=== PATIENT | female | born 1970 | race Caucasian/White ===

== ENCOUNTER 2017-10-03 20:37 | Emergency (ER) | payer OTHER, SELFPAY ==
[2017-10-03 20:44] VITALS: BP 135/74; PULSE 109; RESP 22; TEMP 38.4; O2SAT 97; BMI 69.0
--- NOTE | 2017-10-03 20:50 | DI.RAD.S_ITS ---
PROCEDURE: XR CHEST 2V INDICATIONS: fever, cough, shortness of breath. TECHNIQUE: 2 views of the chest were acquired. COMPARISON: None. FINDINGS: Surgical changes and devices: None. Lungs and pleura: No pleural effusions or pneumothorax. Lungs are clear. Mediastinum: Mediastinal contours are normal. Heart size is normal. Bones and chest wall: No suspicious bony abnormalities. Soft tissues appear unremarkable. IMPRESSION: No acute cardiopulmonary findings. Dictated by: Nicole Tesfaye M.D. on 10/03/2017 at 21:21 Approved by: Nicole Tesfaye M.D. on 10/03/2017 at 21:21
--- NOTE | 2017-10-03 21:22 | ED.SOB ---
HPI - SOB/Dyspnea General Chief Complaint: Shortness of Breath/Dyspnea Stated Complaint: FEVER,SOB,COUGH Time Seen by Provider: 10/03/17 20:50 Source: patient and family Mode of arrival: ambulatory Limitations: no limitations History of Present Illness 46-year-old female with history of morbid obesity, asthma, former smoking presents with a few days of increasing shortness of breath, cough productive of sputum and fever as high as 101 F. She denies chest pain nor nausea or vomiting. She has a history of pneumonia and states this feels the same. She denies any recent long distance travel or exposure to sick persons. Her last episode of pneumonia was a month or so ago. She had been treated with azithromycin by her primary care provider for the past few days which showed little to no improvement MD Complaint: shortness of breath and cough Onset (ago): day(s) Context: recent illness Severity: moderate Consistency/Duration: constant Relieving factors: rest and bronchodilators Exacerbating factors: movement and coughing Known history of: asthma Associated symptoms: fever, cough, wheezing and sputum production Treatment prior to arrival: bronchodilator Related Data Home oxygen amount: none Home Medications Medication Instructions Recorded Confirmed levothyroxine [Synthroid] 0.05 mg PO QDAY #0 07/11/11 08/25/17 albuterol sulfate [Proventil HFA] PRN #0 08/26/11 08/25/17 insulin NPH isoph U-100 human 90 u SQ BID #0 02/19/16 08/25/17 [Humulin N NPH U-100 Insulin] insulin lispro [Humalog U-100 20 unit SQ AC #0 02/19/16 08/25/17 Insulin] [CANNIBUS OIL] #0 08/09/16 08/25/17 amlodipine 10 mg PO QDAY #0 08/09/16 08/25/17 furosemide 80 mg PO QDAY #0 08/09/16 08/25/17 ibuprofen 800 mg PO TIDP PRN #0 08/09/16 08/25/17 metoprolol tartrate 100 mg PO BID #0 08/09/16 08/25/17 oxycodone 5 mg PO Q8H #0 08/09/16 08/25/17 oxycodone [OxyContin] 10 mg Q6HP PRN #0 01/09/17 08/25/17 beclomethasone dipropionate [Qvar] INH BID #0 02/23/17 08/25/17 Previous Rx's Medication Instructions Recorded oxycodone 5 mg PO Q4HP #20 02/23/17 azithromycin 250 mg tablet See Label Instructions PO .COMPLEX 08/25/17 #6 tab amoxicillin-pot clavulanate 1 tab PO BID #20 tab 10/03/17 [Augmentin] Allergies Allergy/AdvReac Type Severity Reaction Status Date / Time bee venom protein (honey bee) Allergy Severe Anaphylaxis Verified 08/25/17 18:02 clindamycin Allergy Severe RASH Unverified 05/18/17 13:10 zolpidem [From AMBIEN] Allergy Severe hallucinati Unverified 05/18/17 13:10 ons Sulfa (Sulfonamide Allergy Mild RASH, Unverified 05/18/17 13:10 Antibiotics) DIFFICULTY BREATHING vancomycin Allergy Mild HIGH FEVER Unverified 05/18/17 13:10 AND RASH Review of Systems Review of Systems All systems reviewed & are unremarkable except as noted in HPI and below Constitutional Denies chills, Reports fever(s), Denies lethargy and Denies weakness Eyes Denies change in vision, Denies eye discharge, Denies irritation and Denies loss of vision ENT Ears, Nose, Mouth, and Throat: Denies change in voice, Denies neck pain and Denies sore throat Cardiovascular Denies chest pain, Denies irregular heart rhythm, Denies lightheadedness, Denies palpitations, Reports dyspnea, Reports dyspnea on exertion and Denies orthopnea Respiratory Reports cough, Reports dyspnea, Reports dyspnea on exertion and Reports wheezing Gastrointestinal Gastrointestinal: Denies abdominal pain, Denies change in bowel habits, Denies diarrhea, Denies nausea and Denies vomiting Genitourinary Denies hematuria, Denies flank pain, Denies urinary incontinence and Denies urinary urgency Musculoskeletal Denies neck pain Integumentary/Breasts Denies pruritus, Denies erythema, Denies rash and Denies wounds Neurologic Denies confusion, Denies loss of vision and Denies weakness Psychiatric Denies anxiety, Denies confusion, Denies depression, Denies homicidal ideation and Denies suicidal ideation Endocrine Denies palpitations Hematologic/Lymphatic Denies easy bruising Allergic/Immunologic Reports wheezing PFSH Social History Smoking Status: Current every day smoker Exam Narrative Exam Narrative: 46-year-old female in obvious distress, increased work of breathing, tachypneic Initial Vital Signs Initial Vital Signs: Vital Signs Temperature 101.1 F H 10/03/17 20:44 Pulse Rate 109 H 10/03/17 20:44 Respiratory Rate 22 10/03/17 20:44 Blood Pressure 135/74 H 10/03/17 20:44 Pulse Oximetry 97 10/03/17 20:44 Const General: cooperative, well developed and acute distress Nutritional Appearance: obese Orientation: alert, awake, oriented x3 and not confused HENIN Head: normocephalic and atraumatic Ears: external ears normal and TM's normal bilaterally Nose: external nose normal and No nasal discharge Face and sinus: sinuses nontender, face symmetric, no sinus tenderness and No dry mucous membranes Mouth: oral mucosae normal and moist mucous membranes Teeth and gingiva: dentition normal Throat: tonsils normal and uvula midline Eyes General: appearance normal, both eyes and all related structures Eyelids: eyelids normal Conjunctivae: conjunctivae normal Sclera: sclerae normal Pupils: PERRL EOM: EOM intact bilaterally Chest Chest: normal inspection of the chest Resp Effort & Inspection: normal respiratory effort, able to speak in complete sentences, respiratory distress, tachypneic and uses accessory muscles Auscultation: rales, no rhonchi and wheezes Course Orders Ordered: ED Orders 10/03/17 20:50 XR chest 2V Stat 10/03/17 21:15 Complete Blood Count AUTO DIFF Stat Lactate (Lactic Acid) Stat Partial Thromboplastin Time Stat Procalcitonin Stat Prothrombin Time INR Stat 10/03/17 21:21 Blood Culture Stat Comprehensive Metabolic Panel Stat Lipase Stat Discontinued Medications Albuterol/Ipratropium (Duoneb) 3 ml INH NOW ONE Stop: 10/03/17 21:37 Last Admin: 10/03/17 22:17 Dose: 3 ml Sodium Chloride (Normal Saline 0.9%) 1,000 mls @ 1,000 mls/hr IV BOLUS ONE Stop: 10/03/17 21:48 Last Infusion: 10/03/17 23:41 Dose: 0 mls/hr Admin: 10/03/17 22:02 Dose: 1,000 mls/hr Ceftriaxone Sodium/Dextrose (Rocephin) 1 gm in 50 mls @ 100 mls/hr IV NOW ONE Stop: 10/03/17 22:05 Last Infusion: 10/03/17 23:41 Dose: 0 mls/hr Admin: 10/03/17 22:02 Dose: 100 mls/hr Sodium Chloride (Normal Saline 0.9%) 1,000 mls @ 1,000 mls/hr IV BOLUS ONE Stop: 10/03/17 22:35 Last Admin: 10/03/17 23:40 Dose: Not Given Ketorolac Tromethamine (Toradol) 15 mg IV NOW ONE Stop: 10/03/17 21:37 Last Admin: 10/03/17 22:02 Dose: 15 mg Reevaluation(s) Reevaluation #1: Patient feels much better after bronchodilators and other above-stated therapies CURB-65 Score for Pneumonia Severity from [facility] [employer] [facility] on 10/04/2017 All calculations should be rechecked by clinician prior to use RESULT SUMMARY: 0 points Low risk group: 0.6% 30-day mortality. Consider outpatient treatment. INPUTS: Confusion ?> 0 = No BUN > 19 mg/dL (> 7 mmol/L) ?> 0 = No Respiratory Rate ? 30 ?> 0 = No Systolic BP < 90 mmHg or Diastolic BP ? 60 mmHg ?> 0 = No Age ? 64 ?> 0 = No PSI/PORT Score: Pneumonia Severity Index for CAP from [facility] [employer] [facility] on 10/04/2017 All calculations should be rechecked by clinician prior to use RESULT SUMMARY: 37 points Risk Class I, 0.1% mortality. Outpatient treatment reasonable, barring other factors affecting care. INPUTS: Age ?> 46 years Sex ?> -10 = Female residential resident ?> 0 = No Neoplastic disease ?> 0 = No Liver disease history ?> 0 = No CHF history ?> 0 = No Cerebrovascular disease history ?> 0 = No Renal disease history ?> 0 = No Altered mental status ?> 0 = No Respiratory rate > 29 ?> 0 = No Systolic blood pressure < 90 mmHg ?> 0 = No Temperature < 35C (95F) or > 39.9C (103.8F) ?> 0 = No Pulse > 124 ?> 0 = No pH < 7.35 ?> 0 = No BUN > 29 ?> 0 = No Sodium < 130 ?> 0 = No Glucose > 249 (US) or > 13.8 (SI) ?> 0 = No Hematocrit < 30% ?> 0 = No Partial pressure of oxygen < 60 mmHg ?> 0 = No Pleural effusion on x-ray ?> 0 = No Vital Signs - 8 hr 10/03/17 20:44 10/03/17 22:22 10/03/17 22:40 Temperature 101.1 F H Pulse Rate 109 H 100 H 106 H Respiratory Rate 18 17 Blood Pressure 135/74 H Blood Pressure [Left Arm] 117/59 L Pulse Oximetry 97 96 97 10/03/17 23:01 10/04/17 00:03 Temperature Pulse Rate 105 H 84 Respiratory Rate 27 H 18 Blood Pressure 114/63 Blood Pressure [Left Arm] 108/65 Pulse Oximetry 95 98 MDM - SOB/Dyspnea Lab Data Result diagrams: 10/03/17 21:15 10/03/17 21:21 Lab Results 10/03/17 10/03/17 10/03/17 Range/Units 21:15 21:15 21:15 WBC 13.5 H (4.5-11.0) X10^3/uL RBC 4.67 (4.0-5.2) X10^6/uL Hgb 13.8 (12.0-16.0) g/dL Hct 40.1 (36-46) % MCV 85.8 (80-100) fL MCH 29.6 (26-34) PG MCHC 34.5 (30-36) % RDW 13.7 (11.6-14.8) % Plt Count 124 L (150-400) X10^3/uL Neut % (Auto) 91.0 H (50-75) % Lymph % (Auto) 4.6 L (25-40) % [place] % (Auto) 3.2 (3-14) % Eos % (Auto) 0.8 L (2-4) % Baso % (Auto) 0.4 (0-2) % Neut # (Auto) 48214 H (6260-8062) /uL PT 13.0 H (10.1-12.7) SECONDS INR 1.2 (0.9-1.3) APTT 30 (26.4-36.2) SECONDS Sodium (137-145) mmol/L Potassium (3.4-5.1) mmol/L Chloride (98-107) mmol/L Carbon Dioxide (22-32) mmol/L BUN (7-17) mg/dL Creatinine (0.52-1.04) mg/dL Estimated GFR (>60) mL/min BUN/Creatinine Ratio (6-22) Glucose (70-100) mg/dL Lactate (0.7-2.1) mmol/L Calcium (8.4-10.2) mg/dL Total Bilirubin (0.2-1.3) mg/dL AST (14-36) IU/L ALT (9-52) IU/L Alkaline Phosphatase (38-126) U/L Total Protein (6.3-8.2) g/dL Albumin (3.5-5.0) g/dL Globulin (1.7-4.1) g/dL Albumin/Globulin Ratio (1.0-2.8) Lipase (23-300) U/L Procalcitonin 0.42 (<0.5) ng/mL 10/03/17 10/03/17 Range/Units 21:15 21:21 WBC (4.5-11.0) X10^3/uL RBC (4.0-5.2) X10^6/uL Hgb (12.0-16.0) g/dL Hct (36-46) % MCV (80-100) fL MCH (26-34) PG MCHC (30-36) % RDW (11.6-14.8) % Plt Count (150-400) X10^3/uL Neut % (Auto) (50-75) % Lymph % (Auto) (25-40) % [place] % (Auto) (3-14) % Eos % (Auto) (2-4) % Baso % (Auto) (0-2) % Neut # (Auto) (7237-2963) /uL PT (10.1-12.7) SECONDS INR (0.9-1.3) APTT (26.4-36.2) SECONDS Sodium 139 (137-145) mmol/L Potassium 4.0 (3.4-5.1) mmol/L Chloride 104 (98-107) mmol/L Carbon Dioxide 23 (22-32) mmol/L BUN 15 (7-17) mg/dL Creatinine 0.70 (0.52-1.04) mg/dL Estimated GFR > 60.0 (>60) mL/min BUN/Creatinine Ratio 21.4 (6-22) Glucose 147 H (70-100) mg/dL Lactate 1.6 (0.7-2.1) mmol/L Calcium 9.4 (8.4-10.2) mg/dL Total Bilirubin 1.7 H (0.2-1.3) mg/dL AST 24 (14-36) IU/L ALT 24 (9-52) IU/L Alkaline Phosphatase 86 (38-126) U/L Total Protein 7.6 (6.3-8.2) g/dL Albumin 4.2 (3.5-5.0) g/dL Globulin 3.4 (1.7-4.1) g/dL Albumin/Globulin Ratio 1.2 (1.0-2.8) Lipase 30 (23-300) U/L Procalcitonin (<0.5) ng/mL MDM Narrative Medical decision making narrative: Patient with known asthma and history of smoking presents with symptoms consistent with pneumonia. Vital signs are stable and chest x-ray unremarkable. Labs note a mild bump in white blood cells which is expected. Patient improved clinically with typical therapies, had not been maximally treated as an outpatient, and has very low port score and curb 65 Discharge Plan Departure Patient Disposition: Home Clinical Impression: Pneumonia, Asthma exacerbation Discharge Date/Time: 10/04/17 00:03 Interventions: ED Discharge Assessment Last Done: 10/04/17 00:03 Instructions: DI for Pneumonia -- Adult Activity Restrictions/Additional Instructions: *You have been diagnosed with [ acute community-acquired pneumonia and asthma exacerbation ] *What to do: *Take medications as directed *Follow up with your primary care provider in 2-3 days, call for an appointment. Let them know you were seen in the Emergency Department and that we ask that you be seen in follow up *Return to ER if you should have any new, worsening or concerning symptoms, such as [ worsening shortness of breath, persistent vomiting, shaking chills, other bothersome symptoms] Prescriptions: New amoxicillin-pot clavulanate [Augmentin] 875-125 mg tablet 1 tab PO BID Qty: 20 RF: 0 No Action azithromycin 250 mg tablet See Label Instructions PO .COMPLEX Qty: 6 RF: 0 levothyroxine [Synthroid] 50 MCG tablet 0.05 mg PO QDAY Qty: 0 RF: 0 albuterol sulfate [Proventil HFA] 90 MCG/PUFF HFA aerosol inhaler PRN Qty: 0 RF: 0 insulin NPH isoph U-100 human [Humulin N NPH U-100 Insulin] 100 UNIT/1 ML suspension 90 u SQ BID Qty: 0 RF: 0 insulin lispro [Humalog U-100 Insulin] 100 UNIT/1 ML solution 20 unit SQ AC Qty: 0 RF: 0 furosemide 80 MG tablet 80 mg PO QDAY Qty: 0 RF: 0 ibuprofen 200 MG capsule 800 mg PO TIDP PRNQty: 0 RF: 0 oxycodone 5 MG tablet 5 mg PO Q8H Qty: 0 RF: 0 metoprolol tartrate 100 MG tablet 100 mg PO BID Qty: 0 RF: 0 amlodipine 10 MG tablet 10 mg PO QDAY Qty: 0 RF: 0 [CANNIBUS OIL] Qty: 0 RF: 0 oxycodone [OxyContin] 40 MG tablet,oral only,ext.rel.12 hr 10 mg Q6HP PRNQty: 0 RF: 0 beclomethasone dipropionate [Qvar] 80 mcg/actuation Aerosol INH BID Qty: 0 RF: 0 oxycodone 5 MG tablet 5 mg PO Q4HP Qty: 20 RF: 0 Referrals: [Primary Care Provider] -
[2017-10-03 21:29] LABS: Add Manual Diff / Slide Review NO; Basophils Percent Auto 0.4 % (0-2); Eosinophils Percent Auto 0.8 % (2-4); Hematocrit 40.1 % (36-46); Hemoglobin 13.8 g/dL (12.0-16.0); Lymphocytes Percent Auto 4.6 % (25-40); Mean Corpuscular HGB Conc 34.5 % (30-36); Mean Corpuscular Hemoglobin 29.6 PG (26-34); Mean Corpuscular Volume 85.8 fL (80-100); Monocytes Percent Auto 3.2 % (3-14); Neutrophils Absolute Auto 12200 /uL (3000-5900); Platelet Count 124 X10^3/uL (150-400); Red Blood Cell Count 4.67 X10^6/uL (4.0-5.2); Red Cell Distribution Width 13.7 % (11.6-14.8); White Blood Cell Count 13.5 X10^3/uL (4.5-11.0)
[2017-10-03 21:37] LABS: INR 1.2 (0.9-1.3)
[2017-10-03 21:39] LABS: PTT Partial Thromboplastin Tim 30 SECONDS (26.4-36.2)
[2017-10-03 21:40] LABS: Lactate (Lactic Acid) 1.6 mmol/L (0.7-2.1)
[2017-10-03 21:51] LABS: Alanine Aminotransferase 24 IU/L (9-52); Albumin 4.2 g/dL (3.5-5.0); Albumin Globulin Ratio 1.2 (1.0-2.8); Alkaline Phosphatase 86 U/L (38-126); Aspartate Aminotransferase 24 IU/L (14-36); BUN Creatinine Ratio 21.4 (6-22); Bilirubin Total 1.7 mg/dL (0.2-1.3); Blood Urea Nitrogen 15 mg/dL (7-17); Calcium 9.4 mg/dL (8.4-10.2); Carbon Dioxide 23 mmol/L (22-32); Chloride 104 mmol/L (98-107); Estimated Glomerular Filt Rate > 60.0 mL/min (>60); Globulin 3.4 g/dL (1.7-4.1); Glucose 147 mg/dL (70-100); HEMOLYSIS < 15 (0-50); Lipase 30 U/L (23-300); Sodium 139 mmol/L (137-145); Total Protein 7.6 g/dL (6.3-8.2)
[2017-10-03 22:00] LABS: Procalcitonin 0.42 ng/mL (<0.5)
[2017-10-03] MEDS: KETOROLAC 60 MG/2 ML VIAL 15 MG IV (22:02)
[2017-10-03] MEDS: CEFTRIAXONE 1 GM/50 ML FROZ.PIGGY IV (22:02)
[2017-10-03] MEDS: SODIUM CHLORIDE 0.9% 1,000 ML 1000 ML IV (22:02)
[2017-10-03] MEDS: ALBUTEROL/IPRATROPIUM 3 ML AMPUL INH (22:17)
[2017-10-03 22:22] VITALS: PULSE 100; RESP 18; O2SAT 96
[2017-10-03 22:40] VITALS: BP 117/59; PULSE 106; RESP 17; O2SAT 97
[2017-10-03 23:01] VITALS: BP 108/65; PULSE 105; RESP 27; O2SAT 95
--- NOTE | 2017-10-03 23:37 | PC.NURSE ---
cough, congestions, soa with exertion, worsening over several weeks, reports treated for pneumonia last month, other family members ill with similar sx, denies cp/dyspnea/vomiting/diarrhea/dysuria/trauma, speaking in full sentences, lung sounds diminished
[2017-10-04 00:03] VITALS: BP 114/63; PULSE 84; RESP 18; O2SAT 98
== END 2017-10-04 00:03 | disposition home or self-care (01) ==
PROVIDERS: Emergency Provider Emergency Medicine; Family Provider Physician Assistant
DX: J18.9 Pneumonia, unspecified organism (principal); J45.901 Unspecified asthma with (acute) exacerbation
CPT/HCPCS: 36415; 36591; 71046; 80053; 83605; 83690; 84145; 85025; 85610; 85730; 87040; 94640; 96361; 96374; 96375; 99283; 99284; J1885

== ENCOUNTER 2018-04-15 19:39 | Observation (INO) | payer OTHER, SELFPAY ==
--- NOTE | 2018-04-15 | DI.ECHO.S_ITS ---
[facility]---------+ [facility] +---------+ : : [address] [place] [address] : : : : [id number] : : : : Phone: [phone]+ Echocardiogram Report + + :Name: WHITNEY RITTER Study Date: 04/16/2018 Height: 64.5 in: :[facility] Weight: 425 lb : : Gender: Female BSA: 2.7 m2 : :: 1970 Age: 47 yrs BP: 142/76 mmHg: :Reason For Study: TIA : :Ordering Physician: Pro : :Hospitalist Performed By: Ezequiel Ramirez : :Referring: YAMILKA CALL : + + Interpretation Summary The study quality was technically difficult. The left ventricular ejection fraction is grossly normal. The right ventricle is not well visualized. The IVC is dilated (diameter is greater than 2.1 cm) and it collapses less than 50% with a sniff. This suggests a high right atrial pressure of 15 mm Hg. An agitated saline contast/bubble study was performed with and without valsalva. Unfortunately the image quality is too poor to make any conclusions. Consider LENNY. There is no prior echocardiogram noted for this patient. Procedure: A two-dimensional transthoracic echocardiogram with color flow and Doppler was performed. The study quality was technically difficult. A contrast injection of Definity was performed to improve assessment of LV function. A saline contrast injection was performed to assess for cardiac shunting. There is no prior echocardiogram noted for this patient. The patient was in normal sinus rhythm during the exam. Left Ventricle: Proximal septal thickening is noted. The left ventricle is not well visualized. Grossly normal size with probably increased LV wall thickness. The left ventricular ejection fraction is grossly normal. Regional wall motion abnormalities cannot be excluded due to limited visualization. Diastolic function could not be accurately assessed due to unobtainable data. Right Ventricle: The right ventricle is not well visualized. Atria: The left atrium is severely dilated. Right atrium not well visualized. An agitated saline contast/bubble study was performed with and without valsalva. Unfortunately the image quality is too poor to make any conclusions. Consider LENNY. Mitral Valve: The mitral valve is grossly normal. There is mild mitral annular calcification. There is mild mitral regurgitation. Aortic Valve: The aortic valve is not well visualized. There is no hemodynamically significant valvular aortic stenosis. There is trace aortic regurgitation. Tricuspid Valve: The tricuspid valve is not well visualized. Pulmonary artery pressures cannot be estimated because of the lack of a measurable TR jet velocity. Pulmonic Valve: The pulmonic valve is not well visualized. Great Vessels: The aortic root is normal size. The ascending aorta could not be visualized. The pulmonary is not well visualized. The IVC is dilated (diameter is greater than 2.1 cm) and it collapses less than 50% with a sniff. This suggests a high right atrial pressure of 15 mm Hg. Pericardium/ Pleura There is no pericardial effusion. There is no pleural effusion. MMode/2D Measurements & Calculations Ao Arch Diam (Prox Trans): 3.5 cm IVC diam: 3.0 cm Doppler Measurements & Calculations Ao V2 max: 188.9 cm/sec LVOT Max Fernando: 141.6 cm/sec Ao V2 mean: 130.0 cm/sec LV V1 max P.0 mmHg Ao max P.3 mmHg LV V1 VTI: 36.2 cm Ao mean P.5 mmHg sev ratio: 0.88 Ao V2 VTI: 41.1 cm MV E max fernando: 96.7 cm/sec MV A max fernando: 58.0 cm/sec MV E/A: 1.7 MV dec time: 0.23 sec Electronically signed by: Norris Zacarias M.D. on Reading Physician:04/16/2018 01:55 PM
[2018-04-15 19:45] VITALS: BP 117/46; PULSE 78; RESP 22; TEMP 36.5; O2SAT 96; BMI 71.8
--- NOTE | 2018-04-15 19:49 | DI.CT.S_ITS ---
PROCEDURE: CT HEAD/BRAIN WO CON INDICATIONS: numbness to face and arm, TPA candidate TECHNIQUE: Noncontrast 4.5 mm thick angled axial sections acquired from the foramen magnum to the vertex, with coronal and sagittal reformats. For radiation dose reduction, the following was used: automated exposure control, adjustment of mA and/or kV according to patient size. COMPARISON: [facility], CT, ABDOMEN/PELVIS WITH CONTRAST, 01/09/2017, 21:20. [facility], CT, KIDNEY/ URETER/BLADDER, 11/29/2012, 10:06. [facility], CT, ABD/PELVIS W/CON (PNL), 09/18/2010, 14:54. [facility], CT, HEAD WITHOUT CONTRAST, 08/13/2008, 16:09. FINDINGS: Image quality: Excellent. CSF spaces: Basal cisterns are patent. No extra-axial fluid collections. Ventricles are normal in size and shape. Brain: No midline shift. No intracranial masses or hemorrhage. Herrera-white matter interface is normal. There is ossification of the intracranial vasculature. There is a subcentimeter hypoattenuating focus within the right basal ganglia. Skull and face: Calvarium and visualized facial bones are intact, without suspicious lesions. Sinuses: Visualized sinuses and mastoids are clear. IMPRESSION: 1. No acute intracranial hemorrhage or large territorial infarct. 2. Subcentimeter hypoattenuating focus within the right basal ganglia, which may represent an age-indeterminate lacunar infarct (favor chronic) or dilated perivascular space. Findings discussed with the referring provider Dr. Luis Alfredo La by telephone by Dr. Sahni at approximately 2015 hrs. on 04/15/2018. Dictated by: Freddie Sahni M.D. on 04/15/2018 at 20:13 Approved by: Freddie Sanhi M.D. on 04/15/2018 at 20:21
--- NOTE | 2018-04-15 19:58 | ED.NEUROSD ---
HPI - Neuro Symptoms/Deficit General Chief Complaint: Neuro Symptoms/Deficit Stated Complaint: numbness in left side of face and arm Time Seen by Provider: 04/15/18 19:48 Source: patient and family Mode of arrival: ambulatory Limitations: no limitations History of Present Illness HPI Narrative: 47-year-old female daily smoker with history of morbid obesity, hypertension, and diabetes presents with 90 min left-sided facial numbness and left arm numbness. She denies any other neurologic symptoms such as blurred vision, trouble with speech or extremity weakness. She states it started suddenly 90 min ago. She denies any recent trauma or injury. She denies runny nose, sore throat or cough. She does states that numbness started almost immediately after she developed a metallic taste in her mouth and felt like something fell out from between some of her upper teeth. Onset (ago): minute(s) Time: 18:30 Timing confirmed by: family member Location: left face and left arm History of same: No Severity: mild Quality: tingling Relieving factors: none Exacerbating factors: none Context: sudden onset On Anticoagulants: No Associated symptoms: denies other symptoms Treatments Prior to Arrival: none Related Data Home Medications Medication Instructions Recorded Confirmed levothyroxine [Synthroid] 0.05 mg PO QDAY #0 07/11/11 08/25/17 Proventil HFA 2 INHALATION Q4HRWA #0 08/26/11 08/25/17 insulin NPH isoph U-100 human 90 u SQ BID #0 02/19/16 08/25/17 [Humulin N NPH U-100 Insulin] insulin lispro [Humalog U-100 20 unit SQ AC #0 02/19/16 08/25/17 Insulin] [CANNIBUS OIL] #0 08/09/16 08/25/17 amlodipine 10 mg PO QDAY #0 08/09/16 08/25/17 furosemide 80 mg PO QDAY #0 08/09/16 08/25/17 ibuprofen 800 mg PO TIDP PRN #0 08/09/16 08/25/17 metoprolol tartrate 100 mg PO BID #0 08/09/16 08/25/17 oxycodone 5 mg PO Q8H #0 08/09/16 08/25/17 oxycodone [OxyContin] 10 mg Q6HP PRN #0 01/09/17 08/25/17 beclomethasone dipropionate [Qvar] INH BID #0 02/23/17 08/25/17 Previous Rx's Medication Instructions Recorded oxycodone 5 mg PO Q4HP #20 02/23/17 azithromycin 250 mg tablet See Rx Instructions PO .COMPLEX #6 08/25/17 tab amoxicillin-pot clavulanate 1 tab PO BID #20 tab 10/03/17 [Augmentin] Allergies Allergy/AdvReac Type Severity Reaction Status Date / Time bee venom protein (honey bee) Allergy Severe Anaphylaxis Verified 08/25/17 18:02 clindamycin Allergy Severe RASH Unverified 05/18/17 13:10 zolpidem [From AMBIEN] Allergy Severe hallucinati Unverified 05/18/17 13:10 ons Sulfa (Sulfonamide Allergy Mild RASH, Unverified 05/18/17 13:10 Antibiotics) DIFFICULTY BREATHING vancomycin Allergy Mild HIGH FEVER Unverified 05/18/17 13:10 AND RASH Review of Systems Constitutional Denies chills, Denies fever(s), Denies lethargy and Denies weakness Eyes Denies change in vision, Denies eye discharge, Denies irritation and Denies loss of vision ENT Ears, Nose, Mouth, and Throat: Denies change in voice, Denies neck pain and Denies sore throat Cardiovascular Denies chest pain, Denies irregular heart rhythm, Denies lightheadedness, Denies palpitations, Denies dyspnea, Denies dyspnea on exertion and Denies orthopnea Respiratory Denies cough, Denies dyspnea, Denies dyspnea on exertion and Denies wheezing Gastrointestinal Gastrointestinal: Denies abdominal pain, Denies change in bowel habits, Denies diarrhea, Denies nausea and Denies vomiting Genitourinary Denies hematuria, Denies flank pain, Denies urinary incontinence and Denies urinary urgency Musculoskeletal Denies neck pain and Reports tingling Integumentary/Breasts Denies pruritus, Denies erythema, Denies rash and Denies wounds Neurologic Denies confusion, Denies loss of vision, Reports sensory deficit, Reports tingling and Denies weakness Psychiatric Denies anxiety, Denies confusion, Denies depression, Denies homicidal ideation and Denies suicidal ideation Endocrine Denies palpitations Hematologic/Lymphatic Denies easy bruising Allergic/Immunologic Denies wheezing [facility] Social History Smoking Status: Current every day smoker Social History household members: spouse and children Smoking Status: Former smoker alcohol intake: never Exam Narrative Exam Narrative: GENERAL: Morbidly obese 47-year-old female in no obvious or significant distress HEAD: Atraumatic. Normocephalic. No temporal or scalp tenderness. EYES: Pupils equal round and reactive. Extraocular motions intact. No scleral icterus. No injection or drainage. ENT: Nose without bleeding, purulent drainage or septal hematoma. Throat without erythema, tonsillar hypertrophy or exudate. Uvula midline. Airway patent. NECK: Trachea midline. No JVD or lymphadenopathy. Supple, nontender, no meningeal signs. CARDIOVASCULAR: Regular rate and rhythm without murmurs, gallops, or rubs. RESPIRATORY: Clear to auscultation. Breath sounds equal bilaterally. No wheezes, rales, or rhonchi. GASTROINTESTINAL: Abdomen soft, non-tender, nondistended. No hepato-splenomegaly, or palpable masses. No guarding. EXTREMITIES: No clubbing, cyanosis, erythema or pain BACK: Nontender without deformity or crepitance. No flank tenderness. NEURO: AOx3. SKIN: No rash or erythema. Initial Vital Signs Initial Vital Signs: Vital Signs Temperature 97.7 F 04/15/18 19:45 Pulse Rate 78 04/15/18 19:45 Respiratory Rate 22 04/15/18 19:45 Blood Pressure 117/46 L 04/15/18 19:45 Pulse Oximetry 96 04/15/18 19:45 Scores ABCD2 Age >= 60 years: no Initial BP. Either SBP >= 140 or DBP >= 90.: no Clinical features of the TIA: other symptoms Duration of symptoms: >= 60 minutes History of diabetes: yes ABCD2 Score: 3 Course Orders Ordered: ED Orders 04/15/18 19:49 CT head/brain wo con Stat Urine Drug Screen, Rapid Stat EKG-12 Lead Stat 04/15/18 20:40 Basic Metabolic Panel Stat Complete Blood Count AUTO DIFF Stat Partial Thromboplastin Time Stat Prothrombin Time INR Stat 04/15/18 22:56 Education, smoking cessation ONGOING 04/15/18 22:59 Consult to Dietitian, Adult Routine 04/15/18 23:00 Consult to Discharge Planning Routine Consult to Respiratory Therapy Evaluate & Treat 04/15/18 23:01 Consult to Speech Therapy Evaluate & Treat 04/15/18 23:39 Consult to Occupational Therapy Evaluate & Treat Consult to Physical Therapy Evaluate & Treat 04/16/18 Complete Blood Count AUTO DIFF Routine Comprehensive Metabolic Panel Routine Hemoglobin A1C % Routine Lipid Panel Routine Dextrose (D50w) 25 gm IV PRN PRN; Protocol PRN Reason: Hypoglycemia Enoxaparin Sodium (Lovenox) 40 mg SUBCUT DAILY [facility] Potassium Chloride 40 meq/ (Sodium Chloride) 520 mls @ 130 mls/hr IV NOW ONE Stop: 04/16/18 03:31 Insulin Aspart (Novolog Flexpen) 0 unit SUBCUT ACHS NATE; Protocol Last Admin: 04/16/18 00:18 Dose: Not Given Morphine Sulfate (Morphine) 2 mg IV Q4HR PRN PRN Reason: Pain, Moderate (4-6) Morphine Sulfate (Morphine) 4 mg IV Q4HR PRN PRN Reason: Pain, Severe (7-10) Ondansetron HCl (Zofran Odt) 4 mg PO Q8HR PRN PRN Reason: Nausea And Vomiting Ondansetron HCl (Zofran) 4 mg IV Q8HR PRN PRN Reason: Nausea And Vomiting Discontinued Medications Sodium Chloride (Normal Saline 0.9%) 1,000 mls @ 150 mls/hr IV CONT NATE Last Admin: 04/15/18 22:48 Dose: 150 mls/hr Infusion: 04/15/18 22:25 Dose: 0 mls/hr Admin: 04/15/18 20:46 Dose: 150 mls/hr Vital Signs - 8 hr 04/15/18 19:45 04/15/18 20:31 04/15/18 22:15 Temperature 97.7 F 97.7 F Pulse Rate 78 65 60 Respiratory Rate 22 19 24 Blood Pressure 117/46 L 141/72 H Blood Pressure [Left Arm] 115/38 L Pulse Oximetry 96 96 97 04/15/18 22:24 04/15/18 23:25 04/16/18 00:12 Temperature 97.2 F L Pulse Rate 60 65 Respiratory Rate 20 15 Blood Pressure 116/44 L 143/78 H Blood Pressure [Left Arm] Pulse Oximetry 100 97 97 MDM - Neuro Symptoms/Deficit Lab Data Result diagrams: 04/15/18 20:40 04/15/18 20:40 Lab Results 04/15/18 04/15/18 04/15/18 Range/Units 20:40 20:40 20:40 WBC 8.0 (4.5-11.0) X10^3/uL RBC 4.41 (4.0-5.2) X10^6/uL Hgb 13.0 (12.0-16.0) g/dL Hct 38.3 (36-46) % MCV 86.8 (80-100) fL MCH 29.5 (26-34) PG MCHC 34.0 (30-36) % RDW 14.5 (11.6-14.8) % Plt Count 150 (150-400) X10^3/uL Neut % (Auto) 79.5 H (50-75) % Lymph % (Auto) 12.8 L (25-40) % [place] % (Auto) 4.7 (3-14) % Eos % (Auto) 2.4 (2-4) % Baso % (Auto) 0.6 (0-2) % Neut # (Auto) 6300 (1046-7538) /uL Lymph # (Auto) 1000 L (0116-8525) /uL [place] # (Auto) 400 (0-900) /uL Eos # (Auto) 200 (0-450) /uL Baso # (Auto) 0 (0-100) /uL PT 13.5 H (10.1-12.7) SECONDS INR 1.2 (0.9-1.3) APTT 31 (26.4-36.2) SECONDS Sodium 138 (137-145) mmol/L Potassium 3.2 L (3.4-5.1) mmol/L Chloride 98 (98-107) mmol/L Carbon Dioxide 28 (22-32) mmol/L BUN 13 (7-17) mg/dL Creatinine 0.80 (0.52-1.04) mg/dL Estimated GFR > 60.0 (>60) mL/min BUN/Creatinine Ratio 16.3 (6-22) Glucose 195 H (70-100) mg/dL Calcium 8.8 (8.4-10.2) mg/dL Point of Care Testing Glucose POC [address] scan - head: Radiologist's impression: [address] [address] [address] Scan Report Signed Patient: Kristine Orourke JMR#: [id number] : 1970Acct:[id number] Age/Sex: 47 / FDate of Service: 04/15/18 Loc: ED Accession Number: [id number] Procedure: CT head/brain wo con Ordering Provider: Luis Alfredo La D.O. PROCEDURE: CT HEAD/BRAIN WO CON INDICATIONS: numbness to face and arm, TPA candidate TECHNIQUE: Noncontrast 4.5 mm thick angled axial sections acquired from the foramen magnum to the vertex, with coronal and sagittal reformats. For radiation dose reduction, the following was used: automated exposure control, adjustment of mA and/or kV according to patient size. COMPARISON: [facility], CT, ABDOMEN/PELVIS WITH CONTRAST, 01/09/2017, 21:20. [facility], CT, KIDNEY/ URETER/BLADDER, 11/29/2012, 10:06. [facility], CT, ABD/PELVIS W/CON (PNL), 09/18/2010, 14:54. [facility], CT, HEAD WITHOUT CONTRAST, 08/13/2008, 16:09. FINDINGS: Image quality: Excellent. CSF spaces: Basal cisterns are patent. No extra-axial fluid collections. Ventricles are normal in size and shape. Brain: No midline shift. No intracranial masses or hemorrhage. Herrera-white matter interface is normal. There is ossification of the intracranial vasculature. There is a subcentimeter hypoattenuating focus within the right basal ganglia. Skull and face: Calvarium and visualized facial bones are intact, without suspicious lesions. Sinuses: Visualized sinuses and mastoids are clear. IMPRESSION: 1. No acute intracranial hemorrhage or large territorial infarct. 2. Subcentimeter hypoattenuating focus within the right basal ganglia, which may represent an age-indeterminate lacunar infarct (favor chronic) or dilated perivascular space. Findings discussed with the referring provider Dr. Luis Alfredo La by telephone by Dr. Sahni at approximately 2015 hrs. on 04/15/2018. Dictated by: Freddie Sahni M.D. on 04/15/2018 at 20:13 Approved by: Freddie Sahni M.D. on 04/15/2018 at 20:21 [facility] Narrative Medical decision making narrative: 47-year-old female, morbidly obese with history of hypertension diabetes presents with 90 min left-sided facial numbness and tingling as well as left upper extremity. Her ABCD2 score is 3, she has evidence of prior stroke on head CT. She has improvement of symptoms but still some lingering facial tingling. She will require further evaluation and observation in the hospital Discharge Plan Departure Patient Disposition: Admitted as Observation Clinical Impression: Transient cerebral ischemia Qualifiers: Transient cerebral ischemia type: other Qualified Code(s): G45.8 - Other transient cerebral ischemic attacks and related syndromes Discharge Date/Time: 04/15/18 22:25 Interventions: ED Discharge Assessment Last Done: 04/15/18 22:24 Admit Date/Time: 04/15/18 21:35 Admit Provider: Jens Desai
--- NOTE | 2018-04-15 20:01 | ED_ITS ---
HPI - Neuro Symptoms/Deficit General Chief Complaint: Neuro Symptoms/Deficit Stated Complaint: numbness in left side of face and arm Time Seen by Provider: 04/15/18 19:48 Source: patient and family Mode of arrival: ambulatory Limitations: no limitations History of Present Illness HPI Narrative: 47-year-old female daily smoker with history of morbid obesity, hypertension, and diabetes presents with 90 min left-sided facial numbness and left arm numbness. She denies any other neurologic symptoms such as blurred v ision, trouble with speech or extremity weakness. She states it started suddenly 90 min ago. She denies any recent trauma or injury. She denies runny nose, sore throat or cough. She does states that numbness started almost immediately after she developed a metallic taste in her mouth and felt like something fell out from between some of her upper teeth. Onset (ago): minute(s) Time: 18:30 Timing confirmed by: family member Location: left face and left arm History of same: No Severity: mild Quality: tingling Relieving factors: none Exacerbating factors: none Context: sudden onset On Anticoagulants: No Associated symptoms: denies other symptoms Treatments Prior to Arrival: none Related Data Home Medications Medication Instructions Recorded Confirmed levothyroxine [Synthroid] 0.05 mg PO QDAY #0 07/11/11 08/25/17 Proventil HFA 2 INHALATION Q4HRWA #0 08/26/11 08/25/17 insulin NPH isoph U-100 human 90 u SQ BID #0 02/19/16 08/25/17 [Humulin N NPH U-100 Insulin] insulin lispro [Humalog U-100 20 unit SQ AC #0 02/19/16 08/25/17 Insulin] [CANNIBUS OIL] #0 08/09/16 08/25/17 amlodipine 10 mg PO QDAY #0 08/09/16 08/25/17 furosemide 80 mg PO QDAY #0 08/09/16 08/25/17 ibuprofen 800 mg PO TIDP PRN #0 08/09/16 08/25/17 metoprolol tartrate 100 mg PO BID #0 08/09/16 08/25/17 oxycodone 5 mg PO Q8H #0 08/09/16 08/25/17 oxycodone [OxyContin] 10 mg Q6HP PRN #0 01/09/17 08/25/17 beclomethasone dipropionate [Qvar] INH BID #0 02/23/17 08/25/17 Previous Rx's Medication Instructions Recorded oxycodone 5 mg PO Q4HP #20 02/23/17 azithromycin 250 mg tablet See Rx Instructions PO .COMPLEX #6 08/25/17 tab amoxicillin-pot clavulanate 1 tab PO BID #20 tab 10/03/17 [Augmentin] Allergies Allergy/AdvReac Type Severity Reaction Status Date / Time bee venom protein (honey bee) Allergy Severe Anaphylaxis Verified 08/25/17 18:02 clindamycin Allergy Severe RASH Unverified 05/18/17 13:10 zolpidem [From AMBIEN] Allergy Severe hallucinati Unverified 05/18/17 13:10 ons Sulfa (Sulfonamide Allergy Mild RASH, Unverified 05/18/17 13:10 Antibiotics) DIFFICULTY BREATHING vancomycin Allergy Mild HIGH FEVER Unverified 05/18/17 13:10 AND RASH Review of Systems Constitutional Denies chills, Denies fever(s), Denies lethargy and Denies weakness Eyes Denies change in vision, Denies eye discharge, Denies irritation and Denies loss of vision ENT Ears, Nose, Mouth, and Throat: Denies change in voice, Denies neck pain and Denies sore throat Cardiovascular Denies chest pain, Denies irregular heart rhythm, Denies lightheadedness, Denies palpitations, Denies dyspnea, Denies dyspnea on exertion and Denies orthopnea Respiratory Denies cough, Denies dyspnea, Denies dyspnea on exertion and Denies wheezing Gastrointestinal Gastrointestinal: Denies abdominal pain, Denies change in bowel habits, Denies diarrhea, Denies nausea and Denies vomiting Genitourinary Denies hematuria, Denies flank pain, Denies urinary incontinence and Denies urinary urgency Musculoskeletal Denies neck pain and Reports tingling Integumentary/Breasts Denies pruritus, Denies erythema, Denies rash and Denies wounds Neurologic Denies confusion, Denies loss of vision, Reports sensory deficit, Reports tingling and Denies weakness Psychiatric Denies anxiety, Denies confusion, Denies depression, Denies homicidal ideation and Denies suicidal ideation Endocrine Denies palpitations Hematologic/Lymphatic Denies easy bruising Allergic/Immunologic Denies wheezing [facility] Social History Smoking Status: Current every day smoker Social History household members: spouse and children Smoking Status: Former smoker alcohol intake: never Exam Narrative Exam Narrative: GENERAL: Morbidly obese 47-year-old female in no obvious or significant distress HEAD: Atraumatic. Normocephalic. No temporal or scalp tenderness. EYES: Pupils equal round and reactive. Extraocular motions intact. No scleral icterus. No injection or drainage. ENT: Nose without bleeding, purulent drainage or septal hematoma. Throat without erythema, tonsillar hypertrophy or exudate. Uvula midline. Airway patent. NECK: Trachea midline. No JVD or lymphadenopathy. Supple, nontender, no meningeal signs. CARDIOVASCULAR: Regular rate and rhythm without murmurs, gallops, or rubs. RESPIRATORY: Clear to auscultation. Breath sounds equal bilaterally. No wheezes, rales, or rhonchi. GASTROINTESTINAL: Abdomen soft, non-tender, nondistended. No hepato- splenomegaly, or palpable masses. No guarding. EXTREMITIES: No clubbing, cyanosis, erythema or pain BACK: Nontender without deformity or crepitance. No flank tenderness. NEURO: AOx3. SKIN: No rash or erythema. Initial Vital Signs Initial Vital Signs: Vital Signs Temperature 97.7 F 04/15/18 19:45 Pulse Rate 78 04/15/18 19:45 Respiratory Rate 22 04/15/18 19:45 Blood Pressure 117/46 L 04/15/18 19:45 Pulse Oximetry 96 04/15/18 19:45 Scores ABCD2 Age >= 60 years: no Initial BP. Either SBP >= 140 or DBP >= 90.: no Clinical features of the TIA: other symptoms Duration of symptoms: >= 60 minutes History of diabetes: yes ABCD2 Score: 3 Course Orders Ordered: ED Orders 04/15/18 19:49 CT head/brain wo con Stat Urine Drug Screen, Rapid Stat EKG-12 Lead Stat 04/15/18 20:40 Basic Metabolic Panel Stat Complete Blood Count AUTO DIFF Stat Partial Thromboplastin Time Stat Prothrombin Time INR Stat 04/15/18 22:56 Education, smoking cessation ONGOING 04/15/18 22:59 Consult to Dietitian, Adult Routine 04/15/18 23:00 Consult to Discharge Planning Routine Consult to Respiratory Therapy Evaluate & Treat 04/15/18 23:01 Consult to Speech Therapy Evaluate & Treat 04/15/18 23:39 Consult to Occupational Therapy Evaluate & Treat Consult to Physical Therapy Evaluate & Treat 04/16/18 Complete Blood Count AUTO DIFF Routine Comprehensive Metabolic Panel Routine Hemoglobin A1C % Routine Lipid Panel Routine Dextrose (D50w) 25 gm IV PRN PRN; Protocol PRN Reason: Hypoglycemia Enoxaparin Sodium (Lovenox) 40 mg SUBCUT DAILY [facility] Potassium Chloride 40 meq/ (Sodium Chloride) 520 mls @ 130 mls/hr IV NOW ONE Stop: 04/16/18 03:31 Insulin Aspart (Novolog Flexpen) 0 unit SUBCUT ACHS NATE; Protocol Last Admin: 04/16/18 00:18 Dose: Not Given Morphine Sulfate (Morphine) 2 mg IV Q4HR PRN PRN Reason: Pain, Moderate (4-6) Morphine Sulfate (Morphine) 4 mg IV Q4HR PRN PRN Reason: Pain, Severe (7-10) Ondansetron HCl (Zofran Odt) 4 mg PO Q8HR PRN PRN Reason: Nausea And Vomiting Ondansetron HCl (Zofran) 4 mg IV Q8HR PRN PRN Reason: Nausea And Vomiting Discontinued Medications Sodium Chloride (Normal Saline 0.9%) 1,000 mls @ 150 mls/hr IV CONT NATE Last Admin: 04/15/18 22:48 Dose: 150 mls/hr Infusion: 04/15/18 22:25 Dose: 0 mls/hr Admin: 04/15/18 20:46 Dose: 150 mls/hr Vital Signs - 8 hr 04/15/18 19:45 04/15/18 20:31 04/15/18 22:15 Temperature 97.7 F 97.7 F Pulse Rate 78 65 60 Respiratory Rate 22 19 24 Blood Pressure 117/46 L 141/72 H Blood Pressure [Left Arm] 115/38 L Pulse Oximetry 96 96 97 04/15/18 22:24 04/15/18 23:25 04/16/18 00:12 Temperature 97.2 F L Pulse Rate 60 65 Respiratory Rate 20 15 Blood Pressure 116/44 L 143/78 H Blood Pressure [Left Arm] Pulse Oximetry 100 97 97 MDM - Neuro Symptoms/Deficit Lab Data Result diagrams: 04/15/18 20:40 04/15/18 20:40 Lab Results 04/15/18 04/15/18 04/15/18 Range/Units 20:40 20:40 20:40 WBC 8.0 (4.5-11.0) X10^3/uL RBC 4.41 (4.0-5.2) X10^6/uL Hgb 13.0 (12.0-16.0) g/dL Hct 38.3 (36-46) % MCV 86.8 (80-100) fL MCH 29.5 (26-34) PG MCHC 34.0 (30-36) % RDW 14.5 (11.6-14.8) % Plt Count 150 (150-400) X10^3/uL Neut % (Auto) 79.5 H (50-75) % Lymph % (Auto) 12.8 L (25-40) % [place] % (Auto) 4.7 (3-14) % Eos % (Auto) 2.4 (2-4) % Baso % (Auto) 0.6 (0-2) % Neut # (Auto) 6300 (8574-1717) /uL Lymph # (Auto) 1000 L (0504-0417) /uL [place] # (Auto) 400 (0-900) /uL Eos # (Auto) 200 (0-450) /uL Baso # (Auto) 0 (0-100) /uL PT 13.5 H (10.1-12.7) SECONDS INR 1.2 (0.9-1.3) APTT 31 (26.4-36.2) SECONDS Sodium 138 (137-145) mmol/L Potassium 3.2 L (3.4-5.1) mmol/L Chloride 98 (98-107) mmol/L Carbon Dioxide 28 (22-32) mmol/L BUN 13 (7-17) mg/dL Creatinine 0.80 (0.52-1.04) mg/dL Estimated GFR > 60.0 (>60) mL/min BUN/Creatinine Ratio 16.3 (6-22) Glucose 195 H (70-100) mg/dL Calcium 8.8 (8.4-10.2) mg/dL Point of Care Testing Glucose POC [address] scan - head: Radiologist's impression: [address] [address] [address] Scan Report Signed Patient: Kristine Orourke JMR#: [id number] : 1970Acct:[id number] Age/Sex: 47 / FDate of Service: 04/15/18 Loc: ED Accession Number: [id number] Procedure: CT head/brain wo con Ordering Provider: Luis Alfredo La D.O. PROCEDURE: CT HEAD/BRAIN WO CON INDICATIONS: numbness to face and arm, TPA candidate TECHNIQUE: Noncontrast 4.5 mm thick angled axial sections acquired from the foramen magnum to the vertex, with coronal and sagittal reformats. For radiation dose reduction, the following was used: automated exposure control, adjustment of mA and/or kV according to patient size. COMPARISON: [facility], CT, ABDOMEN/PELVIS WITH CONTRAST, 01/09/2017, 21:20. [facility], CT, KIDNEY/ URETER/BLADDER, 11/29/2012, 10:06. [facility], CT, ABD/PELVIS W/CON (PNL), 09/18/2010, 14:54. [facility], CT, HEAD WITHOUT CONTRAST, 08/13/2008, 16:09. FINDINGS: Image quality: Excellent. CSF spaces: Basal cisterns are patent. No extra-axial fluid collections. Ventricles are normal in size and shape. Brain: No midline shift. No intracranial masses or hemorrhage. Herrera-white matter interface is normal. There is ossification of the intracranial vasculature. There is a subcentimeter hypoattenuating focus within the right basal ganglia. Skull and face: Calvarium and visualized facial bones are intact, without suspicious lesions. Sinuses: Visualized sinuses and mastoids are clear. IMPRESSION: 1. No acute intracranial hemorrhage or large territorial infarct. 2. Subcentimeter hypoattenuating focus within the right basal ganglia, which may represent an age-indeterminate lacunar infarct (favor chronic) or dilated perivascular space. Findings discussed with the referring provider Dr. Luis Alfredo La by telephone by Dr. Sahni at approximately 2015 hrs. on 04/15/2018. Dictated by: Freddie Sahni M.D. on 04/15/2018 at 20:13 Approved by: Freddie Sahni M.D. on 04/15/2018 at 20:21 [facility] Narrative Medical decision making narrative: 47-year-old female, morbidly obese with his tory of hypertension diabetes presents with 90 min left-sided facial numbness and tingling as well as left upper extremity. Her ABCD2 score is 3, she has evidence of prior stroke on head CT. She has improvement of symptoms but still some lingering facial tingling. She will require further evaluation and observation in the hospital Discharge Plan Departure Patient Disposition: Admitted as Observation Clinical Impression: Transient cerebral ischemia Qualifiers: Transient cerebral ischemia type: other Qualified Code(s): G45.8 - Other tra nsient cerebral ischemic attacks and related syndromes Discharge Date/Time: 04/15/18 22:25 Interventions: ED Discharge Assessment Last Done: 04/15/18 22:24 Admit Date/Time: 04/15/18 21:35 Admit Provider: Jens Desai
[2018-04-15 20:31] VITALS: BP 115/38; PULSE 65; RESP 19; O2SAT 96
[2018-04-15] MEDS: SODIUM CHLORIDE 0.9% 1,000 ML 150 ML IV ×2 (20:46→22:48)
[2018-04-15 20:50] LABS: Add Manual Diff / Slide Review NO; Basophils Absolute Auto 0 /uL (0-100); Basophils Percent Auto 0.6 % (0-2); Eosinophils Absolute Auto 200 /uL (0-450); Eosinophils Percent Auto 2.4 % (2-4); Hematocrit 38.3 % (36-46); Lymphocytes Absolute Auto 1000 /uL (1100-4500); Lymphocytes Percent Auto 12.8 % (25-40); Mean Corpuscular Hemoglobin 29.5 PG (26-34); Mean Corpuscular Volume 86.8 fL (80-100); Monocytes Absolute Auto 400 /uL (0-900); Monocytes Percent Auto 4.7 % (3-14); Neutrophils Absolute Auto 6300 /uL (1500-7000); Neutrophils Percent Auto 79.5 % (50-75); Platelet Count 150 X10^3/uL (150-400); Red Blood Cell Count 4.41 X10^6/uL (4.0-5.2); Red Cell Distribution Width 14.5 % (11.6-14.8)
[2018-04-15 20:54] LABS: INR 1.2 (0.9-1.3); Prothrombin Time 13.5 SECONDS (10.1-12.7)
[2018-04-15 20:57] LABS: PTT Partial Thromboplastin Tim 31 SECONDS (26.4-36.2)
[2018-04-15 20:59] LABS: BUN Creatinine Ratio 16.3 (6-22); Blood Urea Nitrogen 13 mg/dL (7-17); Calcium 8.8 mg/dL (8.4-10.2); Carbon Dioxide 28 mmol/L (22-32); Chloride 98 mmol/L (98-107); Estimated Glomerular Filt Rate > 60.0 mL/min (>60); Glucose 195 mg/dL (70-100); HEMOLYSIS < 15 (0-50); Potassium 3.2 mmol/L (3.4-5.1); Sodium 138 mmol/L (137-145)
[2018-04-15 22:15] VITALS: BP 141/72; PULSE 60; RESP 24; TEMP 36.5; O2SAT 97
[2018-04-15 22:18] VITALS: BMI 71.8
[2018-04-15 22:24] VITALS: BP 116/44; PULSE 60; RESP 20; O2SAT 100
--- NOTE | 2018-04-15 22:45 | P.HP_ITS ---
History of Present Illness Date Patient Seen: 04/16/18 Time Patient Seen: 00:15 Chief complaint: numbness in left side of face and arm Narrative: This is a 39-year-old female patient with a history of prior CVA, insulin dependent diabetes type 2, hypertension, psoriasis, asthma, hypothy roidism, Dercom's syndrome and morbid obesity class 3 presents to the ER today with complaints of left facial and left arm numbness. She describes these symptoms has the same symptoms she experienced with her prior CVA however just prior to the development numbness and tingling the patient experienced a strong metallic taste in her mouth. The patient carries multiple risk factors including hypertension diabetes and morbid obesity. While in the ER the patient states her symptoms had began to lessen. The patient states that at the onset limbs tingly and encompassed the whole left side of her face and she felt she had blurry vision in the left eye. At the time encounter patient describes residual numbness of the cheek and corner of the mouth. She reports no antecedent events including falls, trauma or illness. She reports no headache today did have headache few days ago and appears not to be related. Does have a history of vertigo for which she takes meclizine. the patient is currently taking 80 mg Lasix daily for leg swelling and reports taking an extra dose today. She denies difficulty chewing or swallowing, chest pain or palpitations, shortness of breath cough or wheezing. Denies abdominal pain, heartburn nausea or vomiting. She does has chronic constipation related to heavy opiate use for chronic pain secondary to Dercom's syndrome for which she takes MiraLax patient arrived in the ER at 7:45 p.m.. At the time she was afebrile at 97.7, heart rate of 78, blood pressure of 117/46 and respiratory rate of 22 and 96% on room air. At the time of arrival her ABCD2 score was 3 and NIH score was 1. on 12 lead EKG demonstrated sinus rhythm with ventricular rate of 66. also reveals an old septal ND with no current ST T wave changes or ectopy. On lab work the patient has a normal white count of 8.0, hemoglobin and hematocrit of 13 and 38.3 respectively with platelets of 150. She does have increased neutrophil count. Her PT is elevated at 13.5 with an INR 1.2. As mentioned previously the patient took an extra dose of Lasix and on chemistry has a finding of hypokalemia at 3.2 that is treated with 40 mEq of potassium. Remainder of the chemistry panels within normal limits save a nonfasting glucose 195. Patient History Medical History Asthma (Acute) Dercum's disease (Acute) Hypertension (Acute) Hypothyroidism (Acute) Insulin dependent type 2 diabetes mellitus (Acute) Morbid obesity with body mass index (BMI) greater than or equal to 70 in adult (Acute) Psoriasis (Acute) Social History household members: spouse and children Smoking Status: Former smoker alcohol intake: never Family & Social History Social History: household members spouse,children Prior Living Arrangements House Safety & Behavioral: Feels Safe in Current Yes Environment Been Physically Hurt or No Threatened By a Person Suicidal Ideation Description None Suicide Plan Description No Plan Tobacco & Substance use: Smoking Status Former smoker alcohol intake never Substance Use Type does not use Comment: the patient lives with her spouse and children in a single family home. 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 Advanced directives: Patient wishes to be a full code and designates her to be surrogate decision maker Meds Home Medications Medication Instructions Recorded Confirmed Type levothyroxine [Synthroid] 50 mcg PO QDAY #0 07/11/11 04/16/18 History Proventil HFA 2 dose INHALATION Q4HRWA #0 08/26/11 04/16/18 History Humulin N NPH U-100 Insulin 80 u SQ BID #0 02/19/16 04/16/18 History amlodipine 5 mg PO BID #0 08/09/16 04/16/18 History furosemide 80 mg PO QDAY #0 08/09/16 04/16/18 History ibuprofen 600 mg PO TIDP PRN #0 08/09/16 04/16/18 History metoprolol tartrate 100 mg PO BID #0 08/09/16 04/16/18 History oxycodone 10 mg PO Q6H PRN #0 08/09/16 04/16/18 History oxycodone [OxyContin] 10 mg PO Q12H #0 01/09/17 04/16/18 History levofloxacin 500 mg PO DAILY 04/16/18 04/16/18 History meclizine 25 mg PO BID PRN MDD 50 04/16/18 04/16/18 History Allergies Allergy/AdvReac Type Severity Reaction Status Date / Time bee venom protein (honey bee) Allergy Severe Anaphylaxis Verified 08/25/17 18:02 clindamycin Allergy Severe RASH Verified 04/16/18 01:00 zolpidem [From AMBIEN] Allergy Severe hallucinati Verified 04/16/18 01:00 ons Sulfa (Sulfonamide Allergy Mild RASH, Verified 04/16/18 01:00 Antibiotics) DIFFICULTY BREATHING vancomycin Allergy Mild HIGH FEVER Verified 04/16/18 01:00 AND RASH Review of Systems Review of Systems All systems reviewed & are unremarkable except as noted in HPI and below Exam Vital Signs (past 8 hours): - 04/15/18 19:45 04/15/18 20:31 04/15/18 22:15 Temperature 97.7 F 97.7 F Pulse Rate 78 65 60 Respiratory Rate 22 19 24 Blood Pressure 117/46 L 141/72 H Blood Pressure [Left Arm] 115/38 L Pulse Oximetry 96 96 97 04/15/18 22:24 Temperature Pulse Rate 60 Respiratory Rate 20 Blood Pressure 116/44 L Blood Pressure [Left Arm] Pulse Oximetry 100 Oxygen Delivery Method Room Air Narrative Exam Narrative: General: Well developed, morbidly obese female with BMI 71.8, who is afebrile and denies acute pain and in no acute distress. Skin: Warm, dry, pink, no rashes, patient with multiple psoriatic lesions on her trunk and extremities, multiple, painful fatty lipomas HEENT: Left residual facial droop with asymmetrical grimace, PERRLA, visual art intact by confrontation, EOMs intact without nystagmus, conjunctiva moist, sclera is anicteric, no ptosis, hearing grossly normal, no rhinorrhea, oropharynx is dry and pink without lesions or exudate, posterior pharynx without inflammation, no cervical lymphadenopathy Neck: Supple, trachea midline, unable to asses carotids or JVD related body habitus Cardiac: Regular rate and rhythm, S1-S2, no murmur appreciated, no gallops or rubs, 2+ radial pulse, 1+ dorsalis pedis pulse, capillary refill is brisk, edema bilateral lower ext. Chest: Symmetrical movement, breathing non labored, no cough present, BS equal b ilateral without coarseness, crackles or wheezes Abdomen: Soft, no tenderness or guarding, no masses or organomegaly, BS normal. Back: Normal curvature, no tenderness to palpation, no CVA tenderness on percussion Extremities: decreased ROM, no synovial effusions or deformities, strength 5/5 and symmetrical, induration/lesions bilateral lower extremites. Neuro: AAOx4, Residual alteration in sensation and motor left lower face otherwise cranial nerves II-XII grossly intact, distal sensation intact to light touch, no paresthesias Psych: pleasant, thought coherent, stable mood and congruent affect Objective Labs Result Diagrams: 04/15/18 20:40 04/15/18 20:40 Labs: Laboratory Results - last 24 hr 04/15/18 04/15/18 04/15/18 20:40 20:40 20:40 WBC 8.0 RBC 4.41 Hgb 13.0 Hct 38.3 MCV 86.8 MCH 29.5 MCHC 34.0 RDW 14.5 Plt Count 150 Neut % (Auto) 79.5 H Lymph % (Auto) 12.8 L Smith % (Auto) 4.7 Eos % (Auto) 2.4 Baso % (Auto) 0.6 Neut # (Auto) 6300 Lymph # (Auto) 1000 L Smith # (Auto) 400 Eos # (Auto) 200 Baso # (Auto) 0 PT 13.5 H INR 1.2 APTT 31 Sodium 138 Potassium 3.2 L Chloride 98 Carbon Dioxide 28 BUN 13 Creatinine 0.80 Estimated GFR > 60.0 BUN/Creatinine Ratio 16.3 Glucose 195 H Calcium 8.8 Patient: Kristine Orourke R#: [id number] : 1970Acct:[id number] Age/Sex: 47 / FDate of Service: 04/15/18 Loc: ED Accession Number: [id number] Procedure: CT head/brain wo con Ordering Provider: Luis Alfredo La D.O. PROCEDURE: CT HEAD/BRAIN WO CON INDICATIONS: numbness to face and arm, TPA candidate TECHNIQUE: Noncontrast 4.5 mm thick angled axial sections acquired from the foramen magnum to the vertex, with coronal and sagittal reformats. For radiation dose reduction, the following was used: automated exposure control, adjustment of mA and/or kV according to patient size. COMPARISON: [facility], CT, ABDOMEN/PELVIS WITH CONTRAST, 01/09/2017, 21:20. [facility], CT, KIDNEY/ URETER/BLADDER, 11/29/2012, 10:06. [facility], CT, ABD/PELVIS W/CON (PNL), 09/18/2010, 14:54. [facility], CT, HEAD WITHOUT CONTRAST, 08/13/2008, 16:09. FINDINGS: Image quality: Excellent. CSF spaces: Basal cisterns are patent. No extra-axial fluid collections. Ventricles are normal in size and shape. Brain: No midline shift. No intracranial masses or hemorrhage. Herrera-white matter interface is normal. There is ossification of the intracranial vasculature. There is a subcentimeter hypoattenuating focus within the right basal ganglia. Skull and face: Calvarium and visualized facial bones are intact, without suspicious lesions. Sinuses: Visualized sinuses and mastoids are clear. IMPRESSION: 1. No acute intracranial hemorrhage or large territorial infarct. 2. Subcentimeter hypoattenuating focus within the right basal ganglia, which may represent an age-indeterminate lacunar infarct (favor chronic) or dilated perivascular space. Findings discussed with the referring provider Dr. Luis Alfredo La by telephone by Dr. Sahni at approximately 2015 hrs. on 04/15/2018. Dictated by: Freddie Sahni M.D. on 04/15/2018 at 20:13 Approved by: Freddie Sahni M.D. on 04/15/2018 at 20:21 Assessment & Plan Assessment & Plan narrative: patient is admitted to the hospital for evaluation and neuro monitoring secondary to TIA and previous CVA 1. transitory ischemic attack, acute - the patient's symptoms began approximately 6:30 p.m. while in the ER symptoms were improving. - On CT scan and old infarct in the right basal ganglia was identified and the patient reports being treated at [facility] at that time. - Symptoms initially on presentation over the left side of the face have resolved to left cheek and corner of the mouth. - Continue an NIH monitoring due to prior history - patient will undergo an MR stroke protocol in the morning - echocardiogram is also ordered - speech swallow eval is requested - the patient has an elevated INR 1.2, with Lovenox 40 mg for DVT prophylaxis. 2. insulin-dependent Diabetes type 2, chronic - patient is on high-dose regimen with NPH and Humalog 20 units coverage with meals. - At this time will initiate sliding scale insulin every 6 hr until eating with coverage on the high dose insulin protocol - will check hemoglobin A1c for efficacy of control. 3. hypertension, chronic hypertension at this time is adequately controlled with amlodipine and metoprolol that will be continued 4. morbid obesity, class 3 with BMI greater than 70, chronic - extensive discussion regarding lifestyle and impact of body habitus on life span - dietitian consult requested 5. hypothyroidism, chronic, presumed stable - will continue Synthroid 50 mcg daily 6 Dercum'd disease, chronic - patient has chronic pain issues related to painful fatty tumors associated with the condition. - Will continue the patient's home regimen of OxyContin 10 mg twice daily and oxycodone 10 mg every 6 hr as needed for breakthrough pain. 7. obstructive sleep apnea, chronic - the patient uses CPAP at home and her daughter will bring her machine in for use. The patient is admitted to the hospital for neurologic monitoring related to risk factors and potential for complications. The patient is admitted as inpatient the expected length of stay greater than 2 midnights. - PT and OT requested to consult Scores ABCD2 Age >= 60 years: no Initial BP. Either SBP >= 140 or DBP >= 90.: no Clinical features of the TIA: other symptoms Duration of symptoms: >= 60 minutes History of diabetes: yes ABCD2 Score: 3 NIHSS Level of Conciousness: Alert, keenly responsive Ask month/age: Answers both questions correctly. Open/close eyes, close hand: Performs both tasks correctly Best gaze horizontal: Normal Visual art: No visual loss Facial palsy: Normal symetrical movement Left arm drift: No drift for full 10 sec Right arm drift: No drift for full 10 sec Left leg drift: No drift for full 10 sec Right leg drift: No drift for full 10 sec Limb ataxia: Absent Sensory on face/arms/legs: Mild to moderate sensory loss, can tell touch Best language: No aphasia, normal Dysarthria: Normal Extinction or inattention: No abnormality Total NIH Stroke scale score: 1 Quality VTE Deep Vein Thrombosis/Pulmonary Embolism Present on Admission: No
[2018-04-15 23:25] VITALS: BP 143/78; PULSE 65; RESP 15; TEMP 36.2; O2SAT 97
--- NOTE | 2018-04-15 23:34 | PC.NURSE ---
Arrived from ER @ 2215. Alert/oriented. Pt oriented to room and carin system. Lungs clear/diminished HL RAC intact/patent. Denies discomfort at this time.
[2018-04-16] VITALS (9 sets, daily range): BP systolic 109–142; BP diastolic 49–76; PULSE 57–64; RESP 14–20; TEMP 36.4–36.8; O2SAT 95–99; BMI 71.8
[2018-04-16] MEDS: POTASSIUM CHLORIDE 40 MEQ in SODIUM CHLORIDE 0.9% 500 ML 130 ML IV (00:28)
[2018-04-16 00:31] LABS: RBC Urine None Seen (0-5/HPF); WBC Urine None Seen (0-5/HPF)
[2018-04-16 00:36] LABS: Appearance Urine UA CLEAR; Bilirubin Urine UA NEGATIVE (NEGATIVE); Color Urine UA YELLOW; Glucose Urine UA NEGATIVE (Negative); Ketones Urine UA NEGATIVE (NEGATIVE); Leukocyte Esterase Urine UA NEGATIVE (NEGATIVE); Nitrite Urine UA NEGATIVE (Negative); Occult Blood Urine UA NEGATIVE (Negative); Protein Urine UA NEGATIVE (Negative); Specific Gravity Urine UA 1.025 (1.000-1.035); pH Urine UA 6.5 (4.5-8.0)
[2018-04-16 00:43] LABS: Bacteria Urine Few (2-10); Culture Indicated Urine Cult Not Indicated; Squamous Epithelial Cell Urine 1-5 /HPF
[2018-04-16 01:17] LABS: Urine Cocaine Negative (Negative); Urine Morphine/Opi cutoff 2000 Positive (Negative); Urine Tetrahydrocannabinol Negative (Negative)
[2018-04-16 01:18] LABS: Urine Amphetamines Negative (Negative); Urine Barbiturates Negative (Negative); Urine Benzodiazepines Negative (Negative); Urine MDMA Negative (Negative); Urine Methadone Negative (Negative); Urine Methamphetamines Positive (Negative); Urine Oxycodone Positive (Negative); Urine Phencyclidine Negative (Negative); Urine Tricyclic Antidepressant Negative (Negative)
--- NOTE | 2018-04-16 01:26 | PC.NURSE ---
Addendum entered by Sharri Moseley R.N. 04/16/18 06:29: NIH remain 0 with same restriction as previously documented. Given Oxycontin scheduled dose early due to 6/10 pain in legs per patient request. Original Note: Addendum entered by Sharri Moseley R.N. 04/16/18 04:09: Patient in bed and is unable to lift legs due to body habitus so unable to test for leg drift. Other NIH scoring items within normal limits although still having a tingling sensation left lower lip. States pain unchanged and would like to take her Ibuprofen at this time. Original Note: Addendum entered by Sharri Moseley R.N. 04/16/18 03:32: Pain meds finally clarified by CHUTE MAN and verified by pharmacy so medicated with Oxycodone for 7/10 generalized pain. Original Note: Patient is alert and oriented. NIH score is 1 for slight left facial droop with some tingling of lower lip. Breath sounds are diminished but CTA with RA sat of 97%. HRR with tele reading of SR w/1st degree AVB. BP elevated at 143/78. Denies nausea. BT present but hypoactive. Currently being treated for UTI (prior to admission) but denies any current dysuria, frequency or urgency. Able to move self in/out of bed and walked to bathroom with walker and SBA. Has psoriasis with multiple lesions on bilateral lower legs, in abdominal folds, around umbilicus and under breasts. Skin under breasts, abdominal pannus and behind legs is reddened and moist with peeling skin. 4+ bilateral LE edema. Chronic pain due to Dercum's disease; awaiting po med orders from MD as patient states Morphine does not help her pain. Fall risk score is high so bed alarm will be activated and patient verbalizes understanding of need to call when getting up.
[2018-04-16] MEDS: OXYCODONE IR 5 MG TABLET 10 MG PO ×3 (03:29→20:04)
[2018-04-16] MEDS: IBUPROFEN 600 MG TABLET PO ×2 (04:13→11:39)
[2018-04-16] MEDS: OXYCODONE ER 10 MG TAB PO ×2 (06:11→18:43)
[2018-04-16 06:22] LABS: Add Manual Diff / Slide Review NO; Basophils Absolute Auto 0 /uL (0-100); Basophils Percent Auto 0.4 % (0-2); Eosinophils Absolute Auto 200 /uL (0-450); Eosinophils Percent Auto 2.5 % (2-4); Hematocrit 36.8 % (36-46); Hemoglobin 12.4 g/dL (12.0-16.0); Lymphocytes Absolute Auto 1100 /uL (1100-4500); Lymphocytes Percent Auto 16.5 % (25-40); Mean Corpuscular HGB Conc 33.5 % (30-36); Mean Corpuscular Hemoglobin 29.1 PG (26-34); Mean Corpuscular Volume 86.9 fL (80-100); Monocytes Absolute Auto 400 /uL (0-900); Monocytes Percent Auto 5.7 % (3-14); Neutrophils Absolute Auto 4900 /uL (1500-7000); Neutrophils Percent Auto 74.9 % (50-75); Platelet Count 142 X10^3/uL (150-400); Red Blood Cell Count 4.24 X10^6/uL (4.0-5.2); Red Cell Distribution Width 14.3 % (11.6-14.8); White Blood Cell Count 6.5 X10^3/uL (4.5-11.0)
[2018-04-16] MEDS: INSULIN ASPART 100 UNIT/ML INSULN PEN SUBCUT ×2 (06:26→20:14)
[2018-04-16 06:34] LABS: Alanine Aminotransferase 26 IU/L (9-52); Albumin 3.6 g/dL (3.5-5.0); Albumin Globulin Ratio 1.1 (1.0-2.8); Alkaline Phosphatase 70 U/L (38-126); Aspartate Aminotransferase 15 IU/L (14-36); BUN Creatinine Ratio 17.5 (6-22); Bilirubin Total 0.9 mg/dL (0.2-1.3); Blood Urea Nitrogen 14 mg/dL (7-17); Calcium 8.8 mg/dL (8.4-10.2); Carbon Dioxide 29 mmol/L (22-32); Chloride 102 mmol/L (98-107); Cholesterol 103 mg/dL (140-199); Estimated Glomerular Filt Rate > 60.0 mL/min (>60); Globulin 3.4 g/dL (1.7-4.1); Glucose 177 mg/dL (70-100); HDL Cholesterol 28 mg/dL (40-60); HEMOLYSIS < 15 (0-50); LDL Cholesterol Calculated 44 mg/dL (<100); Potassium 3.8 mmol/L (3.4-5.1); Sodium 140 mmol/L (137-145); Triglycerides 155 mg/dL (35-150)
[2018-04-16 06:59] LABS: Hemoglobin A1C% w Est Avg Glu 6.9 % (4.0-6.0)
[2018-04-16] MEDS: LEVOTHYROXINE 50 MCG TABLET PO (11:28)
[2018-04-16] MEDS: ENOXAPARIN 40 MG/0.4 ML SYRINGE SUBCUT ×2 (11:28→20:04)
[2018-04-16] MEDS: AMLODIPINE 5 MG TABLET PO ×2 (11:28→20:04)
[2018-04-16] MEDS: FUROSEMIDE 40 MG TABLET 80 MG PO (11:29)
[2018-04-16] MEDS: METOPROLOL IR 50 MG TABLET 100 MG PO ×2 (11:30→20:05)
[2018-04-16] MEDS: SODIUM CHLORIDE 0.9% FLUSH 10 ML IV ×2 (11:31→20:06)
--- NOTE | 2018-04-16 11:45 | PT.IIE ---
Medical History (Last Reviewed 04/16/18 @ 04:48 by AVANI Almazan) Asthma (Acute) Dercum's disease (Acute) Hypertension (Acute) Hypothyroidism (Acute) Insulin dependent type 2 diabetes mellitus (Acute) Morbid obesity with body mass index (BMI) greater than or equal to 70 in adult (Acute) Psoriasis (Acute) Physical Therapy Inpatient Evaluation/Re-Eval M1 PT/OT-IP Prior Functional Status Start: 04/16/18 12:24 Freq: NEEDED Status: Active Protocol: Document 04/16/18 11:45 RCC (Rec: 04/16/18 12:35 [facility] [id number]) Medical Review Prior Functional Status Medical History Reviewed Yes Mobility and Gait mod. indep. FWW or 4WW in home and outdoors Activities of Daily Living and IADL's mod indep. I/ADLs including driving Social History Household Members spouse children Living Arrangements House Number of Floors (Floors) One Floor Number of Stairs To Enter/Railing? no steps to enter/exit Home Environment Tub/Shower Home Equipment Front Wheel Walker Four Wheel Walker Grab Bars Near Toilet Grab Bars In Shower Additional Social History Comment Pt with c/o L facial droop and LUE weakness, presented to the ER. Head CT showed possible chronic R basal ganglia hypoattenuating focus, negative for acute findings. Pt with significant past medical history: see H&P M2 PT-IP Current Condition Start: 04/16/18 12:24 Freq: NEEDED Status: Active Protocol: Document 04/16/18 11:45 RCC (Rec: 04/16/18 12:35 [facility] [id number]) Physical Therapy Current Condition Current Condition Evaluation Date 04/16/18 Treatment Diagnosis L side numbness/facial droop, impaired strength Precautions Other Precautions bariatric FWW and chair M3 PT-IP Subjective Start: 04/16/18 12:24 Freq: NEEDED Status: Active Protocol: Document 04/16/18 11:45 RCC (Rec: 04/16/18 12:35 [facility] [id number]) Subjective Physical Therapy Visit Type Type Initial Evaluation Visit Start Time 11:30 Visit Stop Time 11:45 Total Visit Minutes 15 Number of RENTAL CLERK Visits 0 Physical Therapy Visit Comments Patient Comments pt states all her weakness and numbness has resolved. Patient Goals go home M4 PT-IP Mobility and Gait Start: 04/16/18 12:24 Freq: NEEDED Status: Active Protocol: Document 04/16/18 11:45 RCC (Rec: 04/16/18 12:35 [facility] [id number]) PT-Bed Mobility Assessment Supine to Sit Supine to Sit Independent Head of Bed Elevated Sit to Supine Sit to Supine Independent Head of Bed Elevated Scooting Scooting to Edge of Bed Independent PT-Transfer Assessment Sit to and From Stand Sit to and from Stand Independent Equipment Transfer Assistive Device Front Wheeled Walker Transfers Transfer Destination Bed Transfer Technique Stand Step Pivot Transfer Ability Level of Assist Standby Assistance Gait Assessment Gait Gait Assistance Required: Standby Assistance Distance (Feet) 50 Assistive Devices Assistive Device Front Wheeled Walker Gait Deviations General Gait Pattern Decreased Feet Clearance Wide Based Gait Factors Limiting Gait Function Factors Limiting Gait Function Pain Comments Gait Comments no loss of balance, main complaints was B feet pain which is normal per pt due to Dercom's syndrome PT-Balance Assessment Sitting Balance and Reactions Static Sitting Balance Ability Good Dynamic Sitting Balance Ability Good Standing Balance and Reactions Static Standing Balance Ability Good Dynamic Standing Balance Ability Good Device Used FWW Comments Other Balance Tests/Deviations/Treatment semi-tandem EO: 30 sec no LOB : EC 10 sec with increased sway M5 PT-IP Objective Assessments Start: 04/16/18 12:24 Freq: NEEDED Status: Active Protocol: Document 04/16/18 11:45 [facility] (Rec: 04/16/18 12:35 [facility] [id number]) Orientation Orientation/Cognition Level of Alertness Alert Orientation Name Age Birthday Month Date Year Day of Week Place Situation Gross Range of Motion Upper Extremity ROM Assessment Within Functional Limits Lower Extremity ROM Assessment Within Functional Limits Strength Lower Extremity Strength Assessment Within Functional Limits Hip flexion 4/5 B Knee flexion and extension 5/5 B Ankle DF 4/5 B Coordination Assessment Gross Coordination Gross Coordination WNL Assessment Finger to Nose Test Normal Performance Pronation/Supination Test Normal Performance Foot Tapping Test Normal Performance Sensation Assessment Comments Sensation Comments impaired sensation L hand pt reports normal d/t carpal tunnel. M6 PT-IP Treatment Start: 04/16/18 12:24 Freq: NEEDED Status: Active Protocol: Document 04/16/18 11:45 RCC (Rec: 04/16/18 12:35 [facility] [id number]) Physical Therapy Treatment Education Education Provided Safety M7 PT-IP Assessment and Plan Start: 04/16/18 12:24 Freq: NEEDED Status: Active Protocol: Document 04/16/18 11:45 [facility] (Rec: 04/16/18 12:35 [facility] [id number]) PT Summary Assessment and Plan Potential Rehabilitation Potential Good Status of Condition at Evaluation Evolving Summary Progress Towards Goals Safe For Discharge Assessment Summary Pt without c/o weakness or numbness in L hand except for prior level numbness she states that is her carpal tunnel which she needs surgery on. She is SBA for gait and indep. with bed mobility and sit<->stand. LE strength is equal bilaterally, and coordination is not impaired. UE ROM is WNL. Pt is cleared to d/c home when medically stable, as she appears back to her baseline mobility. No acute PT needs at this time. Recommend d/c PT at this time, if pt's symptoms return or new issues arise, we would appreciate new PT orders if medically necessary. Frequency of Treatment Frequency Of Treatment Discharge Recommendations To Nursing Amount of Assist Needed Standby Assistance Discharge Recommendations PT Discharge Recommendations Home
--- NOTE | 2018-04-16 13:40 | CM.DANOTE ---
Discharge Planning/Care Management DCP: assessment: Case received and discussed in Team Rounds. OT/PT/INSIDE SALES PERSON were ordered. PT only is available today at this point. Met now with pt. Her and children are in the room and pt is found sitting on window seat. Introduced self and role. Pt is a 47 year old female who admitted for s/s of possible CVA. She does carry a dx of Morbid obesity: 440= lbs. PT Marco saw pt today and has cleared her for home from a PT standpoint. Pt herself reports her s/s have all resolved. She is concerned as she is still NPO and says she has had no problem swallowing her pills today. She says she is hungry. ERIK Pulido is aware and has spoken with Dr. Silver re this. Tess states that Dr. Silver will likely keep pt overnight so that an MRI can be completed. Pt expects to be able to go home when stable. Says she is just waiting to hear when this might be. Her family will drive her home at d/c. She voices no concerns re her d/c plan at this point. Advanced directive, confirm from FAMILY Start: 04/15/18 22:29 Freq: Q24H Status: Active Protocol: Document 04/15/18 22:40 KMD (Rec: 04/15/18 22:40 KMD [id number]) Advance Directive, confirm on record Time 22:40 Person contacted Patient Copy received No CM Discharge Assessment Start: 04/16/18 13:38 Freq: Status: Active Protocol: Document 04/16/18 13:38 ITV (Rec: 04/16/18 13:40 ITV [id number]) Discharge Planning Assessment Advance Directives? No History Provided By Patient Medical Record Prior Living Arrangements House Household Members spouse children Type of transporation used prior to Drives own vehicle admit Independent with ADL's Yes: with use of FWW and 4WW prn Is patient alert and oriented? Yes DME Already Rented / Owned FWW / Walker Review Status In Process Next Review Type Continued Stay Review
--- NOTE | 2018-04-16 16:54 | PC.NURSE ---
Addendum entered by Radha Jordan R.N. 04/16/18 21:07: Relatively uneventful evening. MD in to see. Pt states as that when she ate dinner the tingling of her right lower lip reoccurred. MD states that it may be a sensitivity to something. Up ad shamar in room from chair to bed w/o incidence. HL intact/patent. Tele showing SB per ICU staff. Denies any numbness at this time. Pt to have CT tomorrow and possible D/C. Call light w/in reach, refuses bed alarm, Continue w/plan of care. Original Note: Pt sitting in chair, Denies discomfort at this time. HL RAC intact/patent. NIH = 0, denies numbness of lip. AC CBG = 180 Pt w/psoriasis over legs and torso. Call light w/in reach.
--- NOTE | 2018-04-16 22:24 | P.PN_ITS ---
Subjective Date Patient Seen: 04/16/18 Interval history: Kristine Orourke is a 39-year-old female patient with a history of possible prior CVA, insulin dependent diabetes type 2, hypertension, psoriasis, asthma, hy pothyroidism, Dercum's syndrome and morbid obesity class 3 presents to the ER today with complaints of left facial and left arm numbness. Noted by admitting provider mild left facial droop which has resolved. Patient does not have any upper or lower extremity weakness. Her numbness of left face and left arm have resolved. She reports it did return again after she ate dinner this evening. She also reports it occurred after dinner yesterday evening. She has significant allergies to food with anaphylactic shock in the past. Is not quite clear what specific foods she is allergic to but it is believed with her anaphylactic episode it was related to humus. Patient has been allergy tested in the past. She otherwise has no complaints and denies headache, shortness of breath, chest pain, abdominal pain, nausea, vomiting, fever, chills, dysuria, diarrhea or constipation. Discussed cardiovascular risk factors at length and lifestyle modification including diet and exercise. The patient has previously lost 100 lb with small frequent meals approximately every 2 hr with low carb, lean protein, high vegetable diet. She reports she is motivated to do this again as she has children she needs to be here for. Exam Vital Signs (past 8 hours): - 04/16/18 15:30 04/16/18 16:50 04/16/18 19:49 Temperature 97.6 F Pulse Rate 58 L Respiratory Rate 20 14 Blood Pressure 126/69 Pulse Oximetry 95 95 99 04/16/18 20:14 Temperature 97.7 F Pulse Rate 64 Respiratory Rate 18 Blood Pressure 139/70 Pulse Oximetry 96 Oxygen Delivery Method Room Air Oxygen Flow Rate 0 Narrative Exam Narrative: General: Middle-aged morbidly obese female sitting in bedside chair and in no acute distress, well-developed, well-nourished, appropriately interactive. HEENT: Normocephalic, atraumatic. External ears without defect. Pupils equal, round, and reactive to light. Anicteric sclerae, moist conjunctivae, and no lid lag. Oropharynx free of erythema or lesions. No cobble stoning. Moist mucosa. Neck: Supple with full range of motion. No jugular venous distension. No bruits. No lymphadenopathy or thyromegaly. Cardiovascular: Regular rate and rhythm without murmurs, rubs, or gallops appreciated. Pulmonary: Clear to auscultation bilaterally without crackles, wheezes, or rho nchi. Normal respiratory effort with no use of accessory muscles. Abdomen: Soft, significant morbid obesity, non-tender, nondistended. No hepatosplenomegaly or masses appreciated. Extremities: No clubbing, cyanosis, or edema. Skin: Normal temperature, turgor, and texture; no rash or ulcers. She has many small lipomas scattered throughout her entire body that are painful. Neurological: Cranial nerves grossly intact. Normal muscle strength, tone, and bulk in all 4 extremities. Reflexes, coordination, and sensory function within normal limits. No facial droop. Known gait impairment and uses a FWW. Psychiatric: Normal mood and affect. Alert and oriented to person, place, and time. Objective Labs Result Diagrams: 04/16/18 05:50 04/16/18 05:50 Labs: Laboratory Results - last 24 hr 04/16/18 04/16/18 04/16/18 00:20 00:20 05:50 WBC RBC Hgb Hct MCV MCH MCHC RDW Plt Count Neut % (Auto) Lymph % (Auto) Stark % (Auto) Eos % (Auto) Baso % (Auto) Neut # (Auto) Lymph # (Auto) Stark # (Auto) Eos # (Auto) Baso # (Auto) Sodium Potassium Chloride Carbon Dioxide BUN Creatinine Estimated GFR BUN/Creatinine Ratio Glucose Hemoglobin A1c 6.9 H Calcium Total Bilirubin AST ALT Alkaline Phosphatase Total Protein Albumin Globulin Albumin/Globulin Ratio Triglycerides Cholesterol LDL Cholesterol, Calc HDL Cholesterol Urine Color Yellow Urine Appearance Clear Urine pH 6.5 Ur Specific [place] 1.025 Urine Protein Negative Urine Glucose (UA) Negative Urine Ketones Negative Urine Occult Blood Negative Urine Nitrate Negative Urine Bilirubin Negative Urine Urobilinogen 1.0 Ur Leukocyte Esterase Negative Urine RBC None seen Urine WBC None seen Ur Squamous Epith Cells 1-5 /hpf Urine Bacteria Few (2-10) H Ur Culture Indicated? Cult not indicated Urine Opiates Screen Positive H Ur Oxycodone Screen Positive H Urine Methadone Screen Negative Ur Barbiturates Screen Negative U Tricyclic Antidepress Negative Ur Phencyclidine Scrn Negative Ur Amphetamines Screen Negative U Methamphetamines Scrn Positive H Ur MDMA Scrn (Ecstasy) Negative U Benzodiazepines Scrn Negative Urine Cocaine Screen Negative U Marijuana (THC) Screen Negative 04/16/18 04/16/18 05:50 05:50 WBC 6.5 RBC 4.24 Hgb 12.4 Hct 36.8 MCV 86.9 MCH 29.1 MCHC 33.5 RDW 14.3 Plt Count 142 L Neut % (Auto) 74.9 Lymph % (Auto) 16.5 L Stark % (Auto) 5.7 Eos % (Auto) 2.5 Baso % (Auto) 0.4 Neut # (Auto) 4900 Lymph # (Auto) 1100 Stark # (Auto) 400 Eos # (Auto) 200 Baso # (Auto) 0 Sodium 140 Potassium 3.8 Chloride 102 Carbon Dioxide 29 BUN 14 Creatinine 0.80 Estimated GFR > 60.0 BUN/Creatinine Ratio 17.5 Glucose 177 H Hemoglobin A1c Calcium 8.8 Total Bilirubin 0.9 AST 15 ALT 26 Alkaline Phosphatase 70 Total Protein 7.0 Albumin 3.6 Globulin 3.4 Albumin/Globulin Ratio 1.1 Triglycerides 155 H Cholesterol 103 L LDL Cholesterol, Calc 44 HDL Cholesterol 28 L Urine Color Urine Appearance Urine pH Ur Specific [place] Urine Protein Urine Glucose (UA) Urine Ketones Urine Occult Blood Urine Nitrate Urine Bilirubin Urine Urobilinogen Ur Leukocyte Esterase Urine RBC Urine WBC Ur Squamous Epith Cells Urine Bacteria Ur Culture Indicated? Urine Opiates Screen Ur Oxycodone Screen Urine Methadone Screen Ur Barbiturates Screen U Tricyclic Antidepress Ur Phencyclidine Scrn Ur Amphetamines Screen U Methamphetamines Scrn Ur MDMA Scrn (Ecstasy) U Benzodiazepines Scrn Urine Cocaine Screen U Marijuana (THC) Screen Assessment & Plan Assessment & Plan narrative: Kristine Orourke is a 39-year-old female patient with a history of possible prior CVA, insulin dependent diabetes type 2, hypertension, psoriasis, asthma, hypothyroidism, Dercum's syndrome and morbid obesity class 3 presents to the ER today with complaints of left facial and left arm numbness. 1. Possible acute TIA, present on admission. Resolved. -The patient reports she began to experience metallic taste in mouth, numbness and tingling of the left side of her face and left arm after eating dinner which spontaneous resolved after approximately 60 min. She reports she had this same symptoms this evening after dinner. She has a history of anaphylactic shock due to food allergy. Differential diagnosis includes food allergy. -cardiovascular risk factors include: Possible previous CVA, hypertension, hyperlipidemia, diabetes mellitus type 2, morbid obesity, psoriasis, and family history. -CT brain without contrast demonstrated subcentimeter hypoattenuating focus within the right basal ganglia, which may represent an age-indeterminate lacunar infarct (favor chronic) or dilated perivascular space. She was treated at [facility] at that time. -Continue every 4 hr neuro checks. -Ordered MR stroke protocol to be done tomorrow morning if able due to size. If not will pursue CTA head and neck. -Ordered echocardiogram, pending. -Ordered TSH, pending. -Patient passed a nurse swallow screen. Ordered diabetic and heart healthy diet. -Ordered PT and OT evaluations, pending. -Patient takes aspirin intermittently but not daily. Start aspirin 81 mg daily and continue home atorvastatin patient unclear of dose will order 20 mg at bedtime 2. Diabetes mellitus type 2, insulin using, present on admission. Stable. -Patient is well controlled with hemoglobin A1c of 6.9%. -Continue home NPH 80 units twice daily and Humalog 20 units coverage with meals. -Patient passed swallow screen, therefore, ordered carbohydrate consistent and heart healthy diet. -Switched blood glucose checks from every 6 hours to ACHS. 3. Hypertension, chronic, present on admission. Stable. -Continue amlodipine 5 mg twice daily and metoprolol tartrate 100 mg twice daily. 4. Morbid obesity, class 3 with BMI greater than 70, chronic, present on admission. Stable. -Continue to have extensive discussion regarding lifestyle modification including diet and exercise. -Ordered dietitian consult. Patient very knowledgeable regarding diet and has been successful with this in the past. It is more of a matter of motivation. 5. Hypothyroidism, chronic, present on admission. Presumed stable. -Ordered TSH, pending. -Continue levothyroxine 50 mcg daily. 6. Dercom's disease, chronic, present on admission. Stable. -Patient has chronic pain issues related to painful fatty tumors called dercums. -Continue the patient's home regimen of OxyContin 10 mg twice daily and oxycodone 10 mg every 6 hr as needed for breakthrough pain. 7. Obstructive sleep apnea, chronic, present on admission. Stable. -Continue home CPAP. Disposition: Patient likely to discharge tomorrow pending further imaging of head and neck with MR stroke protocol versus CTA head and neck. Quality VTE Deep Vein Thrombosis/Pulmonary Embolism Present on Admission: No
[2018-04-16 23:38] LABS: Thyroid Stimulating Hormone 2.33 uIU/mL (0.47-4.68)
[2018-04-16] MEDS: ATORVASTATIN 20 MG TABLET PO (23:50)
[2018-04-17 00:20] VITALS: O2SAT 95
[2018-04-17] MEDS: OXYCODONE IR 5 MG TABLET 10 MG PO ×3 (02:22→14:23)
[2018-04-17] MEDS: IBUPROFEN 600 MG TABLET PO ×2 (02:26→14:22)
[2018-04-17 04:55] VITALS: BP 105/56; PULSE 62; RESP 18; TEMP 36.6; O2SAT 96
[2018-04-17] MEDS: OXYCODONE ER 10 MG TAB PO (06:46)
[2018-04-17] MEDS: LEVOTHYROXINE 50 MCG TABLET PO (06:46)
[2018-04-17 08:00] VITALS: BP 138/76; PULSE 66; RESP 22; TEMP 36.6; O2SAT 95
[2018-04-17] MEDS: ENOXAPARIN 40 MG/0.4 ML SYRINGE SUBCUT (08:14)
[2018-04-17] MEDS: FUROSEMIDE 40 MG TABLET 80 MG PO (08:14)
[2018-04-17] MEDS: METOPROLOL IR 50 MG TABLET 100 MG PO (08:14)
[2018-04-17] MEDS: AMLODIPINE 5 MG TABLET PO (08:15)
[2018-04-17] MEDS: INSULIN ASPART 100 UNIT/ML INSULN PEN SUBCUT (08:16)
[2018-04-17] MEDS: INSULIN NPH 100 UNIT/ML VIAL 80 UNIT SUBCUT (08:17)
[2018-04-17] MEDS: SODIUM CHLORIDE 0.9% FLUSH 10 ML IV (08:18)
[2018-04-17] MEDS: POLYETHYLENE GLYCOL 3350 17 GM POWD.PACK PO (08:18)
--- NOTE | 2018-04-17 10:40 | PC.NURSE ---
Addendum entered by Amy Smith R.N. 04/17/18 12:53: received call from [employer] [employer] states that pt heart rate was 45, assessed pt b/p 155/78 p 55, pt reports she just feels like she is going to have anxiety/panic attack she wants to know how her echo results are and that everything is ok. Dr rucker notified and going to see her. Original Note: Addendum entered by Amy Smith R.N. 04/17/18 11:26: Pt c/o having stomach ache reports it feels gassy/gurgly, reports she attempted to have BM with no results, received VTO dr rucker tums 1000mg 24hr PRN. administer. Pt requested to have BS checked and was 120. Original Note: Day Shift Pt is A&O able to make needs known. NIHSS 0, denies any numbness or tingling to back or lips. Reports she has chronic pain medicated per emar. Lung sounds are clear, 96%RA. Pt has psoriasis to legs and abdomen. Sitting up in chair at bedside call light within reach.
--- NOTE | 2018-04-17 10:45 | OT.IP.EVAL ---
Past Medical History (Last Reviewed 04/16/18 @ 04:48 by AVANI Almazan) Asthma (Acute) Dercum's disease (Acute) Hypertension (Acute) Hypothyroidism (Acute) Insulin dependent type 2 diabetes mellitus (Acute) Morbid obesity with body mass index (BMI) greater than or equal to 70 in adult (Acute) Psoriasis (Acute) Occupational Therapy Inpatient Evaluation/Re-Eval M1 PT/OT-IP Prior Functional Status Start: 04/17/18 09:41 Freq: NEEDED Status: Active Protocol: Document 04/17/18 10:26 [facility] (Rec: 04/17/18 10:45 [facility] [id number]) Medical Review Prior Functional Status Medical History Reviewed Yes Mobility and Gait mod. indep. FWW or 4WW in home and outdoors Activities of Daily Living and IADL's mod indep. I/ADLs including driving Social History Household Members spouse children Living Arrangements House Number of Floors (Floors) One Floor Number of Stairs To Enter/Railing? no steps to enter/exit Home Environment Tub/Shower Home Equipment Front Wheel Walker Four Wheel Walker Grab Bars Near Toilet Grab Bars In Shower Additional Social History Comment Pt with c/o L facial droop and LUE weakness, presented to the ER. Head CT showed possible chronic R basal ganglia hypoattenuating focus, negative for acute findings. Pt with significant past medical history: see H&P M2 OT-IP Current Condition Start: 04/17/18 09:41 Freq: Status: Active Protocol: Document 04/17/18 10:26 [facility] (Rec: 04/17/18 10:45 [facility] [id number]) Occupational Therapy Current Condition Current Condition Evaluation Date 04/17/18 Treatment Diagnosis LUE weakness and Left facial droop Diagnosis Onset Date 04/15/18 M3 OT- IP Subjective and Pain Start: 04/17/18 09:41 Freq: Status: Active Protocol: Document 04/17/18 10:26 [facility] (Rec: 04/17/18 10:45 [facility] [id number]) OT- Subjective Occupational Therapy Visit Type Type Initial Evaluation Visit Start Time 08:45 Visit Stop Time 09:00 Total Visit Minutes 15 Occupational Therapy Visit Comments Patient Comments Pt feeing like back to normal but agreeable to OT eval. OT Pain Assessment Pain When Pain Assessed At Rest Pain Present Pain Present Denied Pain M4 OT- IP ADL's Start: 04/17/18 09:41 Freq: Status: Active Protocol: Document 04/17/18 10:26 [facility] (Rec: 04/17/18 10:45 [facility] [id number]) OT ADL-Toileting Comments OT Toileting Comments Pt states has been getting and out of the bathroom on her own with FWW. M5 OT- IP IADL's Start: 04/17/18 09:41 Freq: Status: Active Protocol: Document 04/17/18 10:26 [facility] (Rec: 04/17/18 10:45 [facility] [id number]) OT-Instrumental Activities of Daily Living Meal Preparation Meal Preparation Comments pt states has family to assist with all IADL's if needed and eldest daughter will be home, as other kids go to school and works. M6 OT- IP Functional Cognition Start: 04/17/18 09:41 Freq: Status: Active Protocol: Document 04/17/18 10:26 [facility] (Rec: 04/17/18 10:45 [facility] [id number]) Cognitive Factors Limiting Selfcare Function Cognitive Ability Level of Alertness Alert Patient Orientation Name Age Birthday Month Date Year Day of Week Place Situation Attention Span Ability Capable of Focused Attention Capable of Sustained Attention Ability to Follow Commands Able to Follow Multi-Step Commands Memory Description No Deficits Noted Safety Awareness No Deficits Noted Problem Solving Ability No deficits Noted Executive Function Ability Unable to Remember Details Cognitive Comments Cognitive Assessment Comments Pt able to follow 2-3 step commands. Pt needing vc to pay attention to details for assessment given , therefore suggested pt slow down and think things through. PT scored 135 seconds on the [place] Making B which implies person with a score on 180seconds or higher per [employer] is at a greater risk for a car accident. OT- Vision and Hearing OT- Hearing Assessment OT- Hearing Assessment WFL OT- Vision Assessment Visual Acuity WFL M8 OT- IP Objective Assessments Start: 04/17/18 09:41 Freq: Status: Active Protocol: Document 04/17/18 10:26 [facility] (Rec: 04/17/18 10:45 [facility] [id number]) OT Gross Range of Motion Upper Extremity Range of Motion Assessment Within Functional Limits OT Strength Comments Strength Comments RUE 4/5, LUE 4-/5 OT- Coordination Assessment Comments Coordination Comments 9 hole peg 20 sec R hand (.5 below 50% tile ), 22 sec left hand (50th% tile range) for pt 's age. OT-Muscle Tone Assessment Muscle Tone WNL Yes OT Sensation Assessment Location Left Arm Light Touch Impaired M9 OT- IP Assessment and Plan Start: 04/17/18 09:41 Freq: Status: Active Protocol: Document 04/17/18 10:26 [facility] (Rec: 04/17/18 10:45 [facility] [id number]) OT Summary Assessment and Plan Potential Analytic Complexity at Evaluation Low Summary OT Impairments Strength Balance Bathing Progress Towards Goals Progressing Toward Goals Assessment Summary Pt low complexity and pt feels back to baseline and that she has good support at home and feels ready to go home when medically stable. Noted slight decrease in strength with LUE , however pt is right handed. Goals Dressing Goal Independent Toileting Goal Independent Bathing Goal Independent Patient/Caregiver Education Goal Caregiver Independent Assisting Patient OT-Other Goals LTG above STG supervison with shower Days to Meet Goals 2 Frequency of Treatment Frequency Of Treatment Once a Day Treatment Plan OT Treatment Plan ADL Training Functional Cognition Training Patient/Family Education Discharge Planning Other Treatment Recommendations and Next Go over energy conservation Treatment Focus and possible any equipment needs for ADL's. Discharge Recommendations OT Discharge Recommendations Home with Assistance
[2018-04-17] MEDS: CALCIUM CARBONATE 500 MG TAB 1000 MG PO (11:25)
[2018-04-17 12:00] VITALS: BP 138/66; PULSE 48; RESP 24; TEMP 36.7; O2SAT 97
--- NOTE | 2018-04-17 15:32 | P.DS_ITS ---
History of Present Illness Date Patient Seen: 04/17/18 Chief complaint: numbness in left side of face and arm Narrative: This is a 39-year-old female patient with a history of prior CVA, insulin dependent diabetes type 2, hypertension, psoriasis, asthma, hypothyroidism, Dercom's syndrome and morbid obesity class 3 presents to the ER today with complaints of left facial and left arm numbness. She describes these symptoms has the same symptoms she experienced with her prior CVA however just prior to the development numbness and tingling the patient experienced a strong metallic taste in her mouth. The patient carries multiple risk factors including hypertension diabetes and morbid obesity. While in the ER the patient states her symptoms had began to lessen. The patient states that at the onset limbs tingly and encompassed the whole left side of her face and she felt she had blurry vision in the left eye. At the time encounter patient describes residual numbness of the cheek and corner of the mouth. She reports no antecedent events including falls, trauma or illness. She reports no headache today did have headache few days ago and appears not to be related. Does have a history of vertigo for which she takes meclizine. the patient is currently taking 80 mg Lasix daily for leg swelling and reports taking an extra dose today. She denies difficulty chewing or swallowing, chest pain or palpitations, shortness of breath cough or wheezing. Denies abdominal pain, heartburn nausea or vomiting. She does has chronic constipation related to heavy opiate use for chronic pain secondary to Dercom's syndrome for which she takes MiraLax patient arrived in the ER at 7:45 p.m.. At the time she was afebrile at 97.7, heart rate of 78, blood pressure of 117/46 and respiratory rate of 22 and 96% on room air. At the time of arrival her ABCD2 score was 3 and NIH score was 1. on 12 lead EKG demonstrated sinus rhythm with ventricular rate of 66. also reveals an old septal CT with no current ST T wave changes or ectopy. On lab work the patient has a normal white count of 8.0, hemoglobin and hematocrit of 13 and 38.3 respectively with platelets of 150. She does have increased neutrophil count. Her PT is elevated at 13.5 with an INR 1.2. As mentioned previously the patient took an extra dose of Lasix and on chemistry has a finding of hypokalemia at 3.2 that is treated with 40 mEq of potassium. Remainder of the chemistry panels within normal limits save a nonfasting glucose 195. Discharge Providers Date of admission: 04/15/18 21:35 Discharge Date: 04/17/18 Consults: 04/15/18 22:59 Consult to Dietitian, Adult Routine Comment: Reason For Exam: morbid obesity, BMI 71.8 04/15/18 23:00 Consult to Discharge Planning Routine Comment: Consult to Respiratory Therapy Evaluate & Treat Comment: Asthma Physician Instructions: Evaluate and treat 04/15/18 23:01 Consult to Speech Therapy Evaluate & Treat Comment: Physician Instructions: Evaluate and treat 04/15/18 23:39 Consult to Occupational Therapy Evaluate & Treat Comment: Morbid obesity, inmobility Physician Instructions: Evaluate and treat Consult to Physical Therapy Evaluate & Treat Comment: Morbid obesity, inmobility Physician Instructions: Evaluate and Treat Discharge provider: Mindy Velasco MD Summary Discharge Diagnosis: Transient Ischemic Attack, present on admission Morbid Obesity Hypertension Type 2 diabetes Hyperlipidemia Prior history of Stroke [facility] Course: The patient was admitted to the hospital for symptoms suggestive of a TIA. Her symptoms completely resolved without residual deficit. The patient reports no further numbness or tingling. No weakness. No facial droop. Head CT was negative on admission. Unfortunately the patient was unable to undergo MRI study given her weight. We discussed possibility of CT angio which the patient preferred discharge home as she felt her symptoms were likely related to scalded mouth syndrome versus TIA. As the patient has no residual deficit has returned to her baseline I concurred and we agreed that she would discharge home. Patient does have a follow-up appointment with her PCP tomorrow. She will continue and resume her usual home medications. She was deemed appropriate for discharge and discharged home. Status at Discharge Cognitive/behavioral status at discharge: oriented Functional status at discharge: independent ambulation Overall status at discharge: patient is back to baseline Time Spent with Patient Less than 30 minutes Exam Vital Signs (past 8 hours): - 04/17/18 08:00 04/17/18 12:00 Temperature 97.8 F 98.1 F Pulse Rate 66 48 L Respiratory Rate 22 24 Blood Pressure 138/76 138/66 Pulse Oximetry 95 97 Oxygen Delivery Method Room Air Oxygen Flow Rate 0 Narrative Exam Narrative: Pleasant female in no acute distress HEENT: Normocephalic atraumatic, extraocular muscles are intact, no facial droop, tongue is midline neck: Supple without adenopathy lungs: Clear to auscultation cardiac exam: Regular rate and rhythm normal S1-S2 neuro exam: Cranial nerves are intact, strength is symmetric and equal, sen sations grossly intact, reflexes are equal, gait is not assessed Objective Labs Result Diagrams: 04/16/18 05:50 04/16/18 05:50 Labs: Laboratory Results - last 24 hr 04/16/18 04/16/18 05:50 05:50 Sodium 140 Potassium 3.8 Chloride 102 Carbon Dioxide 29 BUN 14 Creatinine 0.80 Estimated GFR > 60.0 BUN/Creatinine Ratio 17.5 Glucose 177 H Calcium 8.8 Total Bilirubin 0.9 AST 15 ALT 26 Alkaline Phosphatase 70 Total Protein 7.0 Albumin 3.6 Globulin 3.4 Albumin/Globulin Ratio 1.1 Triglycerides 155 H Cholesterol 103 L LDL Cholesterol, Calc 44 HDL Cholesterol 28 L TSH 2.33 Discharge Plan Discharge Plan Patient Disposition: Home Discharge comment: Patient to follow up with her PCP tomorrow as scheduled Discharge Med Rec/Prescriptions Prescriptions: New atorvastatin [Lipitor] 20 mg Tablet 20 mg PO BEDTIME Qty: 30 RF: 0 Continued levothyroxine [Synthroid] 50 MCG tablet 50 mcg PO QDAY Qty: 0 RF: 0 Proventil HFA 90 MCG/PUFF HFA aerosol inhaler 2 dose Inhalation Q4HRWA Qty: 0 RF: 0 Humulin N NPH U-100 Insulin 100 UNIT/1 ML suspension 80 u SQ BID Qty: 0 RF: 0 furosemide 80 MG tablet 80 mg PO QDAY Qty: 0 RF: 0 ibuprofen 200 MG capsule 600 mg PO TIDP PRN (Reason: Pain (Scale Score 4-6)) Qty: 0 RF: 0 oxycodone 5 MG tablet 10 mg PO Q6H PRN (Reason: Pain, Moderate) Qty: 0 RF: 0 metoprolol tartrate 100 MG tablet 100 mg PO BID Qty: 0 RF: 0 amlodipine 10 MG tablet 5 mg PO BID Qty: 0 RF: 0 oxycodone [OxyContin] 40 MG tablet,oral only,ext.rel.12 hr 10 mg PO Q12H Qty: 0 RF: 0 meclizine 25 mg tablet 25 mg PO BID MDD 50 PRN (Reason: Dizziness) RF: 0 levofloxacin 500 mg tablet 500 mg PO DAILY RF: 0 Provider Discharge Instructions Diet: Carb-consistent/Diabetic and Low-sodium Activity: as tolerated Visit Report/Discharge Packet Visit Report Forms: Stroke Signs & Symptoms Discharge Data Attending Provider: Jens Desai Admit Date/Time: 04/15/18 21:35 Quality VTE Deep Vein Thrombosis/Pulmonary Embolism Present on Admission: No
--- NOTE | 2018-04-17 15:53 | PC.NURSE ---
Pt discharge instructions given. Tele and HL discontinued. Pt dressed and waitng transportation.
--- NOTE | 2018-04-17 16:04 | ST.IPIE ---
Past Medical History (Last Reviewed 04/16/18 @ 04:48 by AVANI Almazan) Asthma (Acute Medical) Dercum's disease (Acute Medical) Hypertension (Acute Medical) Hypothyroidism (Acute Medical) Insulin dependent type 2 diabetes mellitus (Acute Medical) Morbid obesity with body mass index (BMI) greater than or equal to 70 in adult (Acute Medical) Psoriasis (Acute Medical) ST IP Initial Evaulation Report RESERVATIONS CLERK Language Evaluation Start: 04/17/18 15:53 Freq: Status: Active Protocol: Document 04/17/18 15:54 TLC (Rec: 04/17/18 16:04 TLC [id number]) Language Evaluation Session Time Total Visit Minutes 30 Visit Information Visit Number [address] Silver Reason for Referral TIA Past Medical History Patient History Patient in for TIA symptoms including mild facial droop and tingling of the right side . Head CT results: No acute intracranial hemorrhage or large territorial infarct. 2. Subcentimeter hypoattenuating focus within the right basal ganglia, which may represent an age-indeterminate lacunar infarct (favor chronic) or dilated perivascular space. Hearing Hearing Level Hearing Aids Auditory History Wears hearing aid in left ear. 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 Denies any new onset speech/language/ swallowing difficulty. States she occasionally has difficulty getting words out correctly, happens more when she talks fast or is angry such as when correcting her children. - Informal Assessment Receptive Language Normal Yes Expressive Language Normal Yes Articulation Normal Yes Cognition Normal Yes - Receptive Language Yes/No Questions Skill Level WNL Following Directions - Verbal Skill Level WNL Following Directions - Written Skill Level WNL Auditory Comprehension Skill Level WNL Reading Comprehension Skill Level WNL - Expressive Language Automatic Speech Skill Level WNL Sentence Closure Skill Level WNL Object Naming Skill Level WNL Stating Functions Skill Level WNL Oral Expression Skill Level WFL Comments observed 1 semantic paraphasia - held for hid during sentence rep. - Findings Language Findings Quick Aphasia Battery and MoCA (Orlin Cognitive Assessment ) both administered. No significant impairments in receptive and expressive language. Patient observed to have one error in expressive language where she said held instead of hid during sentence repetition on the MoCA, but she immediately self -corrected. No other errors observed. Patient reports this is not new and she has had this difficulty of word finding/getting words out since she was on Cymbalta. She is no longer on this medication and says the symptom has decreased, but not gone away completely. Patient scored a 29/30 on the MoCA. She lost only one point for the cube copying portion. Recommendations Recommendations No acute impairments observed. Discharge from speech therapy .
== END 2018-04-17 16:15 | disposition home or self-care (01) ==
LOC: ED 21:11 → AC 21:36
PROVIDERS: Admitting Provider Nurse Practitioner Adult Health; Emergency Provider Emergency Medicine; Family Provider Physician Assistant; Visit Provider Nurse Practitioner Adult Health
DX: R29.818 Other symptoms and signs involving the nervous system (principal); R20.0 Anesthesia of skin; Z86.73 Personal history of transient ischemic attack (TIA), and cerebral infarction without residual deficits; E11.9 Type 2 diabetes mellitus without complications; Z79.4 Long term (current) use of insulin; J45.909 Unspecified asthma, uncomplicated; I10 Essential (primary) hypertension; E66.01 Morbid (severe) obesity due to excess calories; Z68.45 Body mass index [BMI] 70 or greater, adult; E03.9 Hypothyroidism, unspecified; E88.2 Lipomatosis, not elsewhere classified; G47.33 Obstructive sleep apnea (adult) (pediatric); F17.210 Nicotine dependence, cigarettes, uncomplicated; E87.6 Hypokalemia
CPT/HCPCS: 36415; 36591; 70450; 80048; 80053; 80061; 80305; 81001; 82962; 83036; 84443; 85025; 85610; 85730; 92523; 93005; 93010; 93306; 94760; 96360; 97162; 97165; 99283; 99285; 99291; G0378; J1650; J3480; Q9957

== ENCOUNTER 2018-09-25 22:10 | Emergency (ER) | payer OTHER, SELFPAY ==
[2018-04-16 01:23] VITALS: BMI 71.8
[2018-09-25 22:17] VITALS: BP 138/52; PULSE 51; RESP 24; TEMP 36.6; O2SAT 97; BMI 70.8
--- NOTE | 2018-09-25 22:22 | ED_ITS ---
HPI - Nausea/Vomiting/Diarrhea General Chief complaint: Diabetic Problem Stated complaint: Low Blood Glucose Time Seen by Provider: 09/25/18 22:11 Source: patient Mode of arrival: ambulatory Limitations: no limitations History of Present Illness HPI Narrative: 47-year-old female former smoker with morbid obesity and diabetes presents with a chief complaint of feeling nauseated, weak and lightheaded and noted her blood sugar to be in the 80s at home. Patient was feeling in her normal state of health throughout the course of the day and took her nighttime insulin (Humulin and) and she states she tasted it which is odd for her in the aftermath of that medication. Additionally, she had eaten ice cream and rather sugar eat foods and when she checked her sugar up front it was only in the 120s, which was surprising to her. After 15 or 20 minutes she felt weak and sweaty and checked her blood sugar and it was in the 80s. EMS was activated and they came to evaluate her, her blood sugar remained low, she was given dextrose and refused transport but agreed to come by private auto MD complaint: nausea Onset (ago): hour(s) Description of Diarrhea: none Severity: mild Associated symptoms: denies other symptoms Related Data Home Medications Medication Instructions Recorded Confirmed levothyroxine [Synthroid] 50 mcg PO QDAY #0 07/11/11 04/16/18 Proventil HFA 2 dose INHALATION Q4HRWA #0 08/26/11 04/16/18 Humulin N NPH U-100 Insulin 80 u SQ BID #0 02/19/16 04/16/18 amlodipine 5 mg PO BID #0 08/09/16 04/16/18 furosemide 80 mg PO QDAY #0 08/09/16 04/16/18 ibuprofen 600 mg PO TIDP PRN #0 08/09/16 04/16/18 metoprolol tartrate 100 mg PO BID #0 08/09/16 04/16/18 oxycodone 10 mg PO Q6H PRN #0 08/09/16 04/16/18 oxycodone [OxyContin] 10 mg PO Q12H #0 01/09/17 04/16/18 levofloxacin 500 mg PO DAILY 04/16/18 04/16/18 meclizine 25 mg PO BID PRN MDD 50 04/16/18 04/16/18 Previous Rx's Medication Instructions Recorded atorvastatin [Lipitor] 20 mg PO BEDTIME #30 tab 04/17/18 Allergies Allergy/AdvReac Type Severity Reaction Status Date / Time bee venom protein (honey bee) Allergy Severe Anaphylaxis Verified 09/25/18 22:21 clindamycin Allergy Severe RASH Verified 09/25/18 22:21 zolpidem [From AMBIEN] Allergy Severe hallucinati Verified 09/25/18 22:21 ons Sulfa (Sulfonamide Allergy Mild RASH, Verified 09/25/18 22:21 Antibiotics) DIFFICULTY BREATHING vancomycin Allergy Mild HIGH FEVER Verified 09/25/18 22:21 AND RASH Review of Systems Constitutional Denies chills, Denies fever(s), Denies lethargy, Reports night sweats and Reports weakness Eyes Denies change in vision, Denies eye discharge, Denies irritation and Denies loss of vision ENT Ears, Nose, Mouth, and Throat: Denies change in voice, Denies neck pain and Denies sore throat Cardiovascular Denies chest pain, Denies irregular heart rhythm, Denies lightheadedness, Denies palpitations, Denies dyspnea, Denies dyspnea on exertion and Denies orthopnea Respiratory Denies cough, Denies dyspnea, Denies dyspnea on exertion and Denies wheezing Gastrointestinal Gastrointestinal: Denies abdominal pain, Denies change in bowel habits, Denies diarrhea, Denies nausea and Denies vomiting Genitourinary Denies hematuria, Denies flank pain, Denies urinary incontinence and Denies urinary urgency Musculoskeletal Denies neck pain Integumentary/Breasts Denies pruritus, Denies erythema, Denies rash and Denies wounds Neurologic Denies confusion, Denies loss of vision and Reports weakness Psychiatric Denies anxiety, Denies confusion, Denies depression, Denies homicidal ideation and Denies suicidal ideation Endocrine Denies palpitations Hematologic/Lymphatic Denies easy bruising Allergic/Immunologic Denies wheezing [facility] Medical History Asthma (Acute) Dercum's disease (Acute) Hypertension (Acute) Hypothyroidism (Acute) Insulin dependent type 2 diabetes mellitus (Acute) Morbid obesity with body mass index (BMI) greater than or equal to 70 in adult ( Acute) Psoriasis (Acute) Social History household members: spouse and children Smoking Status: Former smoker alcohol intake: never Social History household members: spouse and children Smoking Status: Former smoker alcohol intake: never Exam Narrative Exam Narrative: GENERAL: [47] year old patient appears stated age. Morbidly obese, no obvious or significant distress HEAD: Atraumatic. Normocephalic. EYES: Pupils equal round and reactive. Extraocular motions intact. No scleral icterus. No injection or drainage. ENT: Nose without bleeding, purulent drainage. Throat without erythema, tonsillar hypertrophy or exudate. Airway patent. NECK: Trachea midline. Non tender CARDIOVASCULAR: Regular rate and rhythm without murmurs, gallops, or rubs. RESPIRATORY: Clear to auscultation. Breath sounds equal bilaterally. No wheezes, rales, or rhonchi. GASTROINTESTINAL: Abdomen soft, non-tender, nondistended. EXTREMITIES: No edema or joint tenderness. BACK: Nontender without deformity or crepitance. No flank tenderness. NEURO: AOx3. SKIN: No rash or erythema of visible areas Initial Vital Signs Initial Vital Signs: Vital Signs Temperature 97.9 F 09/25/18 22:17 Pulse Rate 51 L 09/25/18 22:17 Respiratory Rate 24 09/25/18 22:17 Blood Pressure 138/52 L 09/25/18 22:17 Pulse Oximetry 97 09/25/18 22:17 Course Orders Ordered: ED Orders 09/25/18 22:26 Basic Metabolic Panel Stat Complete Blood Count AUTO DIFF Stat 09/26/18 00:03 Urine Microscopic Stat Discontinued Medications Sodium Chloride (Normal Saline 0.9%) 1,000 mls @ 1,000 mls/hr IV BOLUS ONE Stop: 09/25/18 23:16 Last Infusion: 09/25/18 23:35 Dose: 0 mls/hr Admin: 09/25/18 22:41 Dose: 1,000 mls/hr Metoclopramide HCl (Reglan) 10 mg IV NOW ONE Stop: 09/25/18 22:18 Last Admin: 09/25/18 22:41 Dose: 10 mg Reevaluation(s) Reevaluation #1: Patient continues to do well, blood sugars continue to increase Vital Signs - 8 hr 09/25/18 22:17 09/25/18 22:55 09/25/18 23:00 Temperature 97.9 F Pulse Rate 51 L 59 L 51 L Respiratory Rate 24 20 19 Blood Pressure 138/52 L Blood Pressure [Right Arm] 138/52 L 132/52 L Pulse Oximetry 97 97 97 09/26/18 01:21 Temperature Pulse Rate 54 L Respiratory Rate 20 Blood Pressure 139/84 Blood Pressure [Right Arm] Pulse Oximetry 99 MDM - Nausea/Vomiting/Diarrhea Lab Data Result diagrams: 09/25/18 22:26 09/25/18 22:26 Lab Results 09/25/18 09/25/18 09/26/18 Range/Units 22:26 22: 00:03 WBC 7.8 (4.5-11.0) X10^3/uL RBC 4.38 (4.0-5.2) X10^6/uL Hgb 12.8 (12.0-16.0) g/dL Hct 37.4 (36-46) % MCV 85.3 (80-100) fL MCH 29.2 (26-34) PG MCHC 34.2 (30-36) % RDW 15.5 H (11.6-14.8) % Plt Count 135 L (150-400) X10^3/uL Neut % (Auto) 72.3 (50-75) % Lymph % (Auto) 19.8 L (25-40) % [place] % (Auto) 5.4 (3-14) % Eos % (Auto) 1.6 L (2-4) % Baso % (Auto) 0.9 (0-2) % Neut # (Auto) 5700 (0722-8980) /uL Lymph # (Auto) 1600 (8415-1279) /uL [place]unders # (Auto) 400 (0-900) /uL Eos # (Auto) 100 (0-450) /uL Baso # (Auto) 100 (0-100) /uL Sodium 141 (137-145) mmol/L Potassium 3.9 (3.4-5.1) mmol/L Chloride 106 (98-107) mmol/L Carbon Dioxide 25 (22-32) mmol/L BUN 21 H (7-17) mg/dL Creatinine 0.80 (0.52-1.04) mg/dL Estimated GFR > 60.0 (>60) mL/min BUN/Creatinine Ratio 26.3 H (6-22) Glucose 83 (70-100) mg/dL Calcium 9.0 (8.4-10.2) mg/dL Urine RBC 30-100/hpf H (0-5/HPF) Urine WBC 1-5/hpf (0-5/HPF) Ur Squamous Epith Cells 1-5 /hpf (0-5/HPF) Urine Bacteria None seen (None) Ur Culture Indicated? Cult not indicated Point of Care Testing Test Results Negative Glucose POC 228 Urine Dip Bedside Urine Glucose Negative Bedside Urine Bilirubin + 1 Bedside Urine Ketone +/- 5 Urine Specific [place] 1.025 Bedside Urine Occult Blood +++ Bedside Urine pH 5.5 Bedside Urine Protein + 30 Bedside Urine Urobilinogen +/- 1mg Bedside Urine Nitrite - Negative Bedside Urine Leukocytes - Negative Esterase MDM Narrative Medical decision making narrative: 47F diabetic developed hypoglycemia nearly immediately after an injection of her nighttime, long-acting insulin. Her blood sugars were low and she felt poorly. She took oral glucose and nearly immediately felt better. She was observed until the 5 hour eleno after administration of her insulin and her sugar was over 200 and she remained asymptomatic. Return precautions given and questions answered to her apparent satisfaction Discharge Plan Departure Patient Disposition: Home Clinical Impression: Hypoglycemia Discharge Date/Time: 09/26/18 01:22 Interventions: ED Discharge Assessment Last Done: 09/26/18 01:21 Instructions: DI for Diabetes Type 2 Activity Restrictions/Additional Instructions: *You have been diagnosed with [acute hypoglycemia] *What to do: * continue to take medications as directed *Follow up with your primary care provider in 2-3 days, call for an appointment. Let them know you were seen in the Emergency Department and that we ask that you be seen in follow up *Return to ER if you should have any new, worsening or concerning symptoms Prescriptions: No Action levothyroxine [Synthroid] 50 MCG tablet 50 mcg PO QDAY Qty: 0 RF: 0 Proventil HFA 90 MCG/PUFF HFA aerosol inhaler 2 dose Inhalation Q4HRWA Qty: 0 RF: 0 Humulin N NPH U-100 Insulin 100 UNIT/1 ML suspension 80 u SQ BID Qty: 0 RF: 0 furosemide 80 MG tablet 80 mg PO QDAY Qty: 0 RF: 0 ibuprofen 200 MG capsule 600 mg PO TIDP PRN (Reason: Pain (Scale Score 4-6)) Qty: 0 RF: 0 oxycodone 5 MG tablet 10 mg PO Q6H PRN (Reason: Pain, Moderate) Qty: 0 RF: 0 metoprolol tartrate 100 MG tablet 100 mg PO BID Qty: 0 RF: 0 amlodipine 10 MG tablet 5 mg PO BID Qty: 0 RF: 0 oxycodone [OxyContin] 40 MG tablet,oral only,ext.rel.12 hr 10 mg PO Q12H Qty: 0 RF: 0 meclizine 25 mg tablet 25 mg PO BID MDD 50 PRN (Reason: Dizziness) RF: 0 levofloxacin 500 mg tablet 500 mg PO DAILY RF: 0 atorvastatin [Lipitor] 20 mg Tablet 20 mg PO BEDTIME Qty: 30 RF: 0
[2018-09-25] MEDS: METOCLOPRAMIDE 10 MG/2 ML INJ IV (22:41)
[2018-09-25] MEDS: SODIUM CHLORIDE 0.9% 1,000 ML 1000 ML IV (22:41)
[2018-09-25 22:43] LABS: Add Manual Diff / Slide Review NO; Basophils Absolute Auto 100 /uL (0-100); Basophils Percent Auto 0.9 % (0-2); Eosinophils Absolute Auto 100 /uL (0-450); Eosinophils Percent Auto 1.6 % (2-4); Hematocrit 37.4 % (36-46); Hemoglobin 12.8 g/dL (12.0-16.0); Lymphocytes Absolute Auto 1600 /uL (1100-4500); Lymphocytes Percent Auto 19.8 % (25-40); Mean Corpuscular HGB Conc 34.2 % (30-36); Mean Corpuscular Hemoglobin 29.2 PG (26-34); Mean Corpuscular Volume 85.3 fL (80-100); Monocytes Absolute Auto 400 /uL (0-900); Monocytes Percent Auto 5.4 % (3-14); Neutrophils Absolute Auto 5700 /uL (1500-7000); Neutrophils Percent Auto 72.3 % (50-75); Platelet Count 135 X10^3/uL (150-400); Red Blood Cell Count 4.38 X10^6/uL (4.0-5.2); Red Cell Distribution Width 15.5 % (11.6-14.8); White Blood Cell Count 7.8 X10^3/uL (4.5-11.0)
[2018-09-25 22:52] LABS: BUN Creatinine Ratio 26.3 (6-22); Blood Urea Nitrogen 21 mg/dL (7-17); Carbon Dioxide 25 mmol/L (22-32); Chloride 106 mmol/L (98-107); Estimated Glomerular Filt Rate > 60.0 mL/min (>60); Glucose 83 mg/dL (70-100); HEMOLYSIS 28 (0-50); Potassium 3.9 mmol/L (3.4-5.1); Sodium 141 mmol/L (137-145)
[2018-09-25 22:55] VITALS: BP 138/52; PULSE 59; RESP 20; O2SAT 97
[2018-09-25 23:00] VITALS: BP 132/52; PULSE 51; RESP 19; O2SAT 97
--- NOTE | 2018-09-25 23:53 | PC.NURSE ---
Patient with blood sugars maintaining normal levels for patient since arrival. Patient alert and talking with family. Steady gait to BR, unable to provide urine, states I've only had diarrhea.
[2018-09-26 00:20] LABS: Bacteria Urine None Seen
[2018-09-26 00:30] LABS: Culture Indicated Urine Cult Not Indicated; RBC Urine 30-100/HPF (0-5/HPF); Squamous Epithelial Cell Urine 1-5 /HPF (0-5/HPF); WBC Urine 1-5/HPF (0-5/HPF)
[2018-09-26 01:21] VITALS: BP 139/84; PULSE 54; RESP 20; O2SAT 99
== END 2018-09-26 01:22 | disposition home or self-care (01) ==
PROVIDERS: Emergency Provider Emergency Medicine; Family Provider Physician Assistant
DX: E16.2 Hypoglycemia, unspecified (principal)
CPT/HCPCS: 36591; 80048; 81003; 81015; 81025; 82962; 85025; 96361; 96374; 99283; 99284; J2765

== ENCOUNTER 2020-12-16 15:34 | Emergency (ER) | payer OTHER, SELFPAY ==
[2018-04-16 01:23] VITALS: BMI 71.8
[2020-12-16 15:40] VITALS: BP 115/67; PULSE 92; RESP 22; TEMP 37.1; O2SAT 100
--- NOTE | 2020-12-16 16:22 | ED_ITS ---
HPI - Female Genitourinary General Chief complaint: Urogenital-Female Stated complaint: General Weakness/Poss UTI Time Seen by Provider: 12/16/20 16:15 Source: patient and EMS Mode of arrival: EMS History of Present Illness HPI Narrative: The patient presents with complaints of dysuria. More significant is urinary incontinence. This is persistent. She says she stands that she urinates. She has no back pain. She has no lower abdominal discomfort. She has no URI symptoms cough or chest discomfort. She has subjective fever, no chills. She feels weak, decreased appetite. She denies nausea, vomiting diarrhea. She is drinking plenty of fluids. She has morbid obesity. She was with a recently treated for UTI as well as the right 2nd toe infection by her PCM, apparently on Levaquin for 20 days. She would have finished this antibiotic just days ago. Related Data Home Medications Medication Instructions Recorded Confirmed levothyroxine 50 mcg tablet 50 mcg PO QDAY #0 07/11/11 04/16/18 (Synthroid) albuterol sulfate 90 mcg/actuation 2 dose INHALATION Q4HRWA #0 08/26/11 04/16/18 aerosol inhaler (Proventil HFA) insulin NPH isoph U-100 human 100 80 u SQ BID #0 02/19/16 04/16/18 unit/mL subcutaneous suspension (Humulin N NPH U-100 Insulin (isophane susp)) amlodipine 10 mg tablet 5 mg PO BID #0 08/09/16 04/16/18 furosemide 80 mg tablet 80 mg PO QDAY #0 08/09/16 04/16/18 ibuprofen 200 mg capsule 600 mg PO TIDP PRN #0 08/09/16 04/16/18 metoprolol tartrate 100 mg tablet 100 mg PO BID #0 08/09/16 04/16/18 oxycodone 5 mg tablet 10 mg PO Q6H PRN #0 08/09/16 04/16/18 oxycodone 40 mg tablet,crush 10 mg PO Q12H #0 01/09/17 04/16/18 resistant,extended release 12 hr (OxyContin) levofloxacin 500 mg tablet 500 mg PO DAILY 04/16/18 04/16/18 meclizine 25 mg tablet 25 mg PO BID PRN MDD 50 04/16/18 04/16/18 Previous Rx's Medication Instructions Recorded atorvastatin 20 mg tablet (Lipitor) 20 mg PO BEDTIME #30 tab 04/17/18 fluconazole 150 mg tablet 150 mg PO 2XW 42 Days #12 tab 12/16/20 (Diflucan) Allergies Allergy/AdvReac Type Severity Reaction Status Date / Time bee venom protein (honey bee) Allergy Severe Anaphylaxis Verified 09/25/18 22:21 clindamycin Allergy Severe RASH Verified 09/25/18 22:21 zolpidem [From AMBIEN] Allergy Severe hallucinati Verified 09/25/18 22:21 ons Sulfa (Sulfonamide Allergy Mild RASH, Verified 09/25/18 22:21 Antibiotics) DIFFICULTY BREATHING vancomycin Allergy Mild HIGH FEVER Verified 09/25/18 22:21 AND RASH Review of Systems Constitutional Constitutional: Reports chills, Reports fatigue, Reports fever(s), Denies headache(s) and Denies weakness ENT Ears, Nose, Mouth, and Throat: Denies headache(s), Denies nasal congestion, Denies sinus pressure and Denies sore throat Cardiovascular Cardiovascular: Denies chest pain, Denies pedal edema and Denies edema Respiratory Respiratory: Denies chest congestion and Denies cough Gastrointestinal Gastrointestinal: Denies abdominal pain, Denies diarrhea, Denies nausea and Denies vomiting Genitourinary Genitourinary: Reports as per HPI Musculoskeletal Musculoskeletal: Reports as per HPI and Denies numbness Integumentary/Breasts Comments: Lymphedema. Stasis dermatitis changes in her lower extremities. Neurologic Neurologic: Denies confusion, Denies headache(s), Denies numbness and Denies weakness Psychiatric Psychiatric: Denies confusion and Denies depression Endocrine Endocrine: Reports fatigue Hematologic/Lymphatic On Anticoagulants: No Patient History Medical History (Updated 12/16/20 @ 18:32 by Heath Romo MD) Asthma Dercum's disease Hypertension Hypothyroidism Insulin dependent type 2 diabetes mellitus Morbid obesity with body mass index (BMI) greater than or equal to 70 in adult Psoriasis Substance Use Type: does not use Exam Initial Vital Signs Initial Vital Signs: Vital Signs Temperature 98.8 F 12/16/20 15:40 Pulse Rate 92 H 12/16/20 15:40 Respiratory Rate 22 12/16/20 15:40 Blood Pressure 115/67 12/16/20 15:40 Pulse Oximetry 100 12/16/20 15:40 Const General: cooperative, comfortable and No ill appearing Nutritional Appearance: obese Limitations: mental status not altered [facility] Head: normocephalic and atraumatic Resp Effort & Inspection: normal respiratory effort Auscultation: clear to auscultation bilaterally Cardio Rate: regular rate Rhythm: regular rhythm Heart Sounds: S1 normal, S2 normal and no murmurs GI Inspection: large pannus and obesity Palpation: soft Auscultation: normal bowel sounds Other: Tinea cruris changes in the skin creases below the pannus. Back/Spine/Pelvis Back: No CVA tenderness Thoracic/Lumbar Spine: thoracic and lumbar spine normal to inspection Skin Other: Stasis dermatitis changes the lower extremities. Lymphedema. No cellulitis. Capillary refill in the toes is normal. Neuro General: patient alert, patient awake, patient oriented x3 and no focal motor deficits Extrem General: full ROM, no calf tenderness and other (Lymphedema.) Psych Mental Status: mental status grossly normal Course Course Course Narrative: I started the patient on Diflucan for Tinea cruris. The patient has urinary incontinence. She has follow-up with her PCM. The UA does not suggest UTI, a culture has been ordered. Orders Ordered: ED Orders 12/16/20 16:40 Ictotest Urine Stat Urinalysis and Microscopic Stat 12/16/20 16:51 Complete Blood Count AUTO DIFF Stat Comprehensive Metabolic Panel Stat Lipase Stat Discontinued Medications Fluconazole (Fluconazole 150 Mg Tablet) 150 mg PO NOW ONE Stop: 12/16/20 18:28 Vital Signs Vital signs: Vital Signs - 8 hr 12/16/20 15:40 12/16/20 18:54 Temperature 98.8 F Pulse Rate 92 H 90 Respiratory Rate 22 Blood Pressure 115/67 113/64 Pulse Oximetry 100 97 MDM - Female Genitourinary Lab Data Result diagrams: 12/16/20 16:51 12/16/20 16:51 Labs: Lab Results 12/16/20 12/16/20 12/16/20 Range/Units 16:40 16:51 16:51 WBC 7.6 (4.5-11.0) X10^3/uL RBC 4.00 (4.0-5.2) X10^6/uL Hgb 12.0 (12.0-16.0) g/dL Hct 35.9 L (36-46) % MCV 89.9 (80-100) fL MCH 30.1 (26-34) PG MCHC 33.5 (30-36) % RDW 13.9 (11.6-14.8) % Plt Count 121 L (150-400) X10^3/uL Neut % (Auto) 77.3 H (50-75) % Lymph % (Auto) 13.7 L (25-40) % [place] % (Auto) 8.3 (3-14) % Eos % (Auto) 0.5 L (2-4) % Baso % (Auto) 0.2 (0-2) % Neut # (Auto) 5900 (4063-9234) /uL Lymph # (Auto) 1000 L (9770-3920) /uL [place] # (Auto) 600 (0-900) /uL Eos # (Auto) 0 (0-450) /uL Baso # (Auto) 0 (0-100) /uL Sodium 137 (137-145) mmol/L Potassium 3.7 (3.4-5.1) mmol/L Chloride 102 (98-107) mmol/L Carbon Dioxide 26 (22-32) mmol/L BUN 14 (7-17) mg/dL Creatinine 1.08 H (0.52-1.04) mg/dL Estimated GFR 53.5 L (>60) mL/min BUN/Creatinine Ratio 13.0 (6-22) Glucose 173 H (70-100) mg/dL Calcium 8.8 (8.4-10.2) mg/dL Total Bilirubin 2.0 H (0.2-1.3) mg/dL AST 17 (14-36) IU/L ALT 13 (<35) IU/L Alkaline Phosphatase 55 (38-126) U/L Total Protein 6.9 (6.3-8.2) g/dL Albumin 3.6 (3.5-5.0) g/dL Globulin 3.3 (1.7-4.1) g/dL Albumin/Globulin Ratio 1.1 (1.0-2.8) Lipase 16 L (23-300) U/L Urine Color Yellow Urine Appearance Clear Urine pH 5.0 (4.5-8.0) Ur Specific [place] >=1.030 H (1.000-1.035) Urine Protein 2+ H (Negative) Urine Glucose (UA) Negative (Negative) g/dL Urine Ketones Trace H (NEGATIVE) Urine Occult Blood Trace-lysed (Negative) Urine Nitrate Positive H (Negative) Urine Bilirubin 1+ H (NEGATIVE) Ur Bilirubin Confirm Positive H (Negative) Urine Urobilinogen 0.2 (0.2) E.U./dL Ur Leukocyte Esterase Trace H (NEGATIVE) Urine RBC 0-1/hpf D (0-5/HPF) Urine WBC 1-5/hpf (0-5/HPF) Ur Squamous Epith Cells 10-30 /hpf H D (0-5/HPF) Ur Transition Epith Cell 1-5/hpf (0-5/HPF) Urine Bacteria Many (>30) H (None) Ur Culture Indicated? Cult not indicated Micro UA Comment Not a clean catch Discharge Plan Departure Patient Disposition: Home Clinical Impression: Tinea cruris Urinary incontinence Qualifiers: Urinary Incontinence type: unspecified incontinence Qualified Code(s): R32 - Unspecified urinary incontinence Instructions: Urinary Incontinence -- Female, Jock Itch Activity Restrictions/Additional Instructions: Diflucan 1 tablet 2 times weekly for 6 weeks. Your prescription has been electronically forwarded to [facility] [place]. Follow-up with your doctor regarding the urinary incontinence. The urine sample does not definitely show a UTI, we will d further testing. We will call you if there is need for antibiotics. Prescriptions: New fluconazole [Diflucan] 150 mg tablet 150 mg PO 2XW 42 Days Qty: 12 RF: 0 No Action levothyroxine [Synthroid] 50 MCG tablet 50 mcg PO QDAY Qty: 0 RF: 0 Proventil HFA 90 MCG/PUFF HFA aerosol inhaler 2 dose Inhalation Q4HRWA Qty: 0 RF: 0 Humulin N NPH U-100 Insulin 100 UNIT/1 ML suspension 80 u SQ BID Qty: 0 RF: 0 furosemide 80 MG tablet 80 mg PO QDAY Qty: 0 RF: 0 ibuprofen 200 MG capsule 600 mg PO TIDP PRN (Reason: Pain (Scale Score 4-6)) Qty: 0 RF: 0 oxycodone 5 MG tablet 10 mg PO Q6H PRN (Reason: Pain, Moderate) Qty: 0 RF: 0 metoprolol tartrate 100 MG tablet 100 mg PO BID Qty: 0 RF: 0 amlodipine 10 MG tablet 5 mg PO BID Qty: 0 RF: 0 oxycodone [OxyContin] 40 MG tablet,oral only,ext.rel.12 hr 10 mg PO Q12H Qty: 0 RF: 0 meclizine 25 mg tablet 25 mg PO BID MDD 50 PRN (Reason: Dizziness) RF: 0 levofloxacin 500 mg tablet 500 mg PO DAILY RF: 0 atorvastatin [Lipitor] 20 mg Tablet 20 mg PO BEDTIME Qty: 30 RF: 0
[2020-12-16 16:55] LABS: Appearance Urine UA CLEAR; Bilirubin Urine UA 1+ (NEGATIVE); Color Urine UA YELLOW; Glucose Urine UA NEGATIVE (Negative); Ketones Urine UA TRACE (NEGATIVE); Leukocyte Esterase Urine UA TRACE (NEGATIVE); Nitrite Urine UA POSITIVE (Negative); Occult Blood Urine UA TRACE-LYSED (Negative); Protein Urine UA 2+ (Negative); Specific Gravity Urine UA >=1.030 (1.000-1.035); Urobilinogen Urine UA 0.2 E.U./dL (0.2)
[2020-12-16 16:57] LABS: Add Manual Diff / Slide Review NO; Basophils Absolute Auto 0 /uL (0-100); Basophils Percent Auto 0.2 % (0-2); Eosinophils Absolute Auto 0 /uL (0-450); Eosinophils Percent Auto 0.5 % (2-4); Hematocrit 35.9 % (36-46); Lymphocytes Absolute Auto 1000 /uL (1100-4500); Lymphocytes Percent Auto 13.7 % (25-40); Mean Corpuscular HGB Conc 33.5 % (30-36); Mean Corpuscular Hemoglobin 30.1 PG (26-34); Mean Corpuscular Volume 89.9 fL (80-100); Monocytes Absolute Auto 600 /uL (0-900); Monocytes Percent Auto 8.3 % (3-14); Neutrophils Absolute Auto 5900 /uL (1500-7000); Neutrophils Percent Auto 77.3 % (50-75); Platelet Count 121 X10^3/uL (150-400); Red Cell Distribution Width 13.9 % (11.6-14.8); White Blood Cell Count 7.6 X10^3/uL (4.5-11.0)
[2020-12-16 17:10] LABS: Alanine Aminotransferase 13 IU/L (<35); Albumin 3.6 g/dL (3.5-5.0); Albumin Globulin Ratio 1.1 (1.0-2.8); Alkaline Phosphatase 55 U/L (38-126); Aspartate Aminotransferase 17 IU/L (14-36); Blood Urea Nitrogen 14 mg/dL (7-17); Calcium 8.8 mg/dL (8.4-10.2); Carbon Dioxide 26 mmol/L (22-32); Chloride 102 mmol/L (98-107); Estimated Glomerular Filt Rate 53.5 mL/min (>60); Globulin 3.3 g/dL (1.7-4.1); Glucose 173 mg/dL (70-100); HEMOLYSIS < 15 (0-50); Lipase 16 U/L (23-300); Potassium 3.7 mmol/L (3.4-5.1); Sodium 137 mmol/L (137-145); Total Protein 6.9 g/dL (6.3-8.2)
[2020-12-16 17:14] LABS: Bacteria Urine Many (>30); Ictotest Urine Positive (Negative); RBC Urine 0-1/HPF (0-5/HPF); Squamous Epithelial Cell Urine 10-30 /HPF (0-5/HPF); Transitional Epi Cells Urine 1-5/HPF (0-5/HPF); WBC Urine 1-5/HPF (0-5/HPF)
[2020-12-16 17:15] LABS: Culture Indicated Urine Cult Not Indicated
[2020-12-16 18:54] VITALS: BP 113/64; PULSE 90; O2SAT 97
[2020-12-16] MEDS: FLUCONAZOLE 150 MG TABLET PO (19:06)
[2020-12-16 19:50] VITALS: BP 121/60; PULSE 88; RESP 20; O2SAT 97
== END 2020-12-16 19:50 | disposition home or self-care (01) ==
PROVIDERS: Emergency Provider Emergency Medicine; Family Provider Physician Assistant
DX: B35.6 Tinea cruris (principal); R32 Unspecified urinary incontinence
CPT/HCPCS: 36415; 80053; 81001; 83690; 85025; 99283

== ENCOUNTER 2021-01-10 08:49 | Emergency (ER) | payer OTHER, SELFPAY ==
[2018-04-16 01:23] VITALS: BMI 71.8
[2021-01-10 09:23] VITALS: BP 113/73; PULSE 90; RESP 18; TEMP 36.4; O2SAT 99; BMI 70.7
--- NOTE | 2021-01-10 09:48 | ED_ITS ---
HPI - Fever General Chief Complaint: Fever Stated Complaint: R/O Blood Clott in Left Leg, COVID Exp./Fever/Chil Time Seen by Provider: 01/10/21 09:27 Source: patient Mode of arrival: Wheelchair Limitations: no limitations History of Present Illness HPI Narrative: Patient is a 50 year female with history of lymphedema, morbid obesity, hypertension, diabetes, dercums disease, presents today with 2 days of left foot redness. She frequently has cellulitis from her edema she says she gets treated with Levaquin. However have her 1 in her household is diagnosed with COVID. She is vaccinated. 4 days ago she started having fever body aches some cough and shortness of breath. Denies any chest pain. Related Data Home Medications Medication Instructions Recorded Confirmed levothyroxine 50 mcg tablet 50 mcg PO QDAY #0 07/11/11 04/16/18 (Synthroid) albuterol sulfate 90 mcg/actuation 2 dose INHALATION Q4HRWA #0 08/26/11 04/16/18 aerosol inhaler (Proventil HFA) insulin NPH isoph U-100 human 100 80 u SQ BID #0 02/19/16 04/16/18 unit/mL subcutaneous suspension (Humulin N NPH U-100 Insulin (isophane susp)) amlodipine 10 mg tablet 5 mg PO BID #0 08/09/16 04/16/18 furosemide 80 mg tablet 80 mg PO QDAY #0 08/09/16 04/16/18 ibuprofen 200 mg capsule 600 mg PO TIDP PRN #0 08/09/16 04/16/18 metoprolol tartrate 100 mg tablet 100 mg PO BID #0 08/09/16 04/16/18 oxycodone 5 mg tablet 10 mg PO Q6H PRN #0 08/09/16 04/16/18 oxycodone 40 mg tablet,crush 10 mg PO Q12H #0 01/09/17 04/16/18 resistant,extended release 12 hr (OxyContin) levofloxacin 500 mg tablet 500 mg PO DAILY 04/16/18 04/16/18 meclizine 25 mg tablet 25 mg PO BID PRN MDD 50 04/16/18 04/16/18 Previous Rx's Medication Instructions Recorded atorvastatin 20 mg tablet (Lipitor) 20 mg PO BEDTIME #30 tab 04/17/18 fluconazole 150 mg tablet 150 mg PO 2XW 42 Days #12 tab 12/16/20 (Diflucan) levofloxacin 750 mg tablet 750 mg PO DAILY 7 Days tab 01/10/21 Allergies Allergy/AdvReac Type Severity Reaction Status Date / Time bee venom protein (honey bee) Allergy Severe Anaphylaxis Verified 01/10/21 09:26 clindamycin Allergy Severe RASH Verified 01/10/21 09:26 zolpidem [From AMBIEN] Allergy Severe hallucinati Verified 01/10/21 09:26 ons Sulfa (Sulfonamide Allergy Mild RASH, Verified 01/10/21 09:26 Antibiotics) DIFFICULTY BREATHING vancomycin Allergy Mild HIGH FEVER Verified 01/10/21 09:26 AND RASH Review of Systems Review of Systems Narrative: GENERAL: + fever,+ body aches,+ fatigue HEENT: Denies sinus pain, ear pain, sore throat, difficulty swallowing, neck pain RESPIRATORY: See HPI CARDIOVASCULAR: Denies chest pain, palpitations, orthopnea, edema GASTROINTESTINAL: Denies nausea, vomiting, abdominal pain, diarrhea, constipatio n, melena. : Denies dysuria, frequency, incontinence, hematuria, urinary retention, flank pain. MUSCULOSKELETAL: Denies weakness, joint pain, or bony pain SKIN: See HPI NEUROLOGIC: Denies weakness, dizziness, headache, numbness, change in speech, confusion PSYCHIATRIC: No concerning psychosocial issues. 12 point review of systems is negative except for those stated above and HPI Patient History Medical History (Updated 01/10/21 @ 10:23 by Cris Garces DO) Asthma Dercum's disease Hypertension Hypothyroidism Insulin dependent type 2 diabetes mellitus Morbid obesity with body mass index (BMI) greater than or equal to 70 in adult Psoriasis Social History household members: spouse and children Smoking Status: Former smoker alcohol intake: never Smoking Status: Former smoker Substance Use Type: does not use Exam Initial Vital Signs Initial Vital Signs: Vital Signs Temperature 97.5 F L 01/10/21 09:23 Pulse Rate 90 01/10/21 09:23 Respiratory Rate 18 01/10/21 09:23 Blood Pressure 113/73 01/10/21 09:23 Pulse Oximetry 99 01/10/21 09:23 GENERAL: 50-year-old female BMI 70 HEENT: Head atraumatic,EOMI, pupils reactive, face symmetric, moist mucous membranes CARDIOVASCULAR: Regular rate and rhythm without murmurs, rubs or gallops. RESPIRATORY: Breath sounds equal bilaterally, no wheezes rales or rhonchi. ABDOMEN: Soft, nontender. Normoactive bowel sounds all 4 quadrants. No guarding or rebound. EXTREMITIES: Normal range of motion, no clubbing. Lymphedema present bilateral lower extremity Neurovascularly intact NEUROLOGICAL: Alert and oriented x4. SKIN: Left lower extremity mildly erythematous lower leg however foot is bright red. She states left lower leg is always slightly red but the foot is significantly worse for last 2 days. Blanching no fluctuation Course Orders Ordered: ED Orders 01/10/21 09:21 COVID19 -Nasal swab/Pre-Proc Stat Vital Signs Vital signs: Vital Signs - 8 hr 01/10/21 09:23 01/10/21 10:02 Temperature 97.5 F L Pulse Rate 90 80 Respiratory Rate 18 17 Blood Pressure 113/73 103/65 Pulse Oximetry 99 99 MDM - Fever Medical Records Medical records narrative: The patient presents with body aches fever chills everyone in her house has COVID fortunately her COVID test so far is negative. She does have obvious cellulitis of her left leg mostly her left foot. She is afebrile here. Start her on Levaquin which has worked for her in the past. She overall is not septic but does have risk factors for worsening disease. Lab Data Labs: Lab Results 01/10/21 Range/Units 09:21 SARS-CoV-2 (PCR) Negative (Negative) Discharge Plan Departure Patient Disposition: Home Clinical Impression: Cellulitis Instructions: Cellulitis Activity Restrictions/Additional Instructions: *You have been diagnosed with cellulitis left foot *What to do: Please monitor for worsening redness *Continue to take medications as directed Levaquin 750 mg once a day for 7 days *Follow up with your primary care provider in 2-3 days *Return to ER if you should have increasing redness, persistent fever increasing pain or any new, worsening or concerning symptoms Prescriptions: New levofloxacin 750 mg tablet 750 mg PO DAILY 7 Days 0RF No Action levothyroxine [Synthroid] 50 MCG tablet 50 mcg PO QDAY Qty: 0 0RF Proventil HFA 90 MCG/PUFF HFA aerosol inhaler 2 dose Inhalation Q4HRWA Qty: 0 0RF Humulin N NPH U-100 Insulin 100 UNIT/1 ML suspension 80 u SQ BID Qty: 0 0RF furosemide 80 MG tablet 80 mg PO QDAY Qty: 0 0RF ibuprofen 200 MG capsule 600 mg PO TIDP PRN (Reason: Pain (Scale Score 4-6)) Qty: 0 0RF oxycodone 5 MG tablet 10 mg PO Q6H PRN (Reason: Pain, Moderate) Qty: 0 0RF metoprolol tartrate 100 MG tablet 100 mg PO BID Qty: 0 0RF amlodipine 10 MG tablet 5 mg PO BID Qty: 0 0RF oxycodone [OxyContin] 40 MG tablet,oral only,ext.rel.12 hr 10 mg PO Q12H Qty: 0 0RF meclizine 25 mg tablet 25 mg PO BID MDD 50 PRN (Reason: Dizziness) 0RF levofloxacin 500 mg tablet 500 mg PO DAILY 0RF atorvastatin [Lipitor] 20 mg Tablet 20 mg PO BEDTIME Qty: 30 0RF fluconazole [Diflucan] 150 mg tablet 150 mg PO 2XW 42 Days Qty: 12 0RF Referrals: Twila Fuentes PA-C [Primary Care Provider] -
[2021-01-10 09:55] LABS: COVID19 -Nasal RAPID Negative (Negative)
[2021-01-10 10:02] VITALS: BP 103/65; PULSE 80; RESP 17; O2SAT 99
== END 2021-01-10 10:39 | disposition home or self-care (01) ==
PROVIDERS: Emergency Provider Emergency Medicine; Family Provider Physician Assistant; PCP Physician Assistant
DX: L03.116 Cellulitis of left lower limb (principal); Z88.2 Allergy status to sulfonamides; Z88.1 Allergy status to other antibiotic agents; Z87.891 Personal history of nicotine dependence; Z20.822 Contact with and (suspected) exposure to COVID-19
CPT/HCPCS: 87635; 99281; 99282; C9803

== ENCOUNTER 2024-03-12 03:37 | Inpatient (IN) | payer OTHER, SELFPAY ==
[2018-04-16 01:23] VITALS: BMI 71.8
[2024-03-12] VITALS (26 sets, daily range): BP systolic 96–141; BP diastolic 52–92; PULSE 78–141; RESP 12–27; TEMP 36.1–37.6; O2SAT 95–100; BMI 68.8; BMI 67.5
--- NOTE | 2024-03-12 | PATH_ITS ---
[facility] Accession Number: [id number] No. of containers..01 Tissue . 01 Material submitted: . abdomen - PANNUS ABBSCESS . 01 Diagnosis: PANNUS, BIOPSY: Necrotic tissue with acute inflammation. . Note: Gram positive cocci in clusters are highlighted with positive staining with Gram stain in the tissue. PAS stain is negative for fungal hyphae. MRV 03/16/2024 1344 Local . 01 Comment: The histologic material was reviewed with Dr. Rayo Ochoa, who concurs. . 01 Electronically signed: . Katerina Alegre MD, Dermatopathologist NPI- [id number] . 01 Gross description: . Received in formalin with two patient identifiers and pannus abscess, is a saucedo to galindo tissue fragment with no skin grossly indentified measuring 4.7 x 4.6 x 1.2 cm. Sectioned to reveal a soft saucedo to galindo cut surface. [facility] sections submitted in cassette A1. ([id number]) /TRI 03/13/2024 0829 Local . 01 Pathologist provided ICD-10: L98.9 . 01 CPT . 370091, 405212, [id number] Specimen Comment: A courtesy copy of this report has been sent to [facility] Pathology Performed at: [address] [facility] [facility], [place], [place] [id number] MD Trevon Godoy MD Phone: [phone]
--- NOTE | 2024-03-12 03:51 | ED_ITS ---
HPI - Skin/Abscess/Foreign Bdy General Chief complaint: Skin/Abscess/Foreign Body Stated complaint: abscess on ab Time Seen by Provider: 03/12/24 03:38 Mode of arrival: EMS History of Present Illness HPI narrative: 53-year-old female with history of A fib on Pradaxa, morbid obesity, diabetes, abdominal and lower extremity lymphedema presents by EMS from home for possible ruptured abscess. Patient states that she got up to use the restroom when she felt something in her lower abdomen pop. EMS reports that there appeared to be approximately 200 cc of blood on the ground on their arrival. Wound was padded with gauze and patient was transported for further evaluation. Patient states that last week she ran high fevers and was diagnosed with an ESBL Klebsiella UTI by her primary care doctors at [facility]. Patient sees Dr. Chun at [facility] Infectious Disease. Per outside records patient was treated with 1 dose of fosfomycin as well as ciprofloxacin. She says that she has been feeling better until today. She has had abdominal pannus abscesses in the past that required drainage surgically. Last surgical drainage was 01/2023 at . Related Data Home Medications Medication Instructions Recorded Confirmed levothyroxine 50 mcg tablet 50 mcg PO QDAY ##0 07/11/11 04/16/18 (Synthroid) albuterol sulfate 90 mcg/actuation 2 dose inhalation Q4HRWA ##0 08/26/11 04/16/18 aerosol inhaler (Proventil HFA) insulin NPH isoph U-100 human 100 80 u SQ BID ##0 02/19/16 04/16/18 unit/mL subcutaneous suspension (Humulin N NPH U-100 Insulin (isophane susp)) amlodipine 10 mg tablet 5 mg PO BID ##0 08/09/16 04/16/18 furosemide 80 mg tablet 80 mg PO QDAY ##0 08/09/16 04/16/18 ibuprofen 200 mg capsule 600 mg PO TIDP PRN Pain (Scale 08/09/16 04/16/18 Score 4-6) ##0 metoprolol tartrate 100 mg tablet 100 mg PO BID ##0 08/09/16 04/16/18 oxycodone 5 mg tablet 10 mg PO Q6H PRN Pain, Moderate ##0 08/09/16 04/16/18 oxycodone 40 mg tablet,crush 10 mg PO Q12H ##0 01/09/17 04/16/18 resistant,extended release 12 hr (OxyContin) levofloxacin 500 mg tablet 500 mg PO DAILY 04/16/18 04/16/18 meclizine 25 mg tablet 25 mg PO BID PRN Dizziness 04/16/18 04/16/18 Previous Rx's Medication Instructions Recorded atorvastatin 20 mg tablet (Lipitor) 20 mg PO BEDTIME #30 tabs 04/17/18 Allergies Allergy/AdvReac Type Severity Reaction Status Date / Time bee venom protein (honey bee) Allergy Severe Anaphylaxis Verified 01/10/21 09:26 clindamycin Allergy Severe RASH Verified 01/10/21 09:26 zolpidem [From AMBIEN] Allergy Severe hallucinati Verified 01/10/21 09:26 ons Sulfa (Sulfonamide Allergy Mild RASH, Verified 01/10/21 09:26 Antibiotics) DIFFICULTY BREATHING vancomycin Allergy Mild HIGH FEVER Verified 01/10/21 09:26 AND RASH Patient History Medical History Morbid obesity with body mass index (BMI) greater than or equal to 70 in adult Hypothyroidism Asthma Psoriasis Hypertension 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 Social History household members: spouse and children Smoking Status: Former smoker alcohol intake: never Smoking Status: Former smoker Exam Initial Vital Signs Initial Vital Signs: Vital Signs Temperature 98.4 F 03/12/24 03:40 Pulse Rate 116 H 03/12/24 03:40 Respiratory Rate 22 03/12/24 03:40 Blood Pressure 117/73 03/12/24 03:40 Pulse Oximetry 100 03/12/24 03:40 Oxygen Delivery Method Room Air 03/12/24 03:40 Const: Awake, alert, no acute distress, debilitated, morbidly obese Cardiac: tachycardia, regular rhythm RESP: unlabored, conversational without dyspnea GI: Soft,extensive lymphedema changes over lower abdomen/pannus Skin: <1cm bleeding lesion outer L pannus. No wurrounding erythema. Lymphedema changes of skin Neuro: AO x3, CN II-XII grossly intact, moves all extremities Procedures Laceration Repair Laceration 1: Site: other (abdomen) Side (If applicable): left Size (cm): 0.5 Description: other (hole) Depth: simple, single layer Local Anesthetic: lidocaine 1% and with epi Amount of anesthesia used (mL): 3 Skin layer closed with: nylon Skin layer suture size: 3-0 Number of sutures: 2 Technique: horizontal mattress Course Orders Ordered: ED Orders 03/12/24 03:52 CT abdomen pelvis w con Stat 03/12/24 04:14 CBC Auto Diff [Complete Blood Count AUTO DIFF] Stat CMP [Comprehensive Metabolic Panel] Stat PT [Prothrombin Time INR] Stat 03/12/24 05:52 Blood Culture Stat Acetaminophen (Acetaminophen 325 Mg Tablet) 650 mg PO Q6H PRN PRN Reason: Fever/Mild Pain (1-3) Al Hydrox/Mg Hydrox/Simethicone (Mag Hydrox/Alum/Simeth 30 Ml Udc) 30 ml PO Q6HR PRN PRN Reason: Dyspepsia Hydromorphone HCl (Hydromorphone 0.5 Mg Inj) 0.5 mg IV Q2H PRN PRN Reason: Pain, Severe (7-10) Magnesium Hydroxide (Magnesium Hydroxide 30 Ml Udc) 30 ml PO DAILY PRN PRN Reason: Constipation Naloxone HCl (Naloxone 0.4 Mg/Ml Vial) 0.2 mg IV Q2MIN PRN PRN Reason: Opiate Reversal Oxycodone HCl (Oxycodone Ir 5 Mg Tablet) 2.5 mg PO Q3H PRN PRN Reason: Pain, Moderate (4-6) Oxycodone HCl (Oxycodone Ir 10 Mg Tablet) 5 mg PO Q3H PRN PRN Reason: Pain, Severe (7-10) Discontinued Medications Cefepime HCl 2 gm/ Sodium (Chloride) 100 mls @ 200 mls/hr IV NOW ONE Stop: 03/12/24 06:25 Vital Signs Vital signs: Vital Signs - 8 hr 03/12/24 03:40 03/12/24 03:45 03/12/24 03:46 Temperature 98.4 F Pulse Rate 116 H Respiratory Rate 22 Blood Pressure 117/73 117/73 Pulse Oximetry 100 100 Oxygen Delivery Method Room Air 03/12/24 03:46 03/12/24 04:00 03/12/24 04:00 Temperature Pulse Rate 109 H 117 H Respiratory Rate Blood Pressure 116/69 Pulse Oximetry 99 99 Oxygen Delivery Method Room Air Room Air 03/12/24 04:30 03/12/24 04:30 03/12/24 05:04 Temperature Pulse Rate 99 H 111 H Respiratory Rate Blood Pressure 103/62 Pulse Oximetry 97 98 Oxygen Delivery Method 03/12/24 05:05 03/12/24 05:05 03/12/24 05:30 Temperature Pulse Rate 100 H 104 H Respiratory Rate Blood Pressure 111/58 L Pulse Oximetry 98 97 Oxygen Delivery Method 03/12/24 05:30 03/12/24 06:00 03/12/24 06:00 Temperature Pulse Rate 97 H Respiratory Rate Blood Pressure 110/63 111/58 L Pulse Oximetry 96 Oxygen Delivery Method MDM - Skin/Abscess/Foreign Bdy Differential Diagnosis Differential diagnosis: Likely abscess of skin or subcutaneous tissue, cellulitis and other (abscess) Lab Data 03/12/24 04:14 03/12/24 04:14 Labs: Lab Results 03/12/24 Range/Units 04:14 WBC 12.4 H (4.5-11.0) X10^3/uL RBC 3.72 L (4.0-5.2) X10^6/uL Hgb 10.6 L (12.0-16.0) g/dL Hct 31.9 L (36-46) % MCV 85.7 (80-100) fL MCH 28.4 (26-34) PG MCHC 33.1 (30-36) % RDW 15.1 H (11.6-14.8) % Plt Count 211 (150-400) X10^3/uL Neut % (Auto) 83.8 H (50-75) % Lymph % (Auto) 8.5 L (25-40) % Garland % (Auto) 5.9 (3-14) % Eos % (Auto) 1.0 L (2-4) % Baso % (Auto) 0.8 (0-2) % Neut # (Auto) 69627 H (2617-9527) /uL Lymph # (Auto) 1000 L (0713-7254) /uL Garland # (Auto) 700 (0-900) /uL Eos # (Auto) 100 (0-450) /uL Baso # (Auto) 100 (0-100) /uL PT 18.0 H (9.4-12.5) SECONDS INR 1.6 H (0.9-1.3) Sodium 132 L (137-145) mmol/L Potassium 3.0 L (3.4-5.1) mmol/L Chloride 98 (98-107) mmol/L Carbon Dioxide 26 (22-32) mmol/L BUN 15 (7-17) mg/dL Creatinine 0.87 (0.52-1.04) mg/dL Estimated GFR > 60 (>60) mL/min BUN/Creatinine Ratio 17.2 (6-22) Glucose 251 H (70-100) mg/dL Calcium 8.6 (8.4-10.2) mg/dL Total Bilirubin 1.1 (0.2-1.3) mg/dL AST 32 (14-36) IU/L ALT 24 (<35) IU/L Alkaline Phosphatase 166 H (38-126) U/L Total Protein 7.3 (6.3-8.2) g/dL Albumin 3.3 L (3.5-5.0) g/dL Globulin 4.0 (1.7-4.1) g/dL Albumin/Globulin Ratio 0.8 L (1.0-2.8) MDM Narrative Medical decision making narrative: Bleeding from area on patient's pannus. Patient concerned that this is an abscess, however after close inspection of the fluid coming from the area of concern this appears to be more consistent with a ruptured varicose vein rather than an abscess. When pressure taken from wound blood runs down the leg and onto the bed. There does not appear to be any purulence in the material, no foul odor, no surrounding excessive warmth or erythema to suggest cellulitis or underlying infection. Skin is chronically indurated from lymphedema. Laboratory work, CT imaging to be ordered to ensure that there is no underlying abscess, however in the interim to prevent further drainage of blood, 2 horizontal mattress sutures were placed over the area of bleeding per procedure note. Hemostasis subsequently achieved CT of the abdomen and pelvis shows cellulitis versus developing abscess in the lymphedema. Blood cultures drawn. Since patient has history of ESBL and reports allergy to vancomycin consult placed to patient's infectious disease office at [facility]. General surgery consulted, who reviewed images and requested admit to medicine and will see in the hospital to assess for further need for surgery. Case discussed with Dr. Wallace of [facility] No reply yet from Infectious Disease. Empiric cefepime started prior to patient being admitted upstairs. Discharge Plan Departure Patient Disposition: Admitted As Inpatient Clinical Impression: Abdominal wall cellulitis, Lymphedema, Carrier of extended spectrum beta lactamase (ESBL) producing bacteria Admit Date/Time: 03/12/24 06:02 Admit Provider: Ammon Pereyra
--- NOTE | 2024-03-12 03:52 | DI.CT.S_ITS ---
PROCEDURE: CT ABDOMEN PELVIS W CON INDICATIONS: L SIDED LOWER LYMPHEDEMA DRAINING, POSS ABSCESS? TECHNIQUE: After the administration of intravenous contrast, axial sections acquired from the lung bases to the pubic symphysis. Coronal and sagittal reformats were performed. For radiation dose reduction, the following was used: automated exposure control, adjustment of mA and/or kV according to patient size. COMPARISON: [facility], CT, ABDOMEN/PELVIS WITH CONTRAST, 01/09/2017, 21:20. FINDINGS: Image quality: Diagnostic Lower chest: Unremarkable lung bases Normal heart size. Liver: Hepatomegaly with Gloria lobe, measuring up to 31 cm. Contour slightly irregular Gallbladder and biliary system: Cholelithiasis, nondilated Pancreas: No ductal dilation Spleen: Splenomegaly measuring 17 cm Adrenals: Unremarkable Kidneys: No hydronephrosis. Vessels and lymph nodes: Main portal vein appears patent. No abdominal aortic aneurysm. No pathologic lymphadenopathy by size criteria. Bowel and peritoneum: No evidence of small bowel obstruction. No pathologic ascites Body wall: Extensive edematous fat stranding and skin thickening at the lower aspect of the pannus. In the left lower portion, there is a developing phlegmon with subcutaneous gas, without defined rim enhancement. Pelvis: Unremarkable. Reproductive organs are unremarkable on limited CT evaluation Bones: Degenerative changes. IMPRESSION: Extensive edematous fat stranding and skin thickening in the lower aspect of the pannus, with more focal fluid and subcutaneous gas in the left lower portion, likely phlegmon. There is no defined rim enhancement to suggest a drainable abscess at this time. Cholelithiasis. Hepatosplenomegaly. Other findings above. No significant discrepancy from the preliminary report. Dictated by: Neptali Carter M.D. on 03/12/2024 at 7:59 Approved by: Neptali Carter M.D. on 03/12/2024 at 8:05
--- NOTE | 2024-03-12 04:10 | PC.NURSE ---
Dr Lou in and placed 2 stitches in the wound to pt's abd to help staunch the bleeding
[2024-03-12 04:28] LABS: INR 1.6 (0.9-1.3)
[2024-03-12 04:31] LABS: Add Manual Diff / Slide Review NO; Basophils Absolute Auto 100 /uL (0-100); Basophils Percent Auto 0.8 % (0-2); Eosinophils Absolute Auto 100 /uL (0-450); Hematocrit 31.9 % (36-46); Hemoglobin 10.6 g/dL (12.0-16.0); Lymphocytes Absolute Auto 1000 /uL (1100-4500); Lymphocytes Percent Auto 8.5 % (25-40); Mean Corpuscular HGB Conc 33.1 % (30-36); Mean Corpuscular Hemoglobin 28.4 PG (26-34); Mean Corpuscular Volume 85.7 fL (80-100); Monocytes Absolute Auto 700 /uL (0-900); Monocytes Percent Auto 5.9 % (3-14); Neutrophils Absolute Auto 10400 /uL (1500-7000); Neutrophils Percent Auto 83.8 % (50-75); Platelet Count 211 X10^3/uL (150-400); Red Blood Cell Count 3.72 X10^6/uL (4.0-5.2); Red Cell Distribution Width 15.1 % (11.6-14.8); White Blood Cell Count 12.4 X10^3/uL (4.5-11.0)
[2024-03-12 04:33] LABS: Alanine Aminotransferase 24 IU/L (<35); Albumin 3.3 g/dL (3.5-5.0); Albumin Globulin Ratio 0.8 (1.0-2.8); Alkaline Phosphatase 166 U/L (38-126); Aspartate Aminotransferase 32 IU/L (14-36); BUN Creatinine Ratio 17.2 (6-22); Bilirubin Total 1.1 mg/dL (0.2-1.3); Blood Urea Nitrogen 15 mg/dL (7-17); Calcium 8.6 mg/dL (8.4-10.2); Carbon Dioxide 26 mmol/L (22-32); Chloride 98 mmol/L (98-107); Estimated Glomerular Filt Rate > 60 mL/min (>60); Glucose 251 mg/dL (70-100); HEMOLYSIS < 15 (0-50); Sodium 132 mmol/L (137-145); Total Protein 7.3 g/dL (6.3-8.2)
--- NOTE | 2024-03-12 06:18 | P.HP_ITS ---
History of Present Illness History of Present Illness Date Patient Seen: 03/12/24 Time Patient Seen: 06:30 Chief complaint: abdominal wall abscess Narrative: 53 y/o CVA, with PMH of insulin dependent diabetes type 2, hypertension, psoriasis, asthma, hypothyroidism, Dercum's disease (multiple lipomas), morbid obesity class 3, PAF, recent hospitalization in [facility] for Klebsiella ESBL UTI and prior episodes of abdominal pannus abscesses that required drainage, presents to the ER with what appears to be a ruptured abdominal wall / pannus abscess. Images showing possible remnant abscess. Not septic. Admitted to medicine with surgery evaluation for possible I&D. [facility] Medical History (Updated 03/12/24 @ 06:55 by Ammon Wallace MD) Morbid obesity with body mass index (BMI) greater than or equal to 70 in adult Hypothyroidism Asthma Psoriasis Hypertension 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 Social History household members: spouse and children Smoking Status: Former smoker alcohol intake: never Meds Home Medications and Allergies Home Medications Medication Instructions Recorded Confirmed Type levothyroxine 50 mcg tablet 50 mcg PO QDAY ##0 07/11/11 04/16/18 History (Synthroid) albuterol sulfate 90 mcg/actuation 2 dose inhalation Q4HRWA ##0 08/26/11 04/16/18 History aerosol inhaler (Proventil HFA) insulin NPH isoph U-100 human 100 80 u SQ BID ##0 02/19/16 04/16/18 History unit/mL subcutaneous suspension (Humulin N NPH U-100 Insulin (isophane susp)) amlodipine 10 mg tablet 5 mg PO BID ##0 08/09/16 04/16/18 History furosemide 80 mg tablet 80 mg PO QDAY ##0 08/09/16 04/16/18 History ibuprofen 200 mg capsule 600 mg PO TIDP PRN Pain (Scale 08/09/16 04/16/18 History Score 4-6) ##0 metoprolol tartrate 100 mg tablet 100 mg PO BID ##0 08/09/16 04/16/18 History oxycodone 5 mg tablet 10 mg PO Q6H PRN Pain, Moderate ##0 08/09/16 04/16/18 History oxycodone 40 mg tablet,crush 10 mg PO Q12H ##0 01/09/17 04/16/18 History resistant,extended release 12 hr (OxyContin) levofloxacin 500 mg tablet 500 mg PO DAILY 04/16/18 04/16/18 History meclizine 25 mg tablet 25 mg PO BID PRN Dizziness 04/16/18 04/16/18 History atorvastatin 20 mg tablet (Lipitor) 20 mg PO BEDTIME #30 tabs 04/17/18 Rx Allergies Allergy/AdvReac Type Severity Reaction Status Date / Time bee venom protein (honey bee) Allergy Severe Anaphylaxis Verified 01/10/21 09:26 clindamycin Allergy Severe RASH Verified 01/10/21 09:26 zolpidem [From AMBIEN] Allergy Severe hallucinati Verified 01/10/21 09:26 ons Sulfa (Sulfonamide Allergy Mild RASH, Verified 01/10/21 09:26 Antibiotics) DIFFICULTY BREATHING vancomycin Allergy Mild HIGH FEVER Verified 01/10/21 09:26 AND RASH Review of Systems Constitutional Comments: w/o chills or fever Cardiovascular Comments: w/;o chest pain Respiratory Comments: w/o cough or dyspnea Gastrointestinal Comments: w/o changes of bowel habits Genitourinary Comments: w/o dysuria Integumentary/Breasts Comments: abdominal wall swelling, drainage, pain Exam Vital Signs (past 8 hours): - 03/12/24 03:40 03/12/24 03:45 03/12/24 03:46 Temperature 98.4 F Pulse Rate 116 H Respiratory Rate 22 Blood Pressure 117/73 117/73 Pulse Oximetry 100 100 Oxygen Delivery Method Room Air 03/12/24 03:46 03/12/24 04:00 03/12/24 04:00 Temperature Pulse Rate 109 H 117 H Respiratory Rate Blood Pressure 116/69 Pulse Oximetry 99 99 Oxygen Delivery Method Room Air Room Air 03/12/24 04:30 03/12/24 04:30 03/12/24 05:04 Temperature Pulse Rate 99 H 111 H Respiratory Rate Blood Pressure 103/62 Pulse Oximetry 97 98 Oxygen Delivery Method 03/12/24 05:05 03/12/24 05:05 03/12/24 05:30 Temperature Pulse Rate 100 H 104 H Respiratory Rate Blood Pressure 111/58 L Pulse Oximetry 98 97 Oxygen Delivery Method 03/12/24 05:30 03/12/24 06:00 03/12/24 06:00 Temperature Pulse Rate 97 H Respiratory Rate Blood Pressure 110/63 111/58 L Pulse Oximetry 96 Oxygen Delivery Method Oxygen Delivery Method Room Air Narrative Exam Narrative: In no distress HENMT Other: oral crowding Neck Other: thick, short Resp Other: normal respiratory effort Cardio Other: RRR Skin Other: 1 cm bleeding lesion outer Lt pannus. No surrounding erythema. Lymphedema changes of skin Neuro Other: no deficits Extrem Other: b/l lymphedema Psych Other: lucid, appropriate mood Objective Labs 03/12/24 04:14 03/12/24 04:14 Labs: Laboratory Results - last 24 hr 03/12/24 04:14 WBC 12.4 H RBC 3.72 L Hgb 10.6 L Hct 31.9 L MCV 85.7 MCH 28.4 MCHC 33.1 RDW 15.1 H Plt Count 211 Neut % (Auto) 83.8 H Lymph % (Auto) 8.5 L [place] % (Auto) 5.9 Eos % (Auto) 1.0 L Baso % (Auto) 0.8 Neut # (Auto) 20752 H Lymph # (Auto) 1000 L [place] # (Auto) 700 Eos # (Auto) 100 Baso # (Auto) 100 PT 18.0 H INR 1.6 H Sodium 132 L Potassium 3.0 L Chloride 98 Carbon Dioxide 26 BUN 15 Creatinine 0.87 Estimated GFR > 60 BUN/Creatinine Ratio 17.2 Glucose 251 H Calcium 8.6 Total Bilirubin 1.1 AST 32 ALT 24 Alkaline Phosphatase 166 H Total Protein 7.3 Albumin 3.3 L Globulin 4.0 Albumin/Globulin Ratio 0.8 L Assessment & Plan Assessment and plan (1) Abdominal wall cellulitis: Status: Acute (2) Morbid obesity: Status: Acute (3) Lymphedema: Status: Acute (4) Dercum's disease: Status: Acute (5) Insulin dependent type 2 diabetes mellitus: Status: Acute (6) UTI (urinary tract infection): Status: Acute (7) Hypertension: Status: Acute (8) Hypothyroidism: Status: Acute Assessment & Plan narrative: Abdominal Wall Abscess / Cellulitis - Cefepime - surgery will assess for I&D - she had several abscesses in her panus, last one that got drained was a year ago - she does not have abdominal wall lipomas with Decrum's disease but rather on arms, hips and head - consult Dr. Chun at [facility] Infectious Disease ESBL UTI - had phosphomycin x 1 and is still on Levaquin - consult Dr. Chun IDDMT2 - A1C ~ 7-8 - NPH, SS, CCD HTN - metoprolol 100 mg bid, Norvasc 5 mg bid Hypothyroidism - levothyroxine PAF - apparently on Pradaxa - clarify - held anyway in case she needs I&D DVT prophylaxis - SCDs Time-Based Coding :: [TOTAL MINUTES] spent with patient and on the chart (including review of chart, obtaining history, exam, reviewing outside data, placing orders, documenting exam and treatment plan, and counseling patient) on [DATE].
[2024-03-12] MEDS: CEFEPIME 2 GM in SODIUM CHLORIDE 0.9% 100 ML IV (07:26)
--- NOTE | 2024-03-12 07:54 | PC.WOUNDPHOT ---
^ L-side of abdomen ^ center of abdomen ^L leg ^ R knee ^ back of R leg
[2024-03-12] MEDS: LEVOTHYROXINE 50 MCG TABLET PO (08:13)
[2024-03-12] MEDS: AMLODIPINE 5 MG TABLET PO (08:13)
[2024-03-12] MEDS: METOPROLOL IR 50 MG TABLET 100 MG PO (08:13)
[2024-03-12] MEDS: levoFLOXacin 250 MG TABLET 500 MG PO (08:13)
[2024-03-12] MEDS: INSULIN LISPRO 100 UNIT/ML 3ML VIAL SUBCUT ×4 (08:14→21:31)
[2024-03-12] MEDS: HYDROMORPHONE 0.5 MG INJ IV ×5 (08:14→21:29)
--- NOTE | 2024-03-12 08:18 | PM.CN.IH.1 ---
History of Present Illness Consult details Date Patient Seen: 03/12/24 Time Patient Seen: 07:30 Chief complaint: abdominal wall abscess Reason for consult: Abdominal wall abscess Narrative: 53-year-old white female, obesity, atrial fibrillation on Pradaxa, presents with 2 weeks of fevers and chills. She would previously presented to the ER and was told she had a urinary tract infection. On repeat presentation, CT scan was performed which showed an air and fluid containing abscess of the left lower quadrant of her pannus. My independent review of the CT scan shows. She has what appears to be defunctionalized abdominal wall with hernias in the lower abdomen as well, but not in continuity with the abscess. She has not had anything to eat or drink since last night. She took her Pradaxa last night at 8:00 p.m.. Meds Home Medications and Allergies Home Medications Medication Instructions Recorded Confirmed Type levothyroxine 50 mcg tablet 50 mcg PO QDAY ##0 07/11/11 04/16/18 History (Synthroid) albuterol sulfate 90 mcg/actuation 2 dose inhalation Q4HRWA ##0 08/26/11 04/16/18 History aerosol inhaler (Proventil HFA) insulin NPH isoph U-100 human 100 80 u SQ BID ##0 02/19/16 04/16/18 History unit/mL subcutaneous suspension (Humulin N NPH U-100 Insulin (isophane susp)) amlodipine 10 mg tablet 5 mg PO BID ##0 08/09/16 04/16/18 History furosemide 80 mg tablet 80 mg PO QDAY ##0 08/09/16 04/16/18 History ibuprofen 200 mg capsule 600 mg PO TIDP PRN Pain (Scale 08/09/16 04/16/18 History Score 4-6) ##0 metoprolol tartrate 100 mg tablet 100 mg PO BID ##0 08/09/16 04/16/18 History oxycodone 5 mg tablet 10 mg PO Q6H PRN Pain, Moderate ##0 08/09/16 04/16/18 History oxycodone 40 mg tablet,crush 10 mg PO Q12H ##0 01/09/17 04/16/18 History resistant,extended release 12 hr (OxyContin) levofloxacin 500 mg tablet 500 mg PO DAILY 04/16/18 04/16/18 History meclizine 25 mg tablet 25 mg PO BID PRN Dizziness 04/16/18 04/16/18 History atorvastatin 20 mg tablet (Lipitor) 20 mg PO BEDTIME #30 tabs 04/17/18 Rx Allergies Allergy/AdvReac Type Severity Reaction Status Date / Time bee venom protein (honey bee) Allergy Severe Anaphylaxis Verified 01/10/21 09:26 clindamycin Allergy Severe RASH Verified 01/10/21 09:26 zolpidem [From AMBIEN] Allergy Severe hallucinati Verified 01/10/21 09:26 ons Sulfa (Sulfonamide Allergy Mild RASH, Verified 01/10/21 09:26 Antibiotics) DIFFICULTY BREATHING vancomycin Allergy Mild HIGH FEVER Verified 01/10/21 09:26 AND RASH Exam Vital Signs (past 8 hours): - 03/12/24 03:40 03/12/24 03:45 03/12/24 03:46 Temperature 98.4 F Pulse Rate 116 H Respiratory Rate 22 Blood Pressure 117/73 117/73 Pulse Oximetry 100 100 Oxygen Delivery Method Room Air Oxygen Flow Rate 03/12/24 03:46 03/12/24 04:00 03/12/24 04:00 Temperature Pulse Rate 109 H 117 H Respiratory Rate Blood Pressure 116/69 Pulse Oximetry 99 99 Oxygen Delivery Method Room Air Room Air Oxygen Flow Rate 03/12/24 04:30 03/12/24 04:30 03/12/24 05:04 Temperature Pulse Rate 99 H 111 H Respiratory Rate Blood Pressure 103/62 Pulse Oximetry 97 98 Oxygen Delivery Method Oxygen Flow Rate 03/12/24 05:05 03/12/24 05:05 03/12/24 05:30 Temperature Pulse Rate 100 H 104 H Respiratory Rate Blood Pressure 111/58 L Pulse Oximetry 98 97 Oxygen Delivery Method Oxygen Flow Rate 03/12/24 05:30 03/12/24 06:00 03/12/24 06:00 Temperature Pulse Rate 97 H Respiratory Rate Blood Pressure 110/63 111/58 L Pulse Oximetry 96 Oxygen Delivery Method Oxygen Flow Rate 03/12/24 06:54 Temperature 97.8 F Pulse Rate 102 H Respiratory Rate 18 Blood Pressure 105/78 Pulse Oximetry 99 Oxygen Delivery Method Oxygen Flow Rate 0 Oxygen Delivery Method Room Air Oxygen Flow Rate 0 Narrative Exam Narrative: Gen: NAD, sitting comfortably in bed, appears well HEENT: Sclera are anicteric, head is normocephalic and atraumatic, trachea is midline. CV: RRR, no JVD Resp: clear to auscultation bilaterally, equal chest wall movement bilaterally Abd: soft, nontender, normoactive bowel sounds. Large pannus with previous incision and drainage site in the left inferior aspect of the pannus. Ext: no edema, full range of motion Neuro: Cranial nerves II-XII grossly intact, no focal deficits Skin: No erythema or ecchymosis Objective Labs 03/12/24 04:14 03/12/24 04:14 Labs: Laboratory Results - last 24 hr 03/12/24 04:14 WBC 12.4 H RBC 3.72 L Hgb 10.6 L Hct 31.9 L MCV 85.7 MCH 28.4 MCHC 33.1 RDW 15.1 H Plt Count 211 Neut % (Auto) 83.8 H Lymph % (Auto) 8.5 L [place] % (Auto) 5.9 Eos % (Auto) 1.0 L Baso % (Auto) 0.8 Neut # (Auto) 63465 H Lymph # (Auto) 1000 L [place] # (Auto) 700 Eos # (Auto) 100 Baso # (Auto) 100 PT 18.0 H INR 1.6 H Sodium 132 L Potassium 3.0 L Chloride 98 Carbon Dioxide 26 BUN 15 Creatinine 0.87 Estimated GFR > 60 BUN/Creatinine Ratio 17.2 Glucose 251 H Calcium 8.6 Total Bilirubin 1.1 AST 32 ALT 24 Alkaline Phosphatase 166 H Total Protein 7.3 Albumin 3.3 L Globulin 4.0 Albumin/Globulin Ratio 0.8 L [facility] Medical History (Updated 03/12/24 @ 08:22 by Joao Chavira MD) 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 Atrial fibrillation Morbid obesity with body mass index (BMI) greater than or equal to 70 in adult Hypothyroidism Asthma Psoriasis Hypertension 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 Social History household members: children Tobacco & Substance Use Smoking Status: Former smoker alcohol intake: never Assessment & Plan Assessment and plan (1) half-way current use of anticoagulant: Status: Acute (2) Atrial fibrillation: Status: Acute (3) Morbid obesity: Status: Acute (4) Abdominal wall abscess: Status: Acute Assessment & Plan narrative: Due to patient's body habitus and use of anticoagulants, would be most prudent to perform incision and drainage in the operating room with additional assistance and electrocautery. Place a wound VAC to help control effluent. Patient agrees to proceed. Case added on for today. May require serial debridement in 48-72 hours. Time-Based Coding :: [TOTAL MINUTES] spent with patient and on the chart (including review of chart, obtaining history, exam, reviewing outside data, placing orders, documenting exam and treatment plan, and counseling patient) on [DATE]. PROFEE Charge Codes Inpatient or Observation consultation: [id number]
[2024-03-12 08:19] LABS: Add Manual Diff / Slide Review NO; BUN Creatinine Ratio 15.4 (6-22); Basophils Absolute Auto 100 /uL (0-100); Basophils Percent Auto 0.6 % (0-2); Blood Urea Nitrogen 12 mg/dL (7-17); Calcium 8.3 mg/dL (8.4-10.2); Carbon Dioxide 30 mmol/L (22-32); Chloride 97 mmol/L (98-107); Eosinophils Absolute Auto 100 /uL (0-450); Eosinophils Percent Auto 0.7 % (2-4); Estimated Glomerular Filt Rate > 60 mL/min (>60); Glucose 211 mg/dL (70-100); HEMOLYSIS < 15 (0-50); Hematocrit 29.2 % (36-46); Hemoglobin 9.9 g/dL (12.0-16.0); Lymphocytes Absolute Auto 900 /uL (1100-4500); Mean Corpuscular HGB Conc 33.8 % (30-36); Mean Corpuscular Hemoglobin 28.9 PG (26-34); Mean Corpuscular Volume 85.6 fL (80-100); Monocytes Absolute Auto 700 /uL (0-900); Monocytes Percent Auto 6.4 % (3-14); Neutrophils Absolute Auto 8600 /uL (1500-7000); Neutrophils Percent Auto 83.3 % (50-75); Platelet Count 197 X10^3/uL (150-400); Potassium 2.9 mmol/L (3.4-5.1); Red Blood Cell Count 3.42 X10^6/uL (4.0-5.2); Red Cell Distribution Width 14.9 % (11.6-14.8); Sodium 132 mmol/L (137-145); White Blood Cell Count 10.3 X10^3/uL (4.5-11.0)
[2024-03-12] MEDS: POTASSIUM CHLORIDE 10 MEQ TAB 40 MEQ PO (10:35)
[2024-03-12] MEDS: OXYCODONE IR 10 MG TABLET PO ×2 (12:08→17:30)
[2024-03-12] MEDS: LACTATED RINGERS 1,000 ML 42 ML IV (14:46)
[2024-03-12] MEDS: BUPIVACAINE 0.5% (PF) 30 ML VIAL INJ (15:00)
[2024-03-12] MEDS: LIDOCAINE 1% W/EPI 20ML 20 ML INJ (15:00)
--- NOTE | 2024-03-12 15:14 | CM.DANOTE ---
DCP Assessment Note: Pt is a 53yo female, resident of [place], is admitted for a pannus abscess and I&D. Pt lives in a house with her children. Pt's Primary Care Provider is Twila Fuentes PA-C and insurance is [facility]. Reviewed chart and discussed with multidisciplinary team pt's medical status and initial discharge needs. Per surgeon, pt to have possibly serial I&D and wound vac placement. DCP attempted to meet w/patient at bedside; pt was at surgery for I&D. DCP spoke with pt's next of kin, daughter, Yoselyn (ph#[phone]). Per daughter, pt is fairly independent and requires lots of help due to wound. Daughter reports history of home health but could not recall agency. Plan: Monitoring for need for PT evaluation and final recommendations. CM team will follow closely for coordination of discharge plans. RAMSEY De Paz Discharge Planning/Care Management CM Discharge Assessment Start: 03/12/24 15:13 Freq: Status: Active Protocol: Document 03/12/24 15:13 MW (Rec: 03/12/24 15:14 MW [id number]) Discharge Planning Assessment Assigned Denture Processor KELLY Olson DPSY/Assigned Designee Name Megan Topete Contact Information [phone] Advance Directives? No History Provided By Family Member,Medical Record Has Patient been admitted in last 30 No days? Prior Living Arrangements Mobile home Comment [place] Household Members children Type of transporation used prior to Relies on Others admit Independent with ADL's No Is patient alert and oriented? Yes Caregiver for Another No DME Already Rented / Owned Wheelchair,FWW / Walker Barriers to Discharge No Review Status In Process Please Provide Date Initial DC 03/12/24 Assessment Was Performed Next Review Type Continued Stay Review
--- NOTE | 2024-03-12 15:28 | SUR.OPER ---
Pt in bed, turned independently on to right side for procedure, staff at bedside ensured proper body positioned. Head resting on pillow, no medical equipment under body.
--- NOTE | 2024-03-12 15:30 | EKG_ITS ---
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
[2024-03-12] MEDS: HYDROMORPHONE 2 MG INJ 0.5 MG IV (15:43)
--- NOTE | 2024-03-12 15:49 | PM.OP.1 ---
Operative Date/Time/Diagnoses Date of procedure: 03/12/24 Time of procedure: 15:49 Pre-op diagnosis: Abscess of abdominal wall Post-op diagnosis: same Procedure & Clinicians Procedure: Sharp Excisional debridement of abdominal wall infection measuring 9 cm x 14 cm, wound VAC placement Same procedure as scheduled: Yes Indications: Abdominal wall infection Surgeon: Joao Chavira Click Yes if Unassisted: Yes Anesthesia Type: MAC +/- and Local Operative Notes Findings: Large cavity with serous fluid and necrotic soft tissue. Closure Type: not applicable Specimen(s): other (1. Culture swab2. Tissue for culture3. Abscess tissue for permanent) Applied: drain(s) (Wound VAC) Estimated Blood Loss (mL): 5 Procedure in detail: Patient was brought to the operating room suite. She was left on her hospital bed due to her weight. She was given a MAC sedation and positioned in the right lateral decubitus position. A pannus retractor was used to move her pannus to the right side of her abdomen. The skin was prepped with Betadine. A total of 50 mL of 1% lidocaine with epinephrine and 0.5% Marcaine were infiltrated in the area around the abscess cavity. Sharp excisional debridement was performed with forceps, scissors and Bovie electrocautery to excise skin, subcutaneous fat, and fascia extending 9 cm x 14 cm (126 sq cm) and extending 9 cm deep, to healthy viable tissue. After adequate hemostasis was achieved, wound VAC was placed to suction. A good seal was obtained. Patient tolerated the procedure well was transported to PACU for continued hospital stay. Complications: none Post-operative Condition: stable Disposition: PACU Plan for aftercare: Continued inpatient stay
--- NOTE | 2024-03-12 17:41 | PM.HP.1 ---
History of Present Illness History of Present Illness Date Patient Seen: 03/12/24 Time Patient Seen: 14:00 Chief complaint: abdominal wall abscess Narrative: Per overnight provider, 53 y/o CVA, with PMH of insulin dependent diabetes type 2, hypertension, psoriasis, asthma, hypothyroidism, Dercum's disease (multiple lipomas), morbid obesity class 3, PAF, recent hospitalization in [facility] for Klebsiella ESBL UTI and prior episodes of abdominal pannus abscesses that required drainage, presents to the ER with what appears to be a ruptured abdominal wall / pannus abscess. Images showing possible remnant abscess. Not septic. Admitted to medicine with surgery evaluation for possible I&D. Interval history: Patient reported she was unclear how long this had been going on, maybe a week she states. Has felt ill for a few days. She went to the OR today with surgery, developed RVR intra-operatively but now improved. Has a wound vac. [facility] Medical History (Updated 03/12/24 @ 08:22 by Joao Chavira MD) snf current use of anticoagulant Atrial fibrillation Morbid obesity with body mass index (BMI) greater than or equal to 70 in adult Hypothyroidism Asthma Psoriasis Hypertension 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 Social History household members: children Smoking Status: Former smoker alcohol intake: never Meds Home Medications and Allergies Home Medications Medication Instructions Recorded Confirmed Type levothyroxine 50 mcg tablet 50 mcg PO QDAY ##0 07/11/11 03/12/24 History (Synthroid) albuterol sulfate 90 mcg/actuation 2 dose inhalation Q4HRWA ##0 08/26/11 03/12/24 History aerosol inhaler (Proventil HFA) furosemide 80 mg tablet 80 mg PO QDAY ##0 08/09/16 03/12/24 History metoprolol tartrate 100 mg tablet 150 mg PO BID ##0 08/09/16 03/12/24 History atorvastatin 20 mg tablet (Lipitor) 20 mg PO BEDTIME #30 tabs 04/17/18 03/12/24 Rx Bacillus coagulans-inulin 1 1 cap PO DAILY 03/12/24 03/12/24 History billion cell-250 mg capsule (Probiotic with Prebiotic) acetaminophen 325 mg capsule 650 mg PO Q4H PRN Pain (Scale 03/12/24 03/12/24 History Score 4-6) albuterol sulfate 90 mcg/actuation 2 puff inhalation Q4H PRN wheezing 03/12/24 03/12/24 History aerosol inhaler buspirone 5 mg tablet 15 mg PO DAILY 03/12/24 03/12/24 History dabigatran etexilate 150 mg capsule 150 mg PO BID 03/12/24 03/12/24 History doxycycline hyclate 100 mg capsule 100 mg PO BID 03/12/24 03/12/24 History insulin NPH isoph U-100 human 100 80 unit SUBCUT BID 03/12/24 03/12/24 History unit/mL subcutaneous suspension (Humulin N NPH U-100 Insulin (isophane susp)) insulin lispro 100 unit/mL 35 unit SUBCUT BID 03/12/24 03/12/24 History subcutaneous solution (Humalog U-100 Insulin) multivit,Ca,iron,pdn-MW-fdkkuej-jzxiqyu-lmjh-WEHH 1 cap PO DAILY 03/12/24 03/12/24 History 3 mg-133 mcg capsule (Body, Hair, Skin and Nails) omeprazole 20 mg capsule,delayed 20 mg PO BEDTIME 03/12/24 03/12/24 History release oxycodone 10 mg tablet 10 mg PO TID PRN Pain (Scale Score 03/12/24 03/12/24 History 4-6) oxycodone 10 mg tablet,crush 10 mg PO 3XD 03/12/24 03/12/24 History resistant,extended release 12 hr (OxyContin) polyethylene glycol 3350 17 17 g PO DAILY PRN Constipation 03/12/24 03/12/24 History gram/dose oral powder (Gavilax) potassium chloride 10 mEq 20 meq PO DAILY 03/12/24 03/12/24 History capsule,extended release Allergies Allergy/AdvReac Type Severity Reaction Status Date / Time bee venom protein (honey bee) Allergy Severe Anaphylaxis Verified 03/12/24 14:33 clindamycin Allergy Severe RASH Verified 03/12/24 14:33 zolpidem [From AMBIEN] Allergy Severe hallucinati Verified 03/12/24 14:33 ons Sulfa (Sulfonamide Allergy Mild RASH, Verified 03/12/24 14:33 Antibiotics) DIFFICULTY BREATHING vancomycin Allergy Mild HIGH FEVER Verified 03/12/24 14:33 AND RASH Review of Systems Review of Systems Narrative: All other systems reviewed with the patient and are negative unless otherwise stated. Exam Vital Signs (past 8 hours): - 03/12/24 12:00 03/12/24 14:41 03/12/24 15:18 Temperature 96.9 F L 98.6 F 97.9 F Pulse Rate 102 H 111 H 141 H Respiratory Rate 21 20 Blood Pressure 130/80 140/79 96/56 L Pulse Oximetry 95 96 96 Oxygen Delivery Method Room Air Room Air Oxygen Flow Rate 0 03/12/24 15:23 03/12/24 15:28 03/12/24 15:33 Temperature Pulse Rate 120 H 120 H 111 H Respiratory Rate 27 H 15 12 Blood Pressure 96/62 105/73 102/52 L Pulse Oximetry 96 96 97 Oxygen Delivery Method Room Air Room Air Room Air Oxygen Flow Rate 03/12/24 15:40 03/12/24 15:50 03/12/24 16:10 Temperature 97.9 F Pulse Rate 121 H 112 H 109 H Respiratory Rate 21 17 18 Blood Pressure 96/60 112/63 104/66 Pulse Oximetry 96 96 96 Oxygen Delivery Method Room Air Room Air Room Air Oxygen Flow Rate 0 03/12/24 16:25 Temperature 97.8 F Pulse Rate 78 Respiratory Rate 16 Blood Pressure 141/82 H Pulse Oximetry 97 Oxygen Delivery Method Oxygen Flow Rate 0 Oxygen Delivery Method Room Air Oxygen Flow Rate 0 Narrative Exam Narrative: General:? Patient is well developed and well nourished, in no distress at this time. Obesity with BMI 67.5 Lungs:? CTA b/l no wheezing rhonchi or rales. Cardio:?RRR no m/r/g. Abdomen: S NT ND. Large pannus with skin thickening, unable to see underneath to area of infection due to weight and inability to lift along with current tenderness. Musculoskeletal:? Muscle strength and tone are equal within normal limits, no deformity. Extremities: b/l LE edema. No cyanosis or clubbing. Skin:? Pale,? Warm to touch,dry and intact without rashes, ulcerations or petechiae.? Neuro:? Alert and orientated x3,? sensation to touch intact in all extremities, no gross deficits noted of cranial nerves. Psych:? Patient has a well-kept appearance, appropriate affect, mental status attitude thought context and judgment are appropriate for age. Objective Labs 03/12/24 07:55 03/12/24 07:55 Labs: Laboratory Results - last 24 hr 03/12/24 03/12/24 04:14 07:55 WBC 12.4 H 10.3 RBC 3.72 L 3.42 L Hgb 10.6 L 9.9 L Hct 31.9 L 29.2 L MCV 85.7 85.6 MCH 28.4 28.9 MCHC 33.1 33.8 RDW 15.1 H 14.9 H Plt Count 211 197 Neut % (Auto) 83.8 H 83.3 H Lymph % (Auto) 8.5 L 9.0 L [place] % (Auto) 5.9 6.4 Eos % (Auto) 1.0 L 0.7 L Baso % (Auto) 0.8 0.6 Neut # (Auto) 94343 H 8600 H Lymph # (Auto) 1000 L 900 L [place] # (Auto) 700 700 Eos # (Auto) 100 100 Baso # (Auto) 100 100 PT 18.0 H INR 1.6 H Sodium 132 L 132 L Potassium 3.0 L 2.9 L Chloride 98 97 L Carbon Dioxide 26 30 BUN 15 12 Creatinine 0.87 0.78 Estimated GFR > 60 > 60 BUN/Creatinine Ratio 17.2 15.4 Glucose 251 H 211 H Calcium 8.6 8.3 L Total Bilirubin 1.1 AST 32 ALT 24 Alkaline Phosphatase 166 H Total Protein 7.3 Albumin 3.3 L Globulin 4.0 Albumin/Globulin Ratio 0.8 L Assessment & Plan Assessment & Plan narrative: Abdominal Wall Abscess / Cellulitis - Ceftriaxone to continue, surgery placed on doxycycline. Follow up cultures. - surgery will continue to reassess in the coming days for possible further I&Ds. - she had several abscesses in her panus, last one that got drained was a year ago - she does not have abdominal wall lipomas with Decrum's disease but rather on arms, hips and head ESBL UTI - Looks like this occurred in the outpatient setting. Dr. Chun was referred to by her primary care team as recommending fosfomycin x1 dose to treat this. - follow up cultures, urine cultures not drawn. IDDMT2 - A1C ~ 7-8 - NPH, SS, CCD HTN - metoprolol 100 mg bid, Norvasc 5 mg bid Hypothyroidism - levothyroxine PAF with RVR - apparently on Pradaxa - on 150 mg metoprolol BID. was given 100 mg pre-op, developed afib with RVR in PACU, now improved. Continue home medications. - hold pradaxa for possible repeat OR Hyponatremia, hypokalemia - continue IV fluids and potassium repletion. Monitor daily. DVT prophylaxis - SCDs Discussed with caseworker protective services, bedside RN, and overnight hospitalist to obtain the above information and formulate the above assessment and plan. Code: Full, surrogate is patient's daughter. Time-Based Coding :: [TOTAL MINUTES] spent with patient and on the chart (including review of chart, obtaining history, exam, reviewing outside data, placing orders, documenting exam and treatment plan, and counseling patient) on [DATE].
[2024-03-12] MEDS: cefTRIAXone 1,000 MG in SODIUM CHLORIDE 0.9% 100 ML 200 MG IV (18:49)
[2024-03-12] MEDS: PANTOPRAZOLE DR 20 MG TABLET PO (21:29)
[2024-03-12] MEDS: OXYCODONE ER 10 MG TAB PO (21:30)
[2024-03-12] MEDS: METOPROLOL IR 50 MG TABLET 150 MG PO (21:30)
[2024-03-12] MEDS: DOXYCYCLINE HYCLATE 100 MG TABLET PO (21:30)
[2024-03-12] MEDS: INSULIN NPH 100 UNIT/ML 10ML VIAL 80 UNIT SUBCUT (21:33)
[2024-03-13 03:00] VITALS: BP 121/78; PULSE 89; RESP 20; TEMP 36.4; O2SAT 97
[2024-03-13] MEDS: HYDROMORPHONE 0.5 MG INJ IV ×4 (03:19→22:23)
[2024-03-13] MEDS: OXYCODONE ER 10 MG TAB PO ×3 (05:19→21:36)
[2024-03-13] MEDS: ACETAMINOPHEN 325 MG TABLET 650 MG PO (05:19)
[2024-03-13 07:48] VITALS: BP 128/88; PULSE 88; RESP 19; TEMP 36.3; O2SAT 97
[2024-03-13 08:22] LABS: Alanine Aminotransferase 15 IU/L (<35); Albumin 2.5 g/dL (3.5-5.0); Albumin Globulin Ratio 0.8 (1.0-2.8); Alkaline Phosphatase 120 U/L (38-126); Aspartate Aminotransferase 20 IU/L (14-36); BUN Creatinine Ratio 12.3 (6-22); Bilirubin Total 0.5 mg/dL (0.2-1.3); Blood Urea Nitrogen 8 mg/dL (7-17); Calcium 8.4 mg/dL (8.4-10.2); Carbon Dioxide 28 mmol/L (22-32); Chloride 100 mmol/L (98-107); Estimated Glomerular Filt Rate > 60 mL/min (>60); Globulin 3.3 g/dL (1.7-4.1); Glucose 196 mg/dL (70-100); HEMOLYSIS < 15 (0-50); Potassium 3.3 mmol/L (3.4-5.1); Sodium 134 mmol/L (137-145); Total Protein 5.8 g/dL (6.3-8.2)
[2024-03-13] MEDS: INSULIN NPH 100 UNIT/ML 10ML VIAL 80 UNIT SUBCUT ×2 (08:39→21:33)
[2024-03-13] MEDS: INSULIN LISPRO 100 UNIT/ML 3ML VIAL SUBCUT ×4 (08:40→21:32)
[2024-03-13] MEDS: METOPROLOL IR 50 MG TABLET 150 MG PO ×2 (08:41→21:35)
[2024-03-13] MEDS: DOXYCYCLINE HYCLATE 100 MG TABLET PO ×2 (08:41→21:35)
[2024-03-13] MEDS: LACTOBACILLUS ACIDOPHILUS TABLET 1 EACH PO (08:43)
[2024-03-13] MEDS: FUROSEMIDE 40 MG TABLET 80 MG PO (08:43)
[2024-03-13] MEDS: BUSPIRONE 5 MG TABLET 15 MG PO (08:43)
[2024-03-13] MEDS: POTASSIUM CHLORIDE 10 MEQ TAB 20 MEQ PO (08:54)
[2024-03-13 11:44] VITALS: BP 115/82; PULSE 91; RESP 19; TEMP 36.5; O2SAT 98
--- NOTE | 2024-03-13 13:06 | PM.PNPO.1 ---
Subjective Subjective Date Patient Seen: 03/13/24 Time Patient Seen: 13:06 Interval history: Patient is eating her lunch, has a significant amount of carbohydrates including bread for sandwich, croutons on her salad and ice cream. We discussed the importance of a high-protein low-carbohydrate diet in the process of weight loss as well as healing the wound. Exam Vital Signs (past 8 hours): - 03/13/24 07:48 03/13/24 11:44 Temperature 97.4 F L 97.7 F Pulse Rate 88 91 H Respiratory Rate 19 19 Blood Pressure 128/88 115/82 Pulse Oximetry 97 98 Oxygen Flow Rate 0 0 Oxygen Delivery Method CPAP Oxygen Flow Rate 0 Narrative Exam Narrative: Wound VAC is in place and functioning. Had over 500 mL of drainage since surgery. Objective Labs 03/12/24 07:55 03/13/24 07:24 Labs: Laboratory Results - last 24 hr 03/13/24 07:24 Sodium 134 L Potassium 3.3 L Chloride 100 Carbon Dioxide 28 BUN 8 Creatinine 0.65 Estimated GFR > 60 BUN/Creatinine Ratio 12.3 Glucose 196 H Calcium 8.4 Total Bilirubin 0.5 AST 20 ALT 15 Alkaline Phosphatase 120 Total Protein 5.8 L Albumin 2.5 L Globulin 3.3 Albumin/Globulin Ratio 0.8 L PFSH Medical History (Updated 03/12/24 @ 08:22 by Joao Chavira MD) retirement current use of anticoagulant Atrial fibrillation Morbid obesity with body mass index (BMI) greater than or equal to 70 in adult Hypothyroidism Asthma Psoriasis Hypertension 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 Social History household members: children Smoking Status: Former smoker alcohol intake: never Assessment & Plan Post-op Postoperative Procedures: Procedures Operation Date: 03/12/24 14:15 Actual Procedure Side Surgeon p Incision and Drainage Abdominal wall infection, wound vac Joao Chavira MD Operation Date: 03/15/24 15:00 <No data on this case meets the specified criteria> Postoperative day: 1 Postoperative status: doing well Postoperative status narrative: Plan for return to OR on for exchange of wound VAC and repeat debridement. There was a large pocket under her panniculus and more extensive debridement off of her Pradaxa will be required to get a functional closure. Postoperative plan: other (Lovenox for today and tomorrow, then hold for OR ) Time Spent With Patient Time with patient: less than 15 minutes
--- NOTE | 2024-03-13 13:10 | PM.PN.1 ---
Subjective Subjective Interval history: 53 F with obesity, DM, afib admitted with an abdominal wall abscess. Patient with no complaints today. Discussed with surgeon, plan to return to the OR on . Exam Vital Signs (past 8 hours): - 03/13/24 07:48 03/13/24 11:44 Temperature 97.4 F L 97.7 F Pulse Rate 88 91 H Respiratory Rate 19 19 Blood Pressure 128/88 115/82 Pulse Oximetry 97 98 Oxygen Flow Rate 0 0 Oxygen Delivery Method CPAP Oxygen Flow Rate 0 Narrative Exam Narrative: General:? Patient is well developed and well nourished, in no distress at this time. Obesity with BMI 67.5 Lungs:? CTA b/l no wheezing rhonchi or rales. Cardio:?RRR no m/r/g. Abdomen: S NT ND. wound vac in place with serosanguinous drainage Musculoskeletal:? Muscle strength and tone are equal within normal limits, no deformity. Extremities: b/l LE edema. No cyanosis or clubbing. 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 Follow up cultures. - surgery with current plan to do wound vac change, re-evaluation on 03/15 in the OR. - she had several abscesses in her panus, last one that got drained was a year ago - she does not have abdominal wall lipomas with Decrum's disease but rather on arms, hips and head ESBL UTI - Looks like this occurred in the outpatient setting. Dr. Chun was referred to by her primary care team as recommending fosfomycin x1 dose to treat this. - follow up cultures, urine cultures not drawn. IDDMT2 - A1C previously was controlled, will repeat - continue home insulin therapies, added sliding scale. HTN - metoprolol 150 mg bid, furosemide 80 mg daily Hypothyroidism - levothyroxine PAF with RVR - apparently on Pradaxa - on 150 mg metoprolol BID. was given 100 mg pre-op, developed afib with RVR in PACU, now improved. Continue home medications. - hold pradaxa for possible repeat OR, surgeon ordered Lovenox, hold prior to surgery morning. Hyponatremia, hypokalemia - continue IV fluids and potassium repletion. Monitor daily. DVT prophylaxis - SCDs Discussed with pillowcase cutter, bedside RN, and overnight hospitalist to obtain the above information and formulate the above assessment and plan. Code: Full, surrogate is patient's daughter. Time-Based Coding :: [TOTAL MINUTES] spent with patient and on the chart (including review of chart, obtaining history, exam, reviewing outside data, placing orders, documenting exam and treatment plan, and counseling patient) on [DATE].
[2024-03-13] MEDS: OXYCODONE IR 10 MG TABLET PO (13:17)
[2024-03-13 16:00] VITALS: BP 137/82; PULSE 86; RESP 19; TEMP 36.5; O2SAT 96
--- NOTE | 2024-03-13 16:31 | PC.NURSE ---
patient notified this nurse that wound vac was alarming. Alarm was for a leak. After this nurse inspected dressing and wound vac site, it was confirmed that wound vac did have a leak. This nurse gathered supplies to re-inforce wound vac dressing and stop leak. Leak improved, ran leak test on wound vac. Dressing passed leak test. Primary nurse Rosaline Jimenez notified of wound vac situation. This nurse suggested a call to the provider for poss. replacement of wound vac dressing.
[2024-03-13] MEDS: ENOXAPARIN 40 MG/0.4 ML SYRINGE 90 MG SUBCUT (17:00)
[2024-03-13] MEDS: cefTRIAXone 1,000 MG in SODIUM CHLORIDE 0.9% 100 ML 200 MG IV (18:50)
[2024-03-13 20:00] VITALS: BP 144/96; PULSE 109; RESP 18; TEMP 36.6; O2SAT 97
[2024-03-13] MEDS: PANTOPRAZOLE DR 20 MG TABLET PO (21:35)
[2024-03-13] MEDS: ENOXAPARIN 100 MG/ML SYRINGE 90 MG SUBCUT (21:36)
--- NOTE | 2024-03-13 22:01 | PC.NURSE ---
Call placed to Dr. Chavira. Eplained the constant issues with wound vac and failure to suction and oppurate appropriatly. Per Dr. Chavira, we are to remove wound vac and pack wound w/ kurlex.
[2024-03-14] VITALS: BP 114/74; PULSE 80; RESP 18; TEMP 36.9; O2SAT 98
[2024-03-14 04:00] VITALS: BP 119/77; PULSE 89; RESP 18; TEMP 36.5; O2SAT 98
[2024-03-14 04:40] LABS: Add Manual Diff / Slide Review NO; Basophils Absolute Auto 100 /uL (0-100); Basophils Percent Auto 0.8 % (0-2); Eosinophils Absolute Auto 100 /uL (0-450); Eosinophils Percent Auto 1.2 % (2-4); Hematocrit 28.5 % (36-46); Hemoglobin 9.5 g/dL (12.0-16.0); Lymphocytes Absolute Auto 1200 /uL (1100-4500); Lymphocytes Percent Auto 17.4 % (25-40); Mean Corpuscular HGB Conc 33.3 % (30-36); Mean Corpuscular Hemoglobin 28.5 PG (26-34); Mean Corpuscular Volume 85.7 fL (80-100); Monocytes Absolute Auto 400 /uL (0-900); Monocytes Percent Auto 5.3 % (3-14); Neutrophils Absolute Auto 5000 /uL (1500-7000); Neutrophils Percent Auto 75.3 % (50-75); Platelet Count 210 X10^3/uL (150-400); Red Blood Cell Count 3.33 X10^6/uL (4.0-5.2); Red Cell Distribution Width 15.1 % (11.6-14.8); White Blood Cell Count 6.7 X10^3/uL (4.5-11.0)
[2024-03-14 04:51] LABS: BUN Creatinine Ratio 15.5 (6-22); Blood Urea Nitrogen 11 mg/dL (7-17); Calcium 8.3 mg/dL (8.4-10.2); Carbon Dioxide 30 mmol/L (22-32); Chloride 101 mmol/L (98-107); Estimated Glomerular Filt Rate > 60 mL/min (>60); Glucose 162 mg/dL (70-100); HEMOLYSIS < 15 (0-50); Potassium 3.3 mmol/L (3.4-5.1); Sodium 136 mmol/L (137-145)
[2024-03-14 04:52] LABS: Hemoglobin A1C% w Est Avg Glu 8.6 % (4.0-6.0)
[2024-03-14] MEDS: OXYCODONE ER 10 MG TAB PO ×3 (05:33→21:59)
[2024-03-14] MEDS: OXYCODONE IR 10 MG TABLET PO ×4 (05:38→20:10)
[2024-03-14 08:00] VITALS: BP 114/81; PULSE 107; RESP 19; TEMP 36.7; O2SAT 97
[2024-03-14] MEDS: INSULIN NPH 100 UNIT/ML 10ML VIAL 80 UNIT SUBCUT ×2 (09:00→20:17)
[2024-03-14] MEDS: FUROSEMIDE 40 MG TABLET 80 MG PO (09:01)
[2024-03-14] MEDS: DOXYCYCLINE HYCLATE 100 MG TABLET PO (09:01)
[2024-03-14] MEDS: LACTOBACILLUS ACIDOPHILUS TABLET 1 EACH PO (09:01)
[2024-03-14] MEDS: METOPROLOL IR 50 MG TABLET 150 MG PO ×2 (09:01→20:09)
[2024-03-14] MEDS: BUSPIRONE 5 MG TABLET 15 MG PO (09:01)
[2024-03-14] MEDS: INSULIN LISPRO 100 UNIT/ML 3ML VIAL SUBCUT ×4 (09:01→20:19)
[2024-03-14] MEDS: ENOXAPARIN 100 MG/ML SYRINGE 90 MG SUBCUT ×2 (09:02→20:11)
[2024-03-14] MEDS: POTASSIUM CHLORIDE 10 MEQ TAB 20 MEQ PO (09:02)
[2024-03-14] MEDS: ACETAMINOPHEN 325 MG TABLET 650 MG PO ×2 (09:09→20:10)
[2024-03-14] MEDS: POTASSIUM CHLORIDE 10 MEQ TAB 40 MEQ PO (11:31)
[2024-03-14 12:00] VITALS: BP 116/79; PULSE 84; RESP 20; TEMP 36.8; O2SAT 97
--- NOTE | 2024-03-14 12:15 | P.PN_ITS ---
Subjective Subjective Interval history: 53 F with obesity, DM, afib admitted with an abdominal wall abscess. Patient with no complaints today. Overnight wound vac needed to be removed, surgeon will replace and do further debridement tomorrow in the OR. Exam Vital Signs (past 8 hours): - 03/14/24 08:00 Temperature 98.0 F Pulse Rate 107 H Respiratory Rate 19 Blood Pressure 114/81 Pulse Oximetry 97 Oxygen Flow Rate 0 Oxygen Delivery Method Room Air Oxygen Flow Rate 0 Narrative Exam Narrative: General:? Patient is well developed and well nourished, in no distress at this time. Obesity with BMI 67.5 Lungs:? CTA b/l no wheezing rhonchi or rales. Cardio:?RRR no m/r/g. Abdomen: S NT ND, unable to visualize wound due to dressing and size of abdomen today. Musculoskeletal:? Muscle strength and tone are equal within normal limits, no deformity. Extremities: b/l LE edema. No cyanosis or clubbing. Objective Labs 03/14/24 04:20 03/14/24 04:20 Labs: Laboratory Results - last 24 hr 03/14/24 04:20 WBC 6.7 RBC 3.33 L Hgb 9.5 L Hct 28.5 L MCV 85.7 MCH 28.5 MCHC 33.3 RDW 15.1 H Plt Count 210 Neut % (Auto) 75.3 H Lymph % (Auto) 17.4 L [place] % (Auto) 5.3 Eos % (Auto) 1.2 L Baso % (Auto) 0.8 Neut # (Auto) 5000 Lymph # (Auto) 1200 [place] # (Auto) 400 Eos # (Auto) 100 Baso # (Auto) 100 Sodium 136 L Potassium 3.3 L Chloride 101 Carbon Dioxide 30 BUN 11 Creatinine 0.71 Estimated GFR > 60 BUN/Creatinine Ratio 15.5 Glucose 162 H Hemoglobin A1c 8.6 H Calcium 8.3 L PFSH Medical History (Updated 03/12/24 @ 08:22 by Joao Chavira MD) long-term current use of anticoagulant Atrial fibrillation Morbid obesity with body mass index (BMI) greater than or equal to 70 in adult Hypothyroidism Asthma Psoriasis Hypertension 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 Social History household members: children Smoking Status: Former smoker alcohol intake: never Assessment & Plan Assessment & Plan narrative: Abdominal Wall Abscess / Cellulitis - Ceftriaxone to continue, wound cultures with MSSA. Continue ceftriaxone. - surgery with current plan to do wound vac re-evaluation on 03/15 in the OR. NPO @ [place] - she had several abscesses in her panus, last one that got drained was a year ago - she does not have abdominal wall lipomas with Decrum's disease but rather on arms, hips and head ESBL UTI, fully treated. - Looks like this occurred in the outpatient setting. Dr. Chun was referred to by her primary care team as recommending fosfomycin x1 dose to treat this. - follow up cultures, urine cultures not performed, no urine symptoms currently. IDDMT2 - A1C previously was controlled, will repeat - continue home insulin therapies, added sliding scale. HTN - metoprolol 150 mg bid, furosemide 80 mg daily Hypothyroidism - levothyroxine PAF with RVR - apparently on Pradaxa - on 150 mg metoprolol BID. was given 100 mg pre-op, developed afib with RVR in PACU, now improved. Continue home medications. - hold pradaxa for possible repeat OR, surgeon ordered Lovenox, hold prior to surgery morning. Hyponatremia, hypokalemia - continue IV fluids and potassium repletion. Monitor daily. Obesity, with BMI 67.5 - The patient is at much higher risk for medical and surgical complications because of their obesity. This increases the difficulty and complexity of medical and surgical interventions and increases the chances of poor outcomes such as morbidity and mortality. DVT prophylaxis - SCDs Discussed with watch case polisher, bedside RN, and overnight hospitalist to obtain the above information and formulate the above assessment and plan. Code: Full, surrogate is patient's daughter. Time-Based Coding :: [TOTAL MINUTES] spent with patient and on the chart (including review of chart, obtaining history, exam, reviewing outside data, placing orders, documenting exam and treatment plan, and counseling patient) on [DATE].
[2024-03-14] MEDS: HYDROMORPHONE 0.5 MG INJ IV (13:48)
[2024-03-14 16:00] VITALS: BP 115/68; PULSE 84; RESP 17; O2SAT 98
[2024-03-14] MEDS: INSULIN LISPRO 100 UNIT/ML 3ML VIAL 15 UNIT SUBCUT (17:17)
[2024-03-14] MEDS: cefTRIAXone 1,000 MG in SODIUM CHLORIDE 0.9% 100 ML 200 MG IV (19:00)
[2024-03-14 20:00] VITALS: BP 135/83; PULSE 81; RESP 18; TEMP 36.8; O2SAT 99
[2024-03-14] MEDS: PANTOPRAZOLE DR 20 MG TABLET PO (20:10)
[2024-03-15] VITALS (13 sets, daily range): BP systolic 117–161; BP diastolic 62–107; PULSE 20–109; RESP 12–24; TEMP 35.9–37.2; O2SAT 94–100; BMI 67.5
--- NOTE | 2024-03-15 | PATH_ITS ---
[facility] Accession Number: [id number] No. of containers..01 Tissue . 01 Material submitted: . skin - PANNUS . 01 Diagnosis: PANNUS, EXCISION: Ulceration, necrosis, and acute inflammation. . 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 Clinical pathological correlation is advised for definitive diagnosis. TRI 03/26/2024 1807 Local . 01 Comment: The histologic material was reviewed with Dr. Rayo Ochoa, who concurs. . 01 Electronically signed: . Katerina Alegre MD, Dermatopathologist NPI- [id number] . 01 Gross description: . Received fresh with two identifiers and no site on container, is a larger section of skin and fat weighing 11.5 kg and measuring 80.6 x 43.4 x 9.8 cm. The skin is saucedo to brown and diffusely nodular with no distinct lesions identified. Sectioning reveals yellow to white fibroadipose tissue with fibrous tissue occupying approximately 40% of the cut surface. An erythematous cavity is identified measuring 13.2 x 9.9 x 6.1 cm. No lesions are identified. Classer sections to include skin and soft tissue with cavity are submitted in cassettes A1-A2. ([id number]) /TRI 03/16/2024 1159 Local . 01 Pathologist provided ICD-10: R23.9 . 01 CPT . 936531 Specimen Comment: A courtesy copy of this report has been sent to [facility] Pathology Performed at: [address] [facility], [place], [place] [id number] MD Trevon Godoy MD Phone: [phone]
[2024-03-15] MEDS: OXYCODONE ER 10 MG TAB PO ×2 (06:25→21:44)
[2024-03-15 06:56] LABS: Add Manual Diff / Slide Review NO; Basophils Absolute Auto 100 /uL (0-100); Eosinophils Absolute Auto 100 /uL (0-450); Eosinophils Percent Auto 1.7 % (2-4); Hematocrit 30.3 % (36-46); Hemoglobin 10.2 g/dL (12.0-16.0); Lymphocytes Absolute Auto 1100 /uL (1100-4500); Lymphocytes Percent Auto 19.8 % (25-40); Mean Corpuscular HGB Conc 33.6 % (30-36); Mean Corpuscular Hemoglobin 28.7 PG (26-34); Mean Corpuscular Volume 85.5 fL (80-100); Monocytes Absolute Auto 300 /uL (0-900); Monocytes Percent Auto 4.4 % (3-14); Neutrophils Absolute Auto 4200 /uL (1500-7000); Neutrophils Percent Auto 73.1 % (50-75); Platelet Count 234 X10^3/uL (150-400); Red Blood Cell Count 3.55 X10^6/uL (4.0-5.2); Red Cell Distribution Width 15.3 % (11.6-14.8); White Blood Cell Count 5.8 X10^3/uL (4.5-11.0)
[2024-03-15 07:07] LABS: BUN Creatinine Ratio 18.8 (6-22); Blood Urea Nitrogen 12 mg/dL (7-17); Calcium 8.8 mg/dL (8.4-10.2); Carbon Dioxide 28 mmol/L (22-32); Chloride 104 mmol/L (98-107); Estimated Glomerular Filt Rate > 60 mL/min (>60); Glucose 137 mg/dL (70-100); HEMOLYSIS < 15 (0-50); Potassium 3.7 mmol/L (3.4-5.1); Sodium 138 mmol/L (137-145)
--- NOTE | 2024-03-15 07:34 | PM.PN.1 ---
Subjective Subjective Interval history: Summary: 53 F with obesity, DM, afib admitted with an abdominal wall abscess. Patient with no complaints today. Overnight wound vac needed to be removed, surgeon will replace and do further debridement tomorrow in the OR. S: She was seen after surgery, is awake and breathing the on room air. Her pain is 10/10 from her resection of panniculitis, about 30 lb of tissue. Her EBL was 300 mL. Exam Vital Signs (past 8 hours): - 03/15/24 03:00 Temperature 97.9 F Pulse Rate 78 Respiratory Rate 18 Blood Pressure 124/81 Pulse Oximetry 98 Oxygen Flow Rate 0 Oxygen Delivery Method Room Air Oxygen Flow Rate 0 Narrative Exam Narrative: NAD, alert and oriented. Fluent speech. Lungs are clear, normal rate and effort. Heart is regular, no murmur gallop or rub. Abdomen is soft, non distended. Wound VAC is in place with minimal drainage. She has a binder on. Extremities are free of edema. Objective Labs 03/15/24 06:45 03/15/24 06:45 Labs: Laboratory Results - last 24 hr 03/15/24 06:45 WBC 5.8 RBC 3.55 L Hgb 10.2 L Hct 30.3 L MCV 85.5 MCH 28.7 MCHC 33.6 RDW 15.3 H Plt Count 234 Neut % (Auto) 73.1 Lymph % (Auto) 19.8 L [place] % (Auto) 4.4 Eos % (Auto) 1.7 L Baso % (Auto) 1.0 Neut # (Auto) 4200 Lymph # (Auto) 1100 [place] # (Auto) 300 Eos # (Auto) 100 Baso # (Auto) 100 Sodium 138 Potassium 3.7 Chloride 104 Carbon Dioxide 28 BUN 12 Creatinine 0.64 Estimated GFR > 60 BUN/Creatinine Ratio 18.8 Glucose 137 H Calcium 8.8 PFSH Medical History [facility] current use of anticoagulant Atrial fibrillation Morbid obesity with body mass index (BMI) greater than or equal to 70 in adult Hypothyroidism Asthma Psoriasis Hypertension 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 Abdominal Wall Abscess / Cellulitis. Active. - Ceftriaxone to continue, wound cultures with MSSA. Continue ceftriaxone. - surgery with current plan to do wound vac re-evaluation on 03/15 in the OR. NPO @ [place] - she had several abscesses in her panus, last one that got drained was a year ago - she does not have abdominal wall lipomas with Decrum's disease but rather on arms, hips and head 2. ESBL UTI, fully treated. Resolved. - Looks like this occurred in the outpatient setting. Dr. Chun was referred to by her primary care team as recommending fosfomycin x1 dose to treat this. - follow up cultures, urine cultures not performed, no urine symptoms currently. 3. DM 2, Resolved. - A1C previously was controlled, will repeat - continue home insulin therapies, added sliding scale. 4. HTN, Stable. - metoprolol 150 mg bid, furosemide 80 mg daily. 5. Hypothyroidism, Stable. - levothyroxine 6. PAF with RVR, Improved. - apparently on Pradaxa - on 150 mg metoprolol BID. was given 100 mg pre-op, developed afib with RVR in PACU, now improved. Continue home medications. - hold pradaxa for possible repeat OR, surgeon ordered Lovenox, hold prior to surgery morning. 7. Hyponatremia, hypokalemia, Improved. - continue IV fluids and potassium repletion. Monitor daily. 8. Obesity, with BMI 67.5, Active. - The patient is at much higher risk for medical and surgical complications because of their obesity. This increases the difficulty and complexity of medical and surgical interventions and increases the chances of poor outcomes such as morbidity and mortality. PLAN: -debridement today. -continue antibiotics. -hold anticoagulation. -we will discuss reinstitution of anticoagulation timing with tomorrow. -pain control measures. DVT prophylaxis - SCDs Time-Based Coding :: [TOTAL MINUTES] spent with patient and on the chart (including review of chart, obtaining history, exam, reviewing outside data, placing orders, documenting exam and treatment plan, and counseling patient) on [DATE].
--- NOTE | 2024-03-15 10:21 | DI.RAD.S_ITS ---
PROCEDURE: XR CHEST FOR PICC 1V COMPARISON: [facility], , XR CHEST 2V, 10/03/2017, 20:28. INDICATIONS: new PICC FINDINGS: Interval placement of right PICC with distal tip projecting over the upper SVC. Heart appears mildly enlarged. No significant pneumothorax or focal airspace consolidation. IMPRESSION: Right PICC with distal tip projecting over the upper SVC. Approved by: Aarti Kahn M.D.,Ph.D. on 03/15/2024 at 13:14
[2024-03-15] MEDS: HYDROMORPHONE 0.5 MG INJ IV ×4 (10:42→22:16)
[2024-03-15] MEDS: METOPROLOL IR 50 MG TABLET 150 MG PO ×2 (11:32→21:44)
[2024-03-15] MEDS: LACTATED RINGERS 1,000 ML 42 ML IV (12:18)
[2024-03-15] MEDS: HYDROMORPHONE 1 MG INJ IV ×3 (12:44→17:12)
--- NOTE | 2024-03-15 12:58 | PM.PREOP ---
Pre-operative Note Interval Note History & Physical reviewed/Exam performed by Physician: Yes Changes to H&P: No H&P completed within 30 days and has changed as indicated here:: Due to massive weight of the pannus, the wound vac cannot keep a seal and drain from the underside. Patient will need to have a more extensive debridement and adjacent tissue transfer for proper drainage of fluid and fit of the wound vac. She is developing a pressure sore on her backside, according to the patient. She understands high risk of bleeding, need for the wound vac for weeks or months. Patient agrees to proceed with excisional debridement of panniculitis, adjacent tissue transfer, and replacement of wound vac
[2024-03-15] MEDS: ACETAMINOPHEN IV 1,000 MG/100 ML VIAL 400 MG IV (13:04)
--- NOTE | 2024-03-15 13:36 | CM.DPC ---
DCP Cont. Reviewed EMR and team rounds for status updates. Per Hospitalist, pt is being taken to the OR today for another I&D. Wound vac was taken off yesterday, but will be replaced later today. She may need an additional I&D this weekend. Not ready to work with therapies, will likely be here for several days. Monitoring for final d/c plan.
[2024-03-15] MEDS: CEFAZOLIN VIAL 1 GM in SODIUM CHLORIDE 0.9% 100 ML IV (13:53)
[2024-03-15] MEDS: CEFAZOLIN 2 GM/100 ML PREMIX 100 ML IV (13:53)
--- NOTE | 2024-03-15 14:14 | SUR.OPER ---
Supine on padded OR bed, head on pillow, arms secured on padded arm boards at <90 degrees abduction, legs uncrossed, safety belt at thigh, tape over blanket over lower legs.
--- NOTE | 2024-03-15 14:28 | PC.NURSE ---
Day shift: Pt remains off unit and in surgery at this time (1430).
[2024-03-15] MEDS: BUPIVACAINE 0.25% W/ EPI 30 ML VIAL 60 ML INJ (14:32)
[2024-03-15] MEDS: BUPIVACAINE LIPOSOME 266 MG/20 ML VIAL INJ (16:25)
[2024-03-15] MEDS: OXYCODONE IR 5 MG TABLET PO (17:05)
--- NOTE | 2024-03-15 17:09 | P.OP_ITS ---
Operative Date/Time/Diagnoses Date of procedure: 03/15/24 Time of procedure: 17:09 Pre-op diagnosis: Soft tissue infection of the abdominal wall; elephantiasis of abdominal pannus, ventral hernia with functional limitation of the abdominal wall Post-op diagnosis: same Procedure & Clinicians Procedure: 1. Excisional debridement of skin, subcutaneous fat and fascia of the anterior abdominal wall measuring greater than 30 cm x 90 cm; over 2700 sq cm 2. Adjacent tissue transfer of the trunk, 30 cm x 90 cm; over 2700 sq cm 3. Ventral hernia repair, 30 cm long hernia, primary without mesh 4. Wound VAC placement Same procedure as scheduled: Yes Indications: This is a patient who presented with a draining infection of a massive abdominal pannus. She had elephantiasis and lymphedema of the skin. There was an I and D performed in the ER which was draining over a 1 L per day of lymphedema. We took her to the OR initially for debridement and wound VAC placement, however due to the size of her pannus in the amount of lymphedema, the VAC failed. This wound was not going to heal without excision of the lymphedema and elephantiasis skin Surgeon: Joao Chavira [employer] Tutor: Ry Cheema Click Yes if Unassisted: No Anesthesia Type: General Operative Notes Findings: 30 cm long by 10 cm wide ventral hernia containing colon Closure Type: non-primary (Wound VAC) Specimen(s): other (Abdominal pannus) Applied: other (Wound VAC) Estimated Blood Loss (mL): 300 Procedure in detail: Patient was brought to the operating room suite after waiting for her Pradaxa to come off. She was maintained with Lovenox up until this morning. Consent was obtained. Patient was brought to the operating room suite. She was placed in the supine position and general anesthesia was induced. The abdomen was prepped with Betadine. Combination of Bovie electrocautery, sharp dissection with a blade and scissors was used to perform excisional debridement of soft tissue infection of the anterior abdominal wall measuring 90 cm wide and 30 cm in craniocaudal dimension. The LigaSure was used for hemostasis of large perforators. This was taken down through Tosin's fascia to the level of the anterior rectus fascia. Patient had a large 30 cm x 10 cm ventral hernia containing bowel. This hernia sac was carefully dissected without entering the sac. The hernia was reduced and 2-0 Stratafix was used to perform a plication of the hernia without mesh. Three Stratafix sutures were used in a running fashion to bring the anterior rectus fascia together. The large resultant defect required well vascularized pedicles for coverage. Flaps were raised of skin, subcutaneous fat and fascia to cover the resulting defect that was 30 cm x 90 cm, greater than 2700 sq cm. Tosin's fascia was approximated with multiple 2-0 Vicryl in an interrupted fashion. The dermis was closed with 2-0 nylon mattress sutures. Xeroform was placed over the incision. A wound VAC was then placed over the Xeroform and placed a suctioned. Adequate suctioned was obtained. Patient was awoken and transferred to hospital bed, then to PACU in good condition. Patient was awakened conversant and PACU with good saturations and refusing to wear her CPAP. Complications: none Post-operative Condition: stable Disposition: PACU Plan for aftercare: Continued hospital stay, next wound VAC change in 7 days
[2024-03-15] MEDS: OXYCODONE IR 10 MG TABLET PO (18:05)
[2024-03-15] MEDS: cefTRIAXone 1,000 MG in SODIUM CHLORIDE 0.9% 100 ML 200 MG IV (18:29)
[2024-03-15] MEDS: PANTOPRAZOLE DR 20 MG TABLET PO (21:44)
[2024-03-16] MEDS: HYDROMORPHONE 1 MG INJ IV ×2 (00:23→02:34)
[2024-03-16 00:40] VITALS: BP 106/58; PULSE 86; RESP 18; TEMP 36.6; O2SAT 95
[2024-03-16 04:30] VITALS: BP 138/88; PULSE 80; RESP 18; TEMP 36.6; O2SAT 95
[2024-03-16] MEDS: HYDROMORPHONE 0.5 MG INJ IV ×8 (04:52→23:19)
[2024-03-16] MEDS: OXYCODONE ER 10 MG TAB PO ×3 (05:40→22:04)
[2024-03-16 06:04] LABS: Add Manual Diff / Slide Review NO; Basophils Absolute Auto 0 /uL (0-100); Basophils Percent Auto 0.4 % (0-2); Eosinophils Absolute Auto 100 /uL (0-450); Eosinophils Percent Auto 0.6 % (2-4); Hematocrit 30.4 % (36-46); Lymphocytes Absolute Auto 900 /uL (1100-4500); Lymphocytes Percent Auto 7.8 % (25-40); Mean Corpuscular HGB Conc 32.7 % (30-36); Mean Corpuscular Hemoglobin 28.3 PG (26-34); Mean Corpuscular Volume 86.7 fL (80-100); Monocytes Absolute Auto 600 /uL (0-900); Monocytes Percent Auto 5.5 % (3-14); Neutrophils Absolute Auto 9900 /uL (1500-7000); Neutrophils Percent Auto 85.7 % (50-75); Platelet Count 242 X10^3/uL (150-400); Red Blood Cell Count 3.51 X10^6/uL (4.0-5.2); Red Cell Distribution Width 15.7 % (11.6-14.8); White Blood Cell Count 11.6 X10^3/uL (4.5-11.0)
[2024-03-16 06:14] LABS: BUN Creatinine Ratio 16.4 (6-22); Blood Urea Nitrogen 12 mg/dL (7-17); Calcium 8.2 mg/dL (8.4-10.2); Carbon Dioxide 29 mmol/L (22-32); Chloride 104 mmol/L (98-107); Estimated Glomerular Filt Rate > 60 mL/min (>60); Glucose 125 mg/dL (70-100); HEMOLYSIS < 15 (0-50); Potassium 3.8 mmol/L (3.4-5.1); Sodium 138 mmol/L (137-145)
--- NOTE | 2024-03-16 07:25 | P.PN_ITS ---
Subjective Subjective Interval history: Summary: 53 F with obesity, DM, afib admitted with an abdominal wall abscess. Patient with no complaints today. Underwent a 30 lb debridement on 03/15, no complications. S: She was doing well, she does note that her pain control is suboptimal. She does have opiate tolerance with her chronic pain medication regimen. There was no bleeding from her wound VAC site. I did discuss reinstitution of her anticoagulation with surgery, and they felt that now was in OK time to restart. She does have some dyspnea owing to increased abdominal pain with deep breathing. She was not requiring oxygen. Exam Vital Signs (past 8 hours): - 03/16/24 00:40 03/16/24 04:30 Temperature 97.8 F 97.8 F Pulse Rate 86 80 Respiratory Rate 18 18 Blood Pressure 106/58 L 138/88 Pulse Oximetry 95 95 Oxygen Flow Rate 0 0 Oxygen Delivery Method Room Air Oxygen Flow Rate 0 Narrative Exam Narrative: NAD, alert and oriented. Fluent speech. Lungs are clear, normal rate and effort. Heart is regular, no murmur gallop or rub. Abdomen is soft, non distended.. Wound vac in place without evidence of bleeding. Extremities are with pedal edema. Objective Labs 03/16/24 05:35 03/16/24 05:35 Labs: Laboratory Results - last 24 hr 03/16/24 05:35 WBC 11.6 H D RBC 3.51 L Hgb 10.0 L Hct 30.4 L MCV 86.7 MCH 28.3 MCHC 32.7 RDW 15.7 H Plt Count 242 Neut % (Auto) 85.7 H Lymph % (Auto) 7.8 L [place] % (Auto) 5.5 Eos % (Auto) 0.6 L Baso % (Auto) 0.4 Neut # (Auto) 9900 H Lymph # (Auto) 900 L [place] # (Auto) 600 Eos # (Auto) 100 Baso # (Auto) 0 Sodium 138 Potassium 3.8 Chloride 104 Carbon Dioxide 29 BUN 12 Creatinine 0.73 Estimated GFR > 60 BUN/Creatinine Ratio 16.4 Glucose 125 H Calcium 8.2 L [facility] Medical History senior living current use of anticoagulant Atrial fibrillation Morbid obesity with body mass index (BMI) greater than or equal to 70 in adult Hypothyroidism Asthma Psoriasis Hypertension 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 Abdominal Wall Abscess (panniculitis) / Cellulitis. Active. - Ceftriaxone to continue, wound cultures with MSSA. Continue ceftriaxone. - underwent second srugical debridement on 03/15 (30 lbs of tissue) 2. ESBL UTI, fully treated. Resolved. - Looks like this occurred in the outpatient setting. Dr. Chun was referred to by her primary care team as recommending fosfomycin x1 dose to treat this. - follow up cultures, urine cultures not performed, no urine symptoms currently. 3. DM 2, Active. - A1C previously was controlled, will repeat - continue home insulin therapies (NPH 80 BID), added sliding scale. 4. HTN, Stable. - metoprolol 150 mg bid, furosemide 80 mg daily. 5. Hypothyroidism, Stable. - levothyroxine 6. PAF with RVR, Improved. - apparently on Pradaxa - on 150 mg metoprolol BID. was given 100 mg pre-op, developed afib with RVR in PACU, now improved. Continue home medications. - hold pradaxa for possible repeat OR, surgeon ordered Lovenox, hold prior to surgery morning. 7. Hyponatremia, hypokalemia, Improved. - continue IV fluids and potassium repletion. Monitor daily. 8. Obesity, with BMI 67.5, Active. The patient is at much higher risk for medical and surgical complications because of their obesity. This increases the difficulty and complexity of medical and surgical interventions and increases the chances of poor outcomes such as morbidity and mortality. PLAN: -continue antibiotics. -restart anticoagulation. -pain control measures. DVT prophylaxis - Pradaxa resumed 03/16. Time-Based Coding :: [TOTAL MINUTES] spent with patient and on the chart (including review of chart, obtaining history, exam, reviewing outside data, placing orders, documenting exam and treatment plan, and counseling patient) on [DATE].
[2024-03-16] MEDS: ACETAMINOPHEN 325 MG TABLET 650 MG PO ×4 (07:43→23:18)
[2024-03-16] MEDS: TIZANIDINE 4 MG TABLET PO (07:44)
[2024-03-16 08:00] VITALS: BP 153/91; PULSE 99; RESP 22; TEMP 36.9; O2SAT 94
[2024-03-16] MEDS: INSULIN LISPRO 100 UNIT/ML 3ML VIAL SUBCUT ×4 (10:57→20:46)
--- NOTE | 2024-03-16 11:02 | DIET.CONS ---
Dietary Consultation Note Admission Date: 03/12/2024 06:02 Assessment: 53 y F admitted for pannus abscess and I&D. Dietitian screened for DM educ. DM2 with A1c 8.6%. Met with pt at bedside who reports 80 units NPH BID and 35 units lispro TID + correctional dose. No CGM currently. Previously, copay has been $70/month for CGM. Wants to improve diet and BG management. Currently s/p resection of panniculitis. After patient has healed from surgery, is interested in pursuing bariatric surgery. Ht: 165.1 cm Wt: 184 kg BMI: 67.5 UBW: limited recent wt hx Last BM: 03/13/24 (03/15/24 12:26) MNA: 14 Jason Score: 18 Diet: 03/16/24 Breakfast Carbohydrate Consistent Diet Diet Modifications: Carbohydrate level: Small (2 CHO) Bedtime snack: No Reflex DM orders: No Food Texture: Level 7 - Regular Liquid Consistency: Level 0 - Thin Nutrition Percent Meal Consumed 100% 03/14/24 18:00 Labs: RBC 3.51 X10^6/uL (4.0-5.2) L 03/16/24 05:35 Hgb 10.0 g/dL (12.0-16.0) L 03/16/24 05:35 Hct 30.4 % (36-46) L 03/16/24 05:35 Creatinine 0.73 mg/dL (0.52-1.04) 03/16/24 05:35 Hemoglobin A1c 8.6 % (4.0-6.0) H 03/14/24 04:20 Nutrition Diagnosis: Altered nutrition related lab values (A1c) r/t endocrine dysfunction aeb A1c 8.6% Interventions: -Provided handout on carb consistent dietary pattern, hunger/fullness scale -Educ on appropriate CHO amount/meal, including educ on menu/CHO here -Discussed DM2 supplies (i.e CGM) -Referral to [facility] from PCP per pt interest -Pt getting an ONS Max daily, ordering additional protein-based food option at meals EER: 30-45 g CHO meals, 90-110 g protein (1.25-1.5 g/kg adjusted IBW s/p resection of panniculitis/wound healing) Monitoring/Evaluations: PO intakes, BG Electronically Signed by: Lilia Bobby 03/16/24 11:02 Clinical Dietitian [address] [id number]
[2024-03-16] MEDS: POTASSIUM CHLORIDE 10 MEQ TAB 20 MEQ PO (11:03)
[2024-03-16] MEDS: FUROSEMIDE 40 MG TABLET 80 MG PO (11:03)
[2024-03-16 12:00] VITALS: BP 112/72; PULSE 89; RESP 20; TEMP 36.2; O2SAT 96
[2024-03-16] MEDS: LACTOBACILLUS ACIDOPHILUS TABLET 1 EACH PO (12:12)
[2024-03-16] MEDS: OXYCODONE IR 10 MG TABLET PO ×2 (12:16→20:18)
--- NOTE | 2024-03-16 12:16 | P.PN_ITS ---
Subjective Subjective Date Patient Seen: 03/16/24 Time Patient Seen: 12:16 Interval history: Patient tells me that her wound VAC was not working all night. Day shift nurse noticed, turned it back on and plugged it back in. Does not seem to have caused any pooling or dehiscence. We will continue wound VAC and assure that on coming shifts are properly educated on wound VAC care. Exam Vital Signs (past 8 hours): - 03/16/24 04:30 03/16/24 08:00 03/16/24 12:00 Temperature 97.8 F 98.5 F 97.1 F L Pulse Rate 80 99 H 89 Respiratory Rate 18 22 20 Blood Pressure 138/88 153/91 H 112/72 Pulse Oximetry 95 94 96 Oxygen Flow Rate 0 0 0 Oxygen Delivery Method Room Air Oxygen Flow Rate 0 Narrative Exam Narrative: Incision clean, dry, intact Objective Labs 03/16/24 05:35 03/16/24 05:35 Labs: Laboratory Results - last 24 hr 03/16/24 05:35 WBC 11.6 H D RBC 3.51 L Hgb 10.0 L Hct 30.4 L MCV 86.7 MCH 28.3 MCHC 32.7 RDW 15.7 H Plt Count 242 Neut % (Auto) 85.7 H Lymph % (Auto) 7.8 L [place] % (Auto) 5.5 Eos % (Auto) 0.6 L Baso % (Auto) 0.4 Neut # (Auto) 9900 H Lymph # (Auto) 900 L [place] # (Auto) 600 Eos # (Auto) 100 Baso # (Auto) 0 Sodium 138 Potassium 3.8 Chloride 104 Carbon Dioxide 29 BUN 12 Creatinine 0.73 Estimated GFR > 60 BUN/Creatinine Ratio 16.4 Glucose 125 H Calcium 8.2 L 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 Atrial fibrillation Morbid obesity with body mass index (BMI) greater than or equal to 70 in adult Hypothyroidism Asthma Psoriasis Hypertension 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 P.T./OT, discharge planning. High-protein low- carbohydrate diet. Protein supplements.
--- NOTE | 2024-03-16 12:39 | CM.DPNOTE ---
DCP Continued: Reviewed EMR and team rounds for pt?s medical status. Per hospitalist, pt is anticipated to be placed on woundvac for several weeks and could be a candidate for another I&D in the next few days. PT/OT evaluations pending until more stable and appropriate, CM following for recommendations for possible SNF vs. Home health referral. Plan: Anticipating home with home health discharge, CM Team will continue to follow for coordination of discharge plans. ANTONIA De PazSW
--- NOTE | 2024-03-16 14:40 | PT.IIE ---
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) long-term (current) use of insulin (03/12/24) Surgery Performed Operation Date: 03/12/24 14:15 Actual Procedures p Incision and Drainage Abdominal wall infection, wound vac - Joao Chavira MD Operation Date: 03/15/24 13:45 Actual Procedures p Debridement abdominal wall, wound vac exchange, panniculectomy - Joao Chavira MD Medical History (Last Reviewed 03/15/24 @ 07:35 by Cesar Chavez MD) Asthma Atrial fibrillation Dercum's disease Hypertension Hypothyroidism 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 Morbid obesity with body mass index (BMI) greater than or equal to 70 in adult Psoriasis Physical Therapy Inpatient Evaluation/Re-Eval M1 PT/OT-IP Prior Functional Status Start: 03/16/24 16:38 Freq: NEEDED Status: Active Protocol: Document 03/16/24 14:40 AB (Rec: 03/16/24 16:56 AB [id number]) Medical Review Prior Functional Status Medical History Reviewed Yes Communication able to make needs known Mobility and Gait pt stated that she was modified independent with bed mobility, transfers and ambulation; uses a 4WW for indoor mobility and a FWW for outdoor ambulation Activities of Daily Living and IADL's Pt needing assist for shoes. family assists pt to transfer to the shower Social History Household Members children Living Arrangements House Number of Floors (Floors) Two Floors Number of Stairs To Enter/Railing? 1-1/2 story, pt son lives up in the loft and pt stays on main level of the house Pt has one step to get into the house. Home Environment High Toilet,Walk in Shower Home Equipment Front Wheel Walker,Four Wheel Walker,Shower Seat without Backrest,Hand Held Shower, Spinner Concrete Pipe,Lift Recliner,Grab Bars In Shower Additional Social History Comment pt has her son and daughter to assist her at home pt has an adjustable bed with wedge pillow M2 PT-IP Current Condition Start: 03/16/24 16:38 Freq: NEEDED Status: Active Protocol: Document 03/16/24 14:40 AB (Rec: 03/16/24 16:56 AB [id number]) Physical Therapy Current Condition Current Condition Evaluation Date 03/16/24 Treatment Diagnosis s/p debridement of abd wall; ventral hernia repair; difficulty in walking Onset Date 03/12/24 M3 PT-IP Subjective Start: 03/16/24 16:38 Freq: NEEDED Status: Active Protocol: Document 03/16/24 14:40 AB (Rec: 03/16/24 16:56 AB [id number]) Subjective Physical Therapy Visit Type Type Initial Evaluation Visit Start Time 14:40 Visit Stop Time 15:30 Notes pt seen for split visits: 1420 to 1500 and 1505 to 1530 Number of SENIOR MOBILE APPLICATION DEVELOPER Visits 0 Physical Therapy Visit Comments Patient Comments agreeable to do PT Therapy Pain Assessment Pain When Pain Assessed At Rest Pain Present Pain Present Pain Reported Location Abdomen Intensity 8 Scale Used Numeric (0 - 10) Pain Management Techniques Distraction,Modification of Treatment,Re-positioning, Timing of Activity with Medications M4 PT-IP Mobility and Gait Start: 03/16/24 16:38 Freq: NEEDED Status: Active Protocol: Document 03/16/24 14:40 AB (Rec: 03/16/24 16:56 AB [id number]) PT-Bed Mobility Assessment Supine to Sit Supine to Sit Maximum Assistance,2 Person Assistance,Head of Bed Elevated,Bedrails PT-Transfer Assessment Sit to and From Stand Sit to and from Stand Moderate Assistance,2 Person Assistance,Use of Upper Extremities Equipment Transfer Assistive Device Gait Belt,Front Wheeled Walker Orthotic/Prosthetic Devices or Brace: No Transfers Transfer Destination Chair Transfer Technique Stand Step Pivot Transfer Ability Level of Assist Moderate Assistance,2 Person Assistance,Use of Upper Extremities Comments Mobility Comments pt in bed and agreed to do PT. obtained PLOF and home set up. completed bed mobility supine to sit max Ax 2 and max cues. HOB elevated and pt used bed rail to assist. unable to do log roll bed mobility due to pt's body habitus. pt able to sit on EOB CGA. pt needed rest breaks in between tasks. completed sit to stand mod A x 2 and max cue. pt able to step transfer to chair using FWW mod A x 2 and max cues. pt refused to do ambulation. positioned pt on the chair. Left pt with NAC and OT. PT-Balance Assessment Sitting Balance and Reactions Static Sitting Balance Ability Good Dynamic Sitting Balance Ability Fair Standing Balance and Reactions Static Standing Balance Ability Fair Dynamic Standing Balance Ability Poor Device Used FWW M5 PT-IP Objective Assessments Start: 03/16/24 16:38 Freq: NEEDED Status: Active Protocol: Document 03/16/24 14:40 AB (Rec: 03/16/24 16:56 AB [id number]) Orientation Orientation/Cognition Level of Alertness Alert Orientation Name,Age,Birthday,Month,Date, Year,Day of Week,Place, Situation Language Function Ability No Deficits Noted Safety Awareness Understands Safety Issues Memory Description No Deficits Noted Strength Lower Extremity Strength Assessment Within Functional Limits Coordination Assessment Gross Coordination Gross Coordination WNL Sensation Assessment Sensation Gross Sensation WNL Muscle Tone Muscle Tone WNL Yes M6 PT-IP Treatment Start: 03/16/24 16:38 Freq: NEEDED Status: Active Protocol: Document 03/16/24 14:40 AB (Rec: 03/16/24 16:56 AB [id number]) Physical Therapy Treatment Education Education Provided Precautions,Safety M7 PT-IP Assessment and Plan Start: 03/16/24 16:38 Freq: NEEDED Status: Active Protocol: Document 03/16/24 14:40 AB (Rec: 03/16/24 16:56 AB [id number]) PT Summary Assessment and Plan Potential Rehabilitation Potential Fair Status of Condition at Evaluation Evolving Summary Impairments Pain,ROM,Strength,Balance, Coordination,Sensation,Tone, Cognition,Bed Mobility, Transfers,Gait,Activity Tolerance Assessment Summary pt is a 53 y/o F with abdominal cellulitis and underwent excisional debridement of the abdominal walll with wound vac placement and also a ventral hernia repair. pt requiring max A x 2 for bed mobility and mod A x 2 for transfers. pt with c/o increase abdominal pain affecting activity tolerance. d/c plan depending on progress. pt plans to go home and has her children to assist her. Goals Bed Mobility Goal Standby Assistance Transfer Goal Standby Assistance,Front Wheeled Walker Gait Goal Standby Assistance,Front Wheel Walker Gait Distance 30 Other Goals 1 step using FWW SBA Frequency of Treatment Frequency Of Treatment Once a Day Treatment Plan Physical Therapy Treatment Plan Bed Mobility Training,Transfer Training,Gait Training, Therapeutic Exercise,Balance Retraining,Post Op Education, Discharge Planning,Hot or Cold Pack,Neuromuscular Re-ed, Coordination Retraining,Manual Therapy Precautions Abdominal Surgery Precautions Log Roll,Lifting Restrictions, Gait Belt above Incisional Area Recommendations To Nursing Amount of Assist Needed 2 Person Assist Discharge Recommendations PT Discharge Recommendations Home with 30/08 Assist Available,Home Health,SNF Rehab,Home vs SNF Transportation Needs at Discharge Private Vehicle,Wheelchair/ Cabulance
[2024-03-16] MEDS: methocarbamoL 500 MG TABLET PO ×2 (14:42→20:19)
--- NOTE | 2024-03-16 15:40 | OT.IP.EVAL ---
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 (03/12/24) half-way (current) use of insulin (03/12/24) Surgery Performed Operation Date: 03/12/24 14:15 Actual Procedures p Incision and Drainage Abdominal wall infection, wound vac - Joao Chavira MD Operation Date: 03/15/24 13:45 Actual Procedures p Debridement abdominal wall, wound vac exchange, panniculectomy - Joao Chavira MD Past Medical History (Last Reviewed 03/15/24 @ 07:35 by Cesar Chavez MD) Asthma Atrial fibrillation Dercum's disease Hypertension Hypothyroidism Insulin dependent type 2 diabetes mellitus 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 Pt needing assist to get into and out of the shower. Activities of Daily Living and IADL's Pt needing assist for shoes. Prior Functional Level (Other details) Pt lives with her 19 year old son and 14 year old daughter who assist her and does school online. Social History Household Members children Living Arrangements House Number of Floors (Floors) One Floor Number of Stairs To Enter/Railing? 1-1/2 story, pt son lives up in the loft. Pt has one step to get into the house. Home Environment High Toilet,Walk in Shower Home Equipment Front Wheel Walker,Four Wheel Walker,Shower Seat without Backrest,Hand Held Shower, Helper Chicken Farm,Grab Bars In Shower M2 OT-IP Current Condition Start: 03/16/24 15:41 Freq: Status: Active Protocol: Document 03/16/24 15:41 [facility] (Rec: 03/16/24 16:00 [facility] [id number]) Occupational Therapy Current Condition Current Condition Evaluation Date 03/16/24 Treatment Diagnosis I and D abdominal wall infection Diagnosis Onset Date 03/12/24 Post Operative Precautions Abdominal Surgery Precautions Lifting Restrictions,Gait Belt above Incisional Area M3 OT- IP Subjective and Pain Start: 03/16/24 15:41 Freq: Status: Active Protocol: Document 03/16/24 15:41 [facility] (Rec: 03/16/24 16:00 [facility] [id number]) OT- Subjective Occupational Therapy Visit Type Type Initial Evaluation Visit Start Time 14:40 Visit Stop Time 15:40 Occupational Therapy Visit Comments Patient Comments Pt agreed to get up as needing to be changes. Patient/Caregiver Goals TO get better. OT Pain Assessment Location Abdomen Intensity 7 Scale Used Numeric (0 - 10) Pain Behaviors Facial Grimacing,Holding Area M4 OT- IP ADL's Start: 03/16/24 15:41 Freq: Status: Active Protocol: Document 03/16/24 15:41 [facility] (Rec: 03/16/24 16:00 [facility] [id number]) OT [id number] Comments OT Self-Feeding Comments Not at meal time. OT ADL-Grooming Comments OT Grooming Comments Pt able to wash her face after set-up. OT ADL-Oral Care Comments Oral Care Comments NOt performed. OT ADL-Dressing General Eval Upper Body Dressing Ability Moderate Assistance Comments OT Dressing Comments MODA for gown management. Pt not wanting to wear socks are her feet too swollen to wear them IN addition pt not wanting to wear her slippers due to not wanting to accidentally urinating on them when standing up. OT ADL-Toileting General Evaluation Toileting Ability Maximum Assistance Areas Needing Assistance Perform Perineal Hygiene Comments OT Toileting Comments Pt dependent for clothing and hygiene needs at this time. OT ADL-Bathing Bathing Type Bathing Type Sponge Bath General Evaluation Bathing Ability Maximal Assistance Areas Needing Assistance Wash/Dry Upper Body,Wash/Dry Perineal Area,Wash/Dry Lower Extremities Comments OT Bathing Comments Pt able to do while seated in the recliner. M5 OT- IP IADL's Start: 03/16/24 15:41 Freq: Status: Active Protocol: Document 03/16/24 15:41 [facility] (Rec: 03/16/24 16:00 [facility] [id number]) OT-Instrumental Activities of Daily Living Home Safety Awareness Awareness of Need for Assistance at Home Good Awareness Ability to Problem Solve Emergency Able to Problem Solve Situations Medication Management Medication Management No Deficits Identified Money Management Money Management No Deficits Identified Meal Preparation Meal Preparation Comments Pt will need assist. 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 M6 OT- IP Functional Cognition Start: 03/16/24 15:41 Freq: Status: Active Protocol: Document 03/16/24 15:41 [facility] (Rec: 03/16/24 16:00 [facility] [id number]) Cognitive Factors Limiting Selfcare Function Cognitive Ability Level of Alertness Alert Patient Orientation Name,Age,Birthday,Month,Date, Year,Day of Week,Place, Situation Attention Span Ability Capable of Focused Attention, Capable of Sustained Attention Ability to Follow Commands Able to Follow One Step Commands Cognitive Comments Cognitive Assessment Comments Pt able to follow commands for ADL and mobility needs. Pt appears intact for cognition at this time. OT- Vision and Hearing OT- Hearing Assessment OT- Hearing Assessment Hearing Impaired,Use of Hearing Aids OT- Vision Assessment Visual Acuity Glasses All The Time Visual Attentiveness WFL Occular Pursuits WFL Vision Assessment Comments Pt does not have her right hear aid present. M7 OT- IP Mobility and Balance Start: 03/16/24 15:41 Freq: Status: Active Protocol: Document 03/16/24 15:41 [facility] (Rec: 03/16/24 16:00 [facility] [id number]) OT- Bed Mobility Assessment Supine to Sit Supine to Sit Assist Moderate Assistance,2 Person Assistance OT-Transfer Assessment Sit to and From Stand Sit to and from Stand Moderate Assistance,2 Person Assistance Transfers Transfer Ability Moderate Assistance,2 Person Assistance Technique Transfer Destination Bed,Chair Transfer Technique Stand Step Pivot Devices Transfer Assistive Devices Gait Belt,Front Wheeled Walker Comments Mobility Comments MAXA x2 to get to the edge of the bed. MODA x2 to stand with the FWW and transfer to the recliner and BSC. Pt on the second stand able to stand with one person to the FWW and transfer , second person for safety. OT- Balance Assessment Sitting Balance and Reactions Static Sitting Balance Ability Good Dynamic Sitting Balance Ability Good Standing Balance and Reactions Static Standing Balance Ability Good Dynamic Standing Balance Ability Fair M8 OT- IP Objective Assessments Start: 03/16/24 15:41 Freq: Status: Active Protocol: Document 03/16/24 15:41 [facility] (Rec: 03/16/24 16:00 [facility] [id number]) OT Gross Range of Motion Upper Extremity Range of Motion Assessment Within Functional Limits OT Strength Upper Extremity Strength Assessment Within Functional Limits M9 OT- IP Assessment and Plan Start: 03/16/24 15:41 Freq: Status: Active Protocol: Document 03/16/24 15:41 [facility] (Rec: 03/16/24 16:00 [facility] [id number]) OT Summary Assessment and Plan Potential Rehabilitation Potential Good Analytic Complexity at Evaluation Moderate Summary OT Impairments Pain,Strength,Balance, Functional Mobility,Dressing, Toileting,Bathing,Toilet Transfers,Shower Transfers, Activity Tolerance Progress Towards Goals Progressing Toward Goals,Slow Progress due to Pain,Slow Progress due to Medical Issues Assessment Summary Pt MOD complexity and main barriers are pain, decreased activity tolerance and needing two person assist for mobility needs. Pt s/p I and D abdominal wall infection and wound vac exchange.Pt will benefit from skilled rehab when medically stable. Pt is very motivated to get better and be able to walk more as now per pt 30lbs hogshead roller from surgery. Goals Self-Feeding Goal Independent Grooming Goal Independent Dressing Goal Minimal Assistance Toileting Goal Standby Assistance Bathing Goal Minimal Assistance Toilet Transfer Goal Independent Shower Transfer Goal Contact Guard Assistance Days to Meet Goals 20 Frequency of Treatment Other frequency 5x/week Treatment Plan OT Treatment Plan ADL Training,Functional Mobility,Patient/Family Education,Discharge Planning Other Treatment Recommendations and Next Standing ADL's at the sink. Treatment Focus Discharge Recommendations OT Discharge Recommendations SNF Rehab Transportation Needs at Discharge Wheelchair/Cabulance
[2024-03-16] MEDS: cefTRIAXone 1,000 MG in SODIUM CHLORIDE 0.9% 100 ML 200 MG IV (19:08)
--- NOTE | 2024-03-16 19:14 | PC.NURSE ---
Patient reports not having voided since prior to surgery, MD Chavez notified this a.m. and ordered for straight cath. 300 cc gabriela colored urine drained. She is able to void toda adequately after getting up wit PT/OT to BSC. Wound vac found in bed not plugged in or turned on this a.m. IT was turned on and plugged in and bloody drainage <50cc output this shift. good seal and suction observed at shift change, endorsed to oncoming RN to monitor.
[2024-03-16 20:00] VITALS: BP 141/93; PULSE 117; RESP 18; TEMP 36.3; O2SAT 96
[2024-03-16] MEDS: PREGABALIN 75 MG CAPSULE PO (20:18)
[2024-03-16] MEDS: METOPROLOL IR 50 MG TABLET 150 MG PO (20:19)
[2024-03-16] MEDS: PANTOPRAZOLE DR 20 MG TABLET PO (20:19)
[2024-03-16] MEDS: DABIGATRAN 75 MG CAPSULE 150 MG PO (20:21)
[2024-03-16] MEDS: INSULIN GLARGINE 100 UNIT/ML 3ML PEN 15 UNIT SUBCUT (20:31)
[2024-03-17] MEDS: HYDROMORPHONE 0.5 MG INJ IV ×6 (01:38→22:15)
[2024-03-17] MEDS: OXYCODONE IR 10 MG TABLET PO (03:57)
[2024-03-17 04:00] VITALS: BP 134/86; PULSE 75; RESP 18; TEMP 36.1; O2SAT 96
[2024-03-17] MEDS: OXYCODONE ER 10 MG TAB PO ×3 (05:26→22:11)
[2024-03-17] MEDS: ACETAMINOPHEN 325 MG TABLET 650 MG PO ×4 (05:27→23:42)
[2024-03-17] MEDS: diphenhydrAMINE 25 MG TABLET PO (05:27)
--- NOTE | 2024-03-17 07:17 | PM.PN.1 ---
Subjective Subjective Interval history: Summary: 53 F with obesity, DM, afib admitted with an abdominal wall abscess. Patient with no complaints today. Underwent a 30 lb debridement on 03/15, no complications. S: She feels better today, no nausea. No BM yet. Improved pain control. Exam Vital Signs (past 8 hours): - 03/17/24 04:00 Temperature 97.0 F L Pulse Rate 75 Respiratory Rate 18 Blood Pressure 134/86 Pulse Oximetry 96 Oxygen Flow Rate 0 Oxygen Delivery Method BiPAP Oxygen Flow Rate 0 Narrative Exam Narrative: NAD, alert and oriented. Fluent speech. Lungs are clear, normal rate and effort. Heart is regular, no murmur gallop or rub. Abdomen is soft, distended, non-tender. Wound vac in place without evidence of bleeding. Extremities are with pedal edema. Objective Labs 03/16/24 05:35 03/16/24 05:35 [facility] Medical History [facility] current use of anticoagulant Atrial fibrillation Morbid obesity with body mass index (BMI) greater than or equal to 70 in adult Hypothyroidism Asthma Psoriasis Hypertension 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 Abdominal Wall Abscess (panniculitis) / Cellulitis. Active. - Ceftriaxone to continue, wound cultures with MSSA. Continue ceftriaxone. - underwent second srugical debridement on 03/15 (30 lbs of tissue) 2. ESBL UTI, fully treated. Resolved. - Looks like this occurred in the outpatient setting. Dr. Chun was referred to by her primary care team as recommending fosfomycin x1 dose to treat this. - follow up cultures, urine cultures not performed, no urine symptoms currently. 3. DM 2, Active. - A1C previously was controlled, will repeat - continue home insulin therapies (NPH 80 BID), added sliding scale. 4. HTN, Stable. - metoprolol 150 mg bid, furosemide 80 mg daily. 5. Hypothyroidism, Stable. - levothyroxine 6. PAF with RVR, Improved. - apparently on Pradaxa - on 150 mg metoprolol BID. was given 100 mg pre-op, developed afib with RVR in PACU, now improved. Continue home medications. - hold pradaxa for possible repeat OR, surgeon ordered Lovenox, hold prior to surgery morning. 7. Hyponatremia, hypokalemia, Improved. - continue IV fluids and potassium repletion. Monitor daily. 8. Obesity, with BMI 67.5, Active. The patient is at much higher risk for medical and surgical complications because of their obesity. This increases the difficulty and complexity of medical and surgical interventions and increases the chances of poor outcomes such as morbidity and mortality. PLAN: -continue antibiotics. -restarted anticoagulation. -pain control measures. -d/w surgery, regarding general wound care plan. DVT prophylaxis - Pradaxa resumed 03/16. Time-Based Coding :: [TOTAL MINUTES] spent with patient and on the chart (including review of chart, obtaining history, exam, reviewing outside data, placing orders, documenting exam and treatment plan, and counseling patient) on [DATE].
[2024-03-17 08:00] VITALS: BP 134/87; PULSE 89; RESP 20; TEMP 35.9; O2SAT 95
[2024-03-17] MEDS: INSULIN LISPRO 100 UNIT/ML 3ML VIAL SUBCUT ×7 (08:00→22:10)
[2024-03-17] MEDS: METOPROLOL IR 50 MG TABLET 150 MG PO ×2 (08:34→22:11)
[2024-03-17] MEDS: BUSPIRONE 5 MG TABLET 15 MG PO (08:35)
[2024-03-17] MEDS: LACTOBACILLUS ACIDOPHILUS TABLET 1 EACH PO (08:35)
[2024-03-17] MEDS: PREGABALIN 75 MG CAPSULE PO ×2 (08:35→22:12)
[2024-03-17] MEDS: FUROSEMIDE 40 MG TABLET 80 MG PO (08:35)
[2024-03-17] MEDS: DABIGATRAN 75 MG CAPSULE 150 MG PO ×2 (08:37→22:12)
[2024-03-17] MEDS: POTASSIUM CHLORIDE 10 MEQ TAB 20 MEQ PO (08:40)
--- NOTE | 2024-03-17 10:08 | PT.IPTN ---
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 (03/12/24) Surgery Performed Operation Date: 03/12/24 14:15 Actual Procedures p Incision and Drainage Abdominal wall infection, wound vac - Joao Chavira MD Operation Date: 03/15/24 13:45 Actual Procedures p Debridement abdominal wall, wound vac exchange, panniculectomy - Joao Chavira MD Physical Therapy Treatment Note M2 PT-IP Current Condition Start: 03/16/24 16:38 Freq: NEEDED Status: Active Protocol: Document 03/16/24 14:40 AB (Rec: 03/16/24 16:56 AB [id number]) Physical Therapy Current Condition Current Condition Evaluation Date 03/16/24 Treatment Diagnosis s/p debridement of abd wall; ventral hernia repair; difficulty in walking Onset Date 03/12/24 M3 PT-IP Subjective Start: 03/16/24 16:38 Freq: NEEDED Status: Active Protocol: Document 03/17/24 10:08 AW (Rec: 03/17/24 10:49 AW [id number]) Subjective Physical Therapy Visit Type Type Treatment Note Visit Start Time 09:39 Visit Stop Time 10:08 Number of PROP MAKING SUPERVISOR Visits 0 Physical Therapy Visit Comments Patient Comments Pt is willing to participate with PT Patient Goals Get up and get moving. Get rid of the external catheter. Therapy Pain Assessment Pain When Pain Assessed During Mobility Pain Present Pain Present Pain Reported Location Abdomen Scale Used Reports abdominal pain but does not rate M4 PT-IP Mobility and Gait Start: 03/16/24 16:38 Freq: NEEDED Status: Active Protocol: Document 03/17/24 10:08 AW (Rec: 03/17/24 10:49 AW [id number]) PT-Bed Mobility Assessment Supine to Sit Supine to Sit Contact Guard Assistance, Minimal Assistance,Head of Bed Elevated,Bedrails Scooting Scooting to Edge of Bed Standby Assistance PT-Transfer Assessment Sit to and From Stand Sit to and from Stand Standby Assistance,1 Person Assistance,Use of Upper Extremities Equipment Transfer Assistive Device Gait Belt,Front Wheeled Walker Transfers Transfer Destination Chair,Bedside Commode Transfer Technique ambulated Transfer Ability Level of Assist Standby Assistance,1 Person Assistance,Use of Upper Extremities Comments Mobility Comments Pt has an adjustable bed at home but does not really use the features. She relies heavily on the bed rail to sit up to EOB but does not require physical assist. She is not able to log roll due to habitus. Of all her transitional movements today, bed mobility is the most painful. Pt is able to stand to bariatric FWW and transfer to commode. She manages all pericare without assist. After ambulation, she transfers to the recliner, preferring to remain upright. Pt is left with call light in reach. Gait Assessment Gait Gait Assistance Required: Standby Assistance Distance (Feet) 25 Assistive Devices Assistive Device Front Wheeled Walker Gait Deviations General Gait Pattern Decreased Stride Length, Decreased Feet Clearance,Wide Based Gait Factors Limiting Gait Function Factors Limiting Gait Function Limited Range of Motion,Pain Comments Gait Comments Gait is steady with FWW. PT-Balance Assessment Sitting Balance and Reactions Static Sitting Balance Ability Good Dynamic Sitting Balance Ability Good Standing Balance and Reactions Static Standing Balance Ability Good Dynamic Standing Balance Ability Fair Device Used FWW Comments Other Balance Tests/Deviations/Treatment Able to complete most natalya : care in standing with SBA. M5 PT-IP Objective Assessments Start: 03/16/24 16:38 Freq: NEEDED Status: Active Protocol: Document 03/16/24 14:40 AB (Rec: 03/16/24 16:56 AB [id number]) Orientation Orientation/Cognition Level of Alertness Alert Orientation Name,Age,Birthday,Month,Date, Year,Day of Week,Place, Situation Language Function Ability No Deficits Noted Safety Awareness Understands Safety Issues Memory Description No Deficits Noted Strength Lower Extremity Strength Assessment Within Functional Limits Coordination Assessment Gross Coordination Gross Coordination WNL Sensation Assessment Sensation Gross Sensation WNL Muscle Tone Muscle Tone WNL Yes M6 PT-IP Treatment Start: 03/16/24 16:38 Freq: NEEDED Status: Active Protocol: Document 03/17/24 10:08 AW (Rec: 03/17/24 10:49 AW [id number]) Physical Therapy Treatment Education Education Provided Precautions,Safety Other Treatments Other Treatment Performed Education on the importance of elevating B LE due to edema/ lymphedema. Pt prefers to remain sitting with legs in dependent position. M7 PT-IP Assessment and Plan Start: 03/16/24 16:38 Freq: NEEDED Status: Active Protocol: Document 03/17/24 10:08 AW (Rec: 03/17/24 10:49 AW [id number]) PT Summary Assessment and Plan Potential Rehabilitation Potential Good Summary Impairments Pain,ROM,Strength,Bed Mobility ,Transfers,Gait,Activity Tolerance Progress Towards Goals Progressing Toward Goals Assessment Summary Kristine is greeted bedside, willing to participate with PT this morning. BP 127/76 HR 102 at rest. She does not like the external catheter which had been placed overnight and hopes to get up to the commode . She uses the bed rails heavily and needs a stabilizing hand from PT to fully right her trunk but otherwise needs no more than CGA to sit up EOB. She stands to FWW and transfers safely to the commode. She pulls off the external catheter, voids, and stands to complete 90% of pericare in standing. She asks for assist for completeness. She then ambulates ~25 feet in the room. She marvels at her ability to walk after having had 30# of tissue surgically removed. She is steady but becomes mildly SOB as she returns to the chair. BP 142/ 107 HR 108 SpO2 98% RA; RN aware of findings. Pt is left sitting up in the recliner, aware that she will need to call for mobility assist to transfer to commode or back to bed. Goals Bed Mobility Goal Standby Assistance Transfer Goal Standby Assistance,Front Wheeled Walker Gait Goal Standby Assistance,Front Wheel Walker Gait Distance 30 Other Goals 1 step using FWW SBA Frequency of Treatment Frequency Of Treatment Once a Day Treatment Plan Physical Therapy Treatment Plan Bed Mobility Training,Transfer Training,Gait Training, Therapeutic Exercise,Balance Retraining,Post Op Education, Discharge Planning,Hot or Cold Pack,Neuromuscular Re-ed, Coordination Retraining,Manual Therapy Other Recommendations and Next Treatment progress gait distance, trial Focus step Precautions Abdominal Surgery Precautions Lifting Restrictions,Gait Belt above Incisional Area Other Precautions wound VAC Recommendations To Nursing Amount of Assist Needed 1 Person Assist Discharge Recommendations PT Discharge Recommendations Home with Assistance,Home with 24/ Assist Available,Home Health Transportation Needs at Discharge Private Vehicle,Wheelchair/ Cabulance
--- NOTE | 2024-03-17 11:47 | PM.PNPO.1 ---
Subjective Subjective Date Patient Seen: 03/17/24 Time Patient Seen: 11:47 Interval history: Patient worked with PT today, still has some limitations. States that they brought her [place] citizen toast for breakfast, because she didn't order her own. I told her that she should have sent it back and requested protein shakes and eggs. 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 Atrial fibrillation Morbid obesity with body mass index (BMI) greater than or equal to 70 in adult Hypothyroidism Asthma Psoriasis Hypertension 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 Social History household members: children Smoking Status: Former smoker alcohol intake: never Assessment & Plan Post-op Postoperative Procedures: Procedures Operation Date: 03/12/24 14:15 Actual Procedure Side Surgeon p Incision and Drainage Abdominal wall infection, wound vac Joao Chavira MD Operation Date: 03/15/24 13:45 Actual Procedure Side Surgeon p Debridement abdominal wall, wound vac exchange, panniculectomy Joao Chavira MD Postoperative day: 2 Postoperative status: doing well Postoperative plan: routine post-op care Postoperative plan narrative: plan for VAC change mid-week next week. Plan for acute rehab at discharge. Time Spent With Patient Time with patient: less than 15 minutes
--- NOTE | 2024-03-17 14:50 | PC.NURSE ---
Pt is alert oriented and cnversant. Makes her needs known appropriately. Voices concerns. Up with assistance. worked with PT and has been up in a chair. Family in to visit. Wound vac intact. Pain meds given as ordered and when requested.
--- NOTE | 2024-03-17 15:03 | CM.DPC ---
DCP SNF vs Home Per MD, will get more clarification from Surgeon regarding recommendation of how long wound vac needed and IV abx course as pt to have possible additional I&D pending progress. Per PT, pt able to participate and ambulate better today and recommending home with assist and HH. SW met bedside with pt, her son, her 19 yo Dtr and another family member and explained role and pt confirms she was able to ambulate some in the room with PT but having pain issues and aware of possible need for wound vac and IV-Abx at d/c. Pt confirms her preference is home but unsure if she and her family can manage her medical needs at home yet. SW provided the SNF Choice list and preference is [facility] if SNF needed for medical care. SW discussed that [facility] would be needed as well. Pt confirms she has utilized the [facility] in the past as well and if she can d/c home then would be agreeable to outpt f/u with Wound Clinic. SW made [facility] referral in case SNF needed and they will have to review with their team on Tuesday and determine their female bed availability closer to when pt ready for d/c. KELLY Segundo
[2024-03-17 16:00] VITALS: BP 112/77; PULSE 95; RESP 16; TEMP 36.3; O2SAT 97
[2024-03-17] MEDS: cefTRIAXone 1,000 MG in SODIUM CHLORIDE 0.9% 100 ML 200 MG IV (18:48)
[2024-03-17 20:00] VITALS: BP 130/87; PULSE 98; RESP 20; TEMP 36.4; O2SAT 100
[2024-03-17] MEDS: INSULIN GLARGINE 100 UNIT/ML 3ML PEN 15 UNIT SUBCUT (22:10)
[2024-03-17] MEDS: PANTOPRAZOLE DR 20 MG TABLET PO (22:12)
[2024-03-18] MEDS: HYDROMORPHONE 0.5 MG INJ IV ×3 (01:33→18:09)
[2024-03-18] MEDS: diphenhydrAMINE 25 MG TABLET PO (01:33)
[2024-03-18 04:00] VITALS: BP 116/74; PULSE 90; RESP 20; TEMP 36.4; O2SAT 96
[2024-03-18] MEDS: OXYCODONE ER 10 MG TAB PO ×3 (05:26→21:36)
[2024-03-18] MEDS: ACETAMINOPHEN 325 MG TABLET 650 MG PO ×4 (05:26→23:21)
--- NOTE | 2024-03-18 07:25 | PM.PN.1 ---
Subjective Subjective Interval history: Summary: 53 F with obesity, DM, afib admitted with an abdominal wall abscess. Patient with no complaints today. Underwent a 30 lb debridement (of pannicultis) on 03/15, no complications. S: Doing much better today. She is having less pain and did have small bowel movement. No dyspnea. Spoke with surgery and she can have her antibiotics stopped. The plan is to change the wound back around Tuesday, and hopefully this can then be discontinued and go with simple wound care. In that case she could likely discharge home on Tuesday. Exam Vital Signs (past 8 hours): - 03/18/24 04:00 Temperature 97.5 F L Pulse Rate 90 Respiratory Rate 20 Blood Pressure 116/74 Pulse Oximetry 96 Oxygen Flow Rate 0 Oxygen Delivery Method BiPAP Oxygen Flow Rate 0 Narrative Exam Narrative: NAD, alert and oriented. Fluent speech. Lungs are clear, normal rate and effort. Heart is regular, no murmur gallop or rub. Abdomen is soft, distended, non-tender. Wound vac in place without evidence of bleeding. Extremities are with pedal edema. Wound vac in place. 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 Abdominal Wall Abscess (panniculitis) / Cellulitis. Active. - Ceftriaxone to continue, wound cultures with MSSA. Continue ceftriaxone. - underwent second srugical debridement on 03/15 (30 lbs of tissue) 2. ESBL UTI, fully treated. Resolved. - Looks like this occurred in the outpatient setting. Dr. Chun was referred to by her primary care team as recommending fosfomycin x1 dose to treat this. - follow up cultures, urine cultures not performed, no urine symptoms currently. 3. DM 2, Active. - A1C previously was controlled, will repeat - continue home insulin therapies (NPH 80 BID), added sliding scale. 4. HTN, Stable. - metoprolol 150 mg bid, furosemide 80 mg daily. 5. Hypothyroidism, Stable. - levothyroxine 6. PAF with RVR, Improved. - apparently on Pradaxa - on 150 mg metoprolol BID. was given 100 mg pre-op, developed afib with RVR in PACU, now improved. Continue home medications. - hold pradaxa for possible repeat OR, surgeon ordered Lovenox, hold prior to surgery morning. 7. Hyponatremia, hypokalemia, Improved. - continue IV fluids and potassium repletion. Monitor daily. 8. Obesity, with BMI 67.5, Active. The patient is at much higher risk for medical and surgical complications because of their obesity. This increases the difficulty and complexity of medical and surgical interventions and increases the chances of poor outcomes such as morbidity and mortality. PLAN: -Discontinue antibiotics. -restarted anticoagulation. -pain control measures. -d/w surgery, regarding general wound care plan. Wound vac removal Wed, possibly home with wound care then. DVT prophylaxis - Pradaxa resumed 03/16. Time-Based Coding :: [TOTAL MINUTES] spent with patient and on the chart (including review of chart, obtaining history, exam, reviewing outside data, placing orders, documenting exam and treatment plan, and counseling patient) on [DATE].
[2024-03-18 08:00] VITALS: BP 121/81; PULSE 91; RESP 18; TEMP 36.6; O2SAT 97
[2024-03-18] MEDS: INSULIN LISPRO 100 UNIT/ML 3ML VIAL SUBCUT ×7 (08:16→20:54)
[2024-03-18] MEDS: PREGABALIN 75 MG CAPSULE PO ×2 (08:19→21:06)
[2024-03-18] MEDS: METOPROLOL IR 50 MG TABLET 150 MG PO ×2 (08:19→21:07)
[2024-03-18] MEDS: BUSPIRONE 5 MG TABLET 15 MG PO (08:19)
[2024-03-18] MEDS: DABIGATRAN 75 MG CAPSULE 150 MG PO ×2 (08:19→21:07)
[2024-03-18] MEDS: LACTOBACILLUS ACIDOPHILUS TABLET 1 EACH PO (08:19)
[2024-03-18] MEDS: FUROSEMIDE 40 MG TABLET 80 MG PO (08:19)
[2024-03-18] MEDS: FLUTICASONE 120 SPRAY/16 GM SPRAY.SUSP NASAL (08:19)
[2024-03-18] MEDS: POTASSIUM CHLORIDE 10 MEQ TAB 20 MEQ PO (08:19)
--- NOTE | 2024-03-18 10:43 | PT.IPTN ---
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 (03/12/24) terminal operations manager (current) use of insulin (03/12/24) Surgery Performed Operation Date: 03/12/24 14:15 Actual Procedures p Incision and Drainage Abdominal wall infection, wound vac - Joao Chavira MD Operation Date: 03/15/24 13:45 Actual Procedures p Debridement abdominal wall, wound vac exchange, panniculectomy - Joao Chavira MD Physical Therapy Treatment Note M2 PT-IP Current Condition Start: 03/16/24 16:38 Freq: NEEDED Status: Active Protocol: Document 03/16/24 14:40 AB (Rec: 03/16/24 16:56 AB [id number]) Physical Therapy Current Condition Current Condition Evaluation Date 03/16/24 Treatment Diagnosis s/p debridement of abd wall; ventral hernia repair; difficulty in walking Onset Date 03/12/24 M3 PT-IP Subjective Start: 03/16/24 16:38 Freq: NEEDED Status: Active Protocol: Document 03/18/24 10:22 MB (Rec: 03/18/24 10:43 MB [id number]) Subjective Physical Therapy Visit Type Type Treatment Note Visit Start Time 10:22 Visit Stop Time 10:39 Number of HEALTHCARE ADMINISTRATOR Visits 0 Physical Therapy Visit Comments Patient Comments Pt is agreeable to mobility. Therapy Pain Assessment Pain When Pain Assessed At Rest Pain Present Pain Present Pain Reported Location Abdomen Scale Used Not rated M4 PT-IP Mobility and Gait Start: 03/16/24 16:38 Freq: NEEDED Status: Active Protocol: Document 03/18/24 10:22 MB (Rec: 03/18/24 10:43 MB [id number]) PT-Transfer Assessment Sit to and From Stand Sit to and from Stand Standby Assistance,Use of Upper Extremities Equipment Transfer Assistive Device Gait Belt,Front Wheeled Walker Transfers Transfer Destination Chair Transfer Ability Level of Assist Standby Assistance,Use of Upper Extremities Comments Mobility Comments Pt requires dependent assistance to don shoes and right foot is too swollen to fasten velcro Gait Assessment Gait Gait Assistance Required: Standby Assistance Distance (Feet) 90 Able to Maintain Weight Bearing Status Yes During Gait Assistive Devices Assistive Device Gait Belt,Front Wheeled Walker Gait Deviations General Gait Pattern Decreased Stride Length, Decreased Feet Clearance,Wide Based Gait Factors Limiting Gait Function Factors Limiting Gait Function Limited Range of Motion,Pain Comments Gait Comments Gait is steady with FWW, pt reports LINAG PT-Balance Assessment Sitting Balance and Reactions Static Sitting Balance Ability Good Dynamic Sitting Balance Ability Good Standing Balance and Reactions Static Standing Balance Ability Good Dynamic Standing Balance Ability Fair Device Used FWW M5 PT-IP Objective Assessments Start: 03/16/24 16:38 Freq: NEEDED Status: Active Protocol: Document 03/16/24 14:40 AB (Rec: 03/16/24 16:56 AB [id number]) Orientation Orientation/Cognition Level of Alertness Alert Orientation Name,Age,Birthday,Month,Date, Year,Day of Week,Place, Situation Language Function Ability No Deficits Noted Safety Awareness Understands Safety Issues Memory Description No Deficits Noted Strength Lower Extremity Strength Assessment Within Functional Limits Coordination Assessment Gross Coordination Gross Coordination WNL Sensation Assessment Sensation Gross Sensation WNL Muscle Tone Muscle Tone WNL Yes M6 PT-IP Treatment Start: 03/16/24 16:38 Freq: NEEDED Status: Active Protocol: Document 03/18/24 10:22 MB (Rec: 03/18/24 10:43 MB [id number]) Physical Therapy Treatment Education Education Provided Safety M7 PT-IP Assessment and Plan Start: 03/16/24 16:38 Freq: NEEDED Status: Active Protocol: Document 03/18/24 10:22 MB (Rec: 03/18/24 10:43 MB [id number]) PT Summary Assessment and Plan Potential Rehabilitation Potential Good Status of Condition at Evaluation Evolving Summary Impairments Pain,ROM,Strength,Bed Mobility ,Transfers,Gait,Activity Tolerance Progress Towards Goals Progressing Toward Goals Assessment Summary Pt progresses with gait distance today and is able to walk out into johnson and back to chair. She presents with increased effort and reports of LIANG. PT manages/carries wound vac machine with gait. Goals Bed Mobility Goal Independent Transfer Goal Independent,Front Wheeled Walker Gait Goal Independent,Front Wheel Walker Gait Distance 150 Other Goals 1 step using FWW SBA Frequency of Treatment Frequency Of Treatment Once a Day Treatment Plan Physical Therapy Treatment Plan Bed Mobility Training,Transfer Training,Gait Training, Therapeutic Exercise,Balance Retraining,Post Op Education, Discharge Planning,Hot or Cold Pack,Neuromuscular Re-ed, Coordination Retraining,Manual Therapy Precautions Abdominal Surgery Precautions Log Roll,Lifting Restrictions, Gait Belt above Incisional Area Other Precautions wound VAC Recommendations To Nursing Amount of Assist Needed 1 Person Assist Discharge Recommendations PT Discharge Recommendations Home with Assistance,Home with 24/ Assist Available,Home Health Transportation Needs at Discharge Private Vehicle
--- NOTE | 2024-03-18 11:25 | PM.PNPO.1 ---
Subjective Subjective Date Patient Seen: 03/18/24 Time Patient Seen: 11:25 Interval history: Patient had a bowel movement overnight. She is progressing much better than expected. She is able to ambulate much larger distances then she could early postop. She may be more likely to be appropriate for home discharge rather than acute rehab. She is working better with the kitchen to make sure she has a low-carbohydrate high-protein diet. Her abdominal binder as to narrow and was folding under her skin. I removed her abdominal binder. She states she has 1 at home that fits her better. I told her her family can bring it in she can use that binder, unfortunately we do not have a binder in the hospital that accommodate her size. Exam Vital Signs (past 8 hours): - 03/18/24 04:00 03/18/24 08:00 Temperature 97.5 F L 98 F Pulse Rate 90 91 H Respiratory Rate 20 18 Blood Pressure 116/74 121/81 Pulse Oximetry 96 97 Oxygen Flow Rate 0 0 Oxygen Delivery Method BiPAP Oxygen Flow Rate 0 Narrative Exam Narrative: Wound VAC is in place, good seal, no drainage, no cellulitis. Her mons area is edematous today. It seems to be in a dependent position as she is sitting in a chair. No cellulitis. 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 Plan for wound VAC change or removal in the middle of the week. If her wound appears to be well approximated, she will not need a home wound VAC. If there are areas of drainage or dehiscence, we will arrange for a home wound VAC and home health at that time. Patient states she gets anxious and feels short of breath when working with physical therapy. She has albuterol q.4 ordered and she thinks that this would help. I advised her to time up her albuterol with her times of exertion. Time Spent With Patient Time with patient: less than 15 minutes
[2024-03-18] MEDS: OXYCODONE IR 10 MG TABLET PO ×2 (11:41→16:55)
[2024-03-18 14:14] VITALS: PULSE 70; RESP 16; O2SAT 100
[2024-03-18] MEDS: ALBUTEROL 2.5 MG/3 ML NEB (ADULT) INH (14:14)
--- NOTE | 2024-03-18 14:47 | CM.DPC ---
DCP Cont: Per MD, discussed with Surgeon and plan is to take off pt's wound vac in a couple days to determine if wound vac can be discontinued or if pt needs ongoing wound vac and IV-Abx can be stopped and switched to PO. Per PT, pt ambulated farther today and currently recommending home with assist and maybe HH. Plan: SW to follow closely to confirm no IV-Abx needed at d/c and if wound vac needed and confirm pt agreeable with d/c home when stable. KELLY Segundo
[2024-03-18 16:00] VITALS: BP 154/86; PULSE 106; RESP 19; TEMP 36.3; O2SAT 98
--- NOTE | 2024-03-18 17:35 | PC.NURSE ---
Patients wound vac connected to open wound to l.lower panus area, this is at 125mm of suction. Patient has received dilaudid x1 and oxycodone 10mg twice, she was just given this 30 minutes ago and is asking for dilaudid. Explained to patient that it takes 30 to 45 minutes for the oral oxycodone to work and that she needs to wait for another 30 minutes to see if the oxycodone does start helping with discomfort. If this is not affective for patient then this RN will give her some iv dilaudid. She has been up and ambulated with physical therapy in the halls and is also moving around in her room and using the bedside commode. The abdominal binder that she had on was not on correct, so surgeon undid it and patient now has it off, if she wants to wear it when she is ambulating she can. Patient told this RN that she ordered a larger one off of [facility] and it will be here tuesday. Dressing to lower abdomen is cdi, and patient is sitting up in her chair.
[2024-03-18 20:00] VITALS: BP 129/87; PULSE 91; RESP 16; TEMP 36.3; O2SAT 97
[2024-03-18] MEDS: INSULIN GLARGINE 100 UNIT/ML 3ML PEN 25 UNIT SUBCUT (20:54)
[2024-03-18] MEDS: PANTOPRAZOLE DR 20 MG TABLET PO (21:06)
[2024-03-18] MEDS: LORATADINE 10 MG TABLET PO (21:06)
[2024-03-19] MEDS: HYDROMORPHONE 0.5 MG INJ IV ×5 (02:18→23:10)
[2024-03-19 04:00] VITALS: BP 120/76; PULSE 92; RESP 18; TEMP 36.5; O2SAT 96
[2024-03-19] MEDS: ACETAMINOPHEN 325 MG TABLET 650 MG PO ×4 (05:46→23:10)
[2024-03-19] MEDS: OXYCODONE ER 10 MG TAB PO ×3 (05:46→21:34)
[2024-03-19 09:00] VITALS: BP 128/82; PULSE 92; RESP 19; TEMP 36.5; O2SAT 96
[2024-03-19] MEDS: FLUTICASONE 120 SPRAY/16 GM SPRAY.SUSP NASAL (09:10)
[2024-03-19] MEDS: INSULIN LISPRO 100 UNIT/ML 3ML VIAL SUBCUT ×7 (09:10→21:40)
[2024-03-19] MEDS: POTASSIUM CHLORIDE 10 MEQ TAB 20 MEQ PO (09:12)
[2024-03-19] MEDS: PREGABALIN 75 MG CAPSULE PO ×2 (09:12→21:42)
[2024-03-19] MEDS: DABIGATRAN 75 MG CAPSULE 150 MG PO ×2 (09:12→21:43)
[2024-03-19] MEDS: FUROSEMIDE 40 MG TABLET 80 MG PO (09:12)
[2024-03-19] MEDS: BUSPIRONE 5 MG TABLET 15 MG PO (09:12)
[2024-03-19] MEDS: LACTOBACILLUS ACIDOPHILUS TABLET 1 EACH PO (09:13)
[2024-03-19] MEDS: METOPROLOL IR 50 MG TABLET 150 MG PO ×2 (09:13→21:42)
[2024-03-19 09:14] VITALS: PULSE 80; RESP 16; O2SAT 100
[2024-03-19] MEDS: ALBUTEROL 2.5 MG/3 ML NEB (ADULT) INH (09:14)
[2024-03-19] MEDS: INSULIN GLARGINE 100 UNIT/ML 3ML PEN 25 UNIT SUBCUT ×2 (09:26→21:38)
--- NOTE | 2024-03-19 09:51 | OT.IP.TRT ---
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 (03/12/24) terminal worker (current) use of insulin (03/12/24) Surgery Performed Operation Date: 03/12/24 14:15 Actual Procedures p Incision and Drainage Abdominal wall infection, wound vac - Joao Chavira MD Operation Date: 03/15/24 13:45 Actual Procedures p Debridement abdominal wall, wound vac exchange, panniculectomy - Joao Chavira MD Occupational Therapy Treatment Note M2 OT-IP Current Condition Start: 03/16/24 15:41 Freq: Status: Active Protocol: Document 03/16/24 15:41 [facility] (Rec: 03/16/24 16:00 [facility] [id number]) Occupational Therapy Current Condition Current Condition Evaluation Date 03/16/24 Treatment Diagnosis I and D abdominal wall infection Diagnosis Onset Date 03/12/24 Post Operative Precautions Abdominal Surgery Precautions Lifting Restrictions,Gait Belt above Incisional Area M3 OT- IP Subjective and Pain Start: 03/16/24 15:41 Freq: Status: Active Protocol: Document 03/19/24 11:25 CGR (Rec: 03/19/24 11:33 CGR [id number]) OT- Subjective Occupational Therapy Visit Type Type Treatment Note Visit Start Time 09:27 Visit Stop Time 09:51 Notes Pt states her biggest concern for discharging home is getting in and out of the bed with IND. M4 OT- IP ADL's Start: 03/16/24 15:41 Freq: Status: Active Protocol: Document 03/16/24 15:41 CCC (Rec: 03/16/24 16:00 CCC [id number]) OT [id number] Comments OT Self-Feeding Comments Not at meal time. OT ADL-Grooming Comments OT Grooming Comments Pt able to wash her face after set-up. OT ADL-Oral Care Comments Oral Care Comments NOt performed. OT ADL-Dressing General Eval Upper Body Dressing Ability Moderate Assistance Comments OT Dressing Comments MODA for gown management. Pt not wanting to wear socks are her feet too swollen to wear them IN addition pt not wanting to wear her slippers due to not wanting to accidentally urinating when standing up. OT ADL-Toileting General Evaluation Toileting Ability Maximum Assistance Areas Needing Assistance Perform Perineal Hygiene Comments OT Toileting Comments Pt dependent for clothing and hygiene needs at this time. OT ADL-Bathing Bathing Type Bathing Type Sponge Bath General Evaluation Bathing Ability Maximal Assistance Areas Needing Assistance Wash/Dry Upper Body,Wash/Dry Perineal Area,Wash/Dry Lower Extremities Comments OT Bathing Comments Pt able to do while seated in the recliner. M5 OT- IP IADL's Start: 03/16/24 15:41 Freq: Status: Active Protocol: Document 03/16/24 15:41 [facility] (Rec: 03/16/24 16:00 [facility] [id number]) OT-Instrumental Activities of Daily Living Home Safety Awareness Awareness of Need for Assistance at Home Good Awareness Ability to Problem Solve Emergency Able to Problem Solve Situations Medication Management Medication Management No Deficits Identified Money Management Money Management No Deficits Identified Meal Preparation Meal Preparation Comments Pt will need assist. Full Stack Web Developer Full Stack Web Developer Comments Pt will need assist. M6 OT- IP Functional Cognition Start: 03/16/24 15:41 Freq: Status: Active Protocol: Document 03/16/24 15:41 [facility] (Rec: 03/16/24 16:00 [facility] [id number]) Cognitive Factors Limiting Selfcare Function Cognitive Ability Level of Alertness Alert Patient Orientation Name,Age,Birthday,Month,Date, Year,Day of Week,Place, Situation Attention Span Ability Capable of Focused Attention, Capable of Sustained Attention Ability to Follow Commands Able to Follow One Step Commands Cognitive Comments Cognitive Assessment Comments Pt able to follow commands for ADL and mobility needs. Pt appears intact for cognition at this time. OT- Vision and Hearing OT- Hearing Assessment OT- Hearing Assessment Hearing Impaired,Use of Hearing Aids OT- Vision Assessment Visual Acuity Glasses All The Time Visual Attentiveness WFL Occular Pursuits WFL Vision Assessment Comments Pt does not have her right hear aid present. M7 OT- IP Mobility and Balance Start: 03/16/24 15:41 Freq: Status: Active Protocol: Document 03/19/24 11:25 CGR (Rec: 03/19/24 11:33 CGR [id number]) OT- Bed Mobility Assessment Supine to Sit Supine to Sit Assist Standby Assistance,Head of Bed Elevated,Bedrails Sit to Supine Sit to Supine Assist Contact Guard Assistance,Head of Bed Elevated,Bedrails OT-Transfer Assessment Sit to and From Stand Sit to and from Stand Standby Assistance Transfers Transfer Ability Standby Assistance Technique Transfer Destination Bed,Chair Transfer Technique Stand Step Pivot Devices Transfer Assistive Devices Gait Belt,Front Wheeled Walker Comments Mobility Comments Pt requested to practice getting in and out of the bed. Educated pt on use of gait belt to help with leg then discussed that a leg bulk folder might be easier to use. Also educated pt on use of a sheet to help if needed. Pt performed in and out of the bed set up like her home bed using the gait belt to assist and performed without physical assist from this health underwriter. Pt states she will order the leg bulk folder for increased ease. OT- Gait Assessment Gait Gait Assistance Required: Standby Assistance Assistive Devices Assistive Device Gait Belt,Front Wheeled Walker Comments Gait Ability Comments in the room OT- Balance Assessment Sitting Balance and Reactions Static Sitting Balance Ability Normal Dynamic Sitting Balance Ability Normal M8 OT- IP Objective Assessments Start: 03/16/24 15:41 Freq: Status: Active Protocol: Document 03/16/24 15:41 [facility] (Rec: 03/16/24 16:00 CCC [id number]) OT Gross Range of Motion Upper Extremity Range of Motion Assessment Within Functional Limits OT Strength Upper Extremity Strength Assessment Within Functional Limits M9 OT- IP Assessment and Plan Start: 03/16/24 15:41 Freq: Status: Active Protocol: Document 03/19/24 11:25 CGR (Rec: 03/19/24 11:33 CGR [id number]) OT Summary Assessment and Plan Potential Rehabilitation Potential Good Analytic Complexity at Evaluation Moderate Summary OT Impairments Pain,Strength,Balance, Functional Mobility,Dressing, Toileting,Bathing,Toilet Transfers,Shower Transfers, Activity Tolerance Progress Towards Goals Progressing Toward Goals,Slow Progress due to Pain,Slow Progress due to Medical Issues Assessment Summary Pt is progressing well with therapy and today states that she would rather get home and thinks she can manage at home but is worried about bed mobility. We worked on bed mobility using a gait belt to assist with getting her legs into the bed and discussed that a leg bulk folder would be easier to use. Pt states she will order one. Pt returned to sitting in chair after practicing. Will continue to follow. Goals Self-Feeding Goal Independent Grooming Goal Independent Dressing Goal Minimal Assistance Toileting Goal Standby Assistance Bathing Goal Minimal Assistance Toilet Transfer Goal Independent Shower Transfer Goal Contact Guard Assistance Days to Meet Goals 20 Frequency of Treatment Frequency Of Treatment Once a Day Other frequency 5x/week Treatment Plan OT Treatment Plan ADL Training,Functional Mobility,Patient/Family Education,Discharge Planning Other Treatment Recommendations and Next Standing ADL's at the sink, Treatment Focus further bed mobility practice. Discharge Recommendations OT Discharge Recommendations SNF Rehab Transportation Needs at Discharge Wheelchair/Cabulance
[2024-03-19] MEDS: OXYCODONE IR 10 MG TABLET PO (12:04)
--- NOTE | 2024-03-19 12:10 | PT.IPTN ---
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 (03/12/24) tank terminal gauger (current) use of insulin (03/12/24) Surgery Performed Operation Date: 03/12/24 14:15 Actual Procedures p Incision and Drainage Abdominal wall infection, wound vac - Joao Chavira MD Operation Date: 03/15/24 13:45 Actual Procedures p Debridement abdominal wall, wound vac exchange, panniculectomy - Joao Chavira MD Physical Therapy Treatment Note M2 PT-IP Current Condition Start: 03/16/24 16:38 Freq: NEEDED Status: Active Protocol: Document 03/19/24 11:54 SP (Rec: 03/19/24 12:28 SP [id number]) Physical Therapy Current Condition Current Condition Evaluation Date 03/16/24 Treatment Diagnosis s/p debridement of abd wall; ventral hernia repair; difficulty in walking Onset Date 03/12/24 M3 PT-IP Subjective Start: 03/16/24 16:38 Freq: NEEDED Status: Active Protocol: Document 03/19/24 11:54 SP (Rec: 03/19/24 12:28 SP [id number]) Subjective Physical Therapy Visit Type Type Treatment Note Visit Start Time 11:54 Visit Stop Time 12:10 Number of MUFFLER MECHANIC Visits 1 Physical Therapy Visit Comments Patient Comments Pt is agreeable to mobility walking in room, I am having more pain 7/10 after lots mobility with nursing and OT earlier but pleased with strength has right now. Therapy Pain Assessment Pain When Pain Assessed During Mobility Pain Present Pain Present Pain Reported Location Abdomen Intensity 7 Scale Used Numeric (0 - 10) Description With Movement Pain Management Techniques Distraction,Modification of Treatment,Re-positioning, Timing of Activity with Medications M4 PT-IP Mobility and Gait Start: 03/16/24 16:38 Freq: NEEDED Status: Active Protocol: Document 03/19/24 11:54 SP (Rec: 03/19/24 12:28 SP [id number]) PT-Transfer Assessment Sit to and From Stand Sit to and from Stand Standby Assistance,Use of Upper Extremities Equipment Transfer Assistive Device Gait Belt,Front Wheeled Walker Orthotic/Prosthetic Devices or Brace: No Transfers Transfer Destination Chair Transfer Technique ambulated with FWW & 4WW Transfer Ability Level of Assist Standby Assistance,Use of Upper Extremities Comments Mobility Comments Pt requires dependent assistance to don shoes and right foot is too swollen to fasten velcro. SBA STS /c BUE support, cued slow slight TA draw in support ascending and descending to sit. Gait around room /c FWW then 4WW sBA, cues for decreased CARLOS MANUEL to allow feet inside walker with more upright improved posture. Gait Assessment Gait Gait Assistance Required: Standby Assistance Distance (Feet) 60 Able to Maintain Weight Bearing Status Yes During Gait Assistive Devices Assistive Device Gait Belt,Front Wheeled Walker ,4 Wheeled Walker Orthotic/Prosthetic Devices or Brace: No Gait Deviations General Gait Pattern Decreased Stride Length, Decreased Feet Clearance,Wide Based Gait Factors Limiting Gait Function Factors Limiting Gait Function Decreased Activity Tolerance, Decreased Strength,Limited Range of Motion,Pain Comments Gait Comments Gait is steady with FWW then 4WW, 1 lap each in room. PT-Balance Assessment Sitting Balance and Reactions Static Sitting Balance Ability Normal Dynamic Sitting Balance Ability Good Standing Balance and Reactions Static Standing Balance Ability Good Dynamic Standing Balance Ability Good Device Used FWW and 4WW M5 PT-IP Objective Assessments Start: 03/16/24 16:38 Freq: NEEDED Status: Active Protocol: Document 03/16/24 14:40 AB (Rec: 03/16/24 16:56 AB [id number]) Orientation Orientation/Cognition Level of Alertness Alert Orientation Name,Age,Birthday,Month,Date, Year,Day of Week,Place, Situation Language Function Ability No Deficits Noted Safety Awareness Understands Safety Issues Memory Description No Deficits Noted Strength Lower Extremity Strength Assessment Within Functional Limits Coordination Assessment Gross Coordination Gross Coordination WNL Sensation Assessment Sensation Gross Sensation WNL Muscle Tone Muscle Tone WNL Yes M6 PT-IP Treatment Start: 03/16/24 16:38 Freq: NEEDED Status: Active Protocol: Document 03/19/24 11:54 SP (Rec: 03/19/24 12:28 SP [id number]) Physical Therapy Treatment Education Education Provided Safety Other Treatments Other Treatment Performed Continued education on the importance of elevating B LE due to edema/lymphedema. Pt prefers to remain sitting with legs in dependent position. verbal education on breath and postural alignment to support abdominals during log roll, STS and UE/ LE mobility can still utilize abdominals, doing slower movements. M7 PT-IP Assessment and Plan Start: 03/16/24 16:38 Freq: NEEDED Status: Active Protocol: Document 03/19/24 11:54 SP (Rec: 03/19/24 12:28 SP [id number]) PT Summary Assessment and Plan Potential Rehabilitation Potential Good Status of Condition at Evaluation Evolving Summary Impairments Pain,ROM,Strength,Bed Mobility ,Transfers,Gait,Activity Tolerance Progress Towards Goals Progressing Toward Goals Assessment Summary Pt decreased strength and endurance, low tolerance of distance walking with therapy in room using FWW and 4WW, SBA . Reports did alot with nursing and OT earlier. MUFFLER MECHANIC manages/carries wound vac machine with gait. Recommending HHPT / vs available. Goals Bed Mobility Goal Independent Transfer Goal Independent,Front Wheeled Walker Gait Goal Independent,Front Wheel Walker Gait Distance 150 Other Goals 1 step using FWW SBA Frequency of Treatment Frequency Of Treatment Once a Day Treatment Plan Physical Therapy Treatment Plan Bed Mobility Training,Transfer Training,Gait Training, Therapeutic Exercise,Balance Retraining,Post Op Education, Discharge Planning,Hot or Cold Pack,Neuromuscular Re-ed, Coordination Retraining,Manual Therapy Other Recommendations and Next Treatment Bed mobility with leg classifications officer cc/cm, Focus progress gait distance. PRogress trial 1 step. Precautions Abdominal Surgery Precautions Log Roll,Lifting Restrictions, Gait Belt above Incisional Area Other Precautions wound VAC Recommendations To Nursing Amount of Assist Needed Standby Assistance,1 Person Assist Discharge Recommendations PT Discharge Recommendations Home with Assistance,Home with 24/7 Assist Available,Home Health Transportation Needs at Discharge Private Vehicle
--- NOTE | 2024-03-19 13:32 | P.PN_ITS ---
Subjective Subjective Date Patient Seen: 03/19/24 Time Patient Seen: 13:32 Interval history: Patient seems to be doing well. Physical therapy thinks she will be able go home with home care. She is still requiring IV pain medication about once per day. She states she has had some success with lidocaine patches in the past, so see if lidocaine patch on her abdomen will help at all. She still has some fluid accumulating in her mons. Exam Vital Signs (past 8 hours): - 03/19/24 09:00 03/19/24 09:14 Temperature 97.7 F Pulse Rate 92 H 80 Respiratory Rate 19 16 Blood Pressure 128/82 Pulse Oximetry 96 100 Oxygen Delivery Method Room Air Oxygen Flow Rate 0 Oxygen Delivery Method Room Air Oxygen Flow Rate 0 Narrative Exam Narrative: Fluid in the mons, no cellulitis Objective Labs 03/16/24 05:35 03/16/24 05:35 [facility] Medical History half-way current use of anticoagulant Atrial fibrillation Morbid obesity with body mass index (BMI) greater than or equal to 70 in adult Hypothyroidism Asthma Psoriasis Hypertension 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 Social History household members: children Smoking Status: Former smoker alcohol intake: never Assessment & Plan Post-op Postoperative Procedures: Procedures Operation Date: 03/12/24 14:15 Actual Procedure Side Surgeon p Incision and Drainage Abdominal wall infection, wound vac Joao Chavira MD Operation Date: 03/15/24 13:45 Actual Procedure Side Surgeon p Debridement abdominal wall, wound vac exchange, panniculectomy Joao Chavira MD Postoperative day: 4 Postoperative status: doing well and marginal pain control Postoperative plan: ambulate Time Spent With Patient Time with patient: less than 15 minutes
--- NOTE | 2024-03-19 14:05 | CM.DPC ---
DCP HH and Wound Clinic Cont: Per MD and Surgeon, pt continues to make medical progress and IV abx stopped and plan remains to take off wound vac likely Wed this week to determine if wound vac can be discontinued or if vac needed for home. Per PT, pt continues to improve with mobility and recommending home with family assist and HH. [facility] in case SNF was needed, they cannot accept pt at this time due to BMI and care needs. SW met bedside with pt and explained role again and pt confirms she is continuing to feel better but still has ongoing pain likely due to her chronic pain and tolerance but is motivated for increased strength and mobility and confirms her preference is home with outpt wound clinic and HH. Pt feels they can manage her needs at home. Pt has a hx of utilizing HH in the past and has no preference after reviewing [facility]. Based on pt's home location of [place], SW checked with [facility] and they are too far out for nursing and [facility] has openings and sent referral to review to confirm they can accept. F2F completed. Pt states her preference for outpt Wound Clinic is [facility] as they live [facility]. SW faxed new referral and left ms for wound clinic requesting review and to get pt on their schedule. Plan: SW to follow closely for confirmation [facility] can accept and that [facility] can get pt on their schedule and to follow closely for Surgeon to determine on Wed if home wound vac needed. KELLY Segundo
--- NOTE | 2024-03-19 14:52 | PM.PN.1 ---
Subjective Subjective Interval history: Summary: 53 F with obesity, DM, afib admitted with an abdominal wall abscess. Patient with no complaints today. Underwent a 30 lb debridement (of pannicultis) on 03/15, no complications. S: Doing much better today. She is having less pain and did have small bowel movement yesterday. No dyspnea. The plan is to change the wound back around Tuesday, and hopefully this can then be discontinued and go with simple wound care. In that case she could likely discharge home on Tuesday. Exam Vital Signs (past 8 hours): - 03/19/24 09:00 03/19/24 09:14 Temperature 97.7 F Pulse Rate 92 H 80 Respiratory Rate 19 16 Blood Pressure 128/82 Pulse Oximetry 96 100 Oxygen Delivery Method Room Air Oxygen Flow Rate 0 Oxygen Delivery Method Room Air Oxygen Flow Rate 0 Narrative Exam Narrative: NAD, alert and oriented. Fluent speech. Lungs are clear, normal rate and effort. Heart is regular, no murmur gallop or rub. Abdomen is soft, distended, non-tender. Wound vac functional Extremities are with pedal edema. Wound vac in place. 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 Abdominal Wall Abscess (panniculitis) / Cellulitis. Active. - Ceftriaxone now discontinued. wound cultures with MSSA. Completed course of antibiotics during her stay thus far. - underwent second srugical debridement on 03/15 (30 lbs of tissue) 2. ESBL UTI, fully treated. Resolved. - Looks like this occurred in the outpatient setting. Dr. Chun was referred to by her primary care team as recommending fosfomycin x1 dose to treat this. - follow up cultures, urine cultures not performed, no urine symptoms currently. 3. DM 2, Active. - A1C 8.6% on 03/14/24 - continue home insulin therapies (NPH 80 BID), added sliding scale. 4. HTN, Stable. - metoprolol 150 mg bid, furosemide 80 mg daily. 5. Hypothyroidism, Stable. - levothyroxine 6. PAF with RVR, Improved. - apparently on Pradaxa - on 150 mg metoprolol BID. was given 100 mg pre-op, developed afib with RVR in PACU, now improved. Continue home medications. - hold pradaxa for possible repeat OR, surgeon ordered Lovenox, hold prior to surgery morning. 7. Hyponatremia, hypokalemia, Improved. - continue IV fluids and potassium repletion. Monitor daily. 8. Obesity, with BMI 67.5, Active. The patient is at much higher risk for medical and surgical complications because of their obesity. This increases the difficulty and complexity of medical and surgical interventions and increases the chances of poor outcomes such as morbidity and mortality. PLAN: -Wound vac removal Wed, possibly home with wound care then. DVT prophylaxis - Pradaxa resumed 03/16. Time-Based Coding :: [TOTAL MINUTES] spent with patient and on the chart (including review of chart, obtaining history, exam, reviewing outside data, placing orders, documenting exam and treatment plan, and counseling patient) on [DATE].
[2024-03-19] MEDS: LIDOCAINE 5% PATCH 1 EACH TOP (16:25)
[2024-03-19 20:00] VITALS: BP 141/92; PULSE 79; RESP 19; TEMP 35.7; O2SAT 97
[2024-03-19] MEDS: LORATADINE 10 MG TABLET PO (21:42)
[2024-03-19] MEDS: PANTOPRAZOLE DR 20 MG TABLET PO (21:42)
--- NOTE | 2024-03-20 00:41 | PC.NURSE ---
Addendum entered by Wanda Bobby R.N. 03/20/24 06:51: Pt needs encouragement with turning in bed. she is on a bariatric bed that has an air mattress but once she gets in bed she sleeps on her back and declines turning in bed. Original Note: Pt mobility is improving, tonight she was able to get in bed with stand by assist. This nurse use a towel to elevate her pubic area (which is edematous) and right bellow where her wound vac is.
[2024-03-20] MEDS: HYDROMORPHONE 0.5 MG INJ IV ×4 (01:53→20:36)
[2024-03-20] MEDS: diphenhydrAMINE 25 MG TABLET PO (01:53)
[2024-03-20 04:00] VITALS: BP 114/84; PULSE 96; RESP 17; TEMP 36.8; O2SAT 95
[2024-03-20] MEDS: OXYCODONE ER 10 MG TAB PO ×3 (06:03→21:12)
[2024-03-20] MEDS: ACETAMINOPHEN 325 MG TABLET 650 MG PO ×4 (06:04→23:16)
[2024-03-20] MEDS: BENZOCAINE/MENTHOL 1 LOZ PKT 1 EACH PO (07:26)
[2024-03-20] MEDS: ALBUTEROL 2.5 MG/3 ML NEB (ADULT) INH (07:40)
[2024-03-20] MEDS: polyethylene glycoL 3350 17 GM POWD.PACK PO (08:16)
[2024-03-20] MEDS: DABIGATRAN 75 MG CAPSULE 150 MG PO ×2 (08:17→20:36)
[2024-03-20] MEDS: BUSPIRONE 5 MG TABLET 15 MG PO (08:17)
[2024-03-20] MEDS: METOPROLOL IR 50 MG TABLET 150 MG PO ×2 (08:17→20:36)
[2024-03-20] MEDS: FUROSEMIDE 40 MG TABLET 80 MG PO (08:18)
[2024-03-20] MEDS: OXYCODONE IR 10 MG TABLET PO ×3 (08:18→23:19)
[2024-03-20] MEDS: POTASSIUM CHLORIDE 10 MEQ TAB 20 MEQ PO (08:18)
[2024-03-20] MEDS: PREGABALIN 75 MG CAPSULE PO ×2 (08:18→20:36)
[2024-03-20] MEDS: FLUTICASONE 120 SPRAY/16 GM SPRAY.SUSP NASAL (08:19)
[2024-03-20] MEDS: INSULIN GLARGINE 100 UNIT/ML 3ML PEN 25 UNIT SUBCUT (08:20)
[2024-03-20] MEDS: LIDOCAINE 5% PATCH 1 EACH TOP (08:21)
[2024-03-20] MEDS: INSULIN LISPRO 100 UNIT/ML 3ML VIAL SUBCUT ×5 (08:23→21:13)
[2024-03-20] MEDS: LACTOBACILLUS ACIDOPHILUS TABLET 1 EACH PO (08:25)
[2024-03-20 09:35] VITALS: BP 110/88; PULSE 85; RESP 14; TEMP 36.4; O2SAT 97
--- NOTE | 2024-03-20 11:21 | PT.IPTN ---
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 (03/12/24) Surgery Performed Operation Date: 03/12/24 14:15 Actual Procedures p Incision and Drainage Abdominal wall infection, wound vac - Joao Chavira MD Operation Date: 03/15/24 13:45 Actual Procedures p Debridement abdominal wall, wound vac exchange, panniculectomy - Joao Chavira MD Physical Therapy Treatment Note M2 PT-IP Current Condition Start: 03/16/24 16:38 Freq: NEEDED Status: Active Protocol: Document 03/20/24 11:10 SP (Rec: 03/20/24 12:38 SP [id number]) Physical Therapy Current Condition Current Condition Evaluation Date 03/16/24 Treatment Diagnosis s/p debridement of abd wall; ventral hernia repair; difficulty in walking Onset Date 03/12/24 M3 PT-IP Subjective Start: 03/16/24 16:38 Freq: NEEDED Status: Active Protocol: Document 03/20/24 11:10 SP (Rec: 03/20/24 12:38 SP [id number]) Subjective Physical Therapy Visit Type Type Treatment Note Visit Start Time 11:10 Visit Stop Time 11:21 Number of CRIMINAL DEFENSE ATTORNEY Visits 2 Physical Therapy Visit Comments Patient Comments Pt agreeable to working with CRIMINAL DEFENSE ATTORNEY. Therapy Pain Assessment Pain When Pain Assessed During Mobility Pain Present Pain Present Pain Reported Location Abdomen Scale Used not value given Description Tightness,With Movement Pain Management Techniques Distraction,Modification of Treatment,Re-positioning, Timing of Activity with Medications M4 PT-IP Mobility and Gait Start: 03/16/24 16:38 Freq: NEEDED Status: Active Protocol: Document 03/20/24 11:10 SP (Rec: 03/20/24 12:38 SP [id number]) PT-Transfer Assessment Sit to and From Stand Sit to and from Stand Standby Assistance,Use of Upper Extremities Equipment Transfer Assistive Device Gait Belt,4 Wheeled Walker Orthotic/Prosthetic Devices or Brace: No Transfers Transfer Destination Chair Transfer Technique ambulated with 4WW Transfer Ability Level of Assist Standby Assistance,Use of Upper Extremities Comments Mobility Comments Pt up in chair with nursing finish up care after just completed shower. Pt completed STS sBA BUE support on chair arms, gait to sink /c 4WW proper use brakes and positioning. Complete 1 portable step mgt using sink rail on L (has handle at home self help), RUE on 4WW at R side added support uses at home, CGA-10%A to ascend, CGA step descend to floor. Pt stated family can help her support home too. Ed use gait belt for added support needed. Pt returned to chair /c 4WW SBA aprpox 20 ft total inroom. Pt decreased strength and edurance today, especially after shower. Needed return to chair for rest. CRIMINAL DEFENSE ATTORNEY continue recommend HHPT family available vs 30/08 assist. Gait Assessment Gait Gait Assistance Required: Standby Assistance Distance (Feet) 20 Able to Maintain Weight Bearing Status Yes During Gait Assistive Devices Assistive Device Gait Belt,Front Wheeled Walker ,4 Wheeled Walker Orthotic/Prosthetic Devices or Brace: No Gait Deviations General Gait Pattern Decreased Stride Length, Decreased Feet Clearance,Wide Based Gait Factors Limiting Gait Function Factors Limiting Gait Function Decreased Activity Tolerance, Decreased Strength,Limited Range of Motion,Pain Comments Gait Comments Pt improved decreased CARLOS MANUEL and foot clerance today. Stair Climbing Assessment Evaluation Level of Assist On Stairs Contact Guard Assistance, Minimal Assistance,1 Person Assistance Devices Stair Climbing Assistive Devices Left Railing Technique/Endurance Stair Climbing Direction Ascend and Descend Stair Climbing Technique Step to Step Number of Steps Climbed 1 Stair Climbing Set # Repetitions (reps) 1 Comments Stair Climbing Comments see mobiltiy comments PT-Balance Assessment Sitting Balance and Reactions Static Sitting Balance Ability Normal Dynamic Sitting Balance Ability Good Standing Balance and Reactions Static Standing Balance Ability Good Dynamic Standing Balance Ability Good Device Used 4WW M5 PT-IP Objective Assessments Start: 03/16/24 16:38 Freq: NEEDED Status: Active Protocol: Document 03/16/24 14:40 AB (Rec: 03/16/24 16:56 AB [id number]) Orientation Orientation/Cognition Level of Alertness Alert Orientation Name,Age,Birthday,Month,Date, Year,Day of Week,Place, Situation Language Function Ability No Deficits Noted Safety Awareness Understands Safety Issues Memory Description No Deficits Noted Strength Lower Extremity Strength Assessment Within Functional Limits Coordination Assessment Gross Coordination Gross Coordination WNL Sensation Assessment Sensation Gross Sensation WNL Muscle Tone Muscle Tone WNL Yes M6 PT-IP Treatment Start: 03/16/24 16:38 Freq: NEEDED Status: Active Protocol: Document 03/20/24 11:10 SP (Rec: 03/20/24 12:38 SP [id number]) Physical Therapy Treatment Education Education Provided Safety Other Treatments Other Treatment Performed Continued education on the importance of elevating B LE due to edema/lymphedema. Pt prefers to remain sitting with legs in dependent position. verbal education on breath and postural alignment to support abdominals during log roll, STS and UE/ LE mobility can still utilize abdominals, doing slower movements. M7 PT-IP Assessment and Plan Start: 03/16/24 16:38 Freq: NEEDED Status: Active Protocol: Document 03/20/24 11:10 SP (Rec: 03/20/24 12:38 SP [id number]) PT Summary Assessment and Plan Potential Rehabilitation Potential Good Status of Condition at Evaluation Evolving Summary Impairments Pain,ROM,Strength,Bed Mobility ,Transfers,Gait,Activity Tolerance Progress Towards Goals Progressing Toward Goals,Slow Progress due to Activity Tolerance Assessment Summary Pt SBA transfers and gait shorter distance /c 4WW, 1 step mgt L HR and RUE on 4WW at side as performs home CG-10 %A. CRIMINAL DEFENSE ATTORNEY continue recommend HHPT family available vs 30/08 assist. Goals Bed Mobility Goal Independent Transfer Goal Independent,Front Wheeled Walker Gait Goal Independent,Front Wheel Walker Gait Distance 150 Other Goals 1 step using FWW SBA Frequency of Treatment Frequency Of Treatment Once a Day Treatment Plan Physical Therapy Treatment Plan Bed Mobility Training,Transfer Training,Gait Training, Therapeutic Exercise,Balance Retraining,Post Op Education, Discharge Planning,Hot or Cold Pack,Neuromuscular Re-ed, Coordination Retraining,Manual Therapy Other Recommendations and Next Treatment Bed mobility with leg surveillance director, Focus progress gait distance. Precautions Abdominal Surgery Precautions Log Roll,Lifting Restrictions, Gait Belt above Incisional Area Other Precautions wound VAC Recommendations To Nursing Amount of Assist Needed Standby Assistance Discharge Recommendations PT Discharge Recommendations Home with Assistance,Home with 24/7 Assist Available,Home Health Transportation Needs at Discharge Private Vehicle
[2024-03-20] MEDS: INSULIN LISPRO 100 UNIT/ML 3ML VIAL 10 UNIT SUBCUT ×2 (12:02→16:57)
--- NOTE | 2024-03-20 12:16 | OT.IP.TRT ---
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 (03/12/24) care home (current) use of insulin (03/12/24) Surgery Performed Operation Date: 03/12/24 14:15 Actual Procedures p Incision and Drainage Abdominal wall infection, wound vac - Joao Chavira MD Operation Date: 03/15/24 13:45 Actual Procedures p Debridement abdominal wall, wound vac exchange, panniculectomy - Joao Chavira MD Occupational Therapy Treatment Note M2 OT-IP Current Condition Start: 03/16/24 15:41 Freq: Status: Active Protocol: Document 03/16/24 15:41 [facility] (Rec: 03/16/24 16:00 [facility] [id number]) Occupational Therapy Current Condition Current Condition Evaluation Date 03/16/24 Treatment Diagnosis I and D abdominal wall infection Diagnosis Onset Date 03/12/24 Post Operative Precautions Abdominal Surgery Precautions Lifting Restrictions,Gait Belt above Incisional Area M3 OT- IP Subjective and Pain Start: 03/16/24 15:41 Freq: Status: Active Protocol: Document 03/20/24 12:18 [facility] (Rec: 03/20/24 12:21 [facility] [id number]) OT- Subjective Occupational Therapy Visit Type Type Treatment Note Visit Start Time 11:08 Visit Stop Time 11:16 M4 OT- IP ADL's Start: 03/16/24 15:41 Freq: Status: Active Protocol: Document 03/16/24 15:41 [facility] (Rec: 03/16/24 16:00 [facility] [id number]) OT [id number] Comments OT Self-Feeding Comments Not at meal time. OT ADL-Grooming Comments OT Grooming Comments Pt able to wash her face after set-up. OT ADL-Oral Care Comments Oral Care Comments NOt performed. OT ADL-Dressing General Eval Upper Body Dressing Ability Moderate Assistance Comments OT Dressing Comments MODA for gown management. Pt not wanting to wear socks are her feet too swollen to wear them IN addition pt not wanting to wear her slippers due to not wanting to accidentally urinating when standing up. OT ADL-Toileting General Evaluation Toileting Ability Maximum Assistance Areas Needing Assistance Perform Perineal Hygiene Comments OT Toileting Comments Pt dependent for clothing and hygiene needs at this time. OT ADL-Bathing Bathing Type Bathing Type Sponge Bath General Evaluation Bathing Ability Maximal Assistance Areas Needing Assistance Wash/Dry Upper Body,Wash/Dry Perineal Area,Wash/Dry Lower Extremities Comments OT Bathing Comments Pt able to do while seated in the recliner. M5 OT- IP IADL's Start: 03/16/24 15:41 Freq: Status: Active Protocol: Document 03/16/24 15:41 [facility] (Rec: 03/16/24 16:00 [facility] [id number]) OT-Instrumental Activities of Daily Living Home Safety Awareness Awareness of Need for Assistance at Home Good Awareness Ability to Problem Solve Emergency Able to Problem Solve Situations Medication Management Medication Management No Deficits Identified Money Management Money Management No Deficits Identified Meal Preparation Meal Preparation Comments Pt will need assist. Speaking Unit Assembler Speaking Unit Assembler Comments Pt will need assist. M6 OT- IP Functional Cognition Start: 03/16/24 15:41 Freq: Status: Active Protocol: Document 03/20/24 12:18 [facility] (Rec: 03/20/24 12:21 [facility] [id number]) Cognitive Factors Limiting Selfcare Function Cognitive Comments Cognitive Assessment Comments Intact M7 OT- IP Mobility and Balance Start: 03/16/24 15:41 Freq: Status: Active Protocol: Document 03/19/24 11:25 [facility] (Rec: 03/19/24 11:33 [facility] [id number]) OT- Bed Mobility Assessment Supine to Sit Supine to Sit Assist Standby Assistance,Head of Bed Elevated,Bedrails Sit to Supine Sit to Supine Assist Contact Guard Assistance,Head of Bed Elevated,Bedrails OT-Transfer Assessment Sit to and From Stand Sit to and from Stand Standby Assistance Transfers Transfer Ability Standby Assistance Technique Transfer Destination Bed,Chair Transfer Technique Stand Step Pivot Devices Transfer Assistive Devices Gait Belt,Front Wheeled Walker Comments Mobility Comments Pt requested to practice getting in and out of the bed. Educated pt on use of gait belt to help with leg then discussed that a leg sexer might be easier to use. Also educated pt on use of a sheet to help if needed. Pt performed in and out of the bed set up like her home bed using the gait belt to assist and performed without physical assist from this proposal lead writer. Pt states she will order the leg sexer for increased ease. OT- Gait Assessment Gait Gait Assistance Required: Standby Assistance Assistive Devices Assistive Device Gait Belt,Front Wheeled Walker Comments Gait Ability Comments in the room OT- Balance Assessment Sitting Balance and Reactions Static Sitting Balance Ability Normal Dynamic Sitting Balance Ability Normal M8 OT- IP Objective Assessments Start: 03/16/24 15:41 Freq: Status: Active Protocol: Document 03/16/24 15:41 [facility] (Rec: 03/16/24 16:00 [facility] [id number]) OT Gross Range of Motion Upper Extremity Range of Motion Assessment Within Functional Limits OT Strength Upper Extremity Strength Assessment Within Functional Limits M9 OT- IP Assessment and Plan Start: 03/16/24 15:41 Freq: Status: Active Protocol: Document 03/20/24 12:18 [facility] (Rec: 03/20/24 12:21 [facility] [id number]) OT Summary Assessment and Plan Potential Rehabilitation Potential Good Analytic Complexity at Evaluation Moderate Summary OT Impairments Pain,Strength,Balance, Functional Mobility,Dressing, Toileting,Bathing,Toilet Transfers,Shower Transfers, Activity Tolerance Progress Towards Goals Progressing Toward Goals,Slow Progress due to Pain,Slow Progress due to Medical Issues Assessment Summary Pt eating lunch and agreed to go over any OT equipment needs and information regarding energy conservation. Spoke of possible use of toilet paper aid , but at this time best to have assist for completeness. Pt to have another sx tomorrow . Pt hopeful to be able to go home with 24/7 assist and home health versus SNF pending medical needs. Goals Self-Feeding Goal Independent Grooming Goal Independent Dressing Goal Minimal Assistance Toileting Goal Minimal Assistance Bathing Goal Minimal Assistance Toilet Transfer Goal Independent Shower Transfer Goal Contact Guard Assistance Days to Meet Goals 10 Frequency of Treatment Other frequency 5x/week Treatment Plan OT Treatment Plan ADL Training,Functional Mobility,Patient/Family Education,Discharge Planning Discharge Recommendations OT Discharge Recommendations Home with 24/7 Assist Available,Home Health,Home vs SNF Transportation Needs at Discharge Private Vehicle,Wheelchair/ Cabulance
--- NOTE | 2024-03-20 14:07 | P.PN_ITS ---
Subjective Subjective Date Patient Seen: 03/20/24 Time Patient Seen: 13:00 Interval history: Wound VAC removed. Skin flaps are viable. No drainage from the incision. No cellulitis. 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 It may remain on for 1 week. Sutures to be removed in the office in 1-2 weeks. Postoperative plan: routine post-op care Time Spent With Patient Time with patient: 15-24 minutes
--- NOTE | 2024-03-20 14:12 | PM.PN.1 ---
Subjective Subjective Interval history: Summary: 53 F with obesity, DM, afib admitted with an abdominal wall abscess. Patient with no complaints today. Underwent a 30 lb debridement (of pannicultis) on 03/15, no complications. S: Doing well today, still waiting on an abdominal binder supposedly arriving tonight. She had her wound vac removed, now with dressing in place until follow up next week with surgery. Exam Vital Signs (past 8 hours): - 03/20/24 09:35 Temperature 97.6 F Pulse Rate 85 Respiratory Rate 14 Blood Pressure 110/88 Pulse Oximetry 97 Oxygen Delivery Method Room Air,CPAP Oxygen Flow Rate 0 Narrative Exam Narrative: NAD, alert and oriented. Fluent speech. Lungs are clear, normal rate and effort. Heart is regular, no murmur gallop or rub. Abdomen is soft, distended, non-tender. Wound vac functional Extremities are with pedal edema. Wound vac in place. 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 Abdominal Wall Abscess (panniculitis) / Cellulitis. Active. - Ceftriaxone now discontinued. wound cultures with MSSA. Completed course of antibiotics during her stay thus far. - underwent second srugical debridement on 03/15 (30 lbs of tissue) - wound vac now off. Aquacel dressing placed can be on for 1 week. Outpatient follow up with surgery in 1-2 weeks. 2. ESBL UTI, fully treated. Resolved. - Looks like this occurred in the outpatient setting. Dr. Chun was referred to by her primary care team as recommending fosfomycin x1 dose to treat this. - follow up cultures, urine cultures not performed, no urine symptoms currently. 3. DM 2, Active. - A1C 8.6% on 03/14/24 - continue home insulin therapies (NPH 80 BID), added sliding scale. 4. HTN, Stable. - metoprolol 150 mg bid, furosemide 80 mg daily. 5. Hypothyroidism, Stable. - levothyroxine 6. PAF with RVR, Improved. - apparently on Pradaxa - on 150 mg metoprolol BID. was given 100 mg pre-op, developed afib with RVR in PACU, now improved. Continue home medications. - hold pradaxa for possible repeat OR, surgeon ordered Lovenox, hold prior to surgery morning. 7. Hyponatremia, hypokalemia, Improved. - continue IV fluids and potassium repletion. Monitor daily. 8. Obesity, with BMI 67.5, Active. The patient is at much higher risk for medical and surgical complications because of their obesity. This increases the difficulty and complexity of medical and surgical interventions and increases the chances of poor outcomes such as morbidity and mortality. PLAN: -home tomorrow, wound vac is now off. Plan for discharge home with home health. -outpatient follow up with surgery in 1-2 weeks. DVT prophylaxis - Pradaxa resumed 03/16. Time-Based Coding :: [TOTAL MINUTES] spent with patient and on the chart (including review of chart, obtaining history, exam, reviewing outside data, placing orders, documenting exam and treatment plan, and counseling patient) on [DATE].
[2024-03-20 17:58] VITALS: BP 123/80; PULSE 65; RESP 18; TEMP 36.3; O2SAT 96
[2024-03-20 20:00] VITALS: BP 119/52; PULSE 104; RESP 19; TEMP 35.7; O2SAT 97
[2024-03-20] MEDS: LORATADINE 10 MG TABLET PO (20:36)
[2024-03-20] MEDS: PANTOPRAZOLE DR 20 MG TABLET PO (20:36)
[2024-03-20] MEDS: INSULIN GLARGINE 100 UNIT/ML 3ML PEN 40 UNIT SUBCUT (21:13)
[2024-03-21] MEDS: diphenhydrAMINE 25 MG TABLET PO ×2 (00:39→08:51)
[2024-03-21 04:00] VITALS: BP 111/70; PULSE 82; RESP 18; TEMP 36.5; O2SAT 94
[2024-03-21] MEDS: ACETAMINOPHEN 325 MG TABLET 650 MG PO ×2 (05:45→12:36)
[2024-03-21] MEDS: OXYCODONE ER 10 MG TAB PO ×2 (05:46→13:51)
[2024-03-21] MEDS: DABIGATRAN 75 MG CAPSULE 150 MG PO (08:25)
[2024-03-21] MEDS: LACTOBACILLUS ACIDOPHILUS TABLET 1 EACH PO (08:25)
[2024-03-21] MEDS: PREGABALIN 75 MG CAPSULE PO (08:25)
[2024-03-21] MEDS: BUSPIRONE 5 MG TABLET 15 MG PO (08:25)
[2024-03-21] MEDS: METOPROLOL IR 50 MG TABLET 150 MG PO (08:25)
[2024-03-21] MEDS: LIDOCAINE 5% PATCH 1 EACH TOP (08:26)
[2024-03-21] MEDS: FUROSEMIDE 40 MG TABLET 80 MG PO (08:26)
[2024-03-21] MEDS: POTASSIUM CHLORIDE 10 MEQ TAB 20 MEQ PO (08:26)
[2024-03-21] MEDS: FLUTICASONE 120 SPRAY/16 GM SPRAY.SUSP NASAL (08:27)
[2024-03-21] MEDS: INSULIN GLARGINE 100 UNIT/ML 3ML PEN 40 UNIT SUBCUT (08:29)
[2024-03-21] MEDS: INSULIN LISPRO 100 UNIT/ML 3ML VIAL 12 UNIT SUBCUT ×2 (08:31→12:37)
[2024-03-21] MEDS: INSULIN LISPRO 100 UNIT/ML 3ML VIAL SUBCUT ×2 (08:33→12:38)
[2024-03-21] MEDS: OXYCODONE IR 10 MG TABLET PO (08:51)
--- NOTE | 2024-03-21 10:14 | P.DS_ITS ---
History of Present Illness History of Present Illness Chief complaint: abdominal wall abscess Narrative: 53 y/o CVA, with PMH of insulin dependent diabetes type 2, hypertension, psoriasis, asthma, hypothyroidism, Dercum's disease (multiple lipomas), morbid obesity class 3, PAF, recent hospitalization in [facility] for Klebsiella ESBL UTI and prior episodes of abdominal pannus abscesses that required drainage, presents to the ER with what appears to be a ruptured abdominal wall / pannus abscess. Images showing possible remnant abscess. Not septic. Admitted to medicine with surgery evaluation for possible I&D. Interval history: Patient reported she was unclear how long this had been going on, maybe a week she states. Has felt ill for a few days. She went to the OR today with surgery, developed RVR intra-operatively but now improved. Has a wound vac. Discharge Providers Provider Date of admission: 03/12/24 06:02 Discharge Date: 03/21/24 Primary care physician: Twila Fuentes PA-C Consults: 03/12/24 06:07 Consult to General Surgery Routine Comment: Consulting Provider: Mika Panchal Reason for consultation: CELLULITIS VS ABSCESS PANNUS Has provider been notified: Yes 03/12/24 07:00 Consult to ENGINEERING INSPECTOR - Splicing Technician Routine Comment: Splicing Technician Consult needed for:: Other reason (Comment) Unable to care for self 03/16/24 10:20 Consult to Physical Therapy Evaluate & Treat Comment: Physician Instructions: Evaluate and Treat 03/16/24 10:21 Consult to Occupational Therapy Evaluate & Treat Comment: Physician Instructions: Evaluate and treat Discharge provider: Cesar Chavez MD Summary Hospital Course Discharge Diagnosis: 1. Abdominal Wall Abscess (panniculitis) / Cellulitis. Active. - Ceftriaxone now discontinued. wound cultures with MSSA. Completed course of antibiotics during her stay thus far. - underwent second srugical debridement on 03/15 (30 lbs of tissue) - wound vac now off. Aquacel dressing placed can be on for 1 week. Outpatient follow up with surgery in 1-2 weeks. 2. ESBL UTI, fully treated. Resolved. - Looks like this occurred in the outpatient setting. Dr. Chun was referred to by her primary care team as recommending fosfomycin x1 dose to treat this. 3. DM 2, Active. - A1C 8.6% on 03/14/24 - continue home insulin therapies (NPH 80 BID), added sliding scale. 4. HTN, Stable. - metoprolol 150 mg bid, furosemide 80 mg daily. 5. Hypothyroidism, Stable. - levothyroxine 6. PAF with RVR, Improved. - apparently on Pradaxa - on 150 mg metoprolol BID. was given 100 mg pre-op, developed afib with RVR in PACU, now improved. Continue home medications. - hold pradaxa for possible repeat OR, surgeon ordered Lovenox, hold prior to surgery morning. 7. Hyponatremia, hypokalemia, Improved. - continue IV fluids and potassium repletion. Monitor daily. 8. Obesity, with BMI 67.5, Active. Hospital Course: She was admitted with panniculitis, she was taken to the OR and underwent initial debridement with wound VAC placement. She then underwent a 2nd debridement on March 15 with 30 lb of tissue removal including all of the infected tissue. Surgery felt that she could come off from antibiotics at this point and she would local wound care with a wound VAC. Wound VAC was removed on March 20. She was arrangements to start wound care at [facility] following discharge in his stable for discharge without antibiotics and March 21. She does have history of a recent resolved ESBL UTI, and is morbidly obese with a BMI of 67. She we will use Aquacel dressings for the next week and we will see Dr. Chavira in Surgical Clinic in approximately 1-2 weeks. Status at Discharge Cognitive/behavioral status at discharge: oriented Functional status at discharge: independent ambulation Overall status at discharge: patient is progressing back to baseline Time Spent with Patient Time spent: Greater than 30 minutes Exam Vital Signs (past 8 hours): - 03/21/24 04:00 Temperature 97.7 F Pulse Rate 82 Respiratory Rate 18 Blood Pressure 111/70 Pulse Oximetry 94 Oxygen Flow Rate 0 Oxygen Delivery Method Room Air Oxygen Flow Rate 0 Narrative Exam Narrative: NAD, alert and oriented. Fluent speech. Lungs are clear, normal rate and effort. Heart is regular, no murmur gallop or rub. Abdomen is soft, non distended. Extremities are free of edema. Packings in the pannus wound. Objective ECG Impression: Atrial fibrillation with rapid ventricular response Cannot rule out Anterior infarct , age undetermined ST & T wave abnormality, consider lateral ischemia Imaging CT scan - abdomen: Radiologist's impression: IMPRESSION: Extensive edematous fat stranding and skin thickening in the lower aspect of the pannus, with more focal fluid and subcutaneous gas in the left lower portion, likely phlegmon. There is no defined rim enhancement to suggest a drainable abscess at this time. Cholelithiasis. Hepatosplenomegaly. Other findings above. No significant discrepancy from the preliminary report. Chest x-ray: Radiologist's impression: Right PICC with distal tip projecting over the upper SVC. 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 Abdominal Wall Abscess (panniculitis) / Cellulitis. Active. - Ceftriaxone now discontinued. wound cultures with MSSA. Completed course of antibiotics during her stay thus far. - underwent second srugical debridement on 03/15 (30 lbs of tissue) - wound vac now off. Aquacel dressing placed can be on for 1 week. Outpatient follow up with surgery in 1-2 weeks. Plan of Treatment: Discharge home with wound care as outlined above. She will be going to the [facility] in [place] as well. Discharge Plan Discharge Plan Patient Disposition: Home Provider Discharge Comment: Stable for discharge home with wound care clinic follow up and surgery follow up in 10 days for suture removal. Discharge orders & Medications Prescriptions: Continued levothyroxine [Synthroid] 50 MCG tablet 50 mcg PO QDAY Qty: 0 albuterol sulfate [Proventil HFA] 90 MCG/PUFF HFA aerosol inhaler 2 dose Inhalation Q4HRWA Qty: 0 furosemide 80 MG tablet 80 mg PO QDAY Qty: 0 metoprolol tartrate 100 MG tablet 150 mg PO BID Qty: 0 atorvastatin [Lipitor] 20 mg Tablet 20 mg PO BEDTIME Qty: 30 0RF buspirone 5 mg tablet 15 mg PO DAILY potassium chloride 10 mEq capsule, extended release 20 meq PO DAILY Humulin N NPH U-100 Insulin 100 unit/mL suspension 80 unit SUBCUT BID omeprazole 20 mg capsule,delayed release(DR/EC) 20 mg PO BEDTIME insulin lispro [Humalog U-100 Insulin] 100 unit/mL solution 35 unit SUBCUT BID Patient Comments: pt increases amount depending on meal Rx Instructions: with meals polyethylene glycol 3350 [Gavilax] 17 gram/dose powder 17 g PO DAILY PRN (Reason: Constipation) albuterol sulfate 90 mcg/actuation HFA aerosol inhaler 2 puff INHALATION Q4H PRN (Reason: wheezing) dabigatran etexilate 150 mg capsule 150 mg PO BID Patient Comments: [NO ORIGINAL SIG] acetaminophen 325 mg Capsule 650 mg PO Q4H PRN (Reason: Pain (Scale Score 4-6)) Body, Hair, Skin and Nails 3-133 mg-mcg Capsule 1 cap PO DAILY Probiotic with Prebiotic 1 billion-250 cell-mg Capsule 1 cap PO DAILY oxycodone 10 mg tablet 10 mg PO TID PRN (Reason: Pain (Scale Score 4-6)) Qty: 20 0RF Rx Instructions: takes every am and occasionaly additional during the day oxycodone [OxyContin] 10 mg tablet,oral only,ext.rel.12 hr 10 mg PO 3XD Qty: 10 0RF Discontinued doxycycline hyclate 100 mg capsule 100 mg PO BID Follow up/Referrals: Twila Fuentes PA-C [Primary Care Provider] - Discharge Health Status Multidrug resistant organism: No MDRO Diet/Activity/Treatments Diet: Carb-consistent/Diabetic Activity: As tolerated, wear binder. Skin/Wound/Dressing Care Report to your healthcare provider any signs of infection, such as:: chills, fever, increased pain, unusual drainage and unusual redness Visit Report/Discharge Packet Instructions: DI for Prescription Opioid Use, DI for Incision and Drainage, [facility]: Wound Care Stand Alone Forms: Patient Portal/API Discharge Data Primary Care Provider: Twila Fuentes I
--- NOTE | 2024-03-21 13:15 | PT.IPTN ---
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 (03/12/24) Surgery Performed Operation Date: 03/12/24 14:15 Actual Procedures p Incision and Drainage Abdominal wall infection, wound vac - Joao Chavira MD Operation Date: 03/15/24 13:45 Actual Procedures p Debridement abdominal wall, wound vac exchange, panniculectomy - Joao Chavira MD Physical Therapy Treatment Note M2 PT-IP Current Condition Start: 03/16/24 16:38 Freq: NEEDED Status: Active Protocol: Document 03/21/24 11:56 AB (Rec: 03/21/24 13:15 AB [id number]) Physical Therapy Current Condition Current Condition Evaluation Date 03/16/24 Treatment Diagnosis s/p debridement of abd wall; ventral hernia repair; difficulty in walking Onset Date 03/12/24 M3 PT-IP Subjective Start: 03/16/24 16:38 Freq: NEEDED Status: Active Protocol: Document 03/21/24 11:56 AB (Rec: 03/21/24 13:15 AB [id number]) Subjective Physical Therapy Visit Type Type Treatment Note Visit Start Time 11:56 Visit Stop Time 12:22 Number of MARKETING FINANCE SPECIALIST Visits 3 Physical Therapy Visit Comments Patient Comments Patient agreeable to working with physical therapy. Patient requesting assist in how to put on ( nieves) binder. ( comments new brace that is larger has been left for her) Therapy Pain Assessment Pain When Pain Assessed At Rest Pain Present Pain Present Pain Reported Location Abdomen Intensity 7 M4 PT-IP Mobility and Gait Start: 03/16/24 16:38 Freq: NEEDED Status: Active Protocol: Document 03/21/24 11:56 AB (Rec: 03/21/24 13:15 AB [id number]) PT-Transfer Assessment Sit to and From Stand Sit to and from Stand Standby Assistance,Use of Upper Extremities Equipment Transfer Assistive Device Gait Belt,4 Wheeled Walker Orthotic/Prosthetic Devices or Brace: No Transfer Ability Level of Assist Standby Assistance,Use of Upper Extremities Comments Mobility Comments Nicholas sit to stands for donning abdominal binder and for donning gown for ambulation in johnson. Supervision throughout. Gait Assessment Gait Gait Assistance Required: Standby Assistance Distance (Feet) 50 Able to Maintain Weight Bearing Status Yes During Gait Assistive Devices Assistive Device Gait Belt,Front Wheeled Walker ,4 Wheeled Walker Orthotic/Prosthetic Devices or Brace: No Gait Deviations General Gait Pattern Decreased Stride Length, Decreased Feet Clearance,Wide Based Gait Factors Limiting Gait Function Factors Limiting Gait Function Decreased Activity Tolerance, Decreased Strength,Limited Range of Motion,Pain Comments Gait Comments SOB post 50 feet ambulation with 4WW and ascending/ descending step with rail and 4 WW. ( gait belt at axillae) Stair Climbing Assessment Evaluation Level of Assist On Stairs Contact Guard Assistance,1 Person Assistance Devices Stair Climbing Assistive Devices Left Railing Technique/Endurance Stair Climbing Direction Ascend and Descend Stair Climbing Technique Step to Step Number of Steps Climbed 1 Stair Climbing Set # Repetitions (reps) 1 Comments Stair Climbing Comments Patient places 4WW onto step, uses rail to ascend the places 4WW off step, and using walker with brakes locked to descend. Verbal cues for locking brakes, daughter and son present. Patient comments at home will be easier as step is smaller height at home. CGA assist this session compared to slightly increased assist previous session. End of session patient left in chair, tray table with lunch in place in front, call light within reach, family present. PT-Balance Assessment Sitting Balance and Reactions Static Sitting Balance Ability Normal Dynamic Sitting Balance Ability Good Standing Balance and Reactions Static Standing Balance Ability Good Dynamic Standing Balance Ability Good Device Used 4WW M5 PT-IP Objective Assessments Start: 03/16/24 16:38 Freq: NEEDED Status: Active Protocol: Document 03/21/24 11:56 AB (Rec: 03/21/24 13:15 AB [id number]) Other Assessments Other Other Assessments Assist and instructions for donning and doffing abdominal brace. Patient/family ed if brace is donned seated, it will need to be tightened post standing upright. Performed with patient assisting this session.(Son and Daughter present) M6 PT-IP Treatment Start: 03/16/24 16:38 Freq: NEEDED Status: Active Protocol: Document 03/20/24 11:10 SP (Rec: 03/20/24 12:38 SP [id number]) Physical Therapy Treatment Education Education Provided Safety Other Treatments Other Treatment Performed Continued education on the importance of elevating B LE due to edema/lymphedema. Pt prefers to remain sitting with legs in dependent position. verbal education on breath and postural alignment to support abdominals during log roll, STS and UE/ LE mobility can still utilize abdominals, doing slower movements. M7 PT-IP Assessment and Plan Start: 03/16/24 16:38 Freq: NEEDED Status: Active Protocol: Document 03/21/24 11:56 AB (Rec: 03/21/24 13:15 AB [id number]) PT Summary Assessment and Plan Potential Rehabilitation Potential Good Status of Condition at Evaluation Evolving Summary Impairments Pain,ROM,Strength,Bed Mobility ,Transfers,Gait,Activity Tolerance Progress Towards Goals Progressing Toward Goals,Slow Progress due to Activity Tolerance Assessment Summary Pt SBA transfers and gait shorter distance /c 4WW, 1 step mgt L HR and RUE on 4WW at side as performs home CG-10 %A. MARKETING FINANCE SPECIALIST continue recommend HHPT family available vs 24/7 assist. Goals Bed Mobility Goal Independent Transfer Goal Independent,Front Wheeled Walker Gait Goal Independent,Front Wheel Walker Gait Distance 150 Other Goals 1 step using FWW SBA Frequency of Treatment Frequency Of Treatment Once a Day Treatment Plan Physical Therapy Treatment Plan Bed Mobility Training,Transfer Training,Gait Training, Therapeutic Exercise,Balance Retraining,Post Op Education, Discharge Planning,Hot or Cold Pack,Neuromuscular Re-ed, Coordination Retraining,Manual Therapy Other Recommendations and Next Treatment Bed mobility with leg doctor of dental surgery, Focus progress gait distance. Precautions Abdominal Surgery Precautions Log Roll,Lifting Restrictions, Gait Belt above Incisional Area Other Precautions wound VAC Recommendations To Nursing Amount of Assist Needed Standby Assistance Discharge Recommendations PT Discharge Recommendations Home with Assistance,Home with 24/7 Assist Available,Home Health Transportation Needs at Discharge Private Vehicle
== END 2024-03-21 14:00 | disposition home health service (06) | DRG 574 ==
LOC: ED 04:39 → AC 06:03
PROVIDERS: Internal Medicine; Surgery; Admitting Provider Internal Medicine; Emergency Provider Emergency Medicine; Family Provider Physician Assistant; PCP Physician Assistant; Referring Provider Emergency Medicine; Visit Provider Internal Medicine
PROC: 0JB80ZZ Excision of Abdomen Subcutaneous Tissue and Fascia, Open Approach (ICD-10-PCS; principal; 2024-03-12 14:15)
PROC: 0JX80ZC Transfer Abdomen Subcutaneous Tissue and Fascia with Skin, Subcutaneous Tissue and Fascia, Open Approach (ICD-10-PCS; CPT 49000; principal; 2024-03-15 13:45)
DX: L03.311 Cellulitis of abdominal wall (principal); E87.1 Hypo-osmolality and hyponatremia; I96 Gangrene, not elsewhere classified; N39.0 Urinary tract infection, site not specified; Z68.44 Body mass index [BMI] 60.0-69.9, adult; L02.211 Cutaneous abscess of abdominal wall; E66.01 Morbid (severe) obesity due to excess calories; E11.9 Type 2 diabetes mellitus without complications; E88.2 Lipomatosis, not elsewhere classified; I10 Essential (primary) hypertension; E03.9 Hypothyroidism, unspecified; E87.6 Hypokalemia; M79.3 Panniculitis, unspecified; B95.61 Methicillin susceptible Staphylococcus aureus infection as the cause of diseases classified elsewhere; I89.0 Lymphedema, not elsewhere classified; K43.9 Ventral hernia without obstruction or gangrene; B96.89 Other specified bacterial agents as the cause of diseases classified elsewhere; J45.909 Unspecified asthma, uncomplicated; R06.00 Dyspnea, unspecified; I48.0 Paroxysmal atrial fibrillation; Z86.73 Personal history of transient ischemic attack (TIA), and cerebral infarction without residual deficits; Z79.4 Long term (current) use of insulin; Z87.891 Personal history of nicotine dependence; Z79.890 Hormone replacement therapy; Z79.01 Long term (current) use of anticoagulants
CPT/HCPCS: 36415; 36569; 74177; 80048; 80053; 82962; 83036; 85025; 85610; 87040; 87070; 87075; 87077; 87147; 87186; 87205; 93005; 94640; 97116; 97162; 97166; 97530; 97535; 99284; 99285; J0134; J0330; J0666; J0690; J0692; J0696; J1171; J1642; J1650; J1815; J1885; J2250; J2405; J2704; J3010; J7613; Q9967

== ENCOUNTER → 2024-04-27 14:28 | Outpatient (CLI) | payer OTHER, SELFPAY ==
[2024-03-12 06:52] VITALS: BMI 67.5
== END ==
LOC: WC 14:30
PROVIDERS: Family Provider Physician Assistant; PCP Physician Assistant; Referring Provider Physician Assistant; Visit Provider Physician Assistant
DX: T81.89XA Other complications of procedures, not elsewhere classified, initial encounter (principal); S31.109A Unspecified open wound of abdominal wall, unspecified quadrant without penetration into peritoneal cavity, initial encounter; S31.101A Unspecified open wound of abdominal wall, left upper quadrant without penetration into peritoneal cavity, initial encounter
CPT/HCPCS: 87070; 87075; 87147; 87205; 99204; 99214

== ENCOUNTER → 2024-05-01 13:10 | Outpatient (CLI) | payer OTHER, SELFPAY ==
[2024-03-12 06:52] VITALS: BMI 67.5
--- NOTE | 2024-05-25 10:48 | DIAB.MNT ---
Initial Diabetes Medical Nutrition Therapy Assessment Name: Kristine Orourke Date: 05/01/24 Time: 1-2p Dx: Type II Diabetes Provider: Alfredo Carmona presents for initial DM visit, virtually using Portal. Reports on MDI, but feels it difficult to determine how much insulin to take at times. Does not use CGM due to cose ($125 per month when she checked in March). Prefers vials over pens per report. Endorses waking up sweaty with lows in evening or morning at times. States she is trying to lose wt with a goal of BMI at 40 to get a hernia fixed. Could not tolerate Metformin. Rx'd Jardiance but worries about infection because states she cannot take antibiotics. States she supa like to discuss GLP1 options with PCP again. Sees PCP in May. Next visit she would like to explore CGM and pump options Takes vitamins: D3 10,000 probiotic/prebiotic PNV 100mg vitamin c h/o wt loss but then will restart eating candy cant have it in the house Diet Recall: 10a: 3 egg scramble with veggies and cheese 2-3p: dannon protein yogurt 6-7p: chx salad <1/2c potatoes 10-11p: nothing OR yogurt Wate; 16.9oz x 8 States she is trying to eat more protein, but needs ideas. Anthropometrics: Wt: 364# reported Physical Activity: Not discussed Self-Monitoring Blood Glucose: FBG 109-120mg/dl and HS 150s Diabetes Medications: 80u Humalin N 30u Humalog Pertinent Labs: hgA1c: 8.6% 03/2024 notes reported 7.1% as a recent hgA1c Past Medical History: (Last Reviewed 03/15/24 @ 07:35 by Cesar Chavez MD) Asthma Atrial fibrillation Dercum's disease Hypertension Hypothyroidism Insulin dependent type 2 diabetes mellitus half-way current use of anticoagulant Morbid obesity with body mass index (BMI) greater than or equal to 70 in adult Psoriasis Nutrition Rx: Carbohydrates: Meal:30-45g Snack:15-30g Nutrition Diagnosis: - Nutrition knowledge deficit r/t needing education on supplement amt, protein recs, and Dm MNT aeb pt report Intervention: This participant was very receptive. Provided appropriate educational handouts. Discussed the following topics: Completed intake assessment. Discussed barriers to care. Pathophysiology of T2DM HgA1c, its correlation to blood glucose numbers, and rationale for goal Importance of self-monitoring and potential for CGM Treatment of lows and s/s, rule of 15 Potential for insulin pump and cgm given MDI Strategies to afford CGM Plate Method, impact of macronutrients on blood sugar, meal timing, pairing macronutrients and spreading out carbohydrates for better blood glucose management Recommended servings for carbohydrates at meals and snacks Heart health nutrition Brainstormed appropriate meal/snack ideas based on food preferences Supplement education: rec daily amts and upper limits Created SMART goals for patient self-care and success. Goals: Call insurance about CGM Add string cheese to mid day Take half the vit D Aim fro 2 pro yogurts per day Follow-up: [facility] follow-up in 3-4 weeks Nimisha Miller RDN, [place] Certified Diabetes Care and Solar Photovoltaic Installer P: [phone] Thank you for this referral
== END ==
LOC: DIET 13:11
PROVIDERS: Family Provider Physician Assistant; PCP Physician Assistant; Referring Provider Physician Assistant
DX: E11.9 Type 2 diabetes mellitus without complications (principal); Z79.4 Long term (current) use of insulin; Z71.3 Dietary counseling and surveillance
CPT/HCPCS: 97802

== ENCOUNTER → 2024-05-04 14:00 | Outpatient (CLI) | payer OTHER, SELFPAY ==
[2024-03-12 06:52] VITALS: BMI 67.5
== END ==
LOC: WC 14:01
PROVIDERS: Family Provider Physician Assistant; PCP Physician Assistant; Referring Provider Physician Assistant; Visit Provider Physician Assistant
DX: T81.30XA Disruption of wound, unspecified, initial encounter (principal); S31.101A Unspecified open wound of abdominal wall, left upper quadrant without penetration into peritoneal cavity, initial encounter; S31.109A Unspecified open wound of abdominal wall, unspecified quadrant without penetration into peritoneal cavity, initial encounter; E11.628 Type 2 diabetes mellitus with other skin complications; M79.3 Panniculitis, unspecified; L02.211 Cutaneous abscess of abdominal wall; Z68.44 Body mass index [BMI] 60.0-69.9, adult; I89.0 Lymphedema, not elsewhere classified
CPT/HCPCS: 97605; 99213

== ENCOUNTER → 2024-05-11 14:23 | Outpatient (CLI) | payer OTHER, SELFPAY ==
[2024-03-12 06:52] VITALS: BMI 67.5
== END ==
LOC: WC 14:23
PROVIDERS: Family Provider Physician Assistant; PCP Physician Assistant; Referring Provider Physician Assistant; Visit Provider Physician Assistant
DX: T81.89XA Other complications of procedures, not elsewhere classified, initial encounter (principal); L98.8 Other specified disorders of the skin and subcutaneous tissue; S31.109A Unspecified open wound of abdominal wall, unspecified quadrant without penetration into peritoneal cavity, initial encounter; S31.101A Unspecified open wound of abdominal wall, left upper quadrant without penetration into peritoneal cavity, initial encounter; E11.628 Type 2 diabetes mellitus with other skin complications
CPT/HCPCS: 97605; 99214

== ENCOUNTER → 2024-05-21 15:25 | Outpatient (CLI) | payer OTHER, SELFPAY ==
[2024-03-12 06:52] VITALS: BMI 67.5
== END ==
LOC: WC 15:26
PROVIDERS: Family Provider Physician Assistant; PCP Physician Assistant; Referring Provider Physician Assistant; Visit Provider Surgery
DX: T81.89XA Other complications of procedures, not elsewhere classified, initial encounter (principal); S31.109A Unspecified open wound of abdominal wall, unspecified quadrant without penetration into peritoneal cavity, initial encounter; S31.104A Unspecified open wound of abdominal wall, left lower quadrant without penetration into peritoneal cavity, initial encounter; E11.628 Type 2 diabetes mellitus with other skin complications
CPT/HCPCS: 11042; 87070; 87075; 87077; 87147; 87186; 87205; 97605; 99213

== ENCOUNTER → 2024-05-28 14:04 | Outpatient (CLI) | payer OTHER, SELFPAY ==
[2024-03-12 06:52] VITALS: BMI 67.5
== END ==
LOC: WC 14:05
PROVIDERS: Family Provider Physician Assistant; PCP Physician Assistant; Referring Provider Physician Assistant; Visit Provider Surgery
DX: T81.89XA Other complications of procedures, not elsewhere classified, initial encounter (principal); S31.109A Unspecified open wound of abdominal wall, unspecified quadrant without penetration into peritoneal cavity, initial encounter; S31.104A Unspecified open wound of abdominal wall, left lower quadrant without penetration into peritoneal cavity, initial encounter; I89.0 Lymphedema, not elsewhere classified; E11.628 Type 2 diabetes mellitus with other skin complications
CPT/HCPCS: 11042; 97605; 99213

== ENCOUNTER → 2024-06-04 15:01 | Outpatient (CLI) | payer OTHER, SELFPAY ==
[2024-03-12 06:52] VITALS: BMI 67.5
== END ==
LOC: WC 15:02
PROVIDERS: Family Provider Physician Assistant; PCP Physician Assistant; Referring Provider Physician Assistant; Visit Provider Surgery
DX: S31.100A Unspecified open wound of abdominal wall, right upper quadrant without penetration into peritoneal cavity, initial encounter (principal); S31.104A Unspecified open wound of abdominal wall, left lower quadrant without penetration into peritoneal cavity, initial encounter; L02.211 Cutaneous abscess of abdominal wall; E11.628 Type 2 diabetes mellitus with other skin complications; I89.0 Lymphedema, not elsewhere classified
CPT/HCPCS: 11042; 97605

== ENCOUNTER → 2024-06-11 15:06 | Outpatient (CLI) | payer OTHER, SELFPAY ==
[2024-03-12 06:52] VITALS: BMI 67.5
== END ==
LOC: WC 15:07
PROVIDERS: Family Provider Physician Assistant; PCP Physician Assistant; Referring Provider Physician Assistant; Visit Provider Surgery
DX: T81.89XA Other complications of procedures, not elsewhere classified, initial encounter (principal); S31.109A Unspecified open wound of abdominal wall, unspecified quadrant without penetration into peritoneal cavity, initial encounter; S31.104A Unspecified open wound of abdominal wall, left lower quadrant without penetration into peritoneal cavity, initial encounter; L02.211 Cutaneous abscess of abdominal wall; E66.01 Morbid (severe) obesity due to excess calories; Z68.44 Body mass index [BMI] 60.0-69.9, adult; E11.622 Type 2 diabetes mellitus with other skin ulcer; I89.0 Lymphedema, not elsewhere classified
CPT/HCPCS: 11042; 97605

== ENCOUNTER → 2024-06-18 15:40 | Outpatient (CLI) | payer OTHER, SELFPAY ==
[2024-03-12 06:52] VITALS: BMI 67.5
== END ==
LOC: WC 15:42
PROVIDERS: Family Provider Physician Assistant; PCP Physician Assistant; Referring Provider Physician Assistant; Visit Provider Surgery
DX: T81.89XA Other complications of procedures, not elsewhere classified, initial encounter (principal); S31.109A Unspecified open wound of abdominal wall, unspecified quadrant without penetration into peritoneal cavity, initial encounter; S31.104A Unspecified open wound of abdominal wall, left lower quadrant without penetration into peritoneal cavity, initial encounter; I89.0 Lymphedema, not elsewhere classified; L02.211 Cutaneous abscess of abdominal wall; E66.01 Morbid (severe) obesity due to excess calories; Z68.44 Body mass index [BMI] 60.0-69.9, adult
CPT/HCPCS: 11042; 97605

== ENCOUNTER → 2024-06-25 15:41 | Outpatient (CLI) | payer OTHER, SELFPAY ==
[2024-03-12 06:52] VITALS: BMI 67.5
== END ==
LOC: WC 15:42
PROVIDERS: Family Provider Physician Assistant; PCP Physician Assistant; Referring Provider Physician Assistant; Visit Provider Surgery
DX: T81.89XA Other complications of procedures, not elsewhere classified, initial encounter (principal); S31.104A Unspecified open wound of abdominal wall, left lower quadrant without penetration into peritoneal cavity, initial encounter; S31.109A Unspecified open wound of abdominal wall, unspecified quadrant without penetration into peritoneal cavity, initial encounter; I89.0 Lymphedema, not elsewhere classified; E66.01 Morbid (severe) obesity due to excess calories; Z68.44 Body mass index [BMI] 60.0-69.9, adult
CPT/HCPCS: 11042

== ENCOUNTER → 2024-07-09 16:15 | Outpatient (CLI) | payer OTHER, SELFPAY ==
[2024-03-12 06:52] VITALS: BMI 67.5
== END ==
LOC: WC 16:15
PROVIDERS: Family Provider Physician Assistant; PCP Physician Assistant; Referring Provider Physician Assistant; Visit Provider Surgery
DX: T81.89XA Other complications of procedures, not elsewhere classified, initial encounter (principal); S31.109A Unspecified open wound of abdominal wall, unspecified quadrant without penetration into peritoneal cavity, initial encounter; S31.104A Unspecified open wound of abdominal wall, left lower quadrant without penetration into peritoneal cavity, initial encounter; Z68.44 Body mass index [BMI] 60.0-69.9, adult; E11.622 Type 2 diabetes mellitus with other skin ulcer; I89.0 Lymphedema, not elsewhere classified; E66.9 Obesity, unspecified; Z79.01 Long term (current) use of anticoagulants
CPT/HCPCS: 11042; 97605; 99213

== ENCOUNTER → 2024-07-16 15:33 | Outpatient (CLI) | payer OTHER, SELFPAY ==
[2024-03-12 06:52] VITALS: BMI 67.5
== END ==
LOC: WC 15:34
PROVIDERS: Family Provider Physician Assistant; PCP Physician Assistant; Referring Provider Physician Assistant; Visit Provider Surgery
DX: T81.89XA Other complications of procedures, not elsewhere classified, initial encounter (principal); S31.109A Unspecified open wound of abdominal wall, unspecified quadrant without penetration into peritoneal cavity, initial encounter; S31.604A Unspecified open wound of abdominal wall, left lower quadrant with penetration into peritoneal cavity, initial encounter; L02.211 Cutaneous abscess of abdominal wall; Z68.44 Body mass index [BMI] 60.0-69.9, adult; E11.622 Type 2 diabetes mellitus with other skin ulcer; I89.0 Lymphedema, not elsewhere classified
CPT/HCPCS: 11042

== ENCOUNTER → 2024-07-23 13:51 | Outpatient (CLI) | payer OTHER, SELFPAY ==
[2024-03-12 06:52] VITALS: BMI 67.5
== END ==
LOC: WC 13:51
PROVIDERS: Family Provider Physician Assistant; PCP Physician Assistant; Referring Provider Physician Assistant; Visit Provider Surgery
DX: T81.89XA Other complications of procedures, not elsewhere classified, initial encounter (principal); S31.109A Unspecified open wound of abdominal wall, unspecified quadrant without penetration into peritoneal cavity, initial encounter; S31.104A Unspecified open wound of abdominal wall, left lower quadrant without penetration into peritoneal cavity, initial encounter; M79.3 Panniculitis, unspecified; L02.211 Cutaneous abscess of abdominal wall; E11.622 Type 2 diabetes mellitus with other skin ulcer; Z79.4 Long term (current) use of insulin; I89.0 Lymphedema, not elsewhere classified; Z68.44 Body mass index [BMI] 60.0-69.9, adult
CPT/HCPCS: 11042

== ENCOUNTER → 2024-07-30 16:24 | Outpatient (CLI) | payer OTHER, SELFPAY ==
[2024-03-12 06:52] VITALS: BMI 67.5
== END ==
LOC: WC 16:25
PROVIDERS: Family Provider Physician Assistant; PCP Physician Assistant; Referring Provider Physician Assistant; Visit Provider Physician Assistant
DX: T81.89XA Other complications of procedures, not elsewhere classified, initial encounter (principal); S31.109A Unspecified open wound of abdominal wall, unspecified quadrant without penetration into peritoneal cavity, initial encounter; S31.604A Unspecified open wound of abdominal wall, left lower quadrant with penetration into peritoneal cavity, initial encounter; L02.211 Cutaneous abscess of abdominal wall; M79.3 Panniculitis, unspecified; Z68.44 Body mass index [BMI] 60.0-69.9, adult; I89.0 Lymphedema, not elsewhere classified
CPT/HCPCS: 11042; 99213

== ENCOUNTER → 2024-08-06 15:29 | Outpatient (CLI) | payer OTHER, SELFPAY ==
[2024-03-12 06:52] VITALS: BMI 67.5
== END ==
LOC: WC 15:29
PROVIDERS: Family Provider Physician Assistant; PCP Physician Assistant; Referring Provider Physician Assistant; Visit Provider Surgery
DX: T81.89XA Other complications of procedures, not elsewhere classified, initial encounter (principal); S31.109A Unspecified open wound of abdominal wall, unspecified quadrant without penetration into peritoneal cavity, initial encounter; S31.104D Unspecified open wound of abdominal wall, left lower quadrant without penetration into peritoneal cavity, subsequent encounter; E11.622 Type 2 diabetes mellitus with other skin ulcer; I89.0 Lymphedema, not elsewhere classified; Z87.891 Personal history of nicotine dependence; E66.9 Obesity, unspecified; Z68.43 Body mass index [BMI] 50.0-59.9, adult; Z79.01 Long term (current) use of anticoagulants
CPT/HCPCS: 11042; 99213

== ENCOUNTER → 2024-08-13 16:05 | Outpatient (CLI) | payer OTHER, SELFPAY ==
[2024-03-12 06:52] VITALS: BMI 67.5
== END ==
LOC: WC 16:06
PROVIDERS: Family Provider Physician Assistant; PCP Physician Assistant; Referring Provider Physician Assistant; Visit Provider Surgery
DX: S31.109D Unspecified open wound of abdominal wall, unspecified quadrant without penetration into peritoneal cavity, subsequent encounter (principal); L02.211 Cutaneous abscess of abdominal wall; I89.0 Lymphedema, not elsewhere classified; E11.622 Type 2 diabetes mellitus with other skin ulcer; M79.3 Panniculitis, unspecified; E66.9 Obesity, unspecified; Z68.43 Body mass index [BMI] 50.0-59.9, adult
CPT/HCPCS: 99212; 99213

== ENCOUNTER 2024-08-23 19:34 | Emergency (ER) | payer OTHER, SELFPAY ==
[2024-03-12 06:52] VITALS: BMI 67.5
[2024-08-23 19:49] VITALS: BP 191/104; PULSE 89; RESP 18; TEMP 36.6; O2SAT 97; BMI 59.2
--- NOTE | 2024-08-23 20:33 | DI.CT.S_ITS ---
PROCEDURE: CT HEAD/BRAIN WO CON INDICATIONS: Migraine headache, nontraumatic TECHNIQUE: Noncontrast 4.5 mm thick angled axial sections acquired from the foramen magnum to the vertex, with coronal and sagittal reformats. For radiation dose reduction, the following was used: automated exposure control, adjustment of mA and/or kV according to patient size. COMPARISON: CT, CT HEAD/BRAIN WO CON, 04/15/2018, 19:45. FINDINGS: Image quality: Diagnostic. CSF spaces: Basal cisterns are patent. No extra-axial fluid collections. Ventricles are normal in size and shape. Brain: No midline shift. No intracranial mass effect or hemorrhage. Herrera- white matter interface is normal. Skull and face: Calvarium and visualized facial bones are intact, without suspicious lesions. Sinuses: Visualized sinuses and mastoids are clear. IMPRESSION: No acute intracranial pathology. Dictated by: Alexandria Mooney M.D. on 08/23/2024 at 21:31 Approved by: Alexandria Mooney M.D. on 08/23/2024 at 21:32
[2024-08-23 20:45] LABS: Culture Indicated Urine Cult Not Indicated
[2024-08-23 20:57] LABS: Add Manual Diff / Slide Review NO; Hematocrit 43.4 % (36-46); Hemoglobin 14.6 g/dL (12.0-16.0); Lymphocytes Absolute Auto 1300 /uL (1100-4500); Mean Corpuscular HGB Conc 33.7 % (30-36); Mean Corpuscular Hemoglobin 28.0 PG (26-34); Mean Corpuscular Volume 83.1 fL (80-100); Platelet Count 132 X10^3/uL (150-400)
[2024-08-23] MEDS: SODIUM CHLORIDE 0.9% 1,000 ML 1000 ML IV (20:58)
[2024-08-23] MEDS: KETOROLAC 30 MG/ML VIAL IV (20:58)
[2024-08-23] MEDS: ONDANSETRON 4 MG/2 ML INJ IV (20:58)
[2024-08-23] MEDS: diphenhydrAMINE 50 MG/ML VIAL IV (20:59)
[2024-08-23 21:04] LABS: UR Morphine/Opiate cutoff 300 Negative (Negative); Ur Specific Gravity Normal (Normal); Urine MDMA Negative (Negative); Urine Methamphetamines Negative (Negative); Urine Tetrahydrocannabinol Negative (Negative); Urine Tricyclic Antidepressant Negative (Negative)
[2024-08-23 21:11] LABS: Acetaminophen < 10 ug/mL (10-30); Alanine Aminotransferase 20 IU/L (<35); Albumin 4.4 g/dL (3.5-5.0); Albumin Globulin Ratio 1.1 (1.0-2.8); Alkaline Phosphatase 80 U/L (38-126); Blood Urea Nitrogen 29 mg/dL (7-17); Calcium 9.5 mg/dL (8.4-10.2); Carbon Dioxide 26 mmol/L (22-32); Chloride 103 mmol/L (98-107); Estimated Glomerular Filt Rate > 60 mL/min (>60); Globulin 3.9 g/dL (1.7-4.1); Glucose 131 mg/dL (70-99); HEMOLYSIS 43 (0-50); Potassium 4.3 mmol/L (3.4-5.1); Salicylate < 1.0 mg/dL (<20); Sodium 138 mmol/L (137-145); Total Protein 8.3 g/dL (6.3-8.2)
[2024-08-23 21:47] LABS: Thyroid Stimulating Hormone 1.91 uIU/mL (0.47-4.68)
[2024-08-23 22:22] VITALS: BP 124/75; PULSE 62; RESP 18; O2SAT 97
--- NOTE | 2024-08-24 01:11 | ED.HA ---
HPI - Headache General Chief Complaint: Headache Stated Complaint: Migraine 3days, body numbness Time Seen by Provider: 08/23/24 19:53 Mode of arrival: Ambulatory History of Present Illness HPI Narrative: Pleasant 53-year-old woman with a history of migraines comes to the ER because of another migraine. It is accompanied by her usual symptoms of blurry vision and bilateral hand numbness. She states that there are migraine today which has been going on for a couple of days and has improved but not with Imitrex at home. She states that today's headache however is the worst headache she has ever had in her life but otherwise it is exactly like her previous migraine. She denies any unilateral numbness tingling or weakness. She denies any difficulty speaking swallowing or breathing. She has no chest pain, palpitations, lightheadedness, abdominal pain, fever, chills, sweats. Related Data Home Medications ?Medication ?Instructions ?Recorded ?Confirmed levothyroxine 50 mcg tablet 50 mcg PO QDAY ##0 07/11/11 08/23/24 (Synthroid) furosemide 80 mg tablet 80 mg PO QDAY ##0 08/09/16 08/23/24 metoprolol tartrate 100 mg tablet 150 mg PO BID ##0 08/09/16 08/23/24 acetaminophen 325 mg capsule 650 mg PO Q4H PRN Pain (Scale 03/12/24 08/23/24 Score 4-6) albuterol sulfate 90 mcg/actuation 2 puff inhalation Q4H PRN wheezing 03/12/24 08/23/24 aerosol inhaler buspirone 5 mg tablet 5 mg PO TID 03/12/24 08/23/24 dabigatran etexilate 150 mg capsule 150 mg PO BID 03/12/24 08/23/24 insulin NPH isoph U-100 human 100 80 unit SUBCUT BID 03/12/24 08/23/24 unit/mL subcutaneous suspension (Humulin N NPH U-100 Insulin (isophane susp)) insulin lispro 100 unit/mL 35 unit SUBCUT BID 03/12/24 08/23/24 subcutaneous solution (Humalog U-100 Insulin) omeprazole 20 mg capsule,delayed 20 mg PO BEDTIME 03/12/24 08/23/24 release polyethylene glycol 3350 17 17 g PO DAILY PRN Constipation 03/12/24 08/23/24 gram/dose oral powder (Gavilax) potassium chloride 10 mEq 20 meq PO DAILY 03/12/24 08/23/24 capsule,extended release epinephrine 0.3 mg/0.3 mL 0.3 mg IM PRN PRN anaphylaxis 08/23/24 08/23/24 injection, auto-injector lidocaine 5 % topical ointment 1 applic topical DAILY PRN skin 08/23/24 08/23/24 irritation lorazepam 0.5 mg tablet 0.5 mg PO BID PRN anxiety 08/23/24 08/23/24 oxycodone 10 mg tablet 10 mg PO Q6H PRN Pain (Scale Score 08/23/24 08/23/24 4-6) oxycodone 10 mg tablet,crush 10 mg PO Q12H 08/23/24 08/23/24 resistant,extended release 12 hr (OxyContin) sumatriptan succinate 50 mg tablet 50 mg PO DAILY 08/23/24 08/23/24 Previous Rx's ?Medication ?Instructions ?Recorded atorvastatin 20 mg tablet (Lipitor) 20 mg PO BEDTIME #30 tabs 04/17/18 diphenhydramine HCl 25 mg tablet 25 mg PO TID PRN migraine headache 08/23/24 #30 tabs ibuprofen 800 mg tablet 800 mg PO Q8H PRN pain #30 tabs 08/23/24 ondansetron 4 mg disintegrating 4 mg PO Q8H PRN nausea and 08/23/24 tablet vomiting #14 tabs Allergies Allergy/AdvReac Type Severity Reaction Status Date / Time bee venom protein (honey bee) Allergy Severe Anaphylaxis Verified 08/23/24 19:42 clindamycin Allergy Severe RASH Verified 08/23/24 19:42 garbanzo gottlieb Allergy Severe Anaphylaxis Verified 08/23/24 19:42 zolpidem (From AMBIEN) Allergy Severe hallucinati Verified 08/23/24 19:42 ons Sulfa (Sulfonamide Allergy Mild RASH, Verified 08/23/24 19:42 Antibiotics) DIFFICULTY BREATHING vancomycin Allergy Mild HIGH FEVER Verified 08/23/24 19:42 AND RASH Patient History 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 Atrial fibrillation Morbid obesity with body mass index (BMI) greater than or equal to 70 in adult Hypothyroidism Asthma Psoriasis Hypertension 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 Social History household members: children Smoking Status: Former smoker alcohol intake: never Smoking Status: Former smoker tobacco type: cigarettes Exam Initial Vital Signs Initial Vital Signs: Vital Signs Temperature 97.8 F 08/23/24 19:49 Pulse Rate 89 08/23/24 19:49 Respiratory Rate 18 08/23/24 19:49 Blood Pressure 191/104 H 08/23/24 19:49 Pulse Oximetry 97 08/23/24 19:49 Oxygen Delivery Method Room Air 08/23/24 19:49 Const General: cooperative, in distress and No ill appearing Limitations: mental status not altered HENMT Head: normal to inspection, normocephalic and atraumatic Ears: hearing grossly normal bilaterally Face and sinus: normal facial exam Eyes General: Yes appearance normal, both eyes and all related structures Pupils: PERRL EOM: EOM intact bilaterally Neck Neck: normal visual inspection, no meningeal signs, supple and No tender Carotids: no bruits Resp Effort & Inspection: normal respiratory effort Auscultation: clear to auscultation bilaterally Cardio Rate: regular rate Rhythm: regular rhythm Heart Sounds: S1 normal and S2 normal GI Inspection: normal to inspection Palpation: soft and tender General: CVA tenderness Neuro General: patient alert, patient awake, patient oriented x3, gait normal, tone normal, moves all extremities, normal light touch, pain and propioception, no meningeal signs and CN's II-XI intact bilaterally Cranial Nerves: CN's II-XI intact bilaterally, PERRL, facial strength normal, tongue midline, hearing normal, able to elevate shoulders bilaterally and symmetric palate elevation Cognition: normal cognition Speech: speech normal Course Course Course Narrative: Patient seen and examined by myself. Her CT head was negative which was done because it was the worst headache of her life. She responded well to the usual migraine cocktail of Zofran, Benadryl, IV fluids, and Toradol. Her symptoms completely resolved. She was sent in oral analogs of these medications to be tried next time she has a migraine. I also advised her she could continue using her Imitrex according to the instructions of the prescriber. Otherwise, I advised her to return to the ER for any change or worsening of her condition especially new symptoms along with her headache or the worst headache of her life. And I advised her to follow up with her PCP and a neurologist as soon as possible. She was in agreement with this plan. Orders Ordered: ED Orders 08/23/24 19:54 Consult to RN OUTPATIENT SURGERY - Nurse Gynecology Stat 08/23/24 20:18 Urine Drug Screen, Rapid Stat Urine Microscopic Stat 08/23/24 20:33 CT head/brain wo con Stat 08/23/24 20:45 Acetaminophen Stat CBC Auto Diff [Complete Blood Count AUTO DIFF] Stat CMP [Comprehensive Metabolic Panel] Stat Salicylate Stat TSH [Thyroid Stimulating Hormone] Stat Discontinued Medications Diphenhydramine HCl (Diphenhydramine 50 Mg/Ml Vial) 50 mg IV NOW ONE Stop: 08/23/24 20:36 Last Admin: 08/23/24 20:59 Dose: 50 mg Documented By: AB Sodium Chloride (Normal Saline 0.9%) 1,000 mls @ 1,000 mls/hr IV BOLUS ONE Stop: 08/23/24 21:34 Last Infusion: 08/23/24 22:18 Dose: Infused Documented By: Admin: 08/23/24 20:58 Dose: 1,000 mls/hr Documented By: AB Ketorolac Tromethamine (Ketorolac 30 Mg/Ml Vial) 30 mg IV NOW ONE Stop: 08/23/24 20:36 Last Admin: 08/23/24 20:58 Dose: 30 mg Documented By: AB Ondansetron HCl (Ondansetron 4 Mg/2 Ml Inj) 4 mg IV NOW ONE Stop: 08/23/24 20:36 Last Admin: 08/23/24 20:58 Dose: 4 mg Documented By: AB Vital Signs Vital signs: Vital Signs - 8 hr 08/23/24 19:49 08/23/24 22:22 Temperature 97.8 F Pulse Rate 89 62 Respiratory Rate 18 18 Blood Pressure 191/104 H 124/75 Pulse Oximetry 97 97 Oxygen Delivery Method Room Air Room Air MDM - Headache Differential Diagnosis Differential diagnosis: Likely migraine, tension headache, subarachnoid hemorrhage, headache, meningitis and postconcussion syndrome Lab Data 08/23/24 20:45 08/23/24 20:45 Labs: Lab Results 08/23/24 08/23/24 Range/Units 20:18 20:45 WBC 7.8 (4.5-11.0) X10^3/uL RBC 5.22 H (4.0-5.2) X10^6/uL Hgb 14.6 (12.0-16.0) g/dL Hct 43.4 (36-46) % MCV 83.1 (80-100) fL MCH 28.0 (26-34) PG MCHC 33.7 (30-36) % RDW 17.4 H (11.6-14.8) % Plt Count 132 L (150-400) X10^3/uL Neut % (Auto) 76.5 H (50-75) % Lymph % (Auto) 16.1 L (25-40) % N[place]olls % (Auto) 5.5 (3-14) % Eos % (Auto) 1.3 L (2-4) % Baso % (Auto) 0.6 (0-2) % Neut # (Auto) 6000 (4312-1232) /uL Lymph # (Auto) 1300 (9697-3399) /uL [place]oll[place] # (Auto) 400 (0-900) /uL Eos # (Auto) 100 (0-450) /uL Baso # (Auto) 0 (0-100) /uL Sodium 138 (137-145) mmol/L Potassium 4.3 (3.4-5.1) mmol/L Chloride 103 (98-107) mmol/L Carbon Dioxide 26 (22-32) mmol/L BUN 29 H (7-17) mg/dL Creatinine 0.69 (0.52-1.04) mg/dL Estimated GFR > 60 (>60) mL/min BUN/Creatinine Ratio 42.0 H (6-22) Glucose 131 H (70-99) mg/dL Calcium 9.5 (8.4-10.2) mg/dL Total Bilirubin 1.1 (0.2-1.3) mg/dL AST 29 (14-36) IU/L ALT 20 (<35) IU/L Alkaline Phosphatase 80 (38-126) U/L Total Protein 8.3 H (6.3-8.2) g/dL Albumin 4.4 (3.5-5.0) g/dL Globulin 3.9 (1.7-4.1) g/dL Albumin/Globulin Ratio 1.1 (1.0-2.8) TSH 1.91 (0.47-4.68) uIU/mL Urine RBC None seen (0-5/HPF) Urine WBC None seen (0-5/HPF) Ur Squamous Epith Cells 1-5 /hpf D (0-5/HPF) Urine Bacteria None seen (None) Ur Culture Indicated? Cult not indicated Vol Urine Centrifuged 10ml (spun) Salicylates < 1.0 (<20) mg/dL U Opiates 300ng/mL cut Negative (Negative) Ur Oxycodone Screen Positive H (Negative) Urine Methadone Screen Negative (Negative) Acetaminophen < 10 (10-30) ug/mL Ur Barbiturates Screen Negative (Negative) U Tricyclic Antidepress Negative (Negative) Ur Phencyclidine Scrn Negative (Negative) Ur Amphetamines Screen Negative (Negative) U Methamphetamines Scrn Negative (Negative) Ur MDMA Scrn (Ecstasy) Negative (Negative) U Benzodiazepines Scrn Positive H (Negative) Urine Cocaine Screen Negative (Negative) U Marijuana (THC) Screen Negative (Negative) Urine pH Normal (Normal) Urine Specific [place] Normal (Normal) Ur Creatinine Normal (Normal) Urine Dip Bedside Urine Glucose Negative Bedside Urine Bilirubin - Negative Bedside Urine Ketone - Negative Urine Specific [place] 1.020 Bedside Urine Occult Blood - Negative Bedside Urine pH 6.0 Bedside Urine Protein +/- 15 Bedside Urine Urobilinogen - Negative Bedside Urine Nitrite - Negative Bedside Urine Leukocytes - Negative Esterase Discharge Plan Departure Patient Disposition: Home Clinical Impression: Migraine Qualifiers: Migraine type: unspecified Status migrainosus presence: without status migrainosus Intractability: not intractable Qualified Code(s): G43.909 - Migraine, unspecified, not intractable, without status migrainosus Instructions: DI for Migraine Activity Restrictions/Additional Instructions: If there is any change or worsening in her condition, especially if you get new or different symptoms with your migraine or if it is the worst headache of your life then you should always come to the ER for re-evaluation. Otherwise, I have prescribed analogous medications to what I gave you in the ER today so you can try these at home next time you have a migraine. Otherwise, please follow up with your PCP and/or neurologist as soon as possible. Prescriptions: New ibuprofen 800 mg tablet 800 mg PO Q8H PRN (Reason: pain) Qty: 30 0RF diphenhydramine HCl 25 mg tablet 25 mg PO TID PRN (Reason: migraine headache) Qty: 30 0RF ondansetron 4 mg tablet,disintegrating 4 mg PO Q8H PRN (Reason: nausea and vomiting) Qty: 14 0RF No Action levothyroxine [Synthroid] 50 MCG tablet 50 mcg PO QDAY Qty: 0 furosemide 80 MG tablet 80 mg PO QDAY Qty: 0 metoprolol tartrate 100 MG tablet 150 mg PO BID Qty: 0 atorvastatin [Lipitor] 20 mg Tablet 20 mg PO BEDTIME Qty: 30 0RF buspirone 5 mg tablet 5 mg PO TID potassium chloride 10 mEq capsule, extended release 20 meq PO DAILY Humulin N NPH U-100 Insulin 100 unit/mL suspension 80 unit SUBCUT BID omeprazole 20 mg capsule,delayed release(DR/EC) 20 mg PO BEDTIME insulin lispro [Humalog U-100 Insulin] 100 unit/mL solution 35 unit SUBCUT BID Patient Comments: pt increases amount depending on meal Rx Instructions: with meals polyethylene glycol 3350 [Gavilax] 17 gram/dose powder 17 g PO DAILY PRN (Reason: Constipation) albuterol sulfate 90 mcg/actuation HFA aerosol inhaler 2 puff INHALATION Q4H PRN (Reason: wheezing) dabigatran etexilate 150 mg capsule 150 mg PO BID Patient Comments: [NO ORIGINAL SIG] acetaminophen 325 mg Capsule 650 mg PO Q4H PRN (Reason: Pain (Scale Score 4-6)) sumatriptan succinate 50 mg tablet 50 mg PO DAILY lorazepam 0.5 mg tablet 0.5 mg PO BID PRN (Reason: anxiety) epinephrine 0.3 mg/0.3 mL auto-injector 0.3 mg IM PRN PRN (Reason: anaphylaxis) lidocaine 5 % ointment 1 applic topical DAILY PRN (Reason: skin irritation) oxycodone 10 mg tablet 10 mg PO Q6H PRN (Reason: Pain (Scale Score 4-6)) Rx Instructions: takes every am and occasionaly additional during the day oxycodone [OxyContin] 10 mg tablet,oral only,ext.rel.12 hr 10 mg PO Q12H Referrals: Twila Fuentes PA-C [Primary Care Provider, Medical] - As soon as possible Stand Alone Forms: Patient Portal/API
== END 2024-08-23 22:23 | disposition home or self-care (01) ==
PROVIDERS: Emergency Provider Emergency Medicine; Family Provider Physician Assistant; PCP Physician Assistant
DX: G43.909 Migraine, unspecified, not intractable, without status migrainosus (principal)
CPT/HCPCS: 70450; 80053; 80305; 80329; 81003; 81015; 84443; 85025; 96361; 96374; 96375; 99283; 99284; G0480; J1200; J1885; J2405

== ENCOUNTER 2024-10-22 15:51 | Emergency (ER) | payer OTHER, SELFPAY ==
[2024-03-12 06:52] VITALS: BMI 67.5
[2024-10-22] VITALS (10 sets, daily range): BP systolic 123–145; BP diastolic 69–72; PULSE 77–87; RESP 14–19; TEMP 36.6; O2SAT 91–99; BMI 52.0
--- NOTE | 2024-10-22 15:52 | EKG_ITS ---
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
--- NOTE | 2024-10-22 15:52 | DI.RAD.S_ITS ---
PROCEDURE: XR CHEST 1V INDICATIONS: Chest Pain TECHNIQUE: One view of the chest was acquired. COMPARISON: [facility], , XR CHEST FOR PICC 1V, 03/15/2024, 10:22. FINDINGS: Surgical changes and devices: Overlying monitoring wires. Lungs and pleura: Lungs are clear. No pleural effusions or pneumothorax. Mediastinum: Mild cardiomegaly. No central venous congestion. Normal aortic contour. Bones and chest wall: No suspicious bony lesions. Overlying soft tissues appear unremarkable. IMPRESSION: Mild cardiomegaly, similar compared to prior. Dictated by: Gaye Avalos M.D. on 10/22/2024 at 16:51 Approved by: Gaye Avalos M.D. on 10/22/2024 at 16:52
[2024-10-22 16:16] LABS: Add Manual Diff / Slide Review NO; Hematocrit 41.8 % (36-46); Hemoglobin 14.2 g/dL (12.0-16.0); Lymphocytes Absolute Auto 1300 /uL (1100-4500); Mean Corpuscular HGB Conc 34.0 % (30-36); Mean Corpuscular Hemoglobin 29.0 PG (26-34); Mean Corpuscular Volume 85.1 fL (80-100); Platelet Count 100 X10^3/uL (150-400)
[2024-10-22 16:41] LABS: INR 1.1 (0.9-1.3); Prothrombin Time 12.6 SECONDS (9.4-12.5)
[2024-10-22 16:43] LABS: PTT Partial Thromboplastin Tim 42 SECONDS (25.1-36.5)
[2024-10-22 16:48] LABS: Alanine Aminotransferase 22 IU/L (<35); Albumin 3.9 g/dL (3.5-5.0); Albumin Globulin Ratio 1.1 (1.0-2.8); Alkaline Phosphatase 104 U/L (38-126); Blood Urea Nitrogen 22 mg/dL (7-17); Calcium 8.9 mg/dL (8.4-10.2); Carbon Dioxide 23 mmol/L (22-32); Chloride 102 mmol/L (98-107); Creatine Kinase 21 U/L (30-135); Estimated Glomerular Filt Rate > 60 mL/min (>60); Globulin 3.4 g/dL (1.7-4.1); HEMOLYSIS < 15 (0-50); Lipase 66 U/L (23-300); Potassium 3.8 mmol/L (3.4-5.1); Sodium 134 mmol/L (137-145); Total Protein 7.3 g/dL (6.3-8.2)
[2024-10-22 16:50] LABS: Glucose 470 mg/dL (70-99)
[2024-10-22 16:57] LABS: NT-proBNP (BNP-Adult 18+) 377 pg/mL (<125); Troponin I 0.019 ng/mL (0.01-0.034)
[2024-10-22 16:58] LABS: Magnesium 1.9 mg/dL (1.6-2.3)
--- NOTE | 2024-10-22 17:03 | ED.CHESTPAIN ---
HPI - Chest Pain General Chief Complaint: Chest Pain Stated Complaint: Jaw pain + flank pain Time Seen by Provider: 10/22/24 17:03 Source: EMS Mode of arrival: EMS History of Present Illness HPI narrative: Patient is a 54-year-old female with a history of diabetes insulin-dependent, hypothyroidism, hypertension, hyperlipidemia AFib on dabigatran comes into the ED from home for evaluation of flank pain, Ace chest pain. Sat this happened when she was taking a shower today. She states that she did end up having a NSTEMI and a CVA at outside hospital on October 14 to October 17 at [place] in [place]. She states this is not similar to the symptoms. She denies any trauma or falls. She has been compliant with her medication otherwise. Patient states that she we will immediately get these pains in her jaw whenever she has stress which she states had happened today due, states he has been ongoing persistent for several years. He also states has a history of kidney stones, states that at time of evaluation it has improved. 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 Related Data Home Medications ?Medication ?Instructions ?Recorded ?Confirmed levothyroxine 50 mcg tablet 50 mcg PO QDAY ##0 07/11/11 08/23/24 (Synthroid) furosemide 80 mg tablet 80 mg PO QDAY ##0 08/09/16 08/23/24 metoprolol tartrate 100 mg tablet 150 mg PO BID ##0 08/09/16 08/23/24 acetaminophen 325 mg capsule 650 mg PO Q4H PRN Pain (Scale 03/12/24 08/23/24 Score 4-6) albuterol sulfate 90 mcg/actuation 2 puff inhalation Q4H PRN wheezing 03/12/24 08/23/24 aerosol inhaler buspirone 5 mg tablet 5 mg PO TID 03/12/24 08/23/24 dabigatran etexilate 150 mg capsule 150 mg PO BID 03/12/24 08/23/24 insulin NPH isoph U-100 human 100 80 unit SUBCUT BID 03/12/24 08/23/24 unit/mL subcutaneous suspension (Humulin N NPH U-100 Insulin (isophane susp)) insulin lispro 100 unit/mL 35 unit SUBCUT BID 03/12/24 08/23/24 subcutaneous solution (Humalog U-100 Insulin) omeprazole 20 mg capsule,delayed 20 mg PO BEDTIME 03/12/24 08/23/24 release polyethylene glycol 3350 17 17 g PO DAILY PRN Constipation 03/12/24 08/23/24 gram/dose oral powder (Gavilax) potassium chloride 10 mEq 20 meq PO DAILY 03/12/24 08/23/24 capsule,extended release epinephrine 0.3 mg/0.3 mL 0.3 mg IM PRN PRN anaphylaxis 08/23/24 08/23/24 injection, auto-injector lidocaine 5 % topical ointment 1 applic topical DAILY PRN skin 08/23/24 08/23/24 irritation lorazepam 0.5 mg tablet 0.5 mg PO BID PRN anxiety 08/23/24 08/23/24 oxycodone 10 mg tablet 10 mg PO Q6H PRN Pain (Scale Score 08/23/24 08/23/24 4-6) oxycodone 10 mg tablet,crush 10 mg PO Q12H 08/23/24 08/23/24 resistant,extended release 12 hr (OxyContin) sumatriptan succinate 50 mg tablet 50 mg PO DAILY 08/23/24 08/23/24 Previous Rx's ?Medication ?Instructions ?Recorded atorvastatin 20 mg tablet (Lipitor) 20 mg PO BEDTIME #30 tabs 04/17/18 diphenhydramine HCl 25 mg tablet 25 mg PO TID PRN migraine headache 08/23/24 #30 tabs ibuprofen 800 mg tablet 800 mg PO Q8H PRN pain #30 tabs 08/23/24 ondansetron 4 mg disintegrating 4 mg PO Q8H PRN nausea and 08/23/24 tablet vomiting #14 tabs enoxaparin 150 mg/mL subcutaneous 150 mg SUBCUT Q12H 1 week #14 mL 10/22/24 syringe (Lovenox) Allergies Allergy/AdvReac Type Severity Reaction Status Date / Time bee venom protein (honey bee) Allergy Severe Anaphylaxis Verified 10/22/24 16:26 garbanzo gottlieb Allergy Severe Anaphylaxis Verified 10/22/24 16:26 zolpidem (From AMBIEN) Allergy Severe hallucinati Verified 10/22/24 16:26 ons Sulfa (Sulfonamide Allergy Mild RASH, Verified 10/22/24 16:26 Antibiotics) DIFFICULTY BREATHING vancomycin Allergy Mild HIGH FEVER Verified 10/22/24 16:26 AND RASH Review of Systems Review of Systems Narrative: General: Denies fever, chills, weight loss HEENT: Positive jaw pain, Denies headache, eye drainage, eye irritation, head trauma, sore throat, voice change Cardiovascular: Positive chest pain, denies palpitations, tachycardia Respiratory: Denies any shortness of breath, cough, wheeze, stridor GI/: Positive flank pain, Denies any abdominal pain, nausea, vomiting, diarrhea, bright red blood per rectum, melanotic stools, urinary frequency, urinary retention, dysuria, hematuria MSK: Denies any joint pain, muscle pains, swelling Skin: Denies any rashes, lesions, discoloration Neuro: Denies any headache, lightheadedness, dizziness, fainting, weakness Psych: Denies SI/HI Patient History Medical History jail current use of anticoagulant Atrial fibrillation Morbid obesity with body mass index (BMI) greater than or equal to 70 in adult Hypothyroidism Asthma Psoriasis Hypertension 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 Social History household members: children Smoking Status: Former smoker alcohol intake: never Smoking Status: Former smoker tobacco type: cigarettes Exam Initial Vital Signs Initial Vital Signs: Vital Signs Temperature 97.8 F 10/22/24 16:05 Pulse Rate 87 10/22/24 16:05 Respiratory Rate 17 10/22/24 16:05 Blood Pressure 126/71 10/22/24 16:05 Pulse Oximetry 98 10/22/24 16:05 Oxygen Delivery Method Room Air 10/22/24 16:05 Course Orders Ordered: ED Orders 10/22/24 15:52 XR chest 1V Stat EKG-12 Lead Stat 10/22/24 16:05 Complete Blood Count AUTO DIFF Stat 10/22/24 16:25 Comprehensive Metabolic Panel Stat Lipase Stat Magnesium Stat NT-proBNP (BNP-Adult 18+) Stat PTT Partial Thromboplastin Jerzy Stat Prothrombin Time INR Stat Troponin & CK Cardiac Panel Stat 10/22/24 17:10 CT abdomen pelvis w con Stat 10/22/24 17:52 Urine Microscopic Stat 10/22/24 18:22 Trop I [Troponin I] Stat Discontinued Medications Aspirin (Aspirin 81 Mg Chew Tab) 324 mg PO NOW ONE Stop: 10/22/24 15:53 Last Admin: 10/22/24 16:24 Dose: Not Given Documented By: CHHAYA Sodium Chloride (Normal Saline 0.9%) 1,000 mls @ 1,000 mls/hr IV BOLUS ONE Stop: 10/22/24 18:09 Last Infusion: 10/22/24 18:23 Dose: Infused Documented By: Admin: 10/22/24 17:30 Dose: 1,000 mls/hr Documented By: CHHAYA Morphine Sulfate (Morphine 4 Mg/Ml Inj) 4 mg IV NOW ONE Stop: 10/22/24 18:53 Last Admin: 10/22/24 19:03 Dose: 4 mg Ondansetron HCl (Ondansetron 4 Mg/2 Ml Inj) 4 mg IV NOW ONE Stop: 10/22/24 18:53 Last Admin: 10/22/24 19:03 Dose: 4 mg Vital Signs Vital signs: Vital Signs - 8 hr 10/22/24 16:05 10/22/24 16:11 10/22/24 16:30 Temperature 97.8 F Pulse Rate 87 86 Respiratory Rate 17 15 Blood Pressure 126/71 145/69 H Pulse Oximetry 98 97 Oxygen Delivery Method Room Air 10/22/24 16:30 10/22/24 17:00 10/22/24 17:49 Temperature Pulse Rate 86 82 83 Respiratory Rate 15 16 18 Blood Pressure Pulse Oximetry 91 96 99 Oxygen Delivery Method MDM - Chest Pain Lab Data 10/22/24 16:05 10/22/24 16:25 Labs: Lab Results 10/22/24 10/22/24 10/22/24 Range/Units 16:05 16:25 17:52 WBC 6.6 (4.5-11.0) X10^3/uL RBC 4.91 (4.0-5.2) X10^6/uL Hgb 14.2 (12.0-16.0) g/dL Hct 41.8 (36-46) % MCV 85.1 (80-100) fL MCH 29.0 (26-34) PG MCHC 34.0 (30-36) % RDW 13.8 (11.6-14.8) % Plt Count 100 L (150-400) X10^3/uL Neut % (Auto) 70.4 (50-75) % Lymph % (Auto) 19.4 L (25-40) % [place] % (Auto) 8.3 (3-14) % Eos % (Auto) 1.0 L (2-4) % Baso % (Auto) 0.9 (0-2) % Neut # (Auto) 4700 (5936-3049) /uL Lymph # (Auto) 1300 (0392-9652) /uL [place] # (Auto) 500 (0-900) /uL Eos # (Auto) 100 (0-450) /uL Baso # (Auto) 100 (0-100) /uL PT 12.6 H (9.4-12.5) SECONDS INR 1.1 (0.9-1.3) APTT 42 H (25.1-36.5) SECONDS Sodium 134 L (137-145) mmol/L Potassium 3.8 (3.4-5.1) mmol/L Chloride 102 (98-107) mmol/L Carbon Dioxide 23 (22-32) mmol/L BUN 22 H (7-17) mg/dL Creatinine 1.01 (0.52-1.04) mg/dL Estimated GFR > 60 (>60) mL/min BUN/Creatinine Ratio 21.8 (6-22) Glucose 470 H* (70-99) mg/dL Calcium 8.9 (8.4-10.2) mg/dL Magnesium 1.9 (1.6-2.3) mg/dL Total Bilirubin 0.7 (0.2-1.3) mg/dL AST 30 (14-36) IU/L ALT 22 (<35) IU/L Alkaline Phosphatase 104 (38-126) U/L Total Creatine Kinase 21 L (30-135) U/L Troponin I 0.019 (0.01-0.034) ng/mL NT-Pro-B Natriuret Pep 377 H (<125) pg/mL Total Protein 7.3 (6.3-8.2) g/dL Albumin 3.9 (3.5-5.0) g/dL Globulin 3.4 (1.7-4.1) g/dL Albumin/Globulin Ratio 1.1 (1.0-2.8) Lipase 66 (23-300) U/L Urine RBC >100/hpf H (0-5/HPF) Urine WBC 0-1/hpf (0-5/HPF) Ur Squamous Epith Cells 0-1 /hpf (0-5/HPF) Urine Bacteria Occasional (0-1) (None) Ur Culture Indicated? Cult not indicated Vol Urine Centrifuged 10ml (spun) 10/22/24 Range/Units 18:22 WBC (4.5-11.0) X10^3/uL RBC (4.0-5.2) X10^6/uL Hgb (12.0-16.0) g/dL Hct (36-46) % MCV (80-100) fL MCH (26-34) PG MCHC (30-36) % RDW (11.6-14.8) % Plt Count (150-400) X10^3/uL Neut % (Auto) (50-75) % Lymph % (Auto) (25-40) % [place] % (Auto) (3-14) % Eos % (Auto) (2-4) % Baso % (Auto) (0-2) % Neut # (Auto) (5748-5799) /uL Lymph # (Auto) (9046-6805) /uL [place] # (Auto) (0-900) /uL Eos # (Auto) (0-450) /uL Baso # (Auto) (0-100) /uL PT (9.4-12.5) SECONDS INR (0.9-1.3) APTT (25.1-36.5) SECONDS Sodium (137-145) mmol/L Potassium (3.4-5.1) mmol/L Chloride (98-107) mmol/L Carbon Dioxide (22-32) mmol/L BUN (7-17) mg/dL Creatinine (0.52-1.04) mg/dL Estimated GFR (>60) mL/min BUN/Creatinine Ratio (6-22) Glucose (70-99) mg/dL Calcium (8.4-10.2) mg/dL Magnesium (1.6-2.3) mg/dL Total Bilirubin (0.2-1.3) mg/dL AST (14-36) IU/L ALT (<35) IU/L Alkaline Phosphatase (38-126) U/L Total Creatine Kinase (30-135) U/L Troponin I 0.024 (0.01-0.034) ng/mL NT-Pro-B Natriuret Pep (<125) pg/mL Total Protein (6.3-8.2) g/dL Albumin (3.5-5.0) g/dL Globulin (1.7-4.1) g/dL Albumin/Globulin Ratio (1.0-2.8) Lipase (23-300) U/L Urine RBC (0-5/HPF) Urine WBC (0-5/HPF) Ur Squamous Epith Cells (0-5/HPF) Urine Bacteria (None) Ur Culture Indicated? Vol Urine Centrifuged Urine Dip Bedside Urine Glucose 1000 mg/dl Bedside Urine Bilirubin - Negative Bedside Urine Ketone - Negative Urine Specific [place] 1.010 Bedside Urine Occult Blood +++ Bedside Urine pH 6.0 Bedside Urine Protein +/- 15 Bedside Urine Urobilinogen - Negative Bedside Urine Nitrite - Negative Bedside Urine Leukocytes - Negative Esterase ECG Data Interpretation: EKG interpreted ED physician atrial fibrillation at 78 beats per minute, QTC 440, nonspecific ST changes no STEMI, this does appear similar to previous performed on 03/12/2024. MDM Narrative Medical decision making narrative: 54-year-old female with a past medical history of hyperlipidemia, AFib on Lovenox, diabetes, hypertension, comes into the ED from home for evaluation of multiple complaints. States that she has intermittent cases of left-sided jaw pain whenever she gets stress, states that this did happen when she was taking a shower today. She also states that she has a history of kidney stones states that she felt like she was passing went to her left flank, at time of evaluation symptoms have improved, patient CT scan does show infarct within the kidney and spleen she states that this was known when she was admitted to an outside hospital in [facility]. She states this is the reason she is on Lovenox. On my exam there is no signs of erythema or purulent discharge to her abdomen. Does show some bruising due to history of injections for her insulin as well as her Lovenox. Patient urinalysis did show some RBC which possibly is likely secondary to either her Lovenox administration and/or recently passed any stone. She was instructed to follow up with Urology for this. 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 She states that just a few weeks ago she already had a cardiac catheterization which was normal. Patient's lab work was reviewed, patient without leukocytosis, WBC 6.6, Chem panel was consistent with hyperglycemia, glucose 470, Patient with anion gap of 9, not consistent with acute DKA, troponin undetectable at 0.019 with repeat, 0.024, BNP 377, patient did receive 1 L normal saline here, patient states that she will like to just self correct herself with her insulin. Patient's repeat troponin slightly increased but still undetectable, she has no complaints at this time, she states that she does feel comfortable being discharged home with outpatient follow up. Did offer her admission versus repeat troponin but states that she would like to just follow up and follow up in an outpatient setting. Return precautions given she verbalized understanding of this and agrees to being discharged home with outpatient follow up Review of records show patient had previous echo cardiogram on 04/25 with following results: The left ventricular ejection fraction is grossly normal. Discharge Plan Departure Patient Disposition: Home Clinical Impression: Hyperglycemia, Hematuria, Chest pain Activity Restrictions/Additional Instructions: Please keep an eye on your glucose and self correct herself with your insulin Please follow up with your forge heater Please follow up with Urology Please read the discharge instructions sheet carefully and bring all papers to all doctor follow-up visits, as it may contain information that your doctor may want to see. Disease processes change and evolve, if your symptoms worsen or if you develop any new symptoms that are concerning to you please return for evaluation. Your evaluation today does not show any evidence of any life-threatening/serious illnesses requiring admission to the hospital or surgery. Please follow-up with your doctor for re-evaluation in approximately 1 day. Seek immediate medical attention for any worrisome symptoms. *If you do not have a primary care provider please contact the [facility] Resource line at [phone]. They will ask some questions about your medical history and help get you set up with a doctor in the community. Prescriptions: New enoxaparin [Lovenox] 150 mg/mL syringe 150 mg SUBCUT Q12H 7 Days Qty: 14 0RF No Action levothyroxine [Synthroid] 50 MCG tablet 50 mcg PO QDAY Qty: 0 furosemide 80 MG tablet 80 mg PO QDAY Qty: 0 metoprolol tartrate 100 MG tablet 150 mg PO BID Qty: 0 atorvastatin [Lipitor] 20 mg Tablet 20 mg PO BEDTIME Qty: 30 0RF buspirone 5 mg tablet 5 mg PO TID potassium chloride 10 mEq capsule, extended release 20 meq PO DAILY Humulin N NPH U-100 Insulin 100 unit/mL suspension 80 unit SUBCUT BID omeprazole 20 mg capsule,delayed release(DR/EC) 20 mg PO BEDTIME insulin lispro [Humalog U-100 Insulin] 100 unit/mL solution 35 unit SUBCUT BID Patient Comments: pt increases amount depending on meal Rx Instructions: with meals polyethylene glycol 3350 [Gavilax] 17 gram/dose powder 17 g PO DAILY PRN (Reason: Constipation) albuterol sulfate 90 mcg/actuation HFA aerosol inhaler 2 puff INHALATION Q4H PRN (Reason: wheezing) dabigatran etexilate 150 mg capsule 150 mg PO BID Patient Comments: [NO ORIGINAL SIG] acetaminophen 325 mg Capsule 650 mg PO Q4H PRN (Reason: Pain (Scale Score 4-6)) sumatriptan succinate 50 mg tablet 50 mg PO DAILY lorazepam 0.5 mg tablet 0.5 mg PO BID PRN (Reason: anxiety) epinephrine 0.3 mg/0.3 mL auto-injector 0.3 mg IM PRN PRN (Reason: anaphylaxis) lidocaine 5 % ointment 1 applic topical DAILY PRN (Reason: skin irritation) oxycodone 10 mg tablet 10 mg PO Q6H PRN (Reason: Pain (Scale Score 4-6)) Rx Instructions: takes every am and occasionaly additional during the day oxycodone [OxyContin] 10 mg tablet,oral only,ext.rel.12 hr 10 mg PO Q12H ibuprofen 800 mg tablet 800 mg PO Q8H PRN (Reason: pain) Qty: 30 0RF diphenhydramine HCl 25 mg tablet 25 mg PO TID PRN (Reason: migraine headache) Qty: 30 0RF ondansetron 4 mg tablet,disintegrating 4 mg PO Q8H PRN (Reason: nausea and vomiting) Qty: 14 0RF Referrals: Porfirio Hatch DO [Physician, Urology] Twila Fuentes PA-C [Primary Care Provider, Medical] Stand Alone Forms: Patient Portal/API
--- NOTE | 2024-10-22 17:10 | DI.CT.S_ITS ---
PROCEDURE: CT ABDOMEN PELVIS W CON INDICATIONS: left flank pain TECHNIQUE: After the administration of intravenous contrast, axial sections acquired from the lung bases to the pubic symphysis. Coronal and sagittal reformats were performed. For radiation dose reduction, the following was used: automated exposure control, adjustment of mA and/or kV according to patient size. COMPARISON: [facility], CT, CT ABDOMEN PELVIS W CON, 03/12/2024, 4:49. FINDINGS: Image quality: Diagnostic. Lower Chest: No significant findings. ABDOMEN: Liver: No solid mass. Gallbladder: Partially filled, punctate stones within the gallbladder lumen which measure up to 4 mm. Biliary ducts: No biliary dilation. Pancreas: No ductal dilation. Spleen: Wedge-shaped hypodensity in the anterior spleen without adjacent free fluid. Adrenal Glands: No adrenal nodules. Kidneys and Ureters: No hydronephrosis. No solid mass. No complex renal cystic lesion which requires further follow-up. Multifocal cortical thinning concerning for prior infection/inflammation versus infarction. Stomach and Bowel: Normal colonic caliber, without significant wall thickening. Nonvisualized appendix. Peritoneum: No abnormal intraperitoneal fluid. No free air. Ventral Wall: Large pannus with fat stranding anteriorly. Multifocal gas foci along the left lower quadrant with fat stranding mild correlate for history of injection Abdominal Nodes: No retroperitoneal or mesenteric adenopathy by size criteria. Vessels: Aorta and inferior vena cava are normal in size. PELVIS: Pelvic Organs: Unremarkable. Bladder: No bladder wall thickening, accounting for underdistention. Pelvic Nodes: No enlarged lymph nodes. Miscellaneous: No inguinal hernias are seen. Bones: No aggressive osseous abnormality. Degenerative disc disease at the lumbosacral junction. IMPRESSION: 1. Wedge-shaped hypoattenuation within the anterior spleen is concerning for an acute splenic infarct without associated hemorrhage. 2. Fat stranding and dermal thickening of the inferior pannus, correlate with physical exam for cellulitis. No enhancing abscess. 3. Air foci in the anterior abdominal wall may represent sequela of prior injection. 4. Cholelithiasis without acute cholecystitis. Dictated by: Jules Steen M.D. on 10/22/2024 at 18:09 Approved by: Jules Steen M.D. on 10/22/2024 at 18:14
[2024-10-22] MEDS: SODIUM CHLORIDE 0.9% 1,000 ML 1000 ML IV (17:30)
[2024-10-22 18:14] LABS: Culture Indicated Urine Cult Not Indicated
[2024-10-22 18:57] LABS: Troponin I 0.024 ng/mL (0.01-0.034)
[2024-10-22] MEDS: MORPHINE 4 MG/ML INJ IV (19:03)
[2024-10-22] MEDS: ONDANSETRON 4 MG/2 ML INJ IV (19:03)
== END 2024-10-22 19:46 | disposition home or self-care (01) ==
PROVIDERS: Emergency Provider Student in an Organized Health Care Education/Training Program; Family Provider Physician Assistant; PCP Physician Assistant
DX: E11.65 Type 2 diabetes mellitus with hyperglycemia (principal); R31.9 Hematuria, unspecified; I25.2 Old myocardial infarction; R07.9 Chest pain, unspecified; Z79.4 Long term (current) use of insulin; Z86.73 Personal history of transient ischemic attack (TIA), and cerebral infarction without residual deficits
CPT/HCPCS: 36415; 71045; 74177; 80053; 81003; 81015; 82550; 83690; 83735; 83880; 84484; 85025; 85610; 85730; 93005; 93010; 96361; 96374; 96375; 99284; J2272; J2405; Q9967

== ENCOUNTER 2024-11-03 10:19 | Emergency (ER) | payer OTHER, SELFPAY ==
[2024-03-12 06:52] VITALS: BMI 67.5
[2024-11-03 10:21] VITALS: BP 172/103; PULSE 88; RESP 18; TEMP 37.2; O2SAT 96; BMI 52.8
[2024-11-03 10:26] VITALS: BP 172/103; PULSE 87; O2SAT 95
[2024-11-03 10:30] VITALS: PULSE 81; O2SAT 98
--- NOTE | 2024-11-03 10:46 | ED.EXTPRO ---
HPI - Extremity Problem General Chief complaint: Extremity Problem,Nontraumatic Stated complaint: Both legs swollen; concern for pul aneurism Time Seen by Provider: 11/03/24 10:24 Source: patient Mode of arrival: Ambulatory History of Present Illness HPI Narrative: 54-year-old female diabetes insulin dependent hypothyroidism hypertension hyperlipidemia atrial fibrillation on Coumadin with recent diagnosis of NSTEMI CVA on October 14 she was [place] currently on Coumadin at this time presents for evaluation of chronic lymphedema on top of acute on chronic leg pain bilaterally. She had a thorough workup including cardiac catheterization while [place] for NSTEMI. Patient denies chest pain, shortness of breath, dyspnea on exertion, back pain, nausea, vomiting, diaphoresis, at this time. Other than what is stated 14 point review of systems negative. Related Data Home Medications ?Medication ?Instructions ?Recorded ?Confirmed levothyroxine 50 mcg tablet 50 mcg PO QDAY ##0 07/11/11 08/23/24 (Synthroid) furosemide 80 mg tablet 80 mg PO QDAY ##0 08/09/16 08/23/24 metoprolol tartrate 100 mg tablet 150 mg PO BID ##0 08/09/16 08/23/24 acetaminophen 325 mg capsule 650 mg PO Q4H PRN Pain (Scale 03/12/24 08/23/24 Score 4-6) albuterol sulfate 90 mcg/actuation 2 puff inhalation Q4H PRN wheezing 03/12/24 08/23/24 aerosol inhaler buspirone 5 mg tablet 5 mg PO TID 03/12/24 08/23/24 dabigatran etexilate 150 mg capsule 150 mg PO BID 03/12/24 08/23/24 insulin NPH isoph U-100 human 100 80 unit SUBCUT BID 03/12/24 08/23/24 unit/mL subcutaneous suspension (Humulin N NPH U-100 Insulin (isophane susp)) insulin lispro 100 unit/mL 35 unit SUBCUT BID 03/12/24 08/23/24 subcutaneous solution (Humalog U-100 Insulin) omeprazole 20 mg capsule,delayed 20 mg PO BEDTIME 03/12/24 08/23/24 release polyethylene glycol 3350 17 17 g PO DAILY PRN Constipation 03/12/24 08/23/24 gram/dose oral powder (Gavilax) potassium chloride 10 mEq 20 meq PO DAILY 03/12/24 08/23/24 capsule,extended release epinephrine 0.3 mg/0.3 mL 0.3 mg IM PRN PRN anaphylaxis 08/23/24 08/23/24 injection, auto-injector lidocaine 5 % topical ointment 1 applic topical DAILY PRN skin 08/23/24 08/23/24 irritation lorazepam 0.5 mg tablet 0.5 mg PO BID PRN anxiety 08/23/24 08/23/24 oxycodone 10 mg tablet 10 mg PO Q6H PRN Pain (Scale Score 08/23/24 08/23/24 4-6) oxycodone 10 mg tablet,crush 10 mg PO Q12H 08/23/24 08/23/24 resistant,extended release 12 hr (OxyContin) sumatriptan succinate 50 mg tablet 50 mg PO DAILY 08/23/24 08/23/24 Previous Rx's ?Medication ?Instructions ?Recorded atorvastatin 20 mg tablet (Lipitor) 20 mg PO BEDTIME #30 tabs 04/17/18 diphenhydramine HCl 25 mg tablet 25 mg PO TID PRN migraine headache 08/23/24 #30 tabs ibuprofen 800 mg tablet 800 mg PO Q8H PRN pain #30 tabs 08/23/24 ondansetron 4 mg disintegrating 4 mg PO Q8H PRN nausea and 08/23/24 tablet vomiting #14 tabs enoxaparin 120 mg/0.8 mL 120 mg (0.8 mL) SUBCUT BID #8 mL 10/22/24 subcutaneous syringe (Lovenox) Allergies Allergy/AdvReac Type Severity Reaction Status Date / Time bee venom protein (honey bee) Allergy Severe Anaphylaxis Verified 11/03/24 10:28 garbanzo gottlieb Allergy Severe Anaphylaxis Verified 11/03/24 10:28 zolpidem (From AMBIEN) Allergy Severe hallucinati Verified 11/03/24 10:28 ons Sulfa (Sulfonamide Allergy Mild RASH, Verified 11/03/24 10:28 Antibiotics) DIFFICULTY BREATHING vancomycin Allergy Mild HIGH FEVER Verified 11/03/24 10:28 AND RASH Review of Systems Review of Systems ROS Unobtainable: All systems reviewed & are unremarkable except as noted in HPI and below 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 Well-developed patient, in mild distress. HEAD: Atraumatic. Normocephalic. EYES: Pupils equal round and reactive. Extraocular motions intact. No scleral icterus. No injection or drainage. ENT: Nose without bleeding, purulent drainage. Throat without erythema, tonsillar hypertrophy or exudate. Airway patent. NECK: Trachea midline. Non tender CARDIOVASCULAR: Regular rate and rhythm without murmurs, gallops, or rubs. RESPIRATORY: Clear to auscultation. Breath sounds equal bilaterally. No wheezes, rales, or rhonchi. GASTROINTESTINAL: Abdomen soft, non-tender, nondistended. EXTREMITIES: Bilateral chronic lymphedema BACK: Nontender without deformity or crepitance. No flank tenderness. NEURO: AOx3. SKIN: No rash or erythema of visible areas Initial Vital Signs Initial Vital Signs: Vital Signs Temperature 98.9 F 11/03/24 10:21 Pulse Rate 88 11/03/24 10:21 Respiratory Rate 18 11/03/24 10:21 Blood Pressure 172/103 H 11/03/24 10:21 Pulse Oximetry 96 11/03/24 10:21 Oxygen Delivery Method Room Air 11/03/24 10:21 Course Orders Ordered: ED Orders 11/03/24 10:46 US perip venous low extrem bi Stat 11/03/24 10:47 CXR [XR chest 2V] Stat BNP [NT-proBNP (BNP-Adult 18+)] Stat CBC Auto Diff [Complete Blood Count AUTO DIFF] Stat CMP [Comprehensive Metabolic Panel] Stat Vital Signs Vital signs: Vital Signs - 8 hr 11/03/24 10:21 Temperature 98.9 F Pulse Rate 88 Respiratory Rate 18 Blood Pressure 172/103 H Pulse Oximetry 96 Oxygen Delivery Method Room Air MDM - Extremity (Nontraumatic) Imaging Data Chest x-ray: Radiologist's Impression: [address] [place] [address] XRay Report Signed Patient: Kristine Orourke MR#: [id number] : 1970 Acct:[id number] Age/Sex: 54 / F Date of Service: 11/03/24 Loc: ED Accession Number: [id number] Procedure: XR chest 2V Ordering Provider: Ace Donnelly D.O. PROCEDURE: XR CHEST 2V INDICATIONS: Short of breath TECHNIQUE: 2 views of the chest were acquired. COMPARISON: [facility], XR CHEST 1V, 10/22/2024, 16:01. FINDINGS: Surgical changes and devices: None. Lungs and pleura: Lungs are clear. No pleural effusions or pneumothorax. The lungs are hyperexpanded, with flattening of the hemidiaphragms seen. Mediastinum: Mediastinal contours are normal. Heart size is mildly enlarged. Bones and chest wall: No suspicious bony abnormalities. Age-appropriate bony degenerative changes are seen. Soft tissues appear unremarkable. IMPRESSION: Mild cardiomegaly. Hyperexpanded lungs, without a focal pulmonary abnormality. Dictated by: Misael Minor M.D. on 11/03/2024 at 10:49 Approved by: Misael Minor M.D. on 11/03/2024 at 10:51 Extremity x-ray #1: Radiologist's Impression: [address] [address] Ultrasound Report Signed Patient: Kristine Orourke MR#: [id number] : 1970 Acct:[id number] Age/Sex: 54 / F Date of Service: 11/03/24 Loc: ED Accession Number: [id number] Procedure: US periph venous low extrem bi Ordering Provider: Ace Donnelly D.O. PROCEDURE: US PERIPH VENOUS LOW EXTREM BI INDICATIONS: leg pain swelling TECHNIQUE: Real-time imaging, as well as color and pulse Doppler interrogation, were performed of the deep veins of both legs from the inguinal ligament to the popliteal fossa, with documentation of the visualized calf veins. COMPARISON: [facility], XR CHEST 2V, 11/03/2024, 11:19. FINDINGS: Right: The common femoral, femoral, popliteal, and the visualized calf veins are normally compressible, and free of intraluminal thrombus. Color and pulse Doppler demonstrate normal phasic intravascular flow. There is normal augmentation response to distal compression maneuver. Left: The common femoral, femoral, popliteal, and the visualized calf veins are normally compressible, and free of intraluminal thrombus. Color and pulse Doppler demonstrate normal phasic intravascular flow. There is normal augmentation response to distal compression maneuver. IMPRESSION: No findings of deep venous thrombosis in either lower extremity. MDM Narrative Medical decision making narrative: Vital signs nurse triage note medication list previous ER visits in all imaging studies reviewed. Wbc 7.6 hg 14.9 plt 162 sodium 139 potassium 3.8 chloride 104 CO2 23 BUN 23 Cr 1.01 glucose 303 BNP 787 Cxr mild cardiomegaly, hyperexpanded lungs without focal pulm abnormality. US b/l l/e showed no acute dvt. Differential dx dvt, superficial thrombophelbitis, chronic lymphedema. Discharge Plan Departure Patient Disposition: Home Clinical Impression: Lymphedema, Hyperglycemia Instructions: DI for Lymphedema Activity Restrictions/Additional Instructions: Return with new or worsening symptoms. F/U with pcp 1-2 weeks if no improvement in symptoms. Prescriptions: No Action levothyroxine [Synthroid] 50 MCG tablet 50 mcg PO QDAY Qty: 0 furosemide 80 MG tablet 80 mg PO QDAY Qty: 0 metoprolol tartrate 100 MG tablet 150 mg PO BID Qty: 0 atorvastatin [Lipitor] 20 mg Tablet 20 mg PO BEDTIME Qty: 30 0RF buspirone 5 mg tablet 5 mg PO TID potassium chloride 10 mEq capsule, extended release 20 meq PO DAILY Humulin N NPH U-100 Insulin 100 unit/mL suspension 80 unit SUBCUT BID omeprazole 20 mg capsule,delayed release(DR/EC) 20 mg PO BEDTIME insulin lispro [Humalog U-100 Insulin] 100 unit/mL solution 35 unit SUBCUT BID Patient Comments: pt increases amount depending on meal Rx Instructions: with meals polyethylene glycol 3350 [Gavilax] 17 gram/dose powder 17 g PO DAILY PRN (Reason: Constipation) albuterol sulfate 90 mcg/actuation HFA aerosol inhaler 2 puff INHALATION Q4H PRN (Reason: wheezing) dabigatran etexilate 150 mg capsule 150 mg PO BID Patient Comments: [NO ORIGINAL SIG] acetaminophen 325 mg Capsule 650 mg PO Q4H PRN (Reason: Pain (Scale Score 4-6)) sumatriptan succinate 50 mg tablet 50 mg PO DAILY lorazepam 0.5 mg tablet 0.5 mg PO BID PRN (Reason: anxiety) epinephrine 0.3 mg/0.3 mL auto-injector 0.3 mg IM PRN PRN (Reason: anaphylaxis) lidocaine 5 % ointment 1 applic topical DAILY PRN (Reason: skin irritation) oxycodone 10 mg tablet 10 mg PO Q6H PRN (Reason: Pain (Scale Score 4-6)) Rx Instructions: takes every am and occasionaly additional during the day oxycodone [OxyContin] 10 mg tablet,oral only,ext.rel.12 hr 10 mg PO Q12H ibuprofen 800 mg tablet 800 mg PO Q8H PRN (Reason: pain) Qty: 30 0RF diphenhydramine HCl 25 mg tablet 25 mg PO TID PRN (Reason: migraine headache) Qty: 30 0RF ondansetron 4 mg tablet,disintegrating 4 mg PO Q8H PRN (Reason: nausea and vomiting) Qty: 14 0RF enoxaparin [Lovenox] 120 mg/0.8 mL syringe 120 mg SUBCUT BID Qty: 8 0RF Referrals: Twila Fuentes PA-C [Primary Care Provider, Medical] Stand Alone Forms: Patient Portal/API
[2024-11-03 11:00] VITALS: PULSE 75; O2SAT 99
[2024-11-03 12:39] LABS: Add Manual Diff / Slide Review NO; Hematocrit 43.3 % (36-46); Hemoglobin 14.9 g/dL (12.0-16.0); Lymphocytes Absolute Auto 1000 /uL (1100-4500); Mean Corpuscular HGB Conc 34.3 % (30-36); Mean Corpuscular Hemoglobin 29.0 PG (26-34); Mean Corpuscular Volume 84.5 fL (80-100); Platelet Count 162 X10^3/uL (150-400)
[2024-11-03 12:47] LABS: Alanine Aminotransferase 19 IU/L (<35); Albumin 4.5 g/dL (3.5-5.0); Albumin Globulin Ratio 1.2 (1.0-2.8); Alkaline Phosphatase 94 U/L (38-126); Blood Urea Nitrogen 23 mg/dL (7-17); Calcium 9.4 mg/dL (8.4-10.2); Carbon Dioxide 23 mmol/L (22-32); Chloride 104 mmol/L (98-107); Estimated Glomerular Filt Rate > 60 mL/min (>60); Globulin 3.9 g/dL (1.7-4.1); Glucose 303 mg/dL (70-99); HEMOLYSIS 15 (0-50); Potassium 3.8 mmol/L (3.4-5.1); Sodium 139 mmol/L (137-145); Total Protein 8.4 g/dL (6.3-8.2)
[2024-11-03 12:55] LABS: NT-proBNP (BNP-Adult 18+) 787 pg/mL (<125)
[2024-11-03 13:00] VITALS: BP 165/82; PULSE 82; O2SAT 96
== END 2024-11-03 13:04 | disposition home or self-care (01) ==
PROVIDERS: Emergency Provider Family Medicine; Family Provider Physician Assistant; PCP Physician Assistant
DX: I89.0 Lymphedema, not elsewhere classified (principal); R06.02 Shortness of breath; E11.65 Type 2 diabetes mellitus with hyperglycemia; Z79.4 Long term (current) use of insulin; Z79.01 Long term (current) use of anticoagulants
CPT/HCPCS: 36415; 71046; 80053; 83880; 85025; 93970; 99283; 99284